=== PATIENT | female | born 1985 | race Caucasian/White ===

== ENCOUNTER 2019-07-23 10:31 | Emergency (ER) | payer OTHER, SELFPAY ==
[2019-07-23] MEDS ORDERED: IPRATROPIUM BROM 0.5MG/2.5ML ONE (10:40)
[2019-07-23] MEDS ORDERED: ALBUTEROL 2.5 MG/3 ML NEB SOL ONE (10:40)
[2019-07-23] MEDS ORDERED: METHYLPREDNISOLONE 125 MG INJ ONE (10:40)
--- NOTE | 2019-07-23 12:01 | ER ---
Nurse's Notes [facility] Name: Juan F Reid Age: 34 yrs Sex: Female : 1985 Arrival Date: 07/23/2019 Time: 10:33 Bed 7 Private MD: Diagnosis: Asthma Presentation: 07/23 10:39 Presenting complaint: Sudden SOB that stated 45 mins COMBATANT DIVER QUALIFIED. Hx of asthma and PNA in February. hb Transition of care: patient was not received from another setting of care. Onset of symptoms was July 23, 2019. Risk Assessment: Do you want to hurt yourself or someone else? Patient reports no desire to harm self or others. 10:39 Method Of Arrival: Ambulatory hb 10:39 Acuity: TRINIDAD 2 hb 11:00 Initial Sepsis Screen: Does the patient meet any 2 criteria? RR > 20 per min. HR > 90 sg bpm. Yes Does the patient have a suspected source of infection? No. Patient's initial sepsis screen is negative. 11:00 Care prior to arrival: None. sg Historical: - Allergies: 10:40 Hydrocodone-Acetaminophen; hb - PMHx: 10:55 Colitis; ilitis; PCOS; proctitis; sg - PSHx: 10:55 ; Appendectomy; sg - Immunization history:: Adult Immunizations up to date. - Social history:: Smoking status: Patient/guardian denies using tobacco. - Ebola Screening: : Patient negative for fever greater than or equal to 101.5 degrees Fahrenheit, and additional compatible Ebola Virus Disease symptoms Patient denies exposure to infectious person Patient denies travel to an Ebola-affected area in the 21 days before illness onset No symptoms or risks identified at this time. Screenin:55 Abuse screen: Denies threats or abuse. Denies injuries from another. Nutritional sg screening: No deficits noted. Nutritional screening: No deficits noted. Tuberculosis screening: No symptoms or risk factors identified. Never had TB. Fall Risk None identified. Assessment: 10:53 General: Appears in no apparent distress. well groomed, well developed, well nourished, sg Behavior is calm, cooperative, appropriate for age. Pain: Denies pain. Neuro: Level of Consciousness is awake, alert, obeys commands, Oriented to person, place, time, Sales Support Consultant are equal bilaterally Moves all extremities. Full function Speech is slurred, Facial symmetry appears normal, Pupils are PERRLA. Cardiovascular: Capillary refill is brisk in bilateral fingers Patient's skin is warm and dry. Chest pain is denied. Respiratory: Airway is patent Respiratory effort is even, unlabored, Respiratory pattern is regular, symmetrical. Respiratory: Reports cough that is non-productive, persistent air hunger Breath sounds are coarse. GI: Abdomen is round non-distended, Reports normal bowel habits, tolerance of fluids, tolerance of food. : No signs and/or symptoms were reported regarding the genitourinary system. EENT: No signs and/or symptoms were reported regarding the EENT system. Derm: Skin is pink, warm \T\ dry. Musculoskeletal: Circulation, motion, and sensation intact. Range of motion: intact in all extremities, Swelling absent. 11:54 Reassessment: Patient appears in no apparent distress at this time. Blaise PEREIRA and Matt MASONP sg at bedside with pt at this time updating pt on results and POC for dispo to home, pt stated understanding. 12:30 Reassessment: Patient appears in no apparent distress at this time. Patient and/or sg family updated on plan of care and expected duration. Pain level reassessed. pt reports feeling better. Vital Signs: 10:39 BP 123 / 92; Pulse 90; Resp 36; Temp 97.2; Pulse Ox 98% on R/A; Weight 122.47 kg; hb Height 5 ft. 6 in. (167.64 cm); Pain 0/10; 11:54 BP 131 / 85; Pulse 79; Resp 17; Pulse Ox 96% on R/A; sg 12:30 BP 123 / 88; Pulse 80; Resp 18 S; Pulse Ox 98% on R/A; Pain 0/10; sg 10:39 Body Mass Index 43.58 (122.47 kg, 167.64 cm) hb ED Course: 10:33 Patient arrived in ED. mr 10:34 Blaise Geronimo PA is PHCP. jr8 10:34 Davion Blair MD is Attending Physician. jr8 10:34 Arm band placed on. sg 10:38 Patient has correct armband on for positive identification. Bed in low position. Call sg light in reach. Side rails up X2. Pulse ox on. NIBP on. Warm blanket given. Head of bed elevated. 10:39 Triage completed. hb 10:52 Initial lab(s) drawn, by me, held in ED. Inserted saline lock: 22 gauge in right sg antecubital area, using aseptic technique. Blood collected. 11:42 Assisted to bathroom. sg 11:43 Tho Santa, RN is Primary Nurse. sg 12:30 No provider procedures requiring assistance completed. IV discontinued, intact, sg bleeding controlled, No redness/swelling at site. Pressure dressing applied. Administered Medications: 10:53 Drug: Albuterol - atroVENT (3:1) (2.5 mg - 0.5 mg) 3 ml Route: Nebulizer; sg 10:53 Drug: SOLU-Medrol 125 mg Route: IVP; Site: right antecubital; sg Outcome: 12:00 Discharge ordered by . jared 12:34 Discharged to home ambulatory, with family. sg 12:34 Condition: good 12:34 Discharge instructions given to patient, Instructed on discharge instructions, follow up and referral plans. medication usage, safety practices, Demonstrated understanding of instructions, follow-up care, medications, Prescriptions given X 1. 12:35 Patient left the ED. sg Signatures: Tho Santa, RN RN Fina Coe mr SewellBlaise esteban PA PA jrRadha Wang RN RN hb
--- NOTE | 2019-07-23 12:01 | EDPHYS ---
Physician Documentation [facility] Name: Juan F Reid Age: 34 yrs Sex: Female : 1985 Arrival Date: 07/23/2019 Time: 10:33 Bed 7 Private MD: ED Physician Davion Blair HPI: 07/23 10:39 This 34 yrs old Female presents to ER via Unassigned with complaints of jr8 Asthma Exacerbation. 10:39 Onset: The symptoms/episode began/occurred 2 hour(s) ago. Associated signs and jr8 symptoms: Pertinent negatives: chest pain, fever, headache, nausea, palpitations. Severity of symptoms: At their worst the symptoms were moderate. The patient has experienced similar episodes in the past. Pt reports recent history of pneumonia, bronchitis, then dx of asthma, is on adviar, spiriva, and has been taking proair inhaler at home. Presents to ED feeling like she was having difficulty breathing. . Historical: - Allergies: 10:40 Hydrocodone-Acetaminophen; hb - PMHx: 10:55 Colitis; ilitis; PCOS; proctitis; sg - PSHx: 10:55 ; Appendectomy; sg - Immunization history:: Adult Immunizations up to date. - Social history:: Smoking status: Patient/guardian denies using tobacco. - Ebola Screening: : Patient negative for fever greater than or equal to 101.5 degrees Fahrenheit, and additional compatible Ebola Virus Disease symptoms Patient denies exposure to infectious person Patient denies travel to an Ebola-affected area in the 21 days before illness onset No symptoms or risks identified at this time. ROS: 10:39 Constitutional: Negative for fever, chills, and weight loss, Eyes: Negative for injury, jr8 pain, redness, and discharge, ENT: Negative for injury, pain, and discharge, Neck: Negative for injury, pain, and swelling, Cardiovascular: Negative for chest pain, palpitations, and edema, Abdomen/GI: Negative for abdominal pain, nausea, vomiting, diarrhea, and constipation, Back: Negative for injury and pain, MS/Extremity: Negative for injury and deformity, Neuro: Negative for headache, weakness, numbness, tingling, and seizure. 10:39 Respiratory: Positive for cough, shortness of breath. Exam: 10:41 Constitutional: This is a well developed, well nourished patient who is awake, alert, jr8 and in no acute distress. Head/Face: Normocephalic, atraumatic. Eyes: Pupils equal round and reactive to light, extra-ocular motions intact. Lids and lashes normal. Conjunctiva and sclera are non-icteric and not injected. Cornea within normal limits. Periorbital areas with no swelling, redness, or edema. ENT: Nares patent. No nasal discharge, no septal abnormalities noted. Tympanic membranes are normal and external auditory canals are clear. Oropharynx with no redness, swelling, or masses, exudates, or evidence of obstruction, uvula midline. Mucous membranes moist. Neck: Trachea midline, no thyromegaly or masses palpated, and no cervical lymphadenopathy. Supple, full range of motion without nuchal rigidity, or vertebral point tenderness. No Meningismus. Chest/axilla: Normal chest wall appearance and motion. Nontender with no deformity. No lesions are appreciated. Cardiovascular: Regular rate and rhythm with a normal S1 and S2. No gallops, murmurs, or rubs. Normal PMI, no JVD. No pulse deficits. Abdomen/GI: Soft, non-tender, with normal bowel sounds. No distension or tympany. No guarding or rebound. No evidence of tenderness throughout. Back: No spinal tenderness. No costovertebral tenderness. Full range of motion. 10:41 Respiratory: mild respiratory distress is noted, Respirations: tachypnea, that is moderate, Breath sounds: + upper airway congestion. wheezing: that is mild. Vital Signs: 10:39 BP 123 / 92; Pulse 90; Resp 36; Temp 97.2; Pulse Ox 98% on R/A; Weight 122.47 kg; hb Height 5 ft. 6 in. (167.64 cm); Pain 0/10; 11:54 BP 131 / 85; Pulse 79; Resp 17; Pulse Ox 96% on R/A; sg 12:30 BP 123 / 88; Pulse 80; Resp 18 S; Pulse Ox 98% on R/A; Pain 0/10; sg 10:39 Body Mass Index 43.58 (122.47 kg, 167.64 cm) hb MDM: 10:34 Patient medically screened. jr8 11:59 Data reviewed: vital signs, nurses notes, and as a result, I will discharge patient. jr8 Data interpreted: Pulse oximetry: on room air is 96 %. Interpretation: normal. Counseling: I had a detailed discussion with the patient and/or guardian regarding: the historical points, exam findings, and any diagnostic results supporting the discharge/admit diagnosis. ED course: Pt significantly improved after nebs and steroids feels breathing is back at baseline. . Administered Medications: 10:53 Drug: Albuterol - atroVENT (3:1) (2.5 mg - 0.5 mg) 3 ml Route: Nebulizer; sg 10:53 Drug: SOLU-Medrol 125 mg Route: IVP; Site: right antecubital; sg Disposition: 12:38 Co-signature as Attending Physician, Davion Blair MD. rn Disposition: 07/23/19 12:00 Discharged to Home. Impression: Asthma. - Condition is Stable. - Discharge Instructions: Asthma, Adult, Asthma Attack Prevention, Adult. - Prescriptions for Prednisone 20 mg Oral Tablet - take 1 tablet by ORAL route once daily for 5 days; 5 tablet. - Work release form, Medication Reconciliation Form, Thank You Letter form. - Follow up: Private Physician; When: As needed; Reason: Recheck today's complaints, Re-evaluation by your physician. - Problem is chronic. - Symptoms have improved. Signatures: Tho Santa RN RN Davion Blair MD MD rn Roszak, Josh, PA PA jr8 Radha Rosenthal RN RN Corrections: (The following items were deleted from the chart) 12:35 12:00 07/23/2019 12:00 Discharged to Home. Impression: Asthma. Condition is Stable. sg Forms are Medication Reconciliation Form, Thank You Letter, Antibiotic Education, Prescription Opioid Use. Follow up: Private Physician; When: As needed; Reason: Recheck today's complaints, Re-evaluation by your physician. Problem is chronic. Symptoms have improved. jr8
[2019-07-23 12:41] VITALS: BP 131/85; TEMP 97.2; O2SAT 96
== END 2019-07-23 12:35 | disposition home or self-care (01) ==
LOC: ER 10:31
DX: J45.909 Unspecified asthma, uncomplicated (principal); Z88.5 Allergy status to narcotic agent
CPT/HCPCS: 94640; 96374; 99284; J2930

== ENCOUNTER 2019-09-07 18:02 | Emergency (ER) | payer OTHER ==
[2019-09-07] MEDS ORDERED: OXYMETAZOLINE HCL 0.05% 15ML NAS ONE (18:20)
--- NOTE | 2019-09-07 19:12 | ER ---
Nurse's Notes [facility] Name: Juan F Reid Age: 34 yrs Sex: Female : 1985 Arrival Date: 09/07/2019 Time: 18:03 Bed 4 Private MD: Diagnosis: Epistaxis Presentation: 09/07 18:06 Presenting complaint: Patient states: She had an asthma attack earlier today and then aj1 her nose started bleeding. Reports that her nose has been bleeding for the past 15 minutes. States that she has the bleeding whenever she coughs. Patient also reports shortness of breath. Transition of care: patient was not received from another setting of care. Onset of symptoms was September 07, 2019. Risk Assessment: Do you want to hurt yourself or someone else? Patient reports no desire to harm self or others. Initial Sepsis Screen: Does the patient meet any 2 criteria? No. Patient's initial sepsis screen is negative. Does the patient have a suspected source of infection? Yes: Productive cough/pneumonia. Care prior to arrival: None. 18:06 Method Of Arrival: Ambulatory aj 18:06 Acuity: TRINIDAD 3 aj1 Triage Assessment: 18:09 General: Appears in no apparent distress. uncomfortable, Behavior is calm, cooperative, aj1 appropriate for age. Pain: Pain currently is 2 out of 10 on a pain scale. Neuro: Level of Consciousness is awake, alert, obeys commands. TEACHER OF THE HEARING IMPAIRED: 18:09 LMP 08/2019 aj1 Historical: - Allergies: 18:09 Hydrocodone-Acetaminophen; aj1 - Home Meds: 18:09 control [Active]; Spiriva with HandiHaler 18 mcg inhalation CpDv 1 cap once daily aj1 [Active]; ProAir HFA inhalation inhalation [Active]; Singulair Oral [Active]; Albuterol Nebulizer [Active]; - PMHx: 18:09 Colitis; ilitis; PCOS; proctitis; Asthma; aj1 - Immunization history:: Flu vaccine status is unknown. - Social history:: Smoking status: Patient/guardian denies using tobacco. - Ebola Screening: : Patient denies travel to an Ebola-affected area in the 21 days before illness onset. Screenin:10 Abuse screen: Denies threats or abuse. Denies injuries from another. Nutritional bp screening: No deficits noted. Tuberculosis screening: No symptoms or risk factors identified. Fall Risk None identified. Assessment: 18:10 General: Appears in no apparent distress. comfortable, Behavior is cooperative, bp appropriate for age, anxious. Pain: Denies pain. Neuro: Level of Consciousness is awake, alert, obeys commands, Oriented to person, place, time, situation, Appropriate for age. Cardiovascular: Rhythm is sinus rhythm. Respiratory: Airway is patent Respiratory effort is even, unlabored, Respiratory pattern is regular, symmetrical. GI: No signs and/or symptoms were reported involving the gastrointestinal system. : No signs and/or symptoms were reported regarding the genitourinary system. EENT: Nares with bleeding noted. Derm: No deficits noted. Musculoskeletal: No deficits noted. 18:53 Reassessment: NO EPISTAXIS AT THIS TIME, PROVIDER NOTIFIED. bp 19:26 Reassessment: Patient appears in no apparent distress at this time. Patient and/or ss family updated on plan of care and expected duration. Pain level reassessed. NO BLEEDING NOTED AT THIS TIME. Patient denies pain at this time. Patient states feeling better. Patient states symptoms have improved. Vital Signs: 18:09 BP 146 / 94; Pulse 90; Resp 20; Temp 97.4; Pulse Ox 98% on R/A; Weight 122.47 kg (R); aj1 Height 5 ft. 6 in. (167.64 cm) (R); Pain 2/10; 18:54 BP 148 / 75; Pulse 76; Resp 16; Pulse Ox 100% ; bp 18:09 Body Mass Index 43.58 (122.47 kg, 167.64 cm) aj1 ED Course: 18:03 Patient arrived in ED. as 18:08 Triage completed. aj1 18:09 Arm band placed on Patient placed in an exam room. aj1 18:10 Patient has correct armband on for positive identification. Bed in low position. Call bp light in reach. Side rails up X2. 18:15 Amparo Mancuso, RN is Primary Nurse. aj1 18:15 Peter Varela, NASREEN is Primary Nurse. bp 18:18 Mary Ann Cuellar NP is PHCP. rh1 18:18 Moises Holloway MD is Attending Physician. rh1 19:11 Marianna Rubio MD is Referral Physician. rh1 19:11 Donald Manuel MD is Referral Physician. [facility] 19:27 No provider procedures requiring assistance completed. Patient did not have IV access ss during this emergency room visit. Administered Medications: No medications were administered Outcome: 19:11 Discharge ordered by . 1 19:27 Discharged to home ambulatory. ss 19:27 Condition: good 19:27 Discharge instructions given to patient, family, Instructed on discharge instructions, follow up and referral plans. medication usage, Demonstrated understanding of instructions, follow-up care, medications. 19:27 Patient left the ED. ss Signatures: Amparo Mancuso, RN RN 1 Franchesca Lang Shelby, RN RN ss Mary Ann Cuellar NP VIDEO SYSTEM REPAIRER 1 Peter Varela RN RN bp Corrections: (The following items were deleted from the chart) 19:02 18:54 Pulse 76bpm; Resp 16bpm; Pulse Ox 100%; bp bp
--- NOTE | 2019-09-07 19:12 | EDPHYS ---
Physician Documentation [facility] Name: Juan F Reid Age: 34 yrs Sex: Female : 1985 Arrival Date: 09/07/2019 Time: 18:03 Bed 4 Private MD: WESTLEY Physician Moises Holloway HPI: 09/07 18:18 This 34 yrs old Female presents to ER via Ambulatory with complaints of Nose rh1 Bleed. 18:18 The patient presents with a nose bleed, occurred spontaneously, coughing that is rh1 continuous moderate amount without clots, causative factors include: cough and the bleeding resolved prior to arrival. Onset: The symptoms/episode began/occurred today, 20 minute(s) ago. Modifying factors: The symptoms are alleviated by nothing. the symptoms are aggravated by coughing. Associated signs and symptoms: Loss of consciousness: the patient experienced no loss of consciousness, Pertinent positives: cough, Pertinent negatives: blurred vision, chest pain, ear ache, fever, lightheadedness, rhinorrhea, shortness of breath, sore throat. Severity of symptoms: At their worst the symptoms were mild in the emergency department the symptoms are unchanged have resolved. The patient has not experienced similar symptoms in the past. The patient has not recently seen a physician. She has hx of asthma, with coughing episodes. Was exposed to significant dust while vacuuming at work today, and triggered asthma/coughing episodes. She used inhaler, and overall breathing has improved, continues with some coughing. She had a small amount of breathing with a coughing episode that lasted for a few minutes, and resolved. Began again after going up stairs, and lasted approx. 20 minutes, from the left nare. No pain in the nose, breathing well through the nose. Bleeding stopped at this time. Mild pressure at posterior head and right temporal area. . 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 - Social history:: Smoking status: Patient/guardian denies using tobacco. - Ebola Screening: : Patient denies travel to an Ebola-affected area in the 21 days before illness onset. ROS: 18:18 Constitutional: Negative for fever rh1 18:18 Eyes: Negative for acute changes. 18:18 ENT: Positive for hoarseness, left epistaxis; reports with episodes of coughing will lose her voice, Negative for sore throat. 18:18 Cardiovascular: Negative for chest pain, edema. 18:18 Respiratory: Positive for cough, Negative for shortness of breath, sputum production, wheezing. 18:18 Abdomen/GI: Negative for abdominal pain, nausea, vomiting, and diarrhea. 18:18 Skin: Negative for diaphoresis, pallor. 18:18 Neuro: Positive for headache, Negative for dizziness, numbness, syncope, near syncope, tingling, weakness. Exam: 18:18 Constitutional: This is a well developed, well nourished patient who is awake, alert, rh1 and in no acute distress. Head/Face: Normocephalic, atraumatic. 18:18 Neck: Trachea midline, and no cervical lymphadenopathy. Supple, full range of motion without nuchal rigidity. No Meningismus. Cardiovascular: Regular rate and rhythm with a normal S1 and S2. No gallops, murmurs, or rubs. No JVD. No pulse deficits. 18:18 Abdomen/GI: Soft, non-tender, with normal bowel sounds. No distension. No guarding or rebound. No evidence of tenderness throughout. Back: No spinal tenderness. No costovertebral tenderness. Full range of motion. Skin: Warm, dry with normal turgor. Normal color with no rashes, no lesions, and no evidence of cellulitis. 18:18 ENT: External ear(s): are unremarkable, Ear canal(s): are normal, clear, TM's: are normal, no evidence of bulging, no dullness, no erythema, no hemotympanum, no rupture, normal bony landmarks, normal mobility, Nose: External nose: no obvious acute abnormality, Nasal septum: deviates to the left, no septal hematoma appreciated, Nasal mucosa: left dry, mildly erythematous, small inferior area appears slightly abraised, no significant superficial vessels, Examination of the other nostril shows no obvious abnormality, Mouth: is normal, no lip abnormalities, no mucosal abnormalities, Posterior pharynx: is normal, airway is patent, no erythema, no exudate, no swelling, normal tonsil apperance, normal sized tonsils, normal uvula appearance, normal uvula size, Voice: is hoarse. 18:18 Respiratory: the patient does not display signs of respiratory distress, Respirations: normal, no use of accessory muscles, no prolonged exhalations, no pursed lip breathing, no tachypnea, Breath sounds: are clear throughout, no bronchial sounds, no wheezing, intermittent moderate coughing episodes throughout exam. 18:18 Neuro: Orientation: is normal, to person, place \T\ time. Mentation: is normal, lucid, able to follow commands, Cranial nerves: CN II- XII are normal as tested, Motor: is normal, moves all fours, strength is normal, strength is 5/5 in all extremities, Sensation: is normal, no obvious gross deficits, numbness, is not appreciated, tingling, is not appreciated, Gait: is steady, at a normal pace, without difficulty. Vital Signs: 18:09 BP 146 / 94; Pulse 90; Resp 20; Temp 97.4; Pulse Ox 98% on R/A; Weight 122.47 kg (R); aj1 Height 5 ft. 6 in. (167.64 cm) (R); Pain 2/10; 18:54 BP 148 / 75; Pulse 76; Resp 16; Pulse Ox 100% ; bp 18:09 Body Mass Index 43.58 (122.47 kg, 167.64 cm) aj MDM: 18:18 Patient medically screened. 1 19:10 Data reviewed: vital signs, nurses notes, and as a result, I will discharge patient. [facility] Data interpreted: Pulse oximetry: on room air is 100 %. Interpretation: normal. Counseling: I had a detailed discussion with the patient and/or guardian regarding: the historical points, exam findings, and any diagnostic results supporting the discharge/admit diagnosis, the need for outpatient follow up, an ENT specialist, a family practitioner, to return to the emergency department if symptoms worsen or persist or if there are any questions or concerns that arise at home. ED course: no continued bleeding, discussed options for treatment for epistaxis at home and return precautions; if voice not improved, or epistaxis episodes persistent, recommend ENT evaluation. Administered Medications: No medications were administered Disposition: 09/07/19 19:11 Discharged to Home. Impression: Epistaxis. - Condition is Stable. - Discharge Instructions: Nosebleed, Adult. - Medication Reconciliation Form, Thank You Letter, Antibiotic Education, Prescription Opioid Use form. - Follow up: Private Physician; When: 1 - 2 days; Reason: Recheck today's complaints, Continuance of care, Re-evaluation by your physician. Follow up: Marianna Rubio; When: 1 week; Reason: Further diagnostic work-up, Recheck today's complaints, Continuance of care. Follow up: Emergency Department; When: As needed; Reason: Fever > 102 F, If symptoms return, Trouble breathing, Worsening of condition. Follow up: Donald Manuel MD; When: 10 - 14 days; Reason: Trouble breathing. - Problem is new. - Symptoms are resolved. - Notes: 1. Nasal saline 4 sprays every 2 hours while awake. 2. Vasoline to inside of nose nightly. 3. Sneeze with your mouth open, avoid heavy lifting, vigourous activity for the next 2 weeks. 4. If bleeding begins again, hold pressure to nose for 10 minutes. If not resolved, use 2 sprays of Afrin into nose and then hold pressure for 10 minutes. If it continues, recommend to return to ER. Addendum: 09/09/2019 07:13 Co-signature as Attending Physician, Moises Holloway MD I agree with the assessment and c mary plan of care. Signatures: Amparo Mancuso RN RN aj1 Moises Holloway MD MD cha Smirch, Shelby, RN RN ss Mary Ann Cuellar, MILLI [employer] rh1 Corrections: (The following items were deleted from the chart) 09/07 19:27 19:11 09/07/2019 19:11 Discharged to Home. Impression: Epistaxis. Condition is Stable. ss Discharge Instructions: Nosebleed, Adult. Forms are Medication Reconciliation Form, Thank You Letter, Antibiotic Education, Prescription Opioid Use. Follow up: Private Physician; When: 1 - 2 days; Reason: Recheck today's complaints, Continuance of care, Re-evaluation by your physician. Follow up: Marianna Rubio; When: 1 week; Reason: Further diagnostic work-up, Recheck today's complaints, Continuance of care. Follow up: Emergency Department; When: As needed; Reason: Fever > 102 F, If symptoms return, Trouble breathing, Worsening of condition. Follow up: Donald Manuel; When: 10 - 14 days; Reason: Trouble breathing. Problem is new. Symptoms are resolved. rh1
[2019-09-07 19:32] VITALS: TEMP 97.4
[2019-09-07 19:33] VITALS: BP 148/75; O2SAT 100
== END 2019-09-07 19:27 | disposition home or self-care (01) ==
LOC: ER 18:02
DX: R04.0 Epistaxis (principal); J45.909 Unspecified asthma, uncomplicated; Z88.6 Allergy status to analgesic agent
CPT/HCPCS: 99284

== ENCOUNTER → 2021-02-06 | Emergency (ER) | payer BC, OTHER ==
[~2021-02-06] MED LIST: ACETAMINOPHEN 500 MG TAB ONE; ACETAMINOPHEN 500 MG TAB PO PRN; CEFEPIME 1 GM/VIAL IV SCH; CEFEPIME/SWI 1gm 10 ML IV SCH; CEFEPIME/SWI 1gm 10 ML ONE; ENOXAPARIN 40 MG/0.4 ML SQ ONE; ENOXAPARIN 40 MG/0.4 ML SQ SCH; FENTANYL CITR 100 MCG/2 ML ONE; FUROSEMIDE 20 MG TABLET ONE; FUROSEMIDE 20 MG TABLET PO SCH; HYDROCORTISONE SUC 100 MG INJ IV SCH; HYDROCORTISONE SUC 100 MG INJ ONE; KETOROLAC 30 MG/ML INJ IV PRN; KETOROLAC 30 MG/ML INJ ONE; MELATONIN 5 MG TABLET PO ONE; MELATONIN 5 MG TABLET PO SCH; MORPHINE 2 MG/ML SYR IV ONE; MORPHINE 2 MG/ML SYR ONE; NA CHLORIDE 0.9% 1,000 ML ONE; NA CHLORIDE 0.9% 250 ML ONE; ONDANSETRON 4 MG/2 ML VIAL IV PRN; TRAMADOL HCL 50 MG TAB ONE; TRAMADOL HCL 50 MG TAB PO PRN; VANCOMYCIN 1 GM/VIAL ONE; VANCOMYCIN 2 GM in NA CHLORIDE 0.9% 500 ML IVPB SCH; VANCOMYCIN/NS 1 gm 1 GM/250 ML BAG IVPB ONE; VANCOMYCIN/NS 1 gm 1 GM/250 ML BAG IVPB SCH; WATER FOR INJ,STERILE 10 ML ONE
--- OUTSIDE RECORDS SUMMARY | 2021-02-06 19:43 | XMS REPORT | Continuity of Care Document ---
:1985 Author Organization [facility] t Address [address] [place] [address] Care Team Providers Name Role Phone Chato MARQUEZ Attending Clinician Lab, Aram Pob I Attending Clinician Unavailable Moreno Lay DO Attending Clinician Alyson Liu Attending Clinician Doctor Unassigned, Name Attending Clinician Unavailable Problems This patient has no known problems. Allergies, Adverse Reactions, Alerts This patient has no known allergies or adverse reactions. Medications This patient has no known medications. Procedures This patient has no known procedures. Encounters Start End Encounter Admission Attending Care Care Encounter Source Date/Time Date/Time Type Type Clinicians Facility Department ID 2021-01-24 2021-01-24 Telephone BENITO Reis [id number] 00:00:00 00:00:00 Isabela Patterson [id number] [place] [id number] Professio [phone] [facility] Building 2021-01-13 2021-01-13 Laboratory Lab, [facility] BENITO [id number] 14:23:32 14:43:32 Only Fam Pob I [facility] [id number] [place] [id number] Professio [phone] [address] [address] 2021-01-11 2021-01-11 Patient BENITO Lay [id number] 00:00:00 00:00:00 Outreach Jared HIKCMAN [id number] [facility] [id number] SARIKA [phone] [facility] 2020-11-11 2020-11-11 Telephone [facility] [id number] 00:00:00 00:00:00 Anne Marie Shields [place] [id number] [place] [id number] Professio [phone] [facility] 2020-10-25 2020-10-25 Office Chato [facility] [id number] 08:32:15 09:31:22 Visit Isabelalucy Patterson [id number] [place] [id number] Professio [phone] [facility] 2019-10-25 2019-10-25 Orders Doctor CELINA [id number] 00:00:00 00:00:00 Only Unassigned, TEO [id number] [place] [facility] [id number] [phone] [id number] Results This patient has no known results.
--- NOTE | 2021-02-06 21:07 | RAD REPORT ---
EXAM DESCRIPTION: Liborio Single View02/06/2021 8:51 pm CLINICAL HISTORY: Fever COMPARISON: none FINDINGS: The lungs appear clear of acute infiltrate. The heart is probably upper limits normal siz e IMPRESSION: No acute abnormalities displayed
[2021-02-06 21:11] LABS: Absolute Lymphocytes (CBC) 2.2 K/uL (0.7-4.9); Basophils % 0.8 % (0-1.3); Hematocrit 39.3 % (36.0-45.0); Lymphocytes % 19.6 % (15.3-44.8); MPV 8.2 fL (7.6-11.3); RBC Red Blood Cell Count 4.54 M/uL (3.86-4.86)
[2021-02-06 21:15] LABS: Urine Blood NEGATIVE (Negative); Urine Glucose NEGATIVE (Negative); Urine Protein NEGATIVE (Negative); Urine Specific Gravity 1.015 (1.005-1.030); Urine Specific Gravity/Preg 1.015 (1.005-1.030)
[2021-02-06 21:18] LABS: Protime INR 0.91
[2021-02-06 21:30] LABS: ALT/SGPT 18 U/L (12-78); AST/SGOT 7 U/L (15-37); Albumin 3.2 g/dL (3.4-5.0); Alkaline Phosphatase 102 U/L (45-117); Amylase 58 U/L (25-115); BUN Blood Urea Nitrogen 6 mg/dL (7-18); Bicarbonate 26 mmol/L (21-32); Bilirubin Direct < 0.1 mg/dL (0-0.2); Bilirubin Total 0.2 mg/dL (0.2-1.0); CKMB Creatine Kinase MB < 1.0 ng/mL (0.3-3.6); Creatine Phosphokinase 47 U/L (26-192); Glucose Level 100 mg/dL (74-106); Lipase 126 U/L (73-393); Potassium 3.4 mmol/L (3.5-5.1); Protein, Total 7.7 g/dL (6.4-8.2); Sodium Level 139 mmol/L (136-145); Troponin (Emerg Dept Use Only) < 0.02 ng/mL (0.0-0.045)
[2021-02-06 21:31] LABS: Urine Bacteria <20 /HPF (<20); Urine RBC <5 /HPF (NONE SEEN)
--- NOTE | 2021-02-06 22:16 | EDPHYS ---
Physician Documentation [facility] Name: Juan F Reid Age: 35 yrs Sex: Female : 1985 Arrival Date: 02/06/2021 Time: 19:45 Bed 15 Private MD: ED Physician HPI: 02/06 20:40 This 35 yrs old Female presents to ER via Wheelchair with complaints of Fever.mh7 20:41 The patient presents with pain, that is acute, swelling, tenderness, Redness. The mh7 complaints affect the right leg and left leg. 20:42 Context: The problem was sustained at an unknown site, resulted from an unknown cause, mh7 the patient can fully bear weight, the patient is able to ambulate, with mild difficulty, Problem is a result from a previous injury: No. Onset: The symptoms/episode began/occurred 2 week(s) ago. Modifying factors: The symptoms are alleviated by nothing. the symptoms are aggravated by movement, weight bearing, touching. Associated signs and symptoms: Pertinent positives: fever, swelling, warmth, Redness, Pertinent negatives calf tenderness, nausea, numbness, rash, tingling, vomiting, weakness. Treatment prior to arrival includes: prescription medications, oral steroid, Keflex, Bactrim, Gabapentin, Lasix. Severity of symptoms: At their worst the symptoms were moderate, earlier today, in the emergency department the symptoms are unchanged. The patient has been recently seen by a physician: the patient's primary care provider. 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 - Social history:: Smoking status: Patient denies any tobacco usage or history of. ROS: 20:46 Eyes: Negative for injury, pain, redness, and discharge, ENT: Negative for injury, mh7 pain, and discharge, Neck: Negative for injury, pain, and swelling, Cardiovascular: Negative for chest pain, palpitations, and edema, Respiratory: Negative for shortness of breath, cough, wheezing, and pleuritic chest pain, Abdomen/GI: Negative for abdominal pain, nausea, vomiting, diarrhea, and constipation, Back: Negative for injury and pain, : Negative for injury, bleeding, discharge, and swelling, Neuro: Negative for headache, weakness, numbness, tingling, and seizure, Psych: Negative for depression, anxiety, suicide ideation, homicidal ideation, and hallucinations, Allergy/Immunology: Negative for hives, rash, and allergies, Endocrine: Negative for neck swelling, polydipsia, polyuria, polyphagia, and marked weight changes, Hematologic/Lymphatic: Negative for swollen nodes, abnormal bleeding, and unusual bruising. Exam: 21:04 Head/Face: Normocephalic, atraumatic. Eyes: Pupils equal round and reactive to light, mh7 extra-ocular motions intact. Lids and lashes normal. Conjunctiva and sclera are non-icteric and not injected. Cornea within normal limits. Periorbital areas with no swelling, redness, or edema. Neck: Trachea midline, no thyromegaly or masses palpated, and no cervical lymphadenopathy. Supple, full range of motion without nuchal rigidity, or vertebral point tenderness. No Meningismus. Chest/axilla: Normal chest wall appearance and motion. Nontender with no deformity. No lesions are appreciated. Cardiovascular: Regular rate and rhythm with a normal S1 and S2. No gallops, murmurs, or rubs. Normal PMI, no JVD. No pulse deficits. Respiratory: Lungs have equal breath sounds bilaterally, clear to auscultation and percussion. No rales, rhonchi or wheezes noted. No increased work of breathing, no retractions or nasal flaring. Abdomen/GI: Soft, non-tender, with normal bowel sounds. No distension or tympany. No guarding or rebound. No evidence of tenderness throughout. Back: No spinal tenderness. No costovertebral tenderness. Full range of motion. 21:04 Neuro: Awake and alert, GCS 15, oriented to person, place, time, and situation. Cranial nerves II-XII grossly intact. Motor strength 5/5 in all extremities. Sensory grossly intact. Cerebellar exam normal. Normal gait. Psych: Awake, alert, with orientation to person, place and time. Behavior, mood, and affect are within normal limits. 21:04 Constitutional: The patient appears in no acute distress, alert, awake, uncomfortable. 21:04 Musculoskeletal/extremity: Extremities: noted in the right leg and left leg: erythema, pain, swelling, tenderness, ROM: intact in all extremities, Circulation is intact in all extremities. Pulses: are normal with no appreciated deficits, Perfusion: the patient is normally perfused throughout, Perfusion: the extremity is normally perfused throughout, Calf tenderness, that is mild, bilaterally, Edema, is not appreciated, Sensation intact. Compartment Syndrome exam of affected extremity: is normal. no numbness, no tingling, no sensation deficit, no palor, no weak pulses, Joints: the left ankle and right ankle displays painful range of motion, swelling, tenderness, DVT Exam: pain, that is moderate, of the right leg, of the left leg, swelling, that is mild, of the right leg, of the left leg, tenderness, that is moderate, of the right leg, of the left leg, erythema, that is moderate, of the right leg, of the left leg, increased warmth, that is moderate, of the right leg, of the left leg, Calves: have equal circumference, are tender, bilaterally. 21:04 Skin: cellulitis, that is moderate, irregular, well demarcated, on the left leg and right leg. Vital Signs: 19:59 BP 144 / 99; Pulse 97; Resp 18 S; Temp 100.9(TE); Pulse Ox 98% on R/A; Weight 127.01 kg ca1 (R); Height 5 ft. 6 in. (167.64 cm) (R); Pain 8/10; 22:15 BP 122 / 87; Pulse 89; Resp 16; Pulse Ox 98% on R/A; zb 22:17 Temp 99.2(O); dh4 22:47 BP 130 / 85; Pulse 98; Resp 16; Pulse Ox 97% on R/A; zb 19:59 Body Mass Index 45.19 (127.01 kg, 167.64 cm) ca1 MDM: 22:13 Differential diagnosis: cellulitis, DVT, thrombophlebitis. Data reviewed: vital signs, [facility] nurses notes, lab test result(s), CBC, electrolytes, radiologic studies, ultrasound. Data interpreted: Pulse oximetry: on room air is 98 %. Interpretation: normal. Counseling: I had a detailed discussion with the patient and/or guardian regarding: lab results, radiology results, the need for further work-up and treatment in the hospital. Response to treatment: the patient's symptoms have mildly improved after treatment. 22:16 Patient medically screened. [facility] 02/06 20:20 Order name: Amylase, Serum [facility] 02/06 20:20 Order name: Basic Metabolic Panel [facility] 02/06 20:20 Order name: Blood Culture Adult (2) [facility] 02/06 20:20 Order name: CBC with Diff [facility] 02/06 20:20 Order name: Ckmb [facility] 02/06 20:20 Order name: CPK [facility] 02/06 20:20 Order name: Lactate; Complete Time: 21:25 [facility] 02/06 20:20 Order name: LFT's; Complete Time: 22:06 [facility] 02/06 20:20 Order name: Lipase; Complete Time: 22:06 [facility] 02/06 20:20 Order name: Procalcitonin; Complete Time: 22:06 [facility] 02/06 20:20 Order name: Protime (+inr); Complete Time: 21:25 [facility] 02/06 20:20 Order name: Ptt, Activated; Complete Time: 21:25 [facility] 02/06 20:20 Order name: Troponin (emerg Dept Use Only); Complete Time: 22:06 [facility] 02/06 20:20 Order name: Urine Microscopic Only; Complete Time: 22:06 [facility] 02/06 20:20 Order name: Chest Single View XRAY; Complete Time: 21:25 [facility] 02/06 20:21 Order name: Amylase; Complete Time: 22:06 [facility] 02/06 20:21 Order name: Basic Metabolic Panel; Complete Time: 22:06 [facility] 02/06 20:21 Order name: Blood Culture [facility] 02/06 20:21 Order name: CBC with Automated Diff; Complete Time: 21:25 [facility] 02/06 20:21 Order name: CKMB Creatine Kinase MB; Complete Time: 22:06 [facility] 02/06 20:21 Order name: Creatine Phosphokinase; Complete Time: 22:06 [facility] 02/06 21:10 Order name: Urine Dipstick--Ancillary (enter results); Complete Time: 21:25 [facility] 02/06 21:10 Order name: Urine --Ancillary (enter results); Complete Time: 21:25 [facility] 02/06 23:19 Order name: COVID-19 : Document "Date of Symptom Onset" if Symptomatic. 2 02/07 00:21 Order name: SARS-COV-2 RT PCR [facility] 02/07 03:07 Order name: Procalcitonin [facility] 02/07 09:02 Order name: CBC with Automated Diff [facility] 02/07 09:27 Order name: Comprehensive Metabolic Panel [facility] 02/07 09:27 Order name: T4 Free [facility] 02/07 09:27 Order name: Thyroid Stimulating Hormone [facility] 02/06 20:20 Order name: Accucheck; Complete Time: 21:13 [facility] 02/06 20:20 Order name: Cardiac monitoring; Complete Time: 21:13 [facility] 02/06 20:20 Order name: EKG - Nurse/Tech; Complete Time: 21:13 [facility] 02/06 20:20 Order name: IV Saline Lock - Large Bore; Complete Time: 20:33 [facility] 02/06 20:20 Order name: Labs collected and sent; Complete Time: 20:33 [facility] 02/06 20:20 Order name: O2 Per Protocol; Complete Time: 20:34 [facility] 02/06 20:20 Order name: O2 Sat Monitoring; Complete Time: 21:13 [facility] 02/06 20:20 Order name: Urine Dipstick-Ancillary (obtain specimen); Complete Time: 21:13 [facility] 02/06 20:21 Order name: Urine Test (obtain specimen); Complete Time: 21:13 [facility] 02/06 20:23 Order name: US Extremity Venous W Compression Chad [facility] 02/07 06:16 Order name: Labs - recollect needed; Complete Time: 09:55 [facility] Administered Medications: 20:45 Drug: Tylenol 1000 mg Route: PO; zb 21:30 Drug: fentaNYL (PF) 25 mcg {Note: rass 0.} Route: IVP; Site: right antecubital; zb 22:33 Follow up: Response: No adverse reaction; Marked relief of symptoms; Pain is decreased; zb RASS: Alert and Calm (0) 22:05 Drug: NS 0.9% (30 ml/kg) 30 ml/kg Route: IV; Rate: bolus; Site: right antecubital; zb 22:15 Drug: vancoMYCIN 1 grams Route: IVPB; Infused Over: 2 hrs; Site: right antecubital; zb 02/07 00:15 Follow up: IV Status: Completed infusion; IV Intake: 250ml bb 00:54 Drug: Cefepime 1 grams Route: IVPB; Rate: 200 ml/hr; Infused Over: 30 mins; Site: right ea antecubital; 01:14 Follow up: IV Status: Completed infusion; IV Intake: 10ml bb Disposition: 02/06/21 22:16 Hospitalization ordered by Burak Rodriguez for Inpatient Admission. Preliminary diagnosis is Cellulitis, Bilateral Lower Extremity, Failed Outpatient Treatment. - Bed requested for Telemetry/MedSurg (Inpatient). - Status is Inpatient Admission. vg1 - Condition is Stable. - Problem is an ongoing problem. - Symptoms have improved. Signatures: Dispatcher [employer] EDMS Franchesca Mendoza Shelby, RN RN ss Sunita Blackburn RN RN Augusto Nelson mw2 Wilmar Pike RN RN rr5 Milena Baires RN Clotilde Hart RN RN vg1 Raymundo Gill MD MD mh7 Brown, Zipporah, RN RN zb Ballard, Brenda RN bb Corrections: (The following items were deleted from the chart) 01:51 02/06 22:16 Hospitalization Ordered by Burak Rodriguez MD for Inpatient Admission. rr5 Preliminary diagnosis is Cellulitis, Bilateral Lower Extremity, Failed Outpatient Treatment. Bed requested for Telemetry/MedSurg (Inpatient). Status is Inpatient Admission. Condition is Stable. Problem is an ongoing problem. Symptoms have improved. [facility] 02/07 15:01 01:51 02/06/2021 22:16 Hospitalization Ordered by Burak Rodriguez MD for Inpatient bd Admission. Preliminary diagnosis is Cellulitis, Bilateral Lower Extremity, Failed Outpatient Treatment. Bed requested for [facility] ER HOLD. Status is Inpatient Admission. Condition is Stable. Problem is an ongoing problem. Symptoms have improved. rr5 15:50 15:01 02/06/2021 22:16 Hospitalization Ordered by Burak Rodriguez MD for Inpatient ss Admission. Preliminary diagnosis is Cellulitis, Bilateral Lower Extremity, Failed Outpatient Treatment. Bed requested for Telemetry/MedSurg (Inpatient). Status is Inpatient Admission. Condition is Stable. Problem is an ongoing problem. Symptoms have improved. bd 16:27 15:50 02/06/2021 22:16 Hospitalization Ordered by Burak Rodriguez MD for Inpatient bd Admission. Preliminary diagnosis is Cellulitis, Bilateral Lower Extremity, Failed Outpatient Treatment. Bed requested for Telemetry/MedSurg (Inpatient). Status is Inpatient Admission. Condition is Stable. Problem is an ongoing problem. Symptoms have improved. ss 16:40 16:27 02/06/2021 22:16 Hospitalization Ordered by Burak Rodriguez MD for Inpatient vg1 Admission. Preliminary diagnosis is Cellulitis, Bilateral Lower Extremity, Failed Outpatient Treatment. Bed requested for Telemetry/MedSurg (Inpatient). Status is Inpatient Admission. Condition is Stable. Problem is an ongoing problem. Symptoms have improved. bd
--- NOTE | 2021-02-06 22:16 | ER ---
Nurse's Notes [facility] Name: Juan F Reid Age: 35 yrs Sex: Female : 1985 Arrival Date: 02/06/2021 Time: 19:45 Bed 15 Private MD: Diagnosis: Cellulitis, Bilateral Lower Extremity, Failed Outpatient Treatment Presentation: 02/06 19:59 Chief complaint: Patient states: I was diagnosed with cellulitis and Edema on chad legs ca1 before . I was taking steroids, when I finished it, I was swelling again. Been taking antibiotics but are not helping. Now am having pain from my lower legs to my thigh. Coronavirus screen: Client denies travel out of the [place] in the last 14 days. fever, Client presents with at least one sign or symptom that may indicate coronavirus-19. Standard/surgical mask placed on the client. Provider contacted for isolation considerations. Ebola Screen: Patient negative for fever greater than or equal to 101.5 degrees Fahrenheit, and additional compatible Ebola Virus Disease symptoms Patient denies exposure to infectious person. Patient denies travel to an Ebola-affected area in the 21 days before illness onset. No symptoms or risks identified at this time. Initial Sepsis Screen: Does the patient meet any 2 criteria? Temp <36.0*C (96.8*F)) or > 38.3*C (100.9*F). HR > 90 bpm. Yes Does the patient have a suspected source of infection? Yes: Skin breakdown/wound If YES to both, name of provider notified: Raymundo Gill MD. Risk Assessment: Do you want to hurt yourself or someone else? Patient reports no desire to harm self or others. Onset of symptoms was February 06, 2021. 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 - Social history:: Smoking status: Patient denies any tobacco usage or history of. Screenin:34 Abuse screen: Denies threats or abuse. Denies injuries from another. Nutritional zb screening: No deficits noted. Tuberculosis screening: No symptoms or risk factors identified. Fall Risk None identified. Assessment: 20:00 General: Appears in no apparent distress. uncomfortable, Behavior is cooperative, zb anxious, Reports fever for. Pain: Complains of pain in right leg and left leg Pain radiates to right leg and left leg Pain currently is 9 out of 10 on a pain scale. Quality of pain is described as aching, sharp, shooting, throbbing, stinging, Alleviated by rest, Aggravated by increased activity, repositioning, weight bearing, Noted to be moaning. Neuro: Level of Consciousness is awake, alert, obeys commands, Oriented to person, place, time, situation. Cardiovascular: Heart tones S1 S2 Murmur present Patient's skin is warm and dry. Rhythm is regular. Respiratory: Airway is patent Respiratory effort is even, unlabored, Respiratory pattern is regular, symmetrical. GI: Abdomen is non-distended, Bowel sounds present X 4 quads. Derm: Skin is intact, is healthy with good turgor, Skin is dry, Skin is normal, bilateral redness and swelling in noted in legs. especially around the ankle area. Musculoskeletal: Range of motion: intact in all extremities, Swelling present in right ankle and left ankle and left leg and right leg. 21:30 Reassessment: Patient appears in no apparent distress at this time. Patient and/or zb family updated on plan of care and expected duration. Pain level reassessed. Patient is alert, oriented x 3, equal unlabored respirations, skin warm/dry/pink. pain medication working. pain decreased. patient able to ambulate to restroom in issues at this time. 22:48 Reassessment: Patient appears in no apparent distress at this time. Patient and/or zb family updated on plan of care and expected duration. Pain level reassessed. Patient is alert, oriented x 3, equal unlabored respirations, skin warm/dry/pink. IV medication infusing at this time. family at bedside. no issues at this time. 02/07 15:23 Reassessment: Attempted to call report. vg1 Vital Signs: 02/06 19:59 BP 144 / 99; Pulse 97; Resp 18 S; Temp 100.9(TE); Pulse Ox 98% on R/A; Weight 127.01 kg ca1 (R); Height 5 ft. 6 in. (167.64 cm) (R); Pain 8/10; 22:15 BP 122 / 87; Pulse 89; Resp 16; Pulse Ox 98% on R/A; zb 22:17 Temp 99.2(O); dh4 22:47 BP 130 / 85; Pulse 98; Resp 16; Pulse Ox 97% on R/A; zb 19:59 Body Mass Index 45.19 (127.01 kg, 167.64 cm) ca1 ED Course: 19:45 Patient arrived in ED. bp1 20:01 Triage completed. ca1 20:02 Arm band placed on right wrist. ca1 20:05 Yasmin Arriaga RN is Primary Nurse. zb 20:07 aRymundo Gill MD is Attending Physician. mh7 20:30 Inserted saline lock: 20 gauge in right antecubital area, using aseptic technique. zb Blood collected. 20:34 Patient has correct armband on for positive identification. Placed in gown. Bed in low zb position. Call light in reach. Side rails up X 1. blow down helper on. Pulse ox on. NIBP on. Door closed. Noise minimized. 20:34 Chest Single View XRAY Sent. zb 20:51 Chest Single View XRAY In Process Unspecified. EDMS 21:14 Urine collected: clean catch specimen, clear, EKG done, by ED staff, reviewed by jame Gill MD. 21:28 US Extremity Venous W Compression Chad In Process Unspecified. EDMS 22:08 Ultrasound completed. Patient tolerated well. Notified ED Physician . sg3 22:14 Burak Rodriguez MD is Hospitalizing Provider. mh7 02/07 01:13 No provider procedures requiring assistance completed. Patient admitted, IV remains in bb place. 07:43 Colette Liao RN is Primary Nurse. ll1 09:57 Primary Nurse role handed off by Colette Liao RN vg1 09:57 Clotilde Qureshi, NASREEN is Primary Nurse. vg1 15:51 Attending Physician role handed off by Raymundo Gill MD ss 16:17 Miguel Angel Cummins MD is Attending Physician. tw4 Administered Medications: 04/18 20:45 Drug: Tylenol 1000 mg Route: PO; zb 21:30 Drug: fentaNYL (PF) 25 mcg {Note: rass 0.} Route: IVP; Site: right antecubital; zb 22:33 Follow up: Response: No adverse reaction; Marked relief of symptoms; Pain is decreased; zb RASS: Alert and Calm (0) 22:05 Drug: NS 0.9% (30 ml/kg) 30 ml/kg Route: IV; Rate: bolus; Site: right antecubital; zb 22:15 Drug: vancoMYCIN 1 grams Route: IVPB; Infused Over: 2 hrs; Site: right antecubital; zb 02/07 00:15 Follow up: IV Status: Completed infusion; IV Intake: 250ml bb 00:54 Drug: Cefepime 1 grams Route: IVPB; Rate: 200 ml/hr; Infused Over: 30 mins; Site: right ea antecubital; 01:14 Follow up: IV Status: Completed infusion; IV Intake: 10ml bb Intake: 00:15 IV: 250ml; Total: 250ml. bb 01:14 IV: 10ml; Total: 260ml. bb Outcome: 02/06 22:16 Decision to Hospitalize by Provider. mh7 02/07 01:13 Admitted to ER Hold. Please see [facility] for further documentation. bb Condition: stable Instructed on the need for admit. 15:50 Patient left the ED. ss 16:40 Patient left the ED. vg1 Signatures: Dispatcher [employer] EDMS Tsering Palacios RN RN bb Keisha Hernandes RN RN Sunita Blackburn RN Komal Main ea 3 Miguel Angel Cummins MD MD tw4 Milena Baires RN RN ca1 Stevo Mei 4 Clotilde Qureshi RN RN vg1 Colette Liao RN RN 1 Katy Castro Maurice, MD MD 7 Yasmin Arriaga RN RN zb Corrections: (The following items were deleted from the chart) 02/06 20:08 19:59 Initial Sepsis Screen: Does the patient meet any 2 criteria? No. Patient's ca1 initial sepsis screen is negative. Does the patient have a suspected source of infection? No. Patient's initial sepsis screen is negative. ca1 20:08 19:59 Acuity: TRINIDAD 3 ca1 ca1
--- NOTE | 2021-02-06 23:57 | P.HP ---
Certification for Inpatient Patient admitted to: Inpatient With expected LOS: >2 Midnights Patient will require the following post-hospital care: None Practitioner: I am a practitioner with admitting privileges, knowledge of patient current condition, hospital course, and medical plan of care. Services: Services provided to patient in accordance with Admission requirements found in Title 42 Section 412.3 of the Code of Federal Regulations Patient History Date of Service: 02/06/21 Reason for admission: Cellulitis History of Present Illness: 35-year-old female with history of asthma, ACLS, DVT presents emergency department for cellulitis of the lower extremities bilaterally. Patient reports that she has had redness and swelling of bilateral lower extremities for the last 2 weeks, patient has been on Lasix, steroids which temporarily did help but they came back pain got worse, patient is been on Keflex and Bactrim for the last few days which is not resolved the cellulitis. Today patient noted fever up to 100.9, for this reason she presented to the emergency department for evaluation. Patient's evaluation the emergency department reveals white blood cell count 11.2 potassium 3.4 GFR 76, DVT study negative bilaterally. ED provider wishes to admit for lower extremity cellulitis-failed outpatient therapy, fever. Allergies hydrocodone Allergy (Verified 12/27/14 03:16) Rash Hydrocodone-Acetaminophen Allergy (Uncoded 01/19/15 15:45) Unknown Home Medications: Cetirizine HCl [Zyrtec] 1 tab PO DAILY 12/21/14 Spironolactone [Aldactone*] 25 mg PO DAILY 12/21/14 Naproxen [Naprosyn] 500 mg PO BID #30 tablet 12/28/14 - Past Medical/Surgical History Diabetic: No -: PCOS -: Asthma -: -: appendectomy Psychosocial/ Personal History: Patient is employed, lives with her daughter - Social History Smoking Status: Never smoker Alcohol use: Yes CD- Drugs: No Caffeine use: Yes Place of Residence: Home Review of Systems 10-point ROS is otherwise unremarkable General: Fever, Malaise Musculoskeletal: Leg Pain (Bilaterally), As per HPI Integumentary: Rash (Redness noted to bilateral lower extremities) Physical Examination - Physical Exam General: Alert, In no apparent distress HEENT: Atraumatic, PERRLA, Mucous membr. moist/pink, EOMI, Sclerae nonicteric Neck: Supple, 2+ carotid pulse no bruit, No LAD, Without JVD or thyroid abnormality Respiratory: Clear to auscultation bilaterally, Normal air movement Cardiovascular: Regular rate/rhythm, Normal S1 S2 Gastrointestinal: Normal bowel sounds, No tenderness Musculoskeletal: No tenderness Integumentary: Rash(es) (Erythema, warmth, pain noted to medial aspects of b ilateral lower extremities) Neurological: Normal speech, Normal strength at 5/5 x4 extr, Normal tone - Studies Laboratory Data (last 24 hrs) 02/06/21 20:30: PT 10.5, INR 0.91, APTT 24.2 L 02/06/21 20:30: WBC 11.20 H, Hgb 13.3, Hct 39.3, Plt Count 343 02/06/21 20:30: Sodium 139, Potassium 3.4 L, BUN 6 L, Creatinine 0.86, Glucose 100, Total Bilirubin 0.2, AST 7 L, ALT 18, Alkaline Phosphatase 102, Amylase 58, Lipase 126 Assessment and Plan - Plan Assessment Fever, cellulitis of bilateral lower extremities-failed outpatient therapy Asthma Obesity Plan Fever, cellulitis of bilateral lower extremities-failed outpatient therapy: Continue with IV vancomycin, Rocephin at this time. Continue daily Lasix the patient has been taking for swelling of the lower extremities. DVT studies negative bilaterally. Anticipate clinical improvement next 24-48 hr very monitor for fever, blood cultures obtained in the emergency department. DVT prophylaxis Lovenox 40 mg subcutaneous once daily. Asthma: Continue home meds Obesity: Address lifestyle changes Discharge Plan: Home Plan to discharge in: 48 Hours - Advance Directives Does patient have a Living Will: No Does patient have a Durable POA for Healthcare: No - Code Status/Comfort Care Code Status Assessed: Yes (Full code) Critical Care: No Time Spent Managing Pts Care (In Minutes): 55
[2021-02-07 00:21] VITALS: BMI 45.1
--- NOTE | 2021-02-07 07:02 | RAD REPORT ---
EXAM DESCRIPTION: US - Extrem Venous W Compress Chad - 02/06/2021 10:02 pm CLINICAL HISTORY: Pain;Swelling, both legs COMPARISON: None. TECHNIQUE: Real-time sonographic evaluation of the bilateral lower extremity common femoral, superfi cial femoral, popliteal and posterior tibial veins was performed. FINDINGS: Normal compressibility, flow augmentation, phasic flow and spontaneous flow are identified in the left and right lower extremity common femoral, superficial femoral, popliteal and posterior t ibial veins. No intraluminal filling defects seen. IMPRESSION: No DVT in either lower extremity.
[2021-02-07 08:56] LABS: Absolute Lymphocytes (CBC) 1.7 K/uL (0.7-4.9); Basophils % 0.7 % (0-1.3); Hematocrit 35.7 % (36.0-45.0); Lymphocytes % 22.2 % (15.3-44.8); MPV 7.9 fL (7.6-11.3); RBC Red Blood Cell Count 4.13 M/uL (3.86-4.86)
[2021-02-07 09:15] LABS: ALT/SGPT 16 U/L (12-78); AST/SGOT 7 U/L (15-37); Albumin 2.8 g/dL (3.4-5.0); Alkaline Phosphatase 82 U/L (45-117); BUN Blood Urea Nitrogen 6 mg/dL (7-18); Bicarbonate 25 mmol/L (21-32); Bilirubin Total 0.4 mg/dL (0.2-1.0); Glucose Level 88 mg/dL (74-106); Potassium 3.5 mmol/L (3.5-5.1); Protein, Total 6.6 g/dL (6.4-8.2); Sodium Level 138 mmol/L (136-145)
[2021-02-07 12:11] VITALS: BP 114/75; TEMP 98.6
[2021-02-07 17:26] VITALS: O2SAT 97
--- NOTE | 2021-02-08 07:36 | P.SSS ---
Patient History Date of Service: 02/08/21 Reason for admission: Cellulitis History of Present Illness: 35-year-old female with history of asthma, ACLS, DVT presents emergency department for cellulitis of the lower extremities bilaterally. Patient reports that she has had redness and swelling of bilateral lower extremities for the last 2 weeks, patient has been on Lasix, steroids which temporarily did help but they came back pain got worse, patient is been on Keflex and Bactrim for the last few days which is not resolved the cellulitis. Today patient noted fever up to 100.9, for this reason she presented to the emergency department for evaluation. Patient's evaluation the emergency department reveals white blood cell count 11.2 potassium 3.4 GFR 76, DVT study negative bilaterally. ED provider wishes to admit for lower extremity cellulitis-failed outpatient therapy, fever. Allergies hydrocodone Allergy (Verified 12/27/14 03:16) Rash Hydrocodone-Acetaminophen Allergy (Uncoded 01/19/15 15:45) Unknown Home Medications: Furosemide [Lasix*] 20 mg PO DAILY #30 tab 02/07/21 Gabapentin 300 mg PO TID 02/07/21 Melatonin 5 mg PO BEDTIME #30 tablet 02/07/21 Norgestimate-Ethinyl Estradiol [Ortho Tri-Cyclen 28 Tablet] 1 each PO DAILY 02/07/21 Pantoprazole [Protonix Tab*] 40 mg PO DAILY 02/07/21 Potassium Chloride [K-Dur] 10 meq PO DAILY #30 tab.er.prt 02/07/21 Smz./Tmp. [Bactrim Ds 800 MG/160 MG*] 1 tab PO Q12HR 02/07/21 predniSONE [Prednisone*] 20 mg PO BID #11 tab 02/07/21 - Past Medical/Surgical History Has patient received pneumonia vaccine in the past: No Diabetic: No -: PCOS -: Asthma -: -: appendectomy Psychosocial/ Personal History: Patient is employed, lives with her daughter - Family History Father -: Other (see notes) (No significant family history) - Social History Smoking Status: Never smoker Alcohol use: Yes CD- Drugs: No Caffeine use: Yes Place of Residence: Home Review of Systems 10-point ROS is otherwise unremarkable Physical Examination - Vital Signs Temperature: 98.6 F Blood Pressure: 114/75 Pulse: 74 Respirations: 14 Pulse Ox (%): 98 - Physical Exam General: Alert, In no apparent distress, Oriented x3 HEENT: Atraumatic, PERRLA, Mucous membr. moist/pink, EOMI, Sclerae nonicteric Neck: Supple, 2+ carotid pulse no bruit, No LAD, Without JVD or thyroid abnormality Respiratory: Clear to auscultation bilaterally, Normal air movement Cardiovascular: Regular rate/rhythm, Normal S1 S2 Gastrointestinal: Normal bowel sounds, No tenderness Musculoskeletal: Swelling, Tenderness (Minimal) Integumentary: No rashes, Tenderness/swelling, Erythema Neurological: Normal gait, Normal speech, Normal strength at 5/5 x4 extr, Normal tone, Normal affect Lymphatics: No axilla or inguinal lymphadenopathy - Studies Laboratory Data (last 24 hrs) 02/08/21 05:00: Sodium Cancelled, Potassium Cancelled, BUN Cancelled, Creatinine Cancelled, Glucose Cancelled, Total Bilirubin Cancelled, AST Cancelled, ALT Cancelled, Alkaline Phosphatase Cancelled 02/08/21 05:00: WBC Cancelled, Hgb Cancelled, Hct Cancelled, Plt Count Cancelled 02/07/21 08:23: Sodium 138, Potassium 3.5, BUN 6 L, Creatinine 0.74, Glucose 88, Total Bilirubin 0.4, AST 7 L, ALT 16, Alkaline Phosphatase 82 02/07/21 08:23: WBC 7.80 D, Hgb 12.0, Hct 35.7 L, Plt Count 296 - Diagnosis (Problem(s)) (1) Lower extremity edema Current Visit: Yes Status: Acute (2) Lower extremity pain Current Visit: Yes Status: Acute (3) History of thrombophlebitis Current Visit: Yes Status: Acute Treatment Summary: Patient was treated with IV steroids. There is really no significant erythema of the lower extremities. I am not really sure why she is having so much pain. Doppler was negative. She may have for venous insufficiency lower may have lymphedema. Her weight may be a contributing factor to the venous insufficiency. Counseled her regarding following up with a bariatric surgeon. At this time, patient is stable for discharge with close outpatient follow-up. - Disposition Disposition: ROUTINE DISCHARGE Condition: GOOD Prescriptions: Potassium Chloride [K-Dur] 10 meq PO DAILY #30 tab.er.prt Furosemide [Lasix*] 20 mg PO DAILY #30 tab Melatonin 5 mg PO BEDTIME #30 tablet predniSONE [Prednisone*] 20 mg PO BID #11 tab Followup: Alonzo Cooney MD [Primary Care Provider] - Patient Discharge Instructions: OK TO DC IV AND DC HOME. FOLLOW-UP WITH PRIMARY CARE PROVIDER IN 1-2 WEEKS. FOLLOW-UP WITH Vascular Surgeon IN 1-2 WEEKS. RETURN TO THE ER IF symptoms worsen. CALL or TEXT DR. MONTEMAYOR AT [phone] IF ANY QUESTIONS REGARDING HOSPITAL STAY. PLEASE CALL THE FLOOR AT [phone] IF ANY MEDICATION OR NURSING QUESTIONS. Diet: AHA Activity: Fall precautions Critical Care: No Time Spent Managing Pts Care (In Minutes): 45
[2021-02-08 14:49] LABS: Urine Blood Negative (Negative); Urine Glucose Negative (Negative); Urine Protein Negative (Negative); Urine Specific Gravity 1.015 (1.005-1.030)
== END | disposition home or self-care (01) ==
LOC: ER 19:41 → UNDOADMIN 23:31 → ERHOLD 23:31 → 2ND 02-07 15:40 → ERHOLD 02-07 15:40 → 2ND 02-07 16:20
DX: L03.116 Cellulitis of left lower limb (principal); L03.115 Cellulitis of right lower limb; E66.9 Obesity, unspecified; J45.909 Unspecified asthma, uncomplicated; Z68.42 Body mass index [BMI] 45.0-49.9, adult; Z20.822 Contact with and (suspected) exposure to COVID-19; Z86.718 Personal history of other venous thrombosis and embolism; Z88.5 Allergy status to narcotic agent
CPT/HCPCS: 93005; 87040 ×2; 85025; 80048; 36415; 82150; 82550; 81025; 85610; 80076; 83605; 85730; 84484; 82553; 83690; 84145; 71045; 93970; U0003; J3010; J3370; J7050; J7030; 81003; 81015; 96365; 96367; 96375; 99285

== ENCOUNTER 2021-02-10 22:33 | Emergency (ER) | payer BC, OTHER ==
--- OUTSIDE RECORDS SUMMARY | 2021-02-10 22:36 | XMS REPORT | Continuity of Care Document ---
:1985 Author Organization [facility] t Address [address] [place] [address] Care Team Providers Name Role Phone Chato MARQUEZ Attending Clinician Lab, Aram Poedgardo I Attending Clinician Unavailable Moreno Lay DO [...] 2021-01-24 2021-01-24 Telephone BENITO Reis [id number] 00:00:00 00:00:00 Isabela Patterson [id number] [place] [id number] Professio [phone] [facility] [address] Building 2021-01-13 2021-01-13 Laboratory Lab, [facility] BENITO 1..[id number] 14:23:32 14:43:32 Only Fam Pob I [facility] [id number] [place] [id number] Professio [phone] nal [address] One 2021-01-11 2021-01-11 Patient BENITO Lay [id number] 00:00:00 00:00:00 Outreach [facility] [id number] [facility] [id number] SARIKA [phone] [facility] 2020-11-11 2020-11-11 [facility] [id number] 00:00:00 00:00:00 Anne Marie Alyson Patterson [id number] [place] [id number] Professio [phone] [facility] 204 [facility] 2020-10-25 2020-10-25 [facility] [id number] 08:32:15 09:31:22 Visit Isabelalucy Patterson [id number] [place] [id number] Professio [phone] [facility] 188 [facility] 2019-10-25 2019-10-25 Orders Doctor CELINA [id number] 00:00:00 00:00:00 Only Unassigned, TEO [id number] [place] [facility] [id number] [phone] [id number] Results This patient has no known results.
[2021-02-11] MEDS ORDERED: MEPERIDINE HCL 25 MG/ML SYR ONE (00:23)
[2021-02-11 00:56] LABS: ALT/SGPT 17 U/L (12-78); AST/SGOT 8 U/L (15-37); Albumin 2.9 g/dL (3.4-5.0); Alkaline Phosphatase 90 U/L (45-117); BUN Blood Urea Nitrogen 6 mg/dL (7-18); Bicarbonate 25 mmol/L (21-32); Bilirubin Direct < 0.1 mg/dL (0-0.2); Bilirubin Total 0.3 mg/dL (0.2-1.0); Glucose Level 95 mg/dL (74-106); NT PRO-BNP 73 pg/mL (<125); Potassium 3.6 mmol/L (3.5-5.1); Sodium Level 138 mmol/L (136-145)
[2021-02-11 01:28] LABS: Absolute Lymphocytes (CBC) 1.1 K/uL (0.7-4.9); Basophils % 0.7 % (0-1.3); Hematocrit 36.5 % (36.0-45.0); Lymphocytes % 17.8 % (15.3-44.8); RBC Red Blood Cell Count 4.27 M/uL (3.86-4.86)
--- NOTE | 2021-02-11 01:46 | ER ---
Nurse's Notes [facility] Name: Juan F Reid Age: 35 yrs Sex: Female : 1985 Arrival Date: 02/10/2021 Time: 22:36 Bed 20 Private MD: Diagnosis: Cellulitis of left lower limb;Cellulitis of right lower limb Presentation: 02/10 22:40 Chief complaint: Patient states: I have cellulitis and lymphedema in both legs. I have jb4 been on antibiotics for a week today. I was admitted and on IV antibiotics then sent home to do PO antibiotics. I am back due to the swelling and having a fever at home. Coronavirus screen: Client denies travel out of the [place] in the last 14 days. At this time, the client does not indicate any symptoms associated with coronavirus-19. Ebola Screen: No symptoms or risks identified at this time. Initial Sepsis Screen: Does the patient meet any 2 criteria? HR > 90 bpm. Yes Does the patient have a suspected source of infection? Yes: Skin breakdown/wound. Risk Assessment: Do you want to hurt yourself or someone else? Patient reports no desire to harm self or others. Onset of symptoms was February 10, 2021. Transition of care: patient was not received from another setting of care. 22:40 Method Of Arrival: Ambulatory jb4 22:40 Acuity: TRINIDAD 3 jb4 Historical: - Allergies: 22:44 Hydrocodone-Acetaminophen; jb4 - Home Meds: 22:44 Albuterol Inhl [Active]; control [Active]; ProAir HFA inhalation [Active]; jb4 Singulair Oral [Active]; Spiriva with HandiHaler 18 mcg inhalation CpDv 1 cap once daily [Active]; - PMHx: 22:44 Asthma; Cellulitis; Colitis; ilitis; PCOS; proctitis; jb4 - PSHx: 22:44 Appendectomy; ; jb4 - Immunization history:: Adult Immunizations up to date, Client reports having NOT received the Covid vaccine. - Social history:: Smoking status: Patient denies any tobacco usage or history of. Patient uses alcohol, only on a social basis. Patient/guardian denies using street drugs. Screenin/23 00:32 Abuse screen: Denies threats or abuse. Nutritional screening: No deficits noted. ea Tuberculosis screening: No symptoms or risk factors identified. Fall Risk None identified. Assessment: 00:32 General: Appears uncomfortable, Behavior is calm, cooperative, appropriate for age. ea Pain: Complains of pain in right leg and left leg. Neuro: Level of Consciousness is awake, alert, obeys commands, Oriented to person, place, time, situation. Cardiovascular: Patient's skin is warm and dry. Respiratory: Airway is patent Respiratory effort is even, unlabored, Respiratory pattern is regular, symmetrical. Derm: Skin is pink, warm \T\ dry. 01:54 Reassessment: Patient and/or family updated on plan of care and expected duration. Pain ea level reassessed. Patient is alert, oriented x 3, equal unlabored respirations, skin warm/dry/pink. Discharge instructions given to patient verbalized the understanding of instruction. Pt left ED ambulatory tolerating well. Vital Signs: 02/10 22:40 BP 143 / 97; Pulse 97; Resp 18; Temp 99.4(O); Pulse Ox 95% on R/A; Weight 127.01 kg jb4 (R); Height 5 ft. 6 in. (167.64 cm) (R); Pain 8/10; 02/11 01:45 BP 130 / 86; Pulse 80; Resp 18; Pulse Ox 97% ; ea 02/10 22:40 Body Mass Index 45.19 (127.01 kg, 167.64 cm) jb4 ED Course: 02/10 22:36 Patient arrived in ED. bp1 22:43 Triage completed. jb4 22:44 Arm band placed on right wrist. jb4 23:15 Moises Rueda PA is PHCP. cp 23:15 Miguel Angel Cummins MD is Attending Physician. cp 23:44 Sunita Blackburn RN is Primary Nurse. ea 02/11 00:25 Missed attempt(s): 20 gauge in right forearm. ea 00:31 Inserted saline lock: 20 gauge in right forearm, using aseptic technique. iw 00:32 Patient has correct armband on for positive identification. Bed in low position. Call ea light in reach. Side rails up X2. 01:44 Alonzo Cooney MD is Referral Physician. cp 01:46 No provider procedures requiring assistance completed. ea 01:50 IV discontinued, intact, bleeding controlled, No redness/swelling at site. Pressure ea dressing applied. Administered Medications: 00:31 Drug: Demerol (meperidine) 25 mg Route: IVP; Site: right antecubital; ea 02:01 Follow up: Response: Medication administered at discharge. ea 02:02 Follow up: Response: No adverse reaction; RASS: Alert and Calm (0) ea 01:45 Drug: LevaQUIN (levofloxacin) 750 mg Route: PO; ea 02:02 Follow up: Response: Medication administered at discharge. ea Outcome: 01:45 Discharge ordered by MD. roxi 01:54 Discharged to home ambulatory. ea 01:54 Condition: stable 01:54 Discharge instructions given to patient, Instructed on discharge instructions, follow up and referral plans. medication usage, Demonstrated understanding of instructions, follow-up care, medications, Prescriptions given X 2. 02:01 Patient left the ED. ea Signatures: Radha sEparza, RN RN Moises Payne PA PA cp Bryson, James, RN RN jb4 Sunita Blackburn RN RN ea [place], [facility]
--- NOTE | 2021-02-11 01:46 | EDPHYS ---
Physician Documentation [facility] Name: Juan F Reid Age: 35 yrs Sex: Female : 1985 Arrival Date: 02/10/2021 Time: 22:36 Bed 20 Private MD: ED Physician Miguel Angel Cummins HPI: 02/10 23:40 This 35 yrs old Female presents to ER via Ambulatory with complaints of Leg cp Swelling. 23:40 The patient presents with pain, swelling, tenderness. The complaints affect the right cp foot and left foot and right lower leg and left lower leg. Context: the patient can fully bear weight, the patient is able to ambulate, with moderate difficulty. Onset: The symptoms/episode began/occurred 3 week(s) ago. Associated signs and symptoms: Pertinent positives: fever, warmth, erythema. Treatment prior to arrival includes: compression stockings, oral antibiotics, oral Lasix. 23:40 Patient reports being admitted 3 days ago and receiving IV antibiotics while in hospital overnight. Was treated by DR Rodriguez who discharged patient and prescribed oral steroids. patient reports she had f/u with DR Cooney who discontinued steroids and continued oral antibiotics. Patient reports noticing improvement in swelling and redness while receiving IV antibiotics. Historical: - Allergies: 22:44 Hydrocodone-Acetaminophen; jb4 - Home Meds: 22:44 Albuterol Inhl [Active]; control [Active]; ProAir HFA inhalation [Active]; jb4 Singulair Oral [Active]; Spiriva with HandiHaler 18 mcg inhalation CpDv 1 cap once daily [Active]; - PMHx: 22:44 Asthma; Cellulitis; Colitis; ilitis; PCOS; proctitis; jb4 - PSHx: 22:44 Appendectomy; ; jb4 - Immunization history:: Adult Immunizations up to date, Client reports having NOT received the Covid vaccine. - Social history:: Smoking status: Patient denies any tobacco usage or history of. Patient uses alcohol, only on a social basis. Patient/guardian denies using street drugs. ROS: 23:45 MS/extremity: Positive for erythema, pain, swelling, tenderness, warmth, of the right cp foot and left foot and right lower leg and left lower leg. 23:45 Eyes: Negative for injury, pain, redness, and discharge. cp 23:45 Constitutional: Negative for body aches, chills, fever. 23:45 Cardiovascular: Negative for chest pain, palpitations. 23:45 Respiratory: Positive for shortness of breath, Negative for cough, wheezing. 23:45 Abdomen/GI: Negative for abdominal pain, nausea, vomiting, and diarrhea. 23:45 Skin: Negative for rash. 23:45 Neuro: Negative for altered mental status, headache, syncope, weakness. 23:45 All other systems are negative. Exam: 23:50 Constitutional: The patient appears in no acute distress, alert, awake, cp non-diaphoretic, non-toxic, well developed, well nourished, obese. 23:50 Head/Face: Normocephalic, atraumatic. cp 23:50 Eyes: Periorbital structures: appear normal, Conjunctiva: normal, no exudate, no cp injection, Sclera: no appreciated abnormality, Lids and lashes: appear normal, bilaterally. 23:50 ENT: External ear(s): are unremarkable, Nose: is normal, Posterior pharynx: Airway: no evidence of obstruction, patent. 23:50 Chest/axilla: Inspection: normal, Palpation: is normal, no crepitus, no tenderness. 23:50 Cardiovascular: Rate: normal, Rhythm: regular, Edema: ankle edema, that is mild, JVD: is not appreciated. 23:50 Respiratory: the patient does not display signs of respiratory distress, Respirations: normal, no use of accessory muscles, no retractions, labored breathing, is not present, Breath sounds: are clear throughout, no decreased breath sounds, no stridor, no wheezing. 23:50 Abdomen/GI: Exam negative for discomfort, distension, guarding, Inspection: abdomen appears normal. 23:50 Skin: mild erythema noted dorsum of feet. 23:50 Neuro: Orientation: to person, place \T\ time. Mentation: is normal. 23:59 ECG was reviewed by the Attending Physician. cp Vital Signs: 22:40 BP 143 / 97; Pulse 97; Resp 18; Temp 99.4(O); Pulse Ox 95% on R/A; Weight 127.01 kg jb4 (R); Height 5 ft. 6 in. (167.64 cm) (R); Pain 8/10; 02/11 01:45 BP 130 / 86; Pulse 80; Resp 18; Pulse Ox 97% ; ea 02/10 22:40 Body Mass Index 45.19 (127.01 kg, 167.64 cm) jb4 MDM: 02/10 23:33 Patient medically screened. cp 02/11 00:00 ED course: review of records show US of lower extremities performed 02-06-2021 that was cp negative for DVT. 00:00 Differential diagnosis: cellulitis, abscess, CHF, vasculitis, sepsis. cp 01:35 Data reviewed: vital signs, nurses notes, lab test result(s), I have discussed the cp patient's presentation/case with the attending Emergency Department Physician; and as a result, I will discharge patient. 01:35 Response to treatment: the patient's symptoms have mildly improved after treatment. ED cp course: VSS. WBC wnl. Will discharge home to continue oral Levaquin and Bactrim. Recommend f/u next 2-[address] Cooney. 02/10 23:37 Order name: CBC with Diff cp 02/10 23:37 Order name: Procalcitonin cp 02/10 23:37 Order name: ESR cp 02/10 23:37 Order name: CRP cp 02/10 23:37 Order name: Lactate cp 02/10 23:37 Order name: BMP cp 02/10 23:37 Order name: LFT's; Complete Time: 01:06 cp 02/11 01:06 Interpretation: Normal except: AST 8; ALB 2.9; GLOB 4.1; A/G 0.7. cp 02/10 23:37 Order name: BNP; Complete Time: 01:06 cp 02/10 23:37 Order name: CBC with Automated Diff EDNY 02/11 01:33 Interpretation: Normal except: WBC 6.40; PLT 370; MPV 9.0. cp 02/10 23:37 Order name: Procalcitonin; Complete Time: 00:55 EDMS 02/11 00:55 Interpretation: Reviewed. cp 02/10 23:37 Order name: Sedimentation Rate, Westergren EDNY 02/10 23:37 Order name: C-Reactive Protein; Complete Time: 01:06 EDMS 02/10 23:37 Order name: Lactate; Complete Time: 00:55 EDMS 02/11 00:55 Interpretation: Reviewed. cp 02/10 23:37 Order name: Basic Metabolic Panel; Complete Time: 01:06 EDMS 02/11 01:06 Interpretation: Normal except: BUN 6; GFR 74. cp 02/10 23:37 Order name: EKG; Complete Time: 23:37 cp 02/10 23:37 Order name: EKG - Nurse/Tech; Complete Time: 00:02 EC/22 23:59 Rate is 92 beats/min. Rhythm is regular. IA interval is normal. QRS interval is normal. cp QT interval is normal. T waves are Inverted in leads III, aVR. Interpreted by me. Reviewed by me. Administered Medications: 02/11 00:31 Drug: Demerol (meperidine) 25 mg Route: IVP; Site: right antecubital; ea 02:01 Follow up: Response: Medication administered at discharge. ea 02:02 Follow up: Response: No adverse reaction; RASS: Alert and Calm (0) ea 01:45 Drug: LevaQUIN (levofloxacin) 750 mg Route: PO; ea 02:02 Follow up: Response: Medication administered at discharge. ea Disposition: 02:57 Co-signature as Attending Physician, Miguel Angel Cummins MD I agree with the assessment and tw4 plan of care. Disposition: 02/11/21 01:45 Discharged to Home. Impression: Cellulitis of left lower limb, Cellulitis of right lower limb. - Condition is Stable. - Discharge Instructions: Cellulitis, Adult. - Prescriptions for Levaquin 750 mg Oral Tablet - take 1 tablet by ORAL route once daily for 10 days continue evening of 02-11-2021; 9 tablet. Tylenol- Codeine #3 300-30 mg Oral Tablet - take 2 tablets by ORAL route every 8-12 hours As needed; 20 tablet. - Medication Reconciliation Form, Thank You Letter, Antibiotic Education, Prescription Opioid Use, Work release form form. - Follow up: Alonzo Cooney MD; When: 2 - 3 days; Reason: Recheck today's complaints. - Problem is an ongoing problem. - Symptoms have improved. Signatures: Dispatcher [employer] EDNY Moises Rueda PA PA cp Bryson, James, RN RN jb4 Sunita Blackburn RN RN ea Wadley, Terrence, MD MD tw4 Corrections: (The following items were deleted from the chart) 02:01 01:45 02/11/2021 01:45 Discharged to Home. Impression: Cellulitis of left lower limb; ea Cellulitis of right lower limb. Condition is Stable. Forms are Medication Reconciliation Form, Thank You Letter, Antibiotic Education, Prescription Opioid Use. Follow up: Alonzo Cooney; When: 2 - 3 days; Reason: Recheck today's complaints. Problem is an ongoing problem. Symptoms have improved. cp
[2021-02-11] MEDS ORDERED: levoFLOXacin 250 MG TAB ONE (02:01)
[2021-02-11] MEDS ORDERED: levoFLOXacin 500 MG TAB ONE (02:01)
[2021-02-11 02:06] VITALS: TEMP 99.4
[2021-02-11 02:08] VITALS: BP 130/86; O2SAT 97
--- NOTE | 2021-02-12 08:00 | EKG ---
Test Date: 2021-02-10 Test Time: 23:52:45 Dispensing Lead: KIM MEASUREMENT RESULTS: Intervals: Rate: 92 AL: 126 QRSD: 78 QT: 370 QTc: 457 [place]: P: 49 AL: 126 QRS: 18 T: 24 INTERPRETIVE STATEMENTS: Normal sinus rhythm Nonspecific ST abnormality Abnormal ECG Compared to ECG 02/06/2021 21:08:52 ST (T wave) deviation now present Electronically Signed On 02-12-21 07:57:55 CDT by Srinath Fraser
== END 2021-02-11 02:01 | disposition home or self-care (01) ==
LOC: ER 22:33
DX: L03.115 Cellulitis of right lower limb (principal); L03.116 Cellulitis of left lower limb; J45.909 Unspecified asthma, uncomplicated
CPT/HCPCS: 93005; 85025; 80048; 36415; 80076; 83605; 85652; 84145; 83880; 86140; 96374; 99283; J2175

== ENCOUNTER 2021-02-13 04:29 | Inpatient (IN) | payer BC, OTHER ==
--- OUTSIDE RECORDS SUMMARY | 2021-02-13 04:31 | XMS REPORT | Continuity of Care Document ---
:1985 Author Organization [facility] t Address [address] [place] [address] Care Team Providers Name Role Phone Chato MARQUEZ Attending Clinician Tiburcio, Aram Bravo I Attending Clinician Unavailable Moreno Lay DO [...] 2021-01-24 2021-01-24 Telephone BENITO Reis [id number] 00:00:00 00:00:00 Isabela Patterson [id number] [place] [id number] Professio [phone] [place] [address] Building 2021-01-13 2021-01-13 [facility] [id number] 14:23:32 14:43:32 Only Fam [facility] [id number] [place] [id number] Professio [phone] [facility] 044 Office Building One 2021-01-11 2021-01-11 Patient BENITO Lay [id number] 00:00:00 00:00:00 Outreach [facility] [id number] [facility] [id number] SARIKA [phone] [id number] 2020-11-11 2020-11-11 Telephone [facility] [id number] 00:00:00 00:00:00 Anne Marie Shields Yesenia [id number] [place] [id number] Professio [phone] [facility] 204 [facility] 2020-10-25 2020-10-25 Office Chato [facility] [id number] 08:32:15 09:31:22 Visit Isabela Yesenia [id number] [place] [id number] Professio [phone] [facility] 188 [facility] 2019-10-25 2019-10-25 Orders Doctor CELINA [id number] 00:00:00 00:00:00 Only Unassigned, TEO [id number] [facility] [phone] [id number] Results This patient has no known results.
[2021-02-13] MEDS ORDERED: NA CHLORIDE 0.9% 2,000 ML ONE ×2 (06:40→07:40)
[2021-02-13] MEDS ORDERED: ONDANSETRON 4 MG/2 ML VIAL ONE ×2 (06:40→10:04)
[2021-02-13] MEDS ORDERED: ACETAMINOPHEN 500 MG TAB ONE (06:40)
[2021-02-13 06:44] LABS: Absolute Lymphocytes (CBC) 1.4 K/uL (0.7-4.9); Basophils % 0.2 % (0-1.3); Hematocrit 36.6 % (36.0-45.0); Lymphocytes % 9.6 % (15.3-44.8); RBC Red Blood Cell Count 4.25 M/uL (3.86-4.86)
[2021-02-13 06:55] LABS: Protime INR 1.04
[2021-02-13] MEDS ORDERED: FENTANYL CITR 100 MCG/2 ML ONE ×2 (06:57→10:04)
[2021-02-13 07:01] LABS: ALT/SGPT 22 U/L (12-78); AST/SGOT 15 U/L (15-37); Albumin 2.9 g/dL (3.4-5.0); Alkaline Phosphatase 101 U/L (45-117); Amylase 40 U/L (25-115); BUN Blood Urea Nitrogen 12 mg/dL (7-18); Bicarbonate 22 mmol/L (21-32); Bilirubin Direct < 0.1 mg/dL (0-0.2); Bilirubin Total 0.2 mg/dL (0.2-1.0); CKMB Creatine Kinase MB < 1.0 ng/mL (0.3-3.6); Creatine Phosphokinase 45 U/L (26-192); Glucose Level 127 mg/dL (74-106); Lipase 117 U/L (73-393); Potassium 4.5 mmol/L (3.5-5.1); Protein, Total 7.1 g/dL (6.4-8.2); Sodium Level 138 mmol/L (136-145); Troponin (Emerg Dept Use Only) < 0.02 ng/mL (0.0-0.045)
[2021-02-13] MEDS ORDERED: PIPER/TAZO/NS 3.375gm 3.375 GM/100 ML BAG ONE (07:40)
[2021-02-13] MEDS ORDERED: VANCOMYCIN/NS 1 gm 1 GM/250 ML BAG IV SCH (08:00)
[2021-02-13 09:42] LABS: Urine Blood Negative (Negative); Urine Glucose Negative (Negative); Urine Protein Negative (Negative)
[2021-02-13 10:29] LABS: Urine Amorphous Sediment 1+ /HPF (NONE SEEN); Urine Bacteria <20 /HPF (<20); Urine Mucus HEAVY /HPF (NONE SEEN); Urine RBC NONE SEEN /HPF (NONE SEEN)
--- NOTE | 2021-02-13 10:50 | RAD REPORT ---
EXAM DESCRIPTION: Liborio Single View02/13/2021 5:57 am CLINICAL HISTORY: Fever COMPARISON: February 06, 2021 FINDINGS: The lungs appear clear of acute infiltrate. The heart is normal size IMPRESSION: No acute abnormalities displayed
--- NOTE | 2021-02-13 11:24 | ER ---
Nurse's Notes [facility] Name: Juan F Reid Age: 35 yrs Sex: Female : 1985 Arrival Date: 02/13/2021 Time: 04:32 Bed 5 Private MD: Diagnosis: Cellulitis right leg. Arthritis. Fever Presentation: 02/13 04:57 Chief complaint: Patient states: she was recently discharged from here on Sunday for bb cellulitis but her joints feel like they are on fire and she is still running fever. Coronavirus screen: At this time, the client does not indicate any symptoms associated with coronavirus-19. Ebola Screen: No symptoms or risks identified at this time. Initial Sepsis Screen: Does the patient meet any 2 criteria? No. Patient's initial sepsis screen is negative. Does the patient have a suspected source of infection? No. Patient's initial sepsis screen is negative. Risk Assessment: Do you want to hurt yourself or someone else? Patient reports no desire to harm self or others. Onset of symptoms is unknown. 04:57 Method Of Arrival: Ambulatory bb 04:57 Acuity: TRINIDAD 3 bb Triage Assessment: 04:59 General: Appears uncomfortable, ill, obese, Behavior is crying. Pain: Complains of pain bb in joints and feet Pain currently is 10 out of 10 on a pain scale. Neuro: Level of Consciousness is awake, alert, obeys commands, Oriented to person, place, time, situation. Cardiovascular: Patient's skin is warm and dry. Edema is 3+ to left foot and right foot. Respiratory: Respiratory effort is unlabored, Respiratory pattern is regular. GI: No signs and/or symptoms were reported involving the gastrointestinal system. Derm: Skin is pink, warm \T\ dry. Musculoskeletal: Circulation, motion, and sensation intact. Reports pain in joints and feet. 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 - Social history:: Smoking status: Patient denies any tobacco usage or history of. Screenin:01 Abuse screen: Denies threats or abuse. Nutritional screening: No deficits noted. bb Tuberculosis screening: No symptoms or risk factors identified. Fall Risk None identified. Assessment: 05:01 Reassessment: No changes from previously documented assessment. see triage assessment. bb 07:15 Reassessment: No changes from previously documented assessment. Patient and/or family hb updated on plan of care and expected duration. Pain level reassessed. Patient is alert, oriented x 3, equal unlabored respirations, skin warm/dry/pink. 08:30 Reassessment: Patient appears in no apparent distress at this time. Patient and/or hb family updated on plan of care and expected duration. Pain level reassessed. Patient is alert, oriented x 3, equal unlabored respirations, skin warm/dry/pink. 09:15 Reassessment: Patient appears in no apparent distress at this time. No changes from hb previously documented assessment. Patient and/or family updated on plan of care and expected duration. Pain level reassessed. 10:00 Reassessment: Pt to bathroom via wheelchair, urine specimen collected. Pt c/ bilateral hb lower leg pain 07/01. Dr. Lopez notified, medicated as ordered. Bed locked in low position, call light within reach. Daughter remains at bedside. 11:11 Reassessment: Awaiting dispo at this time. Pt remains in bed, resting with eyes closed hb on 2LNC. 12:07 Reassessment: Patient appears in no apparent distress at this time. Patient and/or hb family updated on plan of care and expected duration. Pain level reassessed. Patient is alert, oriented x 3, equal unlabored respirations, skin warm/dry/pink. Admission ordered, awaiting room assignment at this time. 14:00 Reassessment: Patient appears in no apparent distress at this time. Patient and/or hb family updated on plan of care and expected duration. Pain level reassessed. Patient is alert, oriented x 3, equal unlabored respirations, skin warm/dry/pink. Reassessment: Patient appears in no apparent distress at this time. Patient and/or family updated on plan of care and expected duration. Pain level reassessed. Patient is alert, oriented x 3, equal unlabored respirations, skin warm/dry/pink. 15:00 Reassessment: Patient appears in no apparent distress at this time. Patient and/or hb family updated on plan of care and expected duration. Pain level reassessed. Patient is alert, oriented x 3, equal unlabored respirations, skin warm/dry/pink. Vital Signs: 04:57 BP 146 / 81; Pulse 134; Resp 20 S; Temp 100.7(O); Pulse Ox 98% on R/A; Weight 127.01 kg bb (R); Height 5 ft. 6 in. (167.64 cm) (R); Pain 10/10; 07:34 BP 113 / 69; Pulse 102; Resp 20; Pulse Ox 98% ; sv 08:15 BP 112 / 69; Pulse 96; Resp 20; Pulse Ox 97% ; sv 09:00 BP 120 / 78; Pulse 86; Resp 18; Pulse Ox 96% ; sv 09:58 BP 125 / 75; Pulse 74; Resp 15; Temp 99; Pulse Ox 99% 2 lpm ; Pain 8/10; hb 10:30 BP 107 / 77; Pulse 98; Resp 20; Pulse Ox 100% on 2 lpm NC; sv 11:15 BP 114 / 81; Pulse 74; Resp 20; Pulse Ox 98% on 2 lpm NC; sv 12:07 BP 97 / 65; Pulse 73; Resp 21; Pulse Ox 97% on 2 lpm NC; hb 14:00 BP 108 / 68; Pulse 70; Resp 18; Pulse Ox 97% on 2 lpm NC; hb 15:00 BP 118 / 67; Pulse 80; Resp 17; Pulse Ox 96% on 2 lpm NC; hb 04:57 Body Mass Index 45.19 (127.01 kg, 167.64 cm) bb ED Course: 04:32 Patient arrived in ED. ag3 04:56 Raymundo Gill MD is Attending Physician. mh7 04:58 Triage completed. bb 04:59 Arm band placed on Patient placed in an exam room, on a stretcher, on pulse oximetry. bb Family accompanied patient. 05:01 Patient has correct armband on for positive identification. Bed in low position. Call bb light in reach. Side rails up X2. Pulse ox on. NIBP on. 05:57 Chest Single View XRAY In Process Unspecified. EDMS 06:25 Inserted saline lock: 22 gauge in right forearm, using aseptic technique. Blood mg2 collected. 06:34 No provider procedures requiring assistance completed. mg2 07:16 Report given to Radha DOWNEY. bb 07:26 Radha Rosenthal RN is Primary Nurse. hb 08:07 Attending Physician role handed off by Raymundo Gill MD pkl 08:07 Brando Lopez MD is Attending Physician. pkl 09:40 Amylase, Serum Sent. sv 09:41 Basic Metabolic Panel Sent. sv 09:41 Blood Culture Adult (2) Sent. sv 09:41 CBC with Diff Sent. sv 09:41 Ckmb Sent. sv 09:41 CPK Sent. sv 11:22 Hi Saxena is Hospitalizing Provider. pkl 15:00 Patient admitted, IV remains in place. hb Administered Medications: 06:30 Drug: NS 0.9% (30 ml/kg) 30 ml/kg Route: IV; Rate: bolus; Site: right antecubital; bb 06:30 Drug: Tylenol 1000 mg Route: PO; bb 07:40 Follow up: Response: No adverse reaction hb 06:31 Drug: Zofran (Ondansetron) 4 mg Route: IVP; Site: right antecubital; bb 07:15 Follow up: Response: No adverse reaction hb 06:44 Drug: fentaNYL (PF) 25 mcg Route: IVP; Site: right antecubital; bb 07:15 Follow up: Response: No adverse reaction hb 07:28 Drug: Zosyn (piperacillin-tazobactam) 3.375 grams Route: IVPB; Infused Over: 60 mins; hb Site: right antecubital; 08:30 Follow up: Response: No adverse reaction; IV Status: Completed infusion; IV Intake: hb 100ml 09:01 Drug: vancoMYCIN 1 grams Route: IVPB; Infused Over: 2 hrs; Site: right antecubital; hb 10:45 Follow up: Response: No adverse reaction; IV Status: Completed infusion; IV Intake: hb 250ml 09:51 Drug: fentaNYL (PF) 50 mcg Route: IVP; Site: right antecubital; hb 10:30 Follow up: Response: No adverse reaction hb 09:51 Drug: Zofran (Ondansetron) 4 mg Route: IVP; Site: right antecubital; hb 10:30 Follow up: Response: No adverse reaction hb Intake: 08:30 IV: 100ml; Total: 100ml. hb 10:45 IV: 250ml; Total: 350ml. hb Outcome: 11:23 Decision to Hospitalize by Provider. pkl 15:00 Admitted to Tele hb 15:00 Condition: stable 15:00 Instructed on the need for admit, Demonstrated understanding of instructions. 15:13 Patient left the ED. Signatures: Dispatcher [employer] Marianna Napier, NASREEN DOWNEY Brando Lopez MD MD pkl Tsering Palacios RN RN bb Keisha Hernandes RN RN Radha Rosenthal RN RN Vikram Becerra RN RN [facility] Romana Condon 3 Raymundo Gill MD MD mh7 Corrections: (The following items were deleted from the chart) 11:03 10:30 BP 107 / 77; Pulse 98bpm; Resp 20bpm; Pulse Ox 100%; sv sv
--- NOTE | 2021-02-13 11:24 | EDPHYS ---
Physician Documentation [facility] Name: Juan F Reid Age: 35 yrs Sex: Female : 1985 Arrival Date: 02/13/2021 Time: 04:32 Bed 5 Private MD: ED Physician Brando Lopez HPI: 02/13 06:13 This 35 yrs old Female presents to ER via Ambulatory with complaints of Fever.mh7 06:13 The patient reports fever, that was measured at 102 degrees Fahrenheit. mh7 06:14 Onset: The symptoms/episode began/occurred yesterday. Modifying factors: Recent mh7 medications: Bactrim/Septra, Levaquin. Associated signs and symptoms: Pertinent positives: arthralgias, diarrhea, myalgias, nausea, Pertinent negatives: abdominal pain, altered mental status, backache, chest pain, chills, cough, pulling at ears, earache, headache, hemoptysis, nausea, night sweats, runny nose, sinus congestion, sinus drainage, skin rash, shortness of breath, sore throat, swelling, vomiting. Severity of symptoms: At their worst the symptoms were moderate last night, in the emergency department the symptoms are unchanged. The patient has been recently been admitted at [facility], was discharged last week. 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 - Social history:: Smoking status: Patient denies any tobacco usage or history of. ROS: 06:14 Eyes: Negative for injury, pain, redness, and discharge, ENT: Negative for injury, mh7 pain, and discharge, Neck: Negative for injury, pain, and swelling, Cardiovascular: Negative for chest pain, palpitations, and edema, Respiratory: Negative for shortness of breath, cough, wheezing, and pleuritic chest pain, Back: Negative for injury and pain, : Negative for injury, bleeding, discharge, and swelling, Neuro: Negative for headache, weakness, numbness, tingling, and seizure, Psych: Negative for depression, anxiety, suicide ideation, homicidal ideation, and hallucinations, Allergy/Immunology: Negative for hives, rash, and allergies, Endocrine: Negative for neck swelling, polydipsia, polyuria, polyphagia, and marked weight changes, Hematologic/Lymphatic: Negative for swollen nodes, abnormal bleeding, and unusual bruising. Exam: 06:14 Head/Face: Normocephalic, atraumatic. Eyes: Pupils equal round and reactive to light, mh7 extra-ocular motions intact. Lids and lashes normal. Conjunctiva and sclera are non-icteric and not injected. Cornea within normal limits. Periorbital areas with no swelling, redness, or edema. Neck: Trachea midline, no thyromegaly or masses palpated, and no cervical lymphadenopathy. Supple, full range of motion without nuchal rigidity, or vertebral point tenderness. No Meningismus. Chest/axilla: Normal chest wall appearance and motion. Nontender with no deformity. No lesions are appreciated. 06:14 Respiratory: Lungs have equal breath sounds bilaterally, clear to auscultation and percussion. No rales, rhonchi or wheezes noted. No increased work of breathing, no retractions or nasal flaring. Abdomen/GI: Soft, non-tender, with normal bowel sounds. No distension or tympany. No guarding or rebound. No evidence of tenderness throughout. Back: No spinal tenderness. No costovertebral tenderness. Full range of motion. 06:14 Neuro: Awake and alert, GCS 15, oriented to person, place, time, and situation. Cranial nerves II-XII grossly intact. Motor strength 5/5 in all extremities. Sensory grossly intact. Cerebellar exam normal. Normal gait. Psych: Awake, alert, with orientation to person, place and time. Behavior, mood, and affect are within normal limits. 06:14 Constitutional: The patient appears in no acute distress, alert, awake, uncomfortable. 06:14 Cardiovascular: Rate: tachycardic, Rhythm: regular, Pulses: no pulse deficits are appreciated, Heart sounds: normal, normal S1and S2, Edema: is not appreciated, JVD: is not appreciated. 06:14 Musculoskeletal/extremity: Extremities: noted in the right foot, ankle and left foot, ankle: erythema, pain, swelling, tenderness, noted in the right hand and left hand: pain, tenderness, ROM: limited active range of motion due to pain, in the right leg and left leg, limited passive range of motion due to pain, in the right leg and left leg, Circulation is intact in all extremities. Pulses: are normal with no appreciated deficits, Perfusion: the patient is normally perfused throughout, Perfusion: the extremity is normally perfused throughout, Calf tenderness, is absent, Sensation intact. Compartment Syndrome exam of affected extremity: is normal. no numbness, no tingling, no sensation deficit, no palor, no weak pulses, Joints: the left hip, left knee, left ankle, right hip, right knee and right ankle displays pain at rest, painful range of motion, Tendon exam: specific tendon testing normal through active and passive range of motion 06:14 Skin: erythema bilateral lower extremities at ankles, lower legs. Vital Signs: 04:57 BP 146 / 81; Pulse 134; Resp 20 S; Temp 100.7(O); Pulse Ox 98% on R/A; Weight 127.01 kg bb (R); Height 5 ft. 6 in. (167.64 cm) (R); Pain 10/10; 07:34 BP 113 / 69; Pulse 102; Resp 20; Pulse Ox 98% ; sv 08:15 BP 112 / 69; Pulse 96; Resp 20; Pulse Ox 97% ; sv 09:00 BP 120 / 78; Pulse 86; Resp 18; Pulse Ox 96% ; sv 09:58 BP 125 / 75; Pulse 74; Resp 15; Temp 99; Pulse Ox 99% 2 lpm ; Pain 8/10; hb 10:30 BP 107 / 77; Pulse 98; Resp 20; Pulse Ox 100% on 2 lpm NC; sv 11:15 BP 114 / 81; Pulse 74; Resp 20; Pulse Ox 98% on 2 lpm NC; sv 12:07 BP 97 / 65; Pulse 73; Resp 21; Pulse Ox 97% on 2 lpm NC; hb 14:00 BP 108 / 68; Pulse 70; Resp 18; Pulse Ox 97% on 2 lpm NC; hb 15:00 BP 118 / 67; Pulse 80; Resp 17; Pulse Ox 96% on 2 lpm NC; hb 04:57 Body Mass Index 45.19 (127.01 kg, 167.64 cm) bb MDM: 07:08 Transition of care: After a detail discussion of the patient's case, care is mh7 transferred to Brando Lopez MD. 08:07 Patient medically screened. [facility] 11:21 Data reviewed: vital signs, nurses notes, radiologic studies, ultrasound. ED course: [facility] talked to Dr. Saxena. 02/13 05:34 Order name: Amylase, Serum [facility] 02/13 05:34 Order name: Basic Metabolic Panel [facility] 02/13 05:34 Order name: Blood Culture Adult (2) [facility] 02/13 05:34 Order name: CBC with Diff [facility] 02/13 05:34 Order name: Ckmb [facility] 02/13 05:34 Order name: CPK [facility] 02/13 05:34 Order name: Lactate; Complete Time: 08:09 [facility] 02/13 05:34 Order name: LFT's; Complete Time: 08:09 [facility] 02/13 05:34 Order name: Lipase; Complete Time: 08:09 [facility] 02/13 05:34 Order name: Procalcitonin; Complete Time: 08:09 [facility] 02/13 05:34 Order name: Protime (+inr); Complete Time: 08:09 [facility] 02/13 05:34 Order name: Ptt, Activated; Complete Time: 08:09 [facility] 02/13 05:34 Order name: Troponin (emerg Dept Use Only); Complete Time: 08:09 [facility] 02/13 05:34 Order name: Urine Microscopic Only; Complete Time: 11:24 [facility] 02/13 05:34 Order name: Chest Single View XRAY; Complete Time: 11:24 [facility] 02/13 05:35 Order name: Amylase; Complete Time: 08:09 [facility] 02/13 05:35 Order name: Basic Metabolic Panel; Complete Time: 08:09 [facility] 02/13 05:35 Order name: Blood Culture [facility] 02/13 05:35 Order name: CBC with Automated Diff; Complete Time: 06:50 [facility] 02/13 05:35 Order name: CKMB Creatine Kinase MB; Complete Time: 08:09 [facility] 02/13 05:35 Order name: Creatine Phosphokinase; Complete Time: 08:09 [facility] 02/13 06:52 Order name: ESR; Complete Time: 08:09 [facility] 02/13 06:52 Order name: CRP; Complete Time: 08:09 [facility] 02/13 09:41 Order name: Urine Dipstick-Ancillary; Complete Time: 11:24 EDMS 02/13 11:10 Order name: SARS-COV-2 RT PCR; Complete Time: 11:24 EDMS 02/13 05:34 Order name: Accucheck; Complete Time: 09:58 7 02/13 05:34 Order name: Cardiac monitoring; Complete Time: 09:02 02/13 05:34 Order name: EKG - Nurse/Tech; Complete Time: 09:07 02/13 05:34 Order name: IV Saline Lock - Large Bore; Complete Time: 06:45 02/13 05:34 Order name: Labs collected and sent; Complete Time: 06:45 02/13 05:34 Order name: O2 Per Protocol; Complete Time: 06:31 02/13 05:34 Order name: O2 Sat Monitoring; Complete Time: 06:30 02/13 05:34 Order name: Urine Dipstick-Ancillary (obtain specimen); Complete Time: 09:58 7 02/13 12:58 Order name: Diet Heart Healthy; Complete Time: 12:59 hb Administered Medications: 06:30 Drug: NS 0.9% (30 ml/kg) 30 ml/kg Route: IV; Rate: bolus; Site: right antecubital; bb 06:30 Drug: Tylenol 1000 mg Route: PO; bb 07:40 Follow up: Response: No adverse reaction hb 06:31 Drug: Zofran (Ondansetron) 4 mg Route: IVP; Site: right antecubital; bb 07:15 Follow up: Response: No adverse reaction hb 06:44 Drug: fentaNYL (PF) 25 mcg Route: IVP; Site: right antecubital; bb 07:15 Follow up: Response: No adverse reaction hb 07:28 Drug: Zosyn (piperacillin-tazobactam) 3.375 grams Route: IVPB; Infused Over: 60 mins; hb Site: right antecubital; 08:30 Follow up: Response: No adverse reaction; IV Status: Completed infusion; IV Intake: hb 100ml 09:01 Drug: vancoMYCIN 1 grams Route: IVPB; Infused Over: 2 hrs; Site: right antecubital; hb 10:45 Follow up: Response: No adverse reaction; IV Status: Completed infusion; IV Intake: hb 250ml 09:51 Drug: fentaNYL (PF) 50 mcg Route: IVP; Site: right antecubital; hb 10:30 Follow up: Response: No adverse reaction hb 09:51 Drug: Zofran (Ondansetron) 4 mg Route: IVP; Site: right antecubital; hb 10:30 Follow up: Response: No adverse reaction hb Disposition: 02/13/21 11:23 Hospitalization ordered by Hi Saxena for Inpatient Admission. Preliminary diagnosis is Cellulitis right leg. Arthritis. Fever. - Bed requested for Telemetry/MedSurg (Inpatient). - Status is Inpatient Admission. ss - Condition is Stable. - Problem is new. - Symptoms are unchanged. Signatures: Dispatcher [employer] EDMS Brando Lopez MD MD pkl Tsering Palacios RN RN bb Keisha Hernandes RN RN ss Baxter, Heather, RN RN hb Botello, Elizabeth eb Holmes, Maurice, MD MD mh7 Corrections: (The following items were deleted from the chart) 10:23 09:29 CORONAVIRUS+MR.LAB.BRZ ordered. EDVA EDMS 13:07 11:23 Hospitalization Ordered by Hi Saxena for Inpatient Admission. Preliminary eb diagnosis is Cellulitis right leg. Arthritis. Fever. Bed requested for Telemetry/MedSurg (Inpatient). Status is Inpatient Admission. Condition is Stable. Problem is new. Symptoms are unchanged. pkl 15:13 13:07 02/13/2021 11:23 Hospitalization Ordered by Hi Saxena for Inpatient ss Admission. Preliminary diagnosis is Cellulitis right leg. Arthritis. Fever. Bed requested for Telemetry/MedSurg (Inpatient). Status is Inpatient Admission. Condition is Stable. Problem is new. Symptoms are unchanged. eb
--- NOTE | 2021-02-13 13:01 | P.HP ---
Certification for Inpatient Patient admitted to: Inpatient With expected LOS: >2 Midnights Practitioner: I am a practitioner with admitting privileges, knowledge of patient current condition, hospital course, and medical plan of care. Services: Services provided to patient in accordance with Admission requirements found in Title 42 Section 412.3 of the Code of Federal Regulations Patient History Date of Service: 02/13/21 Reason for admission: Bilateral ankle pain and redness History of Present Illness: 35-year-old woman with a history of GERD, recently hospitalized 1 week ago for cellulitis of the lower extremity, treated with IV antibiotics and discharged with oral antibiotics presented to the emergency department with a complaint of worsening pain and swelling of bilateral ankle and feet along with redness around bilateral ankle joints. Patient stated antibiotics did not help her symptoms. Patient reports fever and chills. WBC is up to 1400. Blood cultures taken in the emergency department and patient given IV vancomycin. I suspect inflammatory arthritis versus cellulitis. Patient is hospitalized for further management. Allergies hydrocodone Allergy (Verified 12/27/14 03:16) Rash Hydrocodone-Acetaminophen Allergy (Uncoded 01/19/15 15:45) Unknown Home Medications: Furosemide [Lasix*] 20 mg PO DAILY #30 tab 02/07/21 Gabapentin 300 mg PO TID 02/07/21 Melatonin 5 mg PO BEDTIME #30 tablet 02/07/21 Norgestimate-Ethinyl Estradiol [Ortho Tri-Cyclen 28 Tablet] 1 each PO DAILY 02/07/21 Pantoprazole [Protonix Tab*] 40 mg PO DAILY 02/07/21 Potassium Chloride [K-Dur] 10 meq PO DAILY #30 tab.er.prt 02/07/21 Smz./Tmp. [Bactrim Ds 800 MG/160 MG*] 1 tab PO Q12HR 02/07/21 predniSONE [Prednisone*] 20 mg PO BID #11 tab 02/07/21 - Past Medical/Surgical History Diabetic: No -: PCOS -: Asthma -: -: appendectomy Psychosocial/ Personal History: Patient is employed, lives with her daughter - Family History Father -: Other (see notes) (No significant family history) - Social History Alcohol use: Yes CD- Drugs: No Caffeine use: Yes Review of Systems Other: Patient denied any nausea or vomiting or diarrhea or abdominal pain. Except as documented, all other systems reviewed and negative. Physical Examination - Physical Exam General: Alert, In no apparent distress, Oriented x3 HEENT: Normocephalic, PERRLA, Mucous membr. moist/pink, EOMI, Sclerae nonicteric Neck: Supple, JVD not distended Respiratory: Clear to auscultation bilaterally, Normal air movement Cardiovascular: No edema, Regular rate/rhythm, Normal S1 S2 Gastrointestinal: Normal bowel sounds, Soft and benign, Non-distended Musculoskeletal: Swelling (Bilateral ankle mildly swollen and tender) Integumentary: Erythema (Bilateral ankle) Neurological: Normal speech, Normal strength at 5/5 x4 extr, Cranial nerves 3-12 intact - Studies Laboratory Data (last 24 hrs) 02/13/21 06:25: PT 12.0, INR 1.04, APTT 22.8 L 02/13/21 06:25: WBC 14.40 H D, Hgb 12.3, Hct 36.6, Plt Count 340 02/13/21 06:25: Sodium 138, Potassium 4.5, BUN 12, Creatinine 1.06, Glucose 127 H, Total Bilirubin 0.2, AST 15, ALT 22, Alkaline Phosphatase 101, Amylase 40, Lipase 117 Assessment and Plan - Problems (Diagnosis) (1) Cellulitis of lower extremity Current Visit: Yes Status: Acute (2) Arthritis of both ankles Current Visit: Yes Status: Acute (3) Morbid obesity Current Visit: Yes Status: Acute - Plan Admit to the medical floor. Treat possible cellulitis with broad-spectrum antibiotics-IV Rocephin and vancomycin Pain management with IV morphine as needed. Follow blood cultures obtained in the ED. Trial of steroid for arthritis. Screen for rheumatoid arthritis, SLE, hepatitis and scleroderma. - Advance Directives Does patient have a Living Will: No Does patient have a Durable POA for Healthcare: No
[2021-02-13] MEDS ORDERED: VANCOMYCIN/NS 1 gm 1 GM/250 ML BAG IVPB SCH (15:01)
[2021-02-13] MEDS ORDERED: ONDANSETRON 4 MG/2 ML VIAL IV PRN (15:01)
[2021-02-13] MEDS ORDERED: MORPHINE 2 MG/ML SYR IV PRN (15:01)
[2021-02-13] MEDS ORDERED: ACETAMINOPHEN 500 MG TAB PO PRN (15:01)
[2021-02-13] MEDS: NA CHLORIDE 0.9% 1,000 ML IV SCH (15:15)
[2021-02-13 15:51] VITALS: BMI 45.1
[2021-02-13] MEDS: FENTANYL CITR 100 MCG/2 ML IV PRN ×2 (17:36→21:10)
[2021-02-13] MEDS: CEFTRIAXONE/SWI 1gm 1 GM/10 ML SYR IV SCH (20:09)
[2021-02-13] MEDS: VANCOMYCIN 2 GM in NA CHLORIDE 0.9% 500 ML IVPB SCH (20:15)
[2021-02-13] MEDS ORDERED: CEFTRIAXONE 1 GM/NS 50 ML 1 GM/50 ML BAG IV SCH (21:00)
[2021-02-14] MEDS: FENTANYL CITR 100 MCG/2 ML IV PRN ×2 (01:36→08:48)
[2021-02-14 04:01] LABS: Absolute Lymphocytes (CBC) 1.6 K/uL (0.7-4.9); Basophils % 0.7 % (0-1.3); Hematocrit 30.3 % (36.0-45.0); Lymphocytes % 24.9 % (15.3-44.8); MPV 8.2 fL (7.6-11.3); RBC Red Blood Cell Count 3.46 M/uL (3.86-4.86)
[2021-02-14 04:22] LABS: ALT/SGPT 17 U/L (12-78); AST/SGOT 9 U/L (15-37); Albumin 2.5 g/dL (3.4-5.0); Alkaline Phosphatase 77 U/L (45-117); BUN Blood Urea Nitrogen 7 mg/dL (7-18); Bicarbonate 25 mmol/L (21-32); Bilirubin Total 0.2 mg/dL (0.2-1.0); Glucose Level 100 mg/dL (74-106); Magnesium 2.4 mg/dL (1.8-2.4); Phosphorus 2.1 mg/dL (2.5-4.9); Potassium 3.9 mmol/L (3.5-5.1); Protein, Total 6.2 g/dL (6.4-8.2); Sodium Level 142 mmol/L (136-145)
[2021-02-14] MEDS: NA CHLORIDE 0.9% 1,000 ML IV SCH ×2 (05:07→19:27)
[2021-02-14] MEDS: ENOXAPARIN 40 MG/0.4 ML SQ SCH (08:51)
[2021-02-14] MEDS ORDERED: POTASSIUM PHOS IN 0.9 % NACL 15 MMOL/250 ML BAG IV ONE (09:00)
[2021-02-14 10:18] LABS: Rheumatoid Factor NEG (NEG)
--- NOTE | 2021-02-14 10:50 | EKG ---
Test Date: 2021-02-13 Test Time: 09:19:36 [employer] Consultant: HB MEASUREMENT RESULTS: Intervals: Rate: 86 MA: 132 QRSD: 78 QT: 370 QTc: 442 [place]: P: 33 MA: 132 QRS: 22 T: 15 INTERPRETIVE STATEMENTS: Normal sinus rhythm Normal ECG Compared to ECG 02/10/2021 23:52:45 ST (T wave) deviation no longer present Electronically Signed On 02-14-21 10:46:56 CDT by Srinath Fraser
[2021-02-14] MEDS ORDERED: KETOROLAC 10 MG TAB PO PRN (12:24)
[2021-02-14] MEDS: KETOROLAC 30 MG/ML INJ IV PRN ×2 (13:06→19:26)
[2021-02-14] MEDS: VANCOMYCIN 2 GM in NA CHLORIDE 0.9% 500 ML IVPB SCH (15:35)
--- NOTE | 2021-02-14 16:43 | P.PN ---
Subjective Date of Service: 02/14/21 Chief Complaint: Bilateral ankle pain and redness Patient reports no change in bilateral lower extremity pain and swelling. She is also complaining of headache. No fever since admission. Physical Examination - Vital Signs Temperature: 97.2 F Blood Pressure: 130/78 Pulse: 75 Respirations: 16 Pulse Ox (%): 95 - Physical Exam General: Alert, In no apparent distress, Oriented x3 HEENT: Mucous membr. moist/pink Neck: Supple, JVD not distended Respiratory: Clear to auscultation bilaterally Cardiovascular: No edema, Regular rate/rhythm, Normal S1 S2 Gastrointestinal: Normal bowel sounds, Soft and benign, Non-distended, No tenderness Musculoskeletal: Swelling (Bilateral feet and ankle), Erythema (Bilateral ankle erythema improved.), Tenderness (Bilateral ankle) Neurological: Normal gait, Normal speech, Normal strength at 5/5 x4 extr, Cranial nerves 3-12 intact Assessment And Plan - Current Problems (Diagnosis) (1) Cellulitis of lower extremity Current Visit: Yes Status: Acute (2) Arthritis of both ankles Current Visit: Yes Status: Acute (3) Morbid obesity Current Visit: Yes Status: Acute - Plan C-reactive protein elevated, pro calcitonin normal. I suspect inflammatory disease. Continue antibiotics-IV Rocephin and vancomycin Pain management with IV morphine as needed. Patient is also on Toradol. Blood cultures: No growth to date. Trial of oral prednisone for arthritis. Rheumatoid factor is negative. SLE, hepatitis and scleroderma screen are pending.
[2021-02-14] MEDS: CEFTRIAXONE/SWI 1gm 1 GM/10 ML SYR IV SCH (19:28)
[2021-02-14] MEDS: predniSONE 20 MG TAB PO SCH (19:28)
[2021-02-15] MEDS: KETOROLAC 30 MG/ML INJ IV PRN ×4 (01:19→18:44)
[2021-02-15 03:56] LABS: Basophils % 0.6 % (0-1.3); Hematocrit 33.5 % (36.0-45.0); Lymphocytes % 16.6 % (15.3-44.8); MPV 8.2 fL (7.6-11.3); RBC Red Blood Cell Count 3.83 M/uL (3.86-4.86)
[2021-02-15 04:59] LABS: BUN Blood Urea Nitrogen 6 mg/dL (7-18); Bicarbonate 25 mmol/L (21-32); Glucose Level 125 mg/dL (74-106); Phosphorus 2.2 mg/dL (2.5-4.9); Potassium 4.4 mmol/L (3.5-5.1); Sodium Level 142 mmol/L (136-145)
[2021-02-15] MEDS: NA CHLORIDE 0.9% 1,000 ML IV SCH (06:25)
[2021-02-15] MEDS: POTASS/SODIUM PHOSPHATE 1 PKT POWD.PACK PO SCH ×2 (10:42→12:11)
[2021-02-15] MEDS: predniSONE 20 MG TAB PO SCH ×2 (10:43→20:46)
[2021-02-15] MEDS: PANTOPRAZOLE 40MG TABLET PO SCH (10:43)
[2021-02-15] MEDS: ENOXAPARIN 40 MG/0.4 ML SQ SCH (10:44)
[2021-02-15] MEDS: FUROSEMIDE 20 MG TABLET PO SCH (10:44)
[2021-02-15] MEDS: VANCOMYCIN 2 GM in NA CHLORIDE 0.9% 500 ML IVPB SCH (10:45)
--- NOTE | 2021-02-15 20:14 | P.PN ---
Subjective Date of Service: 02/15/21 Chief Complaint: Bilateral ankle pain and redness Subjective: Improving (reports improved/resolved erythema, continues with b/l swelling but improved as well) Review of Systems 10-point ROS is otherwise unremarkable Physical Examination - Vital Signs Temperature: 97.3 F Blood Pressure: 131/89 Pulse: 67 Respirations: 18 Pulse Ox (%): 95 Assessment & Plan Physician Review Additional Text: Physical Exam General: Alert, In no apparent distress, Oriented x3 HEENT: Mucous membr. moist/pink Respiratory: Clear to auscultation bilaterally Cardiovascular: Regular rate/rhythm, Normal S1 S2 Gastrointestinal: Soft and benign, Non-distended, No tenderness Musculoskeletal: b/l feet/ankle edema, no erythema, no discoloration, warm/well- perfused Problem List possible Cellulitis of b/l lower extremities Arthritis of both ankles, possible inflammatory Morbid obesity CRP elevated, pro calcitonin normal. suspect inflammatory disease. CRP improving patient has been on multiple courses of antibiotics with no/minimal improvement in outpatient, but did have improvement with steroids initially will dc antibiotics and monitor on steroids Pain management with IV morphine as needed. Patient is also on Toradol. continue home lasix Blood cultures: No growth to date. Rheumatoid factor is negative. SLE, hepatitis and scleroderma screen are pending. Dispo: anticipate dc home in 24-48hrs Time Spent Managing Pts Care (In Minutes): 35
[2021-02-15 22:20] VITALS: O2SAT 94
[2021-02-15] MEDS ORDERED: VANCOMYCIN 2 GM in NA CHLORIDE 0.9% 500 ML IVPB SCH (23:00)
[2021-02-16] MEDS: KETOROLAC 30 MG/ML INJ IV PRN ×2 (00:33→07:55)
[2021-02-16 04:13] LABS: Absolute Lymphocytes (CBC) 1.1 K/uL (0.7-4.9); Basophils % 0.4 % (0-1.3); Hematocrit 31.9 % (36.0-45.0); Lymphocytes % 14.9 % (15.3-44.8); MPV 8.4 fL (7.6-11.3); RBC Red Blood Cell Count 3.68 M/uL (3.86-4.86)
[2021-02-16 04:30] LABS: BUN Blood Urea Nitrogen 7 mg/dL (7-18); Bicarbonate 26 mmol/L (21-32); Glucose Level 117 mg/dL (74-106); Magnesium 2.4 mg/dL (1.8-2.4); Potassium 4.3 mmol/L (3.5-5.1); Sodium Level 141 mmol/L (136-145)
[2021-02-16] MEDS: ENOXAPARIN 40 MG/0.4 ML SQ SCH (07:56)
[2021-02-16] MEDS: PANTOPRAZOLE 40MG TABLET PO SCH (07:56)
[2021-02-16] MEDS: FUROSEMIDE 20 MG TABLET PO SCH (07:56)
[2021-02-16] MEDS: predniSONE 20 MG TAB PO SCH (07:56)
[2021-02-16 12:40] VITALS: BP 143/85; TEMP 97
[2021-02-16 19:02] LABS: HBsAG Nonreactive (Nonreactive)
--- NOTE | 2021-02-16 21:34 | P.DS ---
Admission Date: 02/13/21 Discharge Date: 02/16/21 Disposition: ROUTINE DISCHARGE Discharge Condition: GOOD Reason for Admission: Bilateral ankle pain, swelling, and redness Procedures: Problem List Arthritis of both ankles, possible inflammatory vs autoimmune process Morbid obesity Brief History of Present Illness: 35-year-old woman with a history of GERD, recently hospitalized 1 week ago for cellulitis of the lower extremity, treated with IV antibiotics and discharged with oral antibiotics presented to the emergency department with a complaint of worsening pain and swelling of bilateral ankle and feet along with redness around bilateral ankle joints. Patient stated antibiotics did not help her symptoms. Patient reports fever and chills. WBC is up to 1400. Blood cultures taken in the emergency department and patient given IV vancomycin. I suspect inflammatory arthritis versus cellulitis. Patient is hospitalized for further management. Hospital Course: Patient was initially treated empirically for bilateral lower extremity cellulitis with IV antibiotics. She was also treated for possible inflammatory / autoimmune process with prednisone. Patient had significant improvement in symptoms after addition of prednisone. Antibiotics were discontinued, and patient continued to improve. CRP improved from 71.9 down to 20. ESR noted to be 74. Patient had 1+ b/l pedal edema, no erythema, and feeling much better. She reported feeling well enough to go home and requested for discharge. She stated she would follow up with her PCP in the next week. Autoimmune /inflammatory labs were send outs and won't have results for several days. She was discharged home with 4 week long taper of prednisone for suspected inflammatory / possible autoimmune process. Vital Signs/Physical Exam: Physical Exam General: Alert, In no apparent distress, Oriented x3 HEENT: Mucous membr. moist/pink Respiratory: Clear to auscultation bilaterally Cardiovascular: Regular rate/rhythm, Normal S1 S2 Gastrointestinal: Soft and benign, Non-distended, No tenderness Musculoskeletal: b/l ankle edema, no erythema, no discoloration, warm/well- perfused, no tenderness Temp Pulse Resp BP Pulse Ox 97 F 52 18 143/85 H 93 02/16/21 12:00 02/16/21 12:00 02/16/21 12:00 02/16/21 12:00 02/16/21 12:00 Laboratory Data at Discharge: WBC 7.70 K/uL (4.3-10.9) D 02/16/21 03:00 Hgb 10.8 g/dL (12.0-15.0) L 02/16/21 03:00 Hct 31.9 % (36.0-45.0) L 02/16/21 03:00 Plt Count 306 K/uL (152-406) 02/16/21 03:00 PT 12.0 SECONDS (9.5-12.5) 02/13/21 06:25 INR 1.04 02/13/21 06:25 APTT 22.8 SECONDS (24.3-36.9) L 02/13/21 06:25 Sodium 141 mmol/L (136-145) 02/16/21 03:00 Potassium 4.3 mmol/L (3.5-5.1) 02/16/21 03:00 BUN 7 mg/dL (7-18) 02/16/21 03:00 Creatinine 0.71 mg/dL (0.55-1.3) 02/16/21 03:00 Glucose 117 mg/dL (74-106) H 02/16/21 03:00 Uric Acid 4.0 mg/dL (2.6-6.0) 02/15/21 03:00 Phosphorus 2.2 mg/dL (2.5-4.9) L 02/15/21 03:00 Magnesium 2.4 mg/dL (1.8-2.4) 02/16/21 03:00 Total Bilirubin 0.2 mg/dL (0.2-1.0) 02/14/21 03:12 AST 9 U/L (15-37) L 02/14/21 03:12 ALT 17 U/L (12-78) 02/14/21 03:12 Alkaline Phosphatase 77 U/L (45-117) 02/14/21 03:12 Amylase 40 U/L (25-115) 02/13/21 06:25 Lipase 117 U/L (73-393) 02/13/21 06:25 Home Medications: Furosemide [Lasix*] 20 mg PO DAILY #30 tab 02/07/21 Norgestimate-Ethinyl Estradiol [Ortho Tri-Cyclen 28 Tablet] 1 each PO DAILY 02/07/21 Pantoprazole [Protonix Tab*] 40 mg PO DAILY 02/07/21 Ketorolac Tromethamine 1 tab PO Q6H PRN 02/14/21 Fluconazole [Diflucan] 150 mg PO Q3D 2 Days #2 tablet 02/16/21 predniSONE [Prednisone*] 20 mg PO SEECOM #35 tab 02/16/21 New Medications: Fluconazole [Diflucan] 150 mg PO Q3D 2 Days #2 tablet predniSONE [Prednisone*] 20 mg PO SEECOM #35 tab Physician Discharge Instructions: Your swelling and pain is likely due to inflammatory reaction / arthritis or possibly autoimmune. You were treated briefly with antibiotics and with steroids. Antibiotics were discontinued and you continued to have improvement with steroids. Inflammatory markers / auto-immune workup was sent and will take several days or more to come back. You are discharged home with a longer prednisone taper over 4 weeks. - 40mg daily x 7 days, then 30mg daily x 7 days, then 20mg daily x 7 days, then 10mg daily x 7 days. Follow up with PCP in 3-5 days. Depending on results and your ongoing improvement, you may need to follow up with a [facility] Diet: Regular Activity: Ad bill Followup: Unknown,U [Primary Care Provider] - Time spent managing pt's care (in minutes): 35
[2021-02-21 12:25] LABS: Scleroderma Antibody (Scl-70) <1.0
== END 2021-02-16 13:20 | disposition home or self-care (01) | DRG 603 ==
LOC: ER 04:29 → ERHOLD 12:40 → 4TH 15:00
PROVIDERS: ADMIT Internal Medicine; ATTEND Hospitalist
DX: L03.115 Cellulitis of right lower limb (principal); Z68.42 Body mass index [BMI] 45.0-49.9, adult; E66.01 Morbid (severe) obesity due to excess calories; M13.871 Other specified arthritis, right ankle and foot; M13.872 Other specified arthritis, left ankle and foot; K21.9 Gastro-esophageal reflux disease without esophagitis; Z90.49 Acquired absence of other specified parts of digestive tract; Z79.52 Long term (current) use of systemic steroids; Z79.899 Other long term (current) drug therapy; Z20.822 Contact with and (suspected) exposure to COVID-19
CPT/HCPCS: 36415; 71045; 80048; 80053; 80074; 80076; 80202; 81003; 81015; 82150; 82550; 82553; 83605; 83690; 83735; 84100; 84145; 84484; 84550; 85025; 85610; 85652; 85730; 86038; 86140; 86225; 86235; 86256; 86430; 86706; 87040; 93005; 96365; 96366; 96367; 96375; 99285; J0696; J1650; J2405; J2543; J3010; J3370; J7030; J7040; J7512; U0003

== ENCOUNTER 2021-05-18 17:20 | Inpatient (IN) | payer OTHER ==
--- OUTSIDE RECORDS SUMMARY | 2021-05-18 17:23 | XMS REPORT | Continuity of Care Document ---
:1985 Author Organization [facility] t Address [address] [place] [address] Care Team Providers Name Role Phone Derek Cooney Jr. Primary Care Physician Nilsa MARQUEZ, Donna Attending Clinician Doctor Unassigned, Name Attending Clinician Unavailable Payers Payer Name Policy Type Policy Effective Date Expiration Date Sour ce Number BCBS OF [id number] 2020 [place] o [place] 00:00:00 [place] [facility] [id number] Branch -Pres [id number] [id number] [place] [address]AWR/POS [place] [facility] [id number] 2020 [facility] HEALTH PLAN - 00:00:00 [place] [facility] MANAGED [place] CHILDRENS [id number] 2019-Present Medicaid [place]Y [place] [id number] 2017 [facility]-RMCHPxx 00:00:00 [facility] dical [id number] 2017 Branch -[phone] [address] [address]Tvuwto id Advance Directives Directive Decision Effective Termination Comments Source Date Date Healthcare Agents on N/A Univ ersity FileNameRelationshipHealthcare of [place] Agent Medical RelationshipCommunicationMary Branch [facility] [phone] (Mobile) Problems Condition Condition Condition Status Onset Resolution Last Treating Co mments Source Name Details Category Date Date Treatment Clinician Date Biliary Biliary Disease Active Overview: Univ ers colic colic 1-04 Added ity of 00:00: automatic [place] 00 ally from Medical request Branch for surgery [id number] Upper Upper Disease Active 2019-10 Overview: Univer s abdominal abdominal 2-14 Added ity of pain pain 00:00: automatic [place] 00 ally from Medical request Branch for surgery [id number] Nausea Nausea Disease Active 2019-10 Overview: Univer s 2-14 Added ity of 00:00: automatic [place] 00 ally from Medical request Branch for surgery [id number] 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 2016-10 Overview: Un reta Pap smear Pap smear 0-09 Needs ity of of cervix of cervix [place] BV BV Disease Active 2016-10 Univers (bacterial (bacterial 0-03 it y of vaginosis) vaginosis[place] Morbid Morbid Disease Active Univers obesity obesity 3-15 ity of 00:00: [place] 00 Medical Branch PCOS PCOS Disease Active Univers (polycysti (polycysti 3-15 it y of c ovarian c ovarian 00:[place] syndrome) syndrome) 00 [facility] janae Branch Arm vein Arm vein Disease Active Unive rs blood clot blood clot 3-15 it y of 00:00: [place] 00 Medical Branch History of History of Disease Active U nivers depression depression 3-15 it y of 00:00: [place] 00 Medical Branch Well woman Well woman Disease Active 2017-07-24 2017-07-24 Overview: Univers exam exam 3-15 00:00:00 20:11:20 ICD10 ity of 00:00: Diagnosis [place] 00 Term Medical [employer] Branch Utility Allergies, Adverse Reactions, Alerts Allergy Allergy Status Severity Reaction(s) Onset Inactive Treating Comm ents Source Name Type Date Date Clinician Hydrocod Propensi Active Unknown - Uni vers one ty to See comments 3-12 ity of adverse 00:00: [place] reaction 00 Medical s Branch Social History Social Habit Start Date Stop Date Quantity Comments Source Tobacco use and 2020-10-25 2020-10-25 Never used Universit y of exposure 00:00:00 00:00:00 [place] [facility] Alcohol intake 2020-10-25 2020-10-25 Current drinker Unive rsity of 00:00:00 00:00:00 of alcohol [place] [facility] (finding) [facility] Alcohol Comment 2014-12-31 2014-12-31 on occasion Universi ty of 00:00:00 00:00:00 [facility] Sex Assigned At [birth year] Universit y of 00:00:00 00:00:00 [facility] Smoking Status Start Date Stop Date Source Never smoker [facility] Medical Branch Medications Ordered Filled Start Stop Current Ordering Indication Dosage Frequency Signature Comments Components Source Medication Medication Date Date Medication? Clinician (SIG) Name Name ondansetron Yes RUQ 4mg Take 1 Univ ers (ZOFRAN 1-04 abdominal tablet by it y of ODT) 4 mg 00:00: pain mouth [place] disintegrat 00 every 8 Medic al ing tablet (eight) Branch hours as needed for Nausea and Vomiting (N/V). dicyclomine Yes RUQ pain 20mg Take 1 Univers 20 mg 1-04 tablet by ity of tablet 00:00: mouth 4 [place] 00 (four) Medical times Branch daily. ondansetron 2019-10 Yes RUQ pain 4mg Take 1 Univers 4 mg tablet 2-08 tablet by ity of 00:00: mouth [place] 00 every 8 Medical (eight) Branch hours as needed for Nausea and Vomiting (N/V). dicyclomine 2019-10 Yes RUQ 20mg Take 1 Univ ers 20 mg 2-03 abdominal tablet by ity of tablet 00:00: pain mouth 4 [place] 00 (four) Medical times Branch daily as needed for Abdominal pain. traMADoL 50 2019-10 Yes acute pain 50mg Take 1 Univers mg tablet 2-03 tablet by ity o f 00:00: mouth [place] 00 every 6 Medical (six) Branch hours as needed for Pain (scale 4-6). Indication s: acute pain TRI-SPRINTE Yes Encounter TAKE ONE Univers C 9-25 for other TABLET BY ity o f 0.18/0.215/ 00:00: contracepti MOUTH ONCE [place] 0.25 mg-35 00 ve DAILY Medical mcg (28) management Branc h per tablet metroNIDAZO 2016-10 Yes BV 500mg Take 1 Uni vers LE 500 mg 0-03 (bacterial tablet by ity of tablet 00:00: vaginosis) mouth 2 [place] (two) Medical times Branch daily. Immunizations Ordered Filled Immunization Date Status Comments Sour e Immunization Name Name TDAP 2017-07-24 Completed University 00:00:00 [place] [facility] Procedures Procedure Date / Time Performed Performing Clinician [facility] e REFERRAL- 2021-02-22 05:01:00 Doctor Unassigned, No [facility] REQUEST/RESPONSE Name Medical Branch Plan of Care Planned Activity Planned Date Details Comments Source Future Scheduled 2027-07-24 DTaP,Tdap,and Td Univers [facility] Test 00:00:00 Vaccines (2 - Td) Medical Br anch [code = DTaP,Tdap,and Td Vaccines (2 - Td)] Future Scheduled 2021-10-08 Depression screening [facility] Test 00:00:00 (procedure) [code = Medical Branch [id number]] Future Scheduled 2021-06-[address] [facility] Test 00:00:00 (Season Ended) [code Medical Branch = INFLUENZA VACCINE (Season Ended)] Future Scheduled 2020-07-24 Screening for [facility] Test 00:00:00 malignant neoplasm Medical B ranch of cervix (procedure) [code = [id number]] Future Scheduled 2005 Hepatitis C [facility] Test 00:00:00 screening Medical Branch (procedure) [code = [id number]] Future Scheduled 2003 SARS-CoV-2 [facility] Test 00:00:00 (COVID-19) Vaccine Medical B [place] (1) [code = SARS-CoV-2 (COVID-19) Vaccine (1)] Future Scheduled 1988 VARICELLA VACCINES Unive [facility] Test 00:00:00 (1 of 2 - 2-dose Medical Bra [facility] childhood series) [code = VARICELLA VACCINES (1 of 2 - 2-dose childhood series)] Encounters Start End Encounter Admission Attending Care Care Encounter Source Date/Time Date/Time Type Type Clinicians Facility Department ID 2021-05-12 2021-05-12 Office BENITO Ash [id number] 10:23:38 11:43:11 Visit Michelle SPECIALTY [id number] [facility] [id number] [place] AT [phone] [address] Results This patient has no known results.
--- NOTE | 2021-05-18 18:41 | RAD REPORT ---
EXAM DESCRIPTION: RAD - Chest Pa And Lat (2 Views) - 05/18/2021 6:34 pm CLINICAL HISTORY: DYSPNEA COMPARISON: Chest Pa And Lat (2 Views) dated 05/17/2021; Chest Single View dated 02/13/2021; Chest Sin gle View dated 02/06/2021 FINDINGS: Moderate multifocal airspace disease bilaterally. This is slightly worsened compared with 05/17/2021 per The heart size is within normal limits.No acute osseous abnormality. No significant pl eural effusions or pneumothorax. IMPRESSION: Mild worsening in aeration of the lungs with moderate bilateral airspace disease concern ing for multifocal pneumonia, including Covid-19.
[2021-05-18] MEDS ORDERED: IBUPROFEN 400 MG TAB ONE ×3 (19:51→21:22)
[2021-05-18 21:26] LABS: Absolute Lymphocytes (CBC) 0.9 K/uL (0.7-4.9); Basophils % 0.7 % (0-1.3); Hematocrit 41.8 % (36.0-45.0); Lymphocytes % 20.5 % (15.3-44.8); MPV 8.2 fL (7.6-11.3); RBC Red Blood Cell Count 4.88 M/uL (3.86-4.86)
[2021-05-18 22:08] LABS: ALT/SGPT 33 U/L (12-78); AST/SGOT 48 U/L (15-37); Albumin 3.4 g/dL (3.4-5.0); Alkaline Phosphatase 97 U/L (45-117); BUN Blood Urea Nitrogen 9 mg/dL (7-18); Bicarbonate 27 mmol/L (21-32); Bilirubin Direct 0.4 mg/dL (0-0.2); Bilirubin Total 0.7 mg/dL (0.2-1.0); Ferritin 125.5 ng/mL (8-388); Glucose Level 104 mg/dL (74-106); Lipase 158 U/L (73-393); Potassium 3.4 mmol/L (3.5-5.1); Protein, Total 7.8 g/dL (6.4-8.2); Sodium Level 133 mmol/L (136-145); Troponin (Emerg Dept Use Only) < 0.02 ng/mL (0.0-0.045)
--- NOTE | 2021-05-19 00:30 | EDPHYS ---
Physician Documentation [facility] Name: Juan F Reid Age: 36 yrs Sex: Female : 1985 Arrival Date: 05/18/2021 Time: 17:21 Bed 15 Private MD: ED Physician Burak Padilla HPI: 05/18 23:41 This 36 yrs old Female presents to ER via Ambulatory with complaints of kb Shortness Of Breath - covid+, Fever. 23:41 The patient or guardian reports cough, that is intermittent, described as moderate, kb with no sputum, difficulty breathing, flu symptoms. Onset: The symptoms/episode began/occurred 4 day(s) ago. Severity of symptoms: At their worst the symptoms were moderate, in the emergency department the symptoms are unchanged. Modifying factors: The symptoms are alleviated by nothing, the symptoms are aggravated by nothing. Associated signs and symptoms: Pertinent positives: fever, Pertinent negatives: chest pain, diarrhea, ear ache, nausea, rhinorrhea, sore throat, vomiting. The patient has not experienced similar symptoms in the past. The patient has not recently seen a physician. Pt reports she has covid. Reports increase in shortness of breath and fever of 103. Reports body aches and chills. . 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 - Social history:: Smoking status: Patient denies any tobacco usage or history of. Patient uses alcohol, occasionally. ROS: 23:43 Abdomen/GI: Negative for abdominal pain, nausea, vomiting, diarrhea, and constipation. kb 23:43 Constitutional: Positive for body aches, chills, fatigue, fever, malaise. 23:43 Respiratory: Positive for cough, dyspnea on exertion, shortness of breath, Negative for hemoptysis, orthopnea, pleurisy, sputum production, wheezing. 23:43 All other systems are negative. Exam: 23:43 Constitutional: This is a well developed, well nourished patient who is awake, alert, kb and in no acute distress. Head/Face: Normocephalic, atraumatic. ENT: Moist Mucous membranes Cardiovascular: Regular rate and rhythm with a normal S1 and S2. No gallops, murmurs, or rubs. No pulse deficits. Respiratory: Respirations even and unlabored. No increased work of breathing, no retractions or nasal flaring. Abdomen/GI: Soft, non-tender. No distention Skin: Warm, dry with normal turgor. Normal color. MS/ Extremity: Pulses equal, no cyanosis. Neurovascular intact. Full, normal range of motion. Neuro: Awake and alert, GCS 15, oriented to person, place, time, and situation. Moves all extremities. Normal gait. Psych: Awake, alert, with orientation to person, place and time. Behavior, mood, and affect are within normal limits. Vital Signs: 18:06 BP 117 / 83; Pulse 107; Resp 20; Temp 103.2(O); Pulse Ox 95% on R/A; Weight 131.54 kg kg (R); Height 5 ft. 6 in. (167.64 cm) (R); Pain 7/10; 21:12 BP 110 / 58; Pulse 94; Resp 20; Temp 99.7; Pulse Ox 94% ; ea 22:17 BP 115 / 69; Pulse 83; Resp 18 S; Pulse Ox 93% ; ad5 05/19 00:26 Pulse Ox 88% ; ea 05/18 18:06 Body Mass Index 46.81 (131.54 kg, 167.64 cm) kg 00:26 Pt sats decreased to 88% post ambulation. Pt tolerated well. ea MDM: 05/18 20:44 Patient medically screened. kb 23:40 Data reviewed: vital signs, nurses notes. Data interpreted: Pulse oximetry: on room air kb is 93 %. Interpretation: normal. 05/19 00:28 Counseling: I had a detailed discussion with the patient and/or guardian regarding: the kb historical points, exam findings, and any diagnostic results supporting the discharge/admit diagnosis, lab results, radiology results. Physician consultation: Matt TORRES was contacted at 00:28, regarding admission, to the telemetry unit. patient's condition, and will see patient in ED. ED course: Pt became hypoxic upon ambulation. 88% on room air when moving from stretcher to wheelchair. . 05/18 20:44 Order name: BMP kb 05/18 20:44 Order name: C-Reactive Protein 05/18 20:44 Order name: CBC with Diff; Complete Time: 21:32 kb 05/18 20:44 Order name: D-Dimer; Complete Time: 22:21 kb 05/18 20:44 Order name: Ferritin; Complete Time: 22:09 kb 05/18 20:44 Order name: LFT's; Complete Time: 22: kb 05/18 20:44 Order name: Lactate; Complete Time: 22:09 kb 05/18 20:44 Order name: Lipase; Complete Time: 22:09 kb 05/18 20:44 Order name: PT-INR; Complete Time: 22:21 kb 05/18 20:44 Order name: Procalcitonin; Complete Time: 23:12 kb 05/18 20:44 Order name: Ptt, Activated; Complete Time: 22:21 kb 05/18 20:44 Order name: Troponin (emerg Dept Use Only); Complete Time: 22:09 kb 05/18 20:45 Order name: Basic Metabolic Panel; Complete Time: 22:09 EDSD 05/18 20:45 Order name: C-Reactive Protein; Complete Time: 22:09 EDSD 05/18 18:17 Order name: Chest Pa And Lat (2 Views) XRAY; Complete Time: 20:42 kb 05/18 20:44 Order name: EKG; Complete Time: 20:45 kb 05/18 20:44 Order name: Cardiac monitoring; Complete Time: 21:40 kb 05/18 20:44 Order name: Droplet/Contact Precautions; Complete Time: 21:40 kb 05/18 20:44 Order name: EKG - Nurse/Tech; Complete Time: 21:40 kb 05/18 22:22 Order name: CT Chest For PE Angio; Complete Time: 18:06 kb 05/19 13:18 Order name: Urinalysis; Complete Time: 18:06 EDMS 05/19 13:27 Order name: Urine Microscopic Only; Complete Time: 18:06 EDSD 05/20 05:14 Order name: CBC with Automated Diff EDSD 05/20 05:34 Order name: Comprehensive Metabolic Panel EDSD 05/20 05:34 Order name: C-Reactive Protein EDSD 05/20 05:34 Order name: Magnesium EDSD 05/20 05:48 Order name: Ferritin EDSD 05/20 15:18 Order name: RAD EDSD 05/18 20:44 Order name: IV Start; Complete Time: 21:12 kb 05/18 20:44 Order name: Labs collected and sent; Complete Time: 21:12 kb 05/18 20:44 Order name: O2 Per Protocol; Complete Time: 21:12 kb 05/18 20:44 Order name: O2 Sat Monitoring; Complete Time: 21:12 kb 05/18 20:52 Order name: Vital Signs; Complete Time: 21:40 kb Administered Medications: 05/18 21:03 Drug: Ibuprofen 800 mg Route: PO; ea 05/19 01:14 Follow up: Response: No adverse reaction ea 01:13 Drug: SOLU-Medrol (methylPrednisoLONE) 125 mg Route: IVP; Site: right antecubital; ea 01:24 Follow up: Response: No adverse reaction ad5 Disposition Summary: 05/19/21 00:30 Hospitalization Ordered Hospitalization Status: Observation kb Provider: Burak Rodriguez Condition: Stable kb Problem: new kb Symptoms: are unchanged kb Bed/Room Type: Standard kb Location: [facility] ER HOLD(05/19/21 01:24) tl1 Room Assignment: ERHOLD-(05/19/21 01:24) tl1 Diagnosis - Coronavirus infection, unspecified kb - Viral pneumonia, unspecified kb Forms: - Medication Reconciliation Form kb - SBAR form kb Signatures: Dispatcher [employer] MS Dee Landers FNP-C FNP-Ana Tucker RN RN tl1 Sunita Blackburn RN RN ea Graham, Kristen RN Florencio Tapia kg Corrections: (The following items were deleted from the chart) 01:24 00:30 Telemetry/MedSurg (observation) kb tl1 01:24 00:30 kb tl1
--- NOTE | 2021-05-19 00:30 | ER ---
Nurse's Notes [facility] Name: Juan F Reid Age: 36 yrs Sex: Female : 1985 Arrival Date: 05/18/2021 Time: 17:21 Bed 15 Private MD: Diagnosis: Coronavirus infection, unspecified;Viral pneumonia, unspecified Presentation: 05/18 18:06 Chief complaint: Patient states: increased SOB, fever 103.2, chills, body aches. Covid kg + 05/13. Coronavirus screen: Client denies travel out of the [place] in the last 14 days. At this time, unable to obtain information related to travel outside the [place] Client presents with at least one sign or symptom that may indicate coronavirus-19. Standard/surgical mask placed on the client. Provider contacted for isolation considerations. Client reports previous positive COVID test result. Date of collection: May 13, 2021. Ebola Screen: Patient negative for fever greater than or equal to 101.5 degrees Fahrenheit, and additional compatible Ebola Virus Disease symptoms Patient denies exposure to infectious person. Patient denies travel to an Ebola-affected area in the 21 days before illness onset. Initial Sepsis Screen: Does the patient meet any 2 criteria? No. Patient's initial sepsis screen is negative. Does the patient have a suspected source of infection? No. Patient's initial sepsis screen is negative. Risk Assessment: Do you want to hurt yourself or someone else? Patient reports no desire to harm self or others. Onset of symptoms was May 13, 2021. 18:06 Method Of Arrival: Ambulatory kg 18:06 Acuity: TRINIDAD 3 kg Triage Assessment: 18:10 General: Appears uncomfortable, Behavior is calm, cooperative, appropriate for age, kg quiet. Pain: Complains of pain in Generalized Pain currently is 7 out of 10 on a pain scale. at worst was 10 out of 10 on a pain scale. level that patient reports is acceptable is 5 out of 10 on a pain scale. Respiratory: Reports shortness of breath cough that is productive, Onset: The symptoms/episode began/occurred the patient has moderate shortness of breath. 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 - Social history:: Smoking status: Patient denies any tobacco usage or history of. Patient uses alcohol, occasionally. Screenin:13 Abuse screen: Denies threats or abuse. Denies injuries from another. Nutritional kg screening: No deficits noted. Tuberculosis screening: No symptoms or risk factors identified. Fall Risk None identified. Assessment: 20:55 General: Appears uncomfortable, Behavior is calm, cooperative, appropriate for age. ea Pain: Denies pain. Neuro: Level of Consciousness is awake, alert, obeys commands, Oriented to person, place, time. Cardiovascular: Patient's skin is warm and dry. Respiratory: Parent/caregiver reports the patient having shortness of breath at rest on exertion. Respiratory: Airway is patent Respiratory effort is even, unlabored, Respiratory pattern is regular, symmetrical. Derm: Skin is pink, warm \T\ dry. 21:45 Reassessment: Patient and/or family updated on plan of care and expected duration. Pain ea level reassessed. Patient is alert, oriented x 3, equal unlabored respirations, skin warm/dry/pink. Vital Signs: 18:06 BP 117 / 83; Pulse 107; Resp 20; Temp 103.2(O); Pulse Ox 95% on R/A; Weight 131.54 kg kg (R); Height 5 ft. 6 in. (167.64 cm) (R); Pain 7/10; 21:12 BP 110 / 58; Pulse 94; Resp 20; Temp 99.7; Pulse Ox 94% ; ea 22:17 BP 115 / 69; Pulse 83; Resp 18 S; Pulse Ox 93% ; ad5 05/19 00:26 Pulse Ox 88% ; ea 05/18 18:06 Body Mass Index 46.81 (131.54 kg, 167.64 cm) kg 00:26 Pt sats decreased to 88% post ambulation. Pt tolerated well. ea ED Course: 05/18 17:21 Patient arrived in ED. as 18:10 Triage completed. kg 18:10 Arm band placed on right wrist. kg 18:13 Patient has correct armband on for positive identification. kg 18:34 Chest Pa And Lat (2 Views) XRAY In Process Unspecified. EDMS 20:42 [facility]C [facility] kb 20:42 Burak Padilla MD is Attending Physician. kb 20:58 Sunita Blackburn, NASREEN is Primary Nurse. ea 22:17 Notified ED physician of a critical lab result(s). D-dimer 838. ad5 22:52 CT Chest For PE Angio In Process Unspecified. EDMS 05/19 00:30 Burak Rodriguez MD is Hospitalizing Provider. kb 01:23 No provider procedures requiring assistance completed. Patient admitted, IV remains in ad5 place. Administered Medications: 05/18 21:03 Drug: Ibuprofen 800 mg Route: PO; ea 05/19 01:14 Follow up: Response: No adverse reaction ea 01:13 Drug: SOLU-Medrol (methylPrednisoLONE) 125 mg Route: IVP; Site: right antecubital; ea 01:24 Follow up: Response: No adverse reaction ad5 Outcome: 00:30 Decision to Hospitalize by Provider. kb 01:23 Admitted to ER Hold. Please see [facility] for further documentation. ad5 01:23 Condition: stable 01:23 Instructed on the need for admit, Demonstrated understanding of instructions. 05/20 16:52 Patient left the ED. iw Signatures: Dispatcher [employer] EDWA Dee Landers FNP-C FNP-Franchesca Nichols as Radha Esparza RN NASREEN Sunita Blackburn RN RN ea Graham, Kristen, Florencio Tapia RN, kg ad5 Corrections: (The following items were deleted from the chart) 05/18 21:46 19:00 General: Appears uncomfortable, Behavior is calm, cooperative, appropriate for ea age, ea 21:46 19:00 Pain: Denies pain. ea ea 21:46 19:00 Neuro: Level of Consciousness is awake, alert, obeys commands, Oriented to ea person, place, time, ea 19:00 Cardiovascular: Patient's skin is warm and dry. ea ea : 19:00 Respiratory: Airway is patent Respiratory effort is even, unlabored, Respiratory ea pattern is regular, symmetrical, ea 19:00 Derm: Skin is pink, warm \T\ dry. ea ea : 19:00 Respiratory: Parent/caregiver reports the patient having shortness of breath at ea rest on exertion ea
--- NOTE | 2021-05-19 00:55 | P.HP ---
Certification for Inpatient Patient admitted to: Inpatient With expected LOS: >2 Midnights Patient will require the following post-hospital care: None Practitioner: I am a practitioner with admitting privileges, knowledge of patient current condition, hospital course, and medical plan of care. Services: Services provided to patient in accordance with Admission requirements found in Title 42 Section 412.3 of the Code of Federal Regulations <Matt Bernstein - Last Filed: 05/19/21 00:51> Patient History Date of Service: 05/19/21 Reason for admission: COVID-19 pneumonia History of Present Illness: 36-year-old tested positive for Covid first on 05/13/2021 presents emergency department for increasing shortness of breath, fevers. Patient was evaluated in the emergency department, labs were significant for sodium 133 potassium 3.4 GFR 65 C-reactive protein 38.6 D-dimer 838 chest x-ray demonstrates mild worsening in moderate COVID-19 pattern, CT PE protocol with similar negative for PE with motion artifact noted. Patient saturating around 91 to 92% on room air but dips into the high 80s with any amount of exertion including moving from bed to wheelchair/CT. ED provider wishes to admit for further evaluation and management. - Past Medical/Surgical History Diabetic: No -: PCOS -: Asthma -: Gerd -: Cellulitis -: -: appendectomy Psychosocial/ Personal History: Patient is employed, lives with her daughter - Family History Father -: Other (see notes) (No significant family history) - Social History Alcohol use: Yes CD- Drugs: No Caffeine use: Yes Place of Residence: Home <Matt eBrnstein - Last Filed: 05/19/21 00:51> Date of Service: 05/19/21 <Burak Rodriguez - Last Filed: 05/20/21 06:45> Allergies hydrocodone Allergy (Verified 05/19/21 01:35) Rash Home Medications: Furosemide [Lasix*] 20 mg PO DAILY #30 tab 02/07/21 Norgestimate-Ethinyl Estradiol [Ortho Tri-Cyclen 28 Tablet] 1 each PO DAILY 02/07/21 Pantoprazole [Protonix Tab*] 40 mg PO QID 02/07/21 Ketorolac Tromethamine 1 tab PO Q6H PRN 02/14/21 Fluconazole [Diflucan] 150 mg PO Q3D 2 Days #2 tablet 02/16/21 predniSONE [Prednisone*] 20 mg PO SEECOM #35 tab 02/16/21 Gabapentin 300 mg PO TID 05/19/21 Review of Systems 10-point ROS is otherwise unremarkable General: Fever, Chills, Weakness, Malaise Respiratory: Cough, Dry, Shortness of Breath, SOB with Excertion <Matt Bernstein - Last Filed: 05/19/21 00:51> Physical Examination - Physical Exam General: Alert, In no apparent distress, Oriented x3 HEENT: Atraumatic, PERRLA, Mucous membr. moist/pink, EOMI, Sclerae nonicteric Neck: Supple, 2+ carotid pulse no bruit, No LAD, Without JVD or thyroid abnormality Respiratory: Normal air movement, Diminished Cardiovascular: Regular rate/rhythm, Normal S1 S2 Gastrointestinal: Normal bowel sounds, No tenderness Musculoskeletal: No tenderness Integumentary: No rashes Neurological: Normal speech, Normal strength at 5/5 x4 extr, Normal tone, Normal affect Lymphatics: No axilla or inguinal lymphadenopathy - Studies Laboratory Data (last 24 hrs) 05/18/21 21:06: PT 11.5, INR 1.00, APTT 27.7 05/18/21 21:06: WBC 4.30, Hgb 13.9, Hct 41.8, Plt Count 175 05/18/21 21:06: Sodium 133 L, Potassium 3.4 L, BUN 9, Creatinine 0.98, Glucose 104, Total Bilirubin 0.7, AST 48 H, ALT 33, Alkaline Phosphatase 97, Lipase 158 <Matt Bernstein - Last Filed: 05/19/21 00:51> Assessment and Plan - Plan Assessment: Acute hypoxic respiratory failure secondary to COVID-19 pneumonia complicated with history of asthma Plan: Acute hypoxic respiratory failure secondary to COVID-19 pneumonia complicated with history of asthma: Supplemental oxygen as needed, continue daily CRP, ferritin levels. Daily room air saturations, room air saturations for home O2. If patient continues to do well may be possibly discharge in the next couple of days on home oxygen. Pulmonology consulted for additional assistance continue with IV steroids, oral supplements. Patient would not qualify for barcitinib given current CRP level appreciate further input from pulmonology. DVT PPX: Lovenox Code status: Full Discharge Plan: Home Plan to discharge in: 48 Hours - Advance Directives Does patient have a Living Will: No Does patient have a Durable POA for Healthcare: No - Code Status/Comfort Care Code Status Assessed: Yes (Full code) Critical Care: No Time Spent Managing Pts Care (In Minutes): 55 <Matt Bernstein - Last Filed: 05/19/21 00:51> Date of Service: 05/19/21 Subjective: Patient clinically doing well. Would check room air O2 sats in the morning. Hopefully discharge in a.m. Physical Examination: Vitals: Afebrile vital signs are stable Physical exam: Cardiovascular: Within normal limits. Lungs: Within normal limits Abdomen: Within normal limits Neuro: Awake, alert, oriented to person place and time Assessment: Plan: 1. Continue with IV steroids 2. Monitor inflammatory markers 3. Repeat chest x-ray is symptoms are progressively worsening 4. O2 per protocol 5. Pulmonary consultation 6. Continue with albuterol inhaler therapy; also supportive care 7. Monitor LFTs 8. GI and DVT prophylaxis <Burak Rodriguez - Last Filed: 05/20/21 06:45>
[2021-05-19] MEDS ORDERED: ACETAMINOPHEN 500 MG TAB PO PRN (01:29)
[2021-05-19] MEDS ORDERED: ALBUTEROL INHALER 60 PUFF/8 GM IH PRN (01:29)
[2021-05-19] MEDS ORDERED: MELATONIN 5 MG TABLET PO PRN (01:29)
[2021-05-19] MEDS ORDERED: BENZONATATE 100 MG CAP PO PRN (01:29)
[2021-05-19] MEDS ORDERED: ONDANSETRON 4 MG/2 ML VIAL IV PRN (01:29)
[2021-05-19] MEDS ORDERED: METHYLPREDNISOLONE 125 MG INJ ONE ×2 (01:31→09:44)
[2021-05-19 02:52] VITALS: BMI 46.7
--- NOTE | 2021-05-19 07:28 | EKG ---
Test Date: 2021-05-18 Test Time: 21:37:07 Director Of Financial Planning: KIM MEASUREMENT RESULTS: Intervals: Rate: 87 AL: 130 QRSD: 80 QT: 378 QTc: 454 Ray: P: 28 AL: 130 QRS: 6 T: 16 INTERPRETIVE STATEMENTS: Normal sinus rhythm Cannot rule out Anterior infarct, age undetermined Abnormal ECG Compared to ECG 02/13/2021 09:19:36 Myocardial infarct finding now present Electronically Signed On 05-19-21 07:27:40 CDT by Srinath Fraser
[2021-05-19] MEDS: VITAMIN D 1000 UNIT TAB PO SCH (09:00)
[2021-05-19] MEDS: ASCORBIC ACID 500 MG TABLET PO SCH ×4 (09:00→20:03)
[2021-05-19] MEDS: ZINC SULFATE 220 MG CAP PO SCH (09:00)
[2021-05-19] MEDS ORDERED: POTASSIUM CL SA 10 MEQ TAB PO ONE ×2 (09:00→09:45)
[2021-05-19] MEDS: ENOXAPARIN 40 MG/0.4 ML SQ SCH (09:00)
[2021-05-19] MEDS: METHYLPREDNISOLONE 125 MG INJ IV SCH ×2 (09:00→19:08)
[2021-05-19] MEDS: THIAMINE HCL 100 MG TABLET PO SCH (09:00)
[2021-05-19] MEDS ORDERED: ZINC SULFATE 220 MG CAP ONE (09:44)
[2021-05-19] MEDS ORDERED: THIAMINE HCL 100 MG TABLET ONE (09:45)
[2021-05-19] MEDS ORDERED: ASCORBIC ACID 500 MG TABLET ONE ×3 (09:45→17:37)
[2021-05-19] MEDS ORDERED: VITAMIN D 1000 UNIT TAB ONE (09:45)
[2021-05-19] MEDS ORDERED: ENOXAPARIN 40 MG/0.4 ML SQ ONE (09:46)
--- NOTE | 2021-05-19 10:28 | RAD REPORT ---
EXAM DESCRIPTION: CT - Chest For Pe Angio - 05/19/2021 6:26 am CLINICAL HISTORY: 36-year-old female with chest pain. COMPARISON: None. TECHNIQUE: CT angiography of the pulmonary arteries was performed following intravenous administrati on of contrast. Coronal and bilateral oblique maximum intensity projections (MIPS) were created. This exam was performed according to our departmental dose optimization program which includes use of aut omated exposure control, adjustment of the mA and/or kV according to patient size and/or use of itera tive reconstruction technique. FINDINGS: Chest: Motion limited evaluation through the lungs reveals multifocal peripherally based patchy groundglass opacities concerning for multifocal infectious process including viral/atypical infection in the mary ect clinical setting. No pleural effusion or pneumothorax. There is minimal dependent basilar atelectasis and scarring. The tracheobronchial airways are patent. No significant mediastinal or axillary lymphadenopathy by CT me asurement criteria. Limited evaluation of the upper abdomen shows no acute intra-abdominal abnormalities. The osseous structures are within normal limits. CT angiography: Diagnostic CT angiography of the central pulmonary arteries without intraluminal fill ing defect noted to suggest pulmonary arterial embolus. The subsegmental pulmonary arteries cannot be evaluated however secondary to severe motion artifact. IMPRESSION: 1. Diagnostic pulmonary angiography without findings to suggest central pulmonary arteri al embolus. The subsegmental pulmonary arteries cannot be further evaluated however secondary to kindra re motion artifact. 2. Multifocal peripherally based patchy groundglass opacities concerning for multifocal infectious pr ocess including viral/atypical infection in the correct clinical setting. 3. Motion limited examination. Electronically signed by: Komal Marti MD 05/18/2021 11:39 PM CDT Due to temporary technical issues with the PACS/Fluency reporting system, reports are being signed by the in house radiologist without review as a courtesy to ensure prompt reporting. The interpreting r adiologist is fully responsible for the content of the report.
[2021-05-19 13:14] LABS: Urine Appearance CLOUDY (Clear); Urine Blood NEGATIVE (Negative); Urine Color DK YELLOW (Yellow); Urine Glucose 2+ (Negative); Urine Protein 1+ (Negative); Urine Specific Gravity >=1.030 (1.005-1.030)
[2021-05-19 13:15] LABS: Urine Microscopic Reflex ORDER UMIC
[2021-05-19 13:18] LABS: Urine Bilirubin 1+ (Negative)
[2021-05-19 13:26] LABS: Urine Bacteria 20-50 /HPF (<20); Urine RBC <5 /HPF (NONE SEEN)
[2021-05-19] MEDS ORDERED: FENTANYL CITR 100 MCG/2 ML IV ONE (13:35)
[2021-05-19] MEDS ORDERED: FENTANYL CITR 100 MCG/2 ML ONE (14:04)
[2021-05-19] MEDS ORDERED: METHYLPREDNISOLONE 40 MG INJ ONE (17:38)
[2021-05-19] MEDS ORDERED: BENZONATATE 100 MG CAP PO ONE (20:07)
[2021-05-20 05:06] LABS: Absolute Lymphocytes (CBC) 0.7 K/uL (0.7-4.9); Basophils % 0.2 % (0-1.3); Hematocrit 41.6 % (36.0-45.0); Lymphocytes % 14.5 % (15.3-44.8); MPV 8.6 fL (7.6-11.3); RBC Red Blood Cell Count 4.83 M/uL (3.86-4.86)
[2021-05-20 05:34] LABS: ALT/SGPT 48 U/L (12-78); AST/SGOT 56 U/L (15-37); Albumin 3.2 g/dL (3.4-5.0); Alkaline Phosphatase 94 U/L (45-117); BUN Blood Urea Nitrogen 10 mg/dL (7-18); Bicarbonate 27 mmol/L (21-32); Bilirubin Total 0.5 mg/dL (0.2-1.0); Glucose Level 131 mg/dL (74-106); Magnesium 2.6 mg/dL (1.8-2.4); Potassium 3.8 mmol/L (3.5-5.1); Protein, Total 7.6 g/dL (6.4-8.2); Sodium Level 137 mmol/L (136-145)
[2021-05-20 05:48] LABS: Ferritin 180.6 ng/mL (8-388)
[2021-05-20] MEDS: THIAMINE HCL 100 MG TABLET PO SCH (08:33)
[2021-05-20] MEDS: VITAMIN D 1000 UNIT TAB PO SCH (08:33)
[2021-05-20] MEDS: ASCORBIC ACID 500 MG TABLET PO SCH ×2 (08:34→12:06)
[2021-05-20] MEDS: ZINC SULFATE 220 MG CAP PO SCH (08:34)
[2021-05-20] MEDS: ENOXAPARIN 40 MG/0.4 ML SQ SCH (08:34)
[2021-05-20] MEDS: METHYLPREDNISOLONE 125 MG INJ IV SCH (08:35)
[2021-05-20] MEDS ORDERED: ZINC SULFATE 220 MG CAP ONE (08:48)
[2021-05-20] MEDS ORDERED: ASCORBIC ACID 500 MG TABLET ONE ×3 (08:48→16:00)
[2021-05-20] MEDS ORDERED: THIAMINE HCL 100 MG TABLET ONE (08:48)
[2021-05-20] MEDS ORDERED: VITAMIN D 1000 UNIT TAB ONE (08:48)
[2021-05-20] MEDS ORDERED: ENOXAPARIN 40 MG/0.4 ML SQ ONE (08:49)
[2021-05-20] MEDS ORDERED: POTASSIUM CL SA 10 MEQ TAB PO ONE ×2 (08:49→09:00)
[2021-05-20] MEDS ORDERED: METHYLPREDNISOLONE 40 MG INJ ONE (08:49)
[2021-05-20 12:16] VITALS: BP 124/82; TEMP 98.1; O2SAT 92
--- NOTE | 2021-05-20 15:17 | RAD REPORT ---
EXAM DESCRIPTION: Ribs Right - 05/20/2021 3:01 pm CLINICAL HISTORY: rib pain COMPARISON: Chest Pa And Lat (2 Views) dated 05/18/2021; Chest For Pe Angio dated 05/18/2021None. FINDINGS: No displaced rib fracture is evident. No non-displaced rib fracture suspected. No aggressive rib lesion. No underlying pneumothorax or pleural effusion. Patchy lung parenchymal opa cification is present matching the May 18 CT chest study. IMPRESSION: No acute or suspicious rib finding. No pneumothorax. Lung parenchymal opacification matches recent CT chest.
--- NOTE | 2021-05-23 12:49 | P.DS ---
Discharge Date: 05/20/21 Disposition: ROUTINE DISCHARGE Discharge Condition: GOOD Reason for Admission: COVID-19 pneumonia Brief History of Present Illness: 36-year-old tested positive for Covid first on 05/13/2021 presents emergency department for increasing shortness of breath, fevers. Patient was evaluated in the emergency department, labs were significant for sodium 133 potassium 3.4 GFR 65 C-reactive protein 38.6 D-dimer 838 chest x-ray demonstrates mild worsening in moderate COVID-19 pattern, CT PE protocol with similar negative for PE with motion artifact noted. Patient saturating around 91 to 92% on room air but dips into the high 80s with any amount of exertion including moving from bed to wheelchair/CT. ED provider wishes to admit for further evaluation and management. Hospital Course: Patient is clinically doing well. Patient was arrange for home oxygen. At this time, patient is stable for discharge home. Vital Signs/Physical Exam: Temp Pulse Resp BP Pulse Ox 98.1 F 71 21 H 124/82 92 05/20/21 12:00 05/20/21 12:00 05/20/21 12:00 05/20/21 12:00 05/20/21 12:00 General: Alert, In no apparent distress, Oriented x3 Laboratory Data at Discharge: WBC 4.50 K/uL (4.3-10.9) 05/20/21 04:35 Hgb 14.1 g/dL (12.0-15.0) 05/20/21 04:35 Hct 41.6 % (36.0-45.0) 05/20/21 04:35 Plt Count 198 K/uL (152-406) 05/20/21 04:35 PT 11.5 SECONDS (9.5-12.5) 05/18/21 21:06 INR 1.00 05/18/21 21:06 APTT 27.7 SECONDS (24.3-36.9) 05/18/21 21:06 Sodium 137 mmol/L (136-145) 05/20/21 04:35 Potassium 3.8 mmol/L (3.5-5.1) 05/20/21 04:35 BUN 10 mg/dL (7-18) 05/20/21 04:35 Creatinine 0.71 mg/dL (0.55-1.3) 05/20/21 04:35 Glucose 131 mg/dL (74-106) H 05/20/21 04:35 Magnesium 2.6 mg/dL (1.8-2.4) H 05/20/21 04:35 Total Bilirubin 0.5 mg/dL (0.2-1.0) 05/20/21 04:35 AST 56 U/L (15-37) H 05/20/21 04:35 ALT 48 U/L (12-78) 05/20/21 04:35 Alkaline Phosphatase 94 U/L (45-117) 05/20/21 04:35 Lipase 158 U/L (73-393) 05/18/21 21:06 Home Medications: Furosemide [Lasix*] 20 mg PO DAILY #30 tab 02/07/21 Norgestimate-Ethinyl Estradiol [Ortho Tri-Cyclen 28 Tablet] 1 each PO DAILY 02/07/21 Pantoprazole [Protonix Tab*] 40 mg PO QID 02/07/21 Ketorolac Tromethamine 1 tab PO Q6H PRN 02/14/21 Fluconazole [Diflucan] 150 mg PO Q3D 2 Days #2 tablet 02/16/21 Gabapentin 300 mg PO TID 05/19/21 Albuterol Inhaler [Ventolin Inhaler*] 2 puff IH Q6H PRN #1 hfa.aer.ad 05/20/21 Albuterol Sulfate [Albuterol Sulfate 0.083% Neb Soln] 2.5 mg NEB Q6HP PRN #60 ml 05/20/21 Ascorbic Acid [Vitamin C*] 500 mg PO QID #120 tablet 05/20/21 Cholecalciferol (Vitamin D3) [Vitamin D 1000 Iu Tab*] 4,000 unit PO DAILY #30 tab 05/20/21 Ipratropium Neb [Atrovent Neb] 0.5 mg NEB Q6HP PRN #60 amp 05/20/21 Melatonin 5 mg PO BEDTIME PRN PRN #30 tablet 05/20/21 Pantoprazole Sodium [Protonix] 40 mg PO DAILY #20 tablet. 05/20/21 Promethazine HCl/Codeine [Prometh-Codein 6.25-10 mg/5 ml] 5 ml PO Q12HP PRN #100 ml 05/20/21 Rivaroxaban [Xarelto] 10 mg PO DAILY #20 tablet 05/20/21 Thiamine HCl [Vitamin B-1*] 200 mg PO DAILY #30 tablet 05/20/21 Zinc Sulfate [Zinc Sulfate*] 220 mg PO DAILY #30 cap 05/20/21 predniSONE [Prednisone*] 20 mg PO SEECOM #35 tab 05/20/21 New Medications: Albuterol Sulfate [Albuterol Sulfate 0.083% Neb Soln] 2.5 mg NEB Q6HP PRN #60 ml PRN Reason: dyspnea Ipratropium Neb [Atrovent Neb] 0.5 mg NEB Q6HP PRN #60 amp PRN Reason: dyspnea Melatonin 5 mg PO BEDTIME PRN PRN #30 tablet PRN Reason: Insomnia predniSONE [Prednisone*] 20 mg PO SEECOM #35 tab Promethazine HCl/Codeine [Prometh-Codein 6.25-10 mg/5 ml] 5 ml PO Q12HP PRN #100 ml PRN Reason: Cough Pantoprazole Sodium [Protonix] 40 mg PO DAILY #20 tablet. Albuterol Inhaler [Ventolin Inhaler*] 2 puff IH Q6H PRN #1 hfa.aer.ad PRN Reason: Shortness Of Breath Thiamine HCl [Vitamin B-1*] 200 mg PO DAILY #30 tablet Ascorbic Acid [Vitamin C*] 500 mg PO QID #120 tablet Cholecalciferol (Vitamin D3) [Vitamin D 1000 Iu Tab*] 4,000 unit PO DAILY #30 tab Rivaroxaban [Xarelto] 10 mg PO DAILY #20 tablet Zinc Sulfate [Zinc Sulfate*] 220 mg PO DAILY #30 cap Physician Discharge Instructions: OK TO DC IV AND DC HOME FOLLOW-UP WITH PRIMARY CARE PROVIDER IN 1-2 WEEKS FOLLOW-UP WITH Student Services Vice President IN 1-2 WEEKS RETURN TO THE ER IF symptoms worsen CALL or TEXT DR. MONTEMAYOR AT [phone] IF ANY QUESTIONS REGARDING HOSPITAL STAY. PLEASE CALL THE FLOOR AT [phone] IF ANY MEDICATION OR NURSING QUESTIONS. Diet: AHA Activity: Fall precautions Followup: Donald Manuel MD [ACTIVE - CAN ADMIT] - 1-2 Weeks ([facility]All to set up an appointment) Burt Garces DO [Primary Care Provider] - 1-2 Weeks (CAll to set up for appointment. ) Time spent managing pt's care (in minutes): 35
== END 2021-05-20 15:50 | disposition home or self-care (01) | DRG 177 ==
LOC: ER 17:20 → ERHOLD 05-19 00:55
PROVIDERS: ADMIT Hospitalist; ATTEND Hospitalist
DX: U07.1 COVID-19 (principal); J12.82 Pneumonia due to coronavirus disease 2019; J96.01 Acute respiratory failure with hypoxia; J45.909 Unspecified asthma, uncomplicated; Z79.899 Other long term (current) drug therapy; Z88.5 Allergy status to narcotic agent; Z79.52 Long term (current) use of systemic steroids; Z79.01 Long term (current) use of anticoagulants
CPT/HCPCS: 36415; 71046; 71275; 80048; 80053; 80076; 81003; 81015; 82728; 83605; 83690; 83735; 84145; 84484; 85025; 85379; 85610; 85730; 86140; 93005; 94760; 96374; 99285; J1650; J2920; J2930; J3010; Q9967

== ENCOUNTER 2022-08-09 12:56 | Inpatient (IN) | payer BC, OTHER ==
--- OUTSIDE RECORDS SUMMARY | 2022-08-09 13:05 | XMS REPORT | Continuity of Care Document ---
:1985 Author Organization [facility] t Address [address] [place] [address] Care Team Providers Name Role Phone Alonzo Cooney Jr. Primary Care Physician LINWOOD REIS Attending Clinician Unavailable MICHELLE ASH Attending Clinician Unavailable BOB GARZA JR Attending Clinician Unavailable Pcp, Patient Does Not Have A Attending Clinician [phone] Lucero Landry MD Attending Clinician Celina Kelley PA-C Attending Clinician CELINA KELLEY Attending Clinician Unavailable Michelle Ash MD Attending Clinician [phone] David Babcock Attending Clinician Provider, [facility] Attending Clinician Unavailable ARUNA CRUZ Attending Clinician Unavailable Alma Parson Attending Clinician ALMA LEE Attending Clinician Unavailable Vtc-Lab Attending Clinician Unavailable Rudy uDbon MD Attending Clinician Miguelina Rodriguez MD Attending Clinician RUDY DUBON Attending Clinician Unavailable Doctor Unassigned, [facility] Attending Clinician Unavailable DAVID THOMAS Attending Clinician Unavailable KINGSTON BOYCE Attending Clinician Unavailable Linwood Reis MD Attending Clinician Lab, Adc Fam Pob I Attending Clinician Unavailable Netta Knihgt Attending Clinician NETTA BENTLEY A Attending Clinician Unavailable Alireza TRAVIS Jared Mayer Attending Clinician Anne Marie Liu A Attending Clinician Vidal RUIZ Jennie S Attending Clinician LINWOOD REIS Admitting Clinician Unavailable Linwood Reis MD Admitting Clinician Payers Payer Name Policy Type Policy Number Effective Date Expiration Date S jaqui [employer] [place] [id number] 2020 00:00:00 [place] [employer] [id number] 2020 HEALTH 00:00:00 Problems Condition Condition Condition Status Onset Resolution Last Treating Co mments Source Name Details Category Date Date Treatment Clinician Date ASCUS with ASCUS with Disease Active Overview : Univers positive positive - Formattin ity of high risk high risk 00:00: [place] HPV HPV 00 note Medical cervical cervical might be Bran ch different from the original. Patient has ASCUS and HPV + on 2020 pap smear and need to be scheduled for Colposcop y. Cervical Cervical Disease Active Overview: Un reta high risk high risk 5-22 Formattin i ty of human human 00:00: g of this [place] papillomav papillomav 00 note Me dical irus (HPV) irus (HPV) might be Branch DNA test DNA test different positive positive from the original. HPV+ on pap smear 2020 BMI BMI Disease Active Univers 45.0-49.9, 45.0-49.9, 5-19 it y of adult adult 00:00: [place] 00 Medical Branch Elevated Elevated Disease Active Unive rs blood blood 5-19 ity of pressure pressure 00:00: [place] reading reading 00 Medical without without Branch diagnosis diagnosis of of hypertensi hypertensi on on Biliary Biliary Disease Active Overview: Univ ers colic colic 1-04 Formattin ity of 00:00: g of this [place] 00 note Medical might be Branch different from the original. Added automatic ally from request for surgery [id number] Upper Upper Disease Active 2019-10 Overview: Univer s abdominal abdominal 2-14 Formattin i ty of pain pain 00:00: g of this [place] 00 note Medical might be Branch different from the original. Added automatic ally from request for surgery [id number] Nausea Nausea Disease Active 2019-10 Overview: Univer s 2-14 Formattin ity of 00:00: g of this [place] 00 note Medical might be Branch different from the original. 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 Needs colpo BV BV Disease Active 2016-10 Univers (bacterial (bacterial 0-03 it y of vaginosis) vaginosis[place] Morbid Morbid Disease Active Univers obesity obesity 3-15 ity of 00:00: [place] 00 Medical Branch Screening Screening Disease Active Overview: Univers for STD for STD 3-15 Formattin ity o f (sexually (sexually 00:00: [place] transmitte transmitte 00 note Me dical d disease) d disease) might be Branch different from the original. 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) 00 Medi janae Branch Arm vein Arm vein Disease Active Unive rs blood clot blood clot 3-15 it y of 00:00: [place] 00 Medical Branch History of History of Disease Active U nivers depression depression 3-15 it y of 00:00: [place] 00 Medical Branch Class 3 Class 3 Disease Active Univers severe severe 3-15 ity of obesity obesity 00:00: [place] with body with body 00 Medi janae mass index mass index Br anch (BMI) of (BMI) of 45.0 to 45.0 to 49.9 in 49.9 in adult, adult, unspecifie unspecifie d obesity d obesity type, type, unspecifie unspecifie d whether d whether serious serious comorbidit comorbidit y present y present Allergies, Adverse Reactions, Alerts Allergy Allergy Status Severity Reaction(s) Onset Inactive Treating Comm ents Source Name Type Date Date Clinician HYDROCOD DRUG Active Unknown-Cmnt Un reta ONE INGREDI 3-12 ity of 00:00: [place] 00 Medical Branch Hydrocod Propensi Active Unknown - Uni vers one ty to See comments 12-31 ity of adverse 00:00: [place] reaction 00 Medical s Branch Social History Social Habit Start Date Stop Date Quantity Comments Source Exposure to Not sure [facility] SARS-CoV-2 [facility] (event) [place] Tobacco use and 2021-05-12 2021-05-12 Never used Universit y of exposure 00:00:00 00:00:00 [facility] Alcohol intake 2021-05-12 2021-05-12 Current drinker Unive rsity of 00:00:00 00:00:00 of alcohol [facility] (finding) [place] Alcohol Comment 2014-12-31 2014-12-31 on occasion Universi ty of 00:00:00 00:00:00 [facility] Sex [birth year] At [birth year] Universit y of 00:00:00 00:00:00 [facility] Smoking Status Start Date Stop Date Source Never smoker [facility] Medications Ordered Filled Start Stop Current Ordering Indication Dosage Frequency Signature Comments Components Source Medication Medication Date Date Medication? Clinician (SIG) Name Name azelastine Yes [id number] 1{spray Use 1 Univers 137 mcg 7-23 } [place] in ity of (0.1 %) 00:00: each [place] nasal spray 00 nostril 2 Med ical (two) Branch times daily. Use in each nostril as directed fluticasone Yes [id number] 1{spray Use 1 Univers propionate 7-23 } [place] in ity o f 50 00:00: each [place] mcg/actuati 00 nostril Medic al on nasal daily. Branch spray albuterol Yes [id number] 2{puff} Inhale 2 Univers (PROAIR 7-23 Puffs ity of HFA) 90 00:00: every 6 [place] mcg/actuati 00 (six) Medical on inhaler hours as Branc h needed for Wheezing or Shortness of Breath. azelastine Yes [id number] 1{spray Use 1 Univers 137 mcg 7-23 } [place] in ity of (0.1 %) 00:00: each [place] nasal spray 00 nostril 2 Med ical (two) Branch times daily. Use in each nostril as directed fluticasone Yes [id number] 1{spray Use 1 Univers propionate 7-23 } [place] in ity o f 50 00:00: each [place] mcg/actuati 00 nostril Medic al on nasal daily. Branch spray albuterol Yes [id number] 2{puff} Inhale 2 Univers (PROAIR 7-23 Puffs ity of HFA) 90 00:00: every 6 [place] mcg/actuati 00 (six) Medical on inhaler hours as Branc h needed for Wheezing or Shortness of Breath. gabapentin 2020- No [id number] 100mg Take 1 Univers 100 mg 05-12 [id number] capsule by ity of capsule 00:00: 04:59 mouth 3 [place] 00 :00 (three) Medical times Branch daily for 60 days. gabapentin 2020- No [id number] 100mg Take 1 Univers 100 mg 05-12 [id number] capsule by ity of capsule 00:00: 04:59 mouth 3 [place] 00 :00 (three) Medical times Branch daily for 60 days. gabapentin 2020- No [id number] 100mg Take 1 Univers 100 mg 05-12 [id number] capsule by ity of capsule 00:00: 04:59 mouth 3 [place] 00 :00 (three) Medical times Branch daily for 60 days. gabapentin 2020- No [id number] 100mg Take 1 Univers 100 mg 05-12 [id number] capsule by ity of capsule 00:00: 04:59 mouth 3 [place] 00 :00 (three) Medical times Branch daily for 60 days. promethazin 2020- No [id number] 5mL Take 5 mL Univers e-dextromet 04-12-03 by mouth 4 i ty of horphan 00:00: 04:59 (four) [place] 6.25-15 00 :00 times Medical mg/5 mL daily as Branch syrup needed for Cough for up to 10 days. promethazin 2020- No [id number] 5mL Take 5 mL Univers e-dextromet 04-12-03 by mouth 4 i ty of horphan 00:00: 04:59 (four) [place] 6.25-15 00 :00 times Medical mg/5 mL daily as Branch syrup needed for Cough for up to 10 days. azithromyci 2020- No [id number] 250mg Take 1 Univers n 04-12 tablet by ity of (ZITHROMAX 00:00: 04:59 mouth [place] Z-NATALIE) 250 00 :00 daily for Medi janae mg tablet 5 days. Branch Take 500 mg day 1, then 250 mg days 2 to 5. azithromyci 2020- No [id number] 250mg Take 1 Univers n 04-12 tablet by ity of (ZITHROMAX 00:00: 04:59 mouth [place] Z-NATALIE) 250 00 :00 daily for Medi janae mg tablet 5 days. Branch Take 500 mg day 1, then 250 mg days 2 to 5. predniSONE 2020- No 10mg Take 10 mg Univers 10 mg 04-05 by mouth ity of tablet 17:17: 00:00 daily. [place] 55 :00 Medical [place] predniSONE 2020- No 10mg Take 10 mg Univers 10 mg 04-05 by mouth ity of tablet 17:17: 00:00 daily. [place] [facility] m[facility] Cap 5-20 ity of 00:00: [place] [facility]-0 Yes Univers mcg Cap 5-20 ity of 00:00: [place] [facility] Yes Univers mcg Cap 5-20 ity of 00:00: [place] [facility]-0 Yes Univers mcg Cap 5-20 ity of 00:00: [place] Medical Branch LINZESS 72 2020-0 Yes Univers mcg Cap 5-20 ity of 00:00: [place] 00 Medical [facility]-0 Yes Univers mcg Cap 5-20 ity of 00:00: [place] 00 Medical [facility] 2020-0 Yes Univers mcg Cap 5-20 ity of 00:00: [place] 00 Medical Branch albuterol 2020-0 Yes Inhale. Unive rs sulfate 5-19 ity of (PROAIR HFA 20:24: [place] INHALE) 07 Medical Branch albuterol 2020-0 Yes Inhale. Unive rs sulfate 5-19 ity of (PROAIR HFA 20:24: [place] INHALE) 07 Medical Branch albuterol 0 Yes Inhale. Unive rs sulfate 5-19 ity of (PROAIR HFA 20:24: [place] INHALE) 07 Medical Branch albuterol Yes Inhale. Unive rs sulfate 5-19 ity of (PROAIR HFA 20:24: [place] INHALE) Medical Branch albuterol 0 Yes Inhale. Unive rs sulfate 5-19 ity of (PROAIR HFA 20:24: [place] INHALE) 07 Medical Branch albuterol Yes Inhale. Unive rs sulfate 5-19 ity of (PROAIR HFA 20:24: [place] INHALE) [facility] Branch albuterol Yes Inhale. Unive rs sulfate 5-19 ity of (PROAIR HFA 20:24: [place] INHALE) [facility] Branch albuterol Yes Inhale. Unive rs sulfate 5-19 ity of (PROAIR HFA 20:24: [place] INHALE) 07 [facility] Branch albuterol Yes Inhale. Unive rs sulfate 5-19 ity of (PROAIR HFA 20:24: [place] INHALE) 07 Medical Branch albuterol Yes Inhale. Unive rs sulfate 5-19 ity of (PROAIR HFA 20:24: [place] INHALE) 07 Medical Branch albuterol Yes Inhale. Unive rs sulfate 5-19 ity of (PROAIR HFA 20:24: [place] INHALE) Medical Branch albuterol 0 Yes Inhale. Unive rs sulfate 5-19 ity of (PROAIR HFA 20:24: [place] INHALE) 07 Medical Branch albuterol 0 Yes Inhale. Unive rs sulfate 5-19 ity of (PROAIR HFA 20:24: [place] INHALE) Medical Branch albuterol 0 Yes Inhale. Unive rs sulfate 5-19 ity of (PROAIR HFA 20:24: [place] INHALE) 07 Medical Branch albuterol 0 Yes Inhale. Unive rs sulfate 5-19 ity of (PROAIR HFA 20:24: [place] INHALE) 07 Medical Branch albuterol Yes Inhale. Unive rs sulfate 5-19 ity of (PROAIR HFA 20:24: [place] INHALE) 07 Medical Branch pantoprazol Yes Take by Uni vers e sodium 5-19 mouth. ity of (PROTONIX 19:38: [place] ORAL) 13 Medical Branch ergocalcife Yes Take by Uni vers rol, 5-19 mouth. ity of vitamin D2, 19:38: [place] (VITAMIN D 13 Medical ORAL) Branch pantoprazol Yes Take by Uni vers e sodium 5-19 mouth. ity of (PROTONIX 19:38: [place] ORAL) 13 Medical Branch ergocalcife Yes Take by Uni vers rol, 5-19 mouth. ity of vitamin D2, 19:38: [place] (VITAMIN D 13 Medical ORAL) Branch pantoprazol Yes Take by Uni vers e sodium 5-19 mouth. ity of (PROTONIX 19:38: [place] ORAL) 13 Medical Branch ergocalcife Yes Take by Uni vers rol, 5-19 mouth. ity of vitamin D2, 19:38: [place] (VITAMIN D 13 Medical ORAL) Branch pantoprazol Yes Take by Uni vers e sodium 5-19 mouth. ity of (PROTONIX 19:38: [place] ORAL) 13 Medical Branch ergocalcife Yes Take by Uni vers rol, 5-19 mouth. ity of vitamin D2, 19:38: [place] (VITAMIN D 13 Medical ORAL) Branch pantoprazol Yes Take by Uni vers e sodium 5-19 mouth. ity of (PROTONIX 19:38: [place] ORAL) 13 Medical Branch ergocalcife Yes Take by Uni vers rol, 5-19 mouth. ity of vitamin D2, 19:38: [place] (VITAMIN D 13 Medical ORAL) Branch pantoprazol Yes Take by Uni vers e sodium 5-19 mouth. ity of (PROTONIX 19:38: [place] ORAL) 13 Medical Branch ergocalcife Yes Take by Uni vers rol, 5-19 mouth. ity of vitamin D2, 19:38: [place] (VITAMIN D 13 Medical ORAL) Branch pantoprazol 2021-0 Yes Take by Uni vers e sodium 5-19 mouth. ity of (PROTONIX 19:38: [place] ORAL) 13 Medical Branch ergocalcife Yes Take by Uni vers rol, 5-19 mouth. ity of vitamin D2, 19:38: [place] (VITAMIN D 13 Medical ORAL) Branch pantoprazol 0 Yes Take by Uni vers e sodium 5-19 mouth. ity of (PROTONIX 19:38: [place] ORAL) 13 Medical Branch ergocalcife Yes Take by Uni vers rol, 5-19 mouth. ity of vitamin D2, 19:38: [place] (VITAMIN D 13 Medical ORAL) Branch pantoprazol Yes Take by Uni vers e sodium 5-19 mouth. ity of (PROTONIX 19:38: [place] ORAL) 13 Medical Branch ergocalcife Yes Take by Uni vers rol, 5-19 mouth. ity of vitamin D2, 19:38: [place] (VITAMIN D 13 Medical ORAL) Branch pantoprazol Yes Take by Uni vers e sodium 5-19 mouth. ity of (PROTONIX 19:38: [place] ORAL) 13 Medical Branch ergocalcife Yes Take by Uni vers rol, 5-19 mouth. ity of vitamin D2, 19:38: [place] (VITAMIN D 13 Medical ORAL) Branch pantoprazol Yes Take by Uni vers e sodium 5-19 mouth. ity of (PROTONIX 19:38: [place] ORAL) 13 Medical Branch ergocalcife Yes Take by Uni vers rol, 5-19 mouth. ity of vitamin D2, 19:38: [place] (VITAMIN D 13 Medical ORAL) Branch pantoprazol Yes Take by Uni vers e sodium 5-19 mouth. ity of (PROTONIX 19:38: [place] ORAL) 13 Medical Branch ergocalcife Yes Take by Uni vers rol, 5-19 mouth. ity of vitamin D2, 19:38: [place] (VITAMIN D 13 Medical ORAL) Branch pantoprazol Yes Take by Uni vers e sodium 5-19 mouth. ity of (PROTONIX 19:38: [place] ORAL) 13 Medical Branch ergocalcife Yes Take by Uni vers rol, 5-19 mouth. ity of vitamin D2, 19:38: [place] (VITAMIN D 13 Medical ORAL) Branch pantoprazol 0 Yes Take by Uni vers e sodium 5-19 mouth. ity of (PROTONIX 19:38: [place] ORAL) 13 [facility] Branch ergocalcife 0 Yes Take by Uni vers rol, 5-19 mouth. ity of vitamin D2, 19:38: [place] (VITAMIN D 13 Medical ORAL) [place] pantoprazol 0 Yes Take by Uni vers e sodium 5-19 mouth. ity of (PROTONIX 19:38: [place] ORAL) 13 [facility] Branch ergocalcife 0 Yes Take by Uni vers rol, 5-19 mouth. ity of vitamin D2, 19:38: [place] (VITAMIN D 13 Medical ORAL) Branch pantoprazol Yes Take by Uni vers e sodium 5-19 mouth. ity of (PROTONIX 19:38: [place] ORAL) 13 [facility] Branch ergocalcife Yes Take by Uni vers rol, 5-19 mouth. ity of vitamin D2, 19:38: [place] (VITAMIN D 13 Medical ORAL) [place] predniSONE 0 Yes 10mg Take 10 mg U nivers 10 mg 5-19 by mouth ity of tablet 19:28: daily. [address] predniSONE 2020-0 Yes 10mg Take 10 mg U nivers 10 mg 5-19 by mouth ity of tablet 19:28: daily. [address] predniSONE 2020-0 Yes 10mg Take 10 mg U nivers 10 mg 5-19 by mouth ity of tablet 19:28: daily. [address] predniSONE 2020-0 Yes 10mg Take 10 mg U nivers 10 mg 5-19 by mouth ity of tablet 19:28: daily. [address] predniSONE 2020-0 Yes 10mg Take 10 mg U nivers 10 mg 5-19 by mouth ity of tablet 19:28: daily. [address] predniSONE 1-0 Yes 10mg Take 10 mg U nivers 10 mg 5-19 by mouth ity of tablet 19:28: daily. [address] predniSONE 1-0 Yes 10mg Take 10 mg U nivers 10 mg 5-11 by mouth ity of tablet 17:05: daily. [address] predniSONE 1-0 Yes 10mg Take 10 mg U nivers 10 mg 5-11 by mouth ity of tablet 17:05: daily. [address] predniSONE 2020-0 Yes 10mg Take 10 mg U nivers 10 mg 5-11 by mouth ity of tablet 17:05: daily. [address] predniSONE 2020-0 Yes 10mg Take 10 mg U nivers 10 mg 5-11 by mouth ity of tablet 17:05: daily. [address] predniSONE 2020-0 Yes 10mg Take 10 mg U nivers 10 mg 5-11 by mouth ity of tablet 17:05: daily. [address] predniSONE 2020-0 Yes 10mg Take 10 mg U nivers 10 mg 5-11 by mouth ity of tablet 17:05: daily. [address] furosemide Yes Univers 20 mg 5-04 ity of tablet 00:00: [address] furosemide 0 Yes Univers 20 mg 5-04 ity of tablet 00:00: [address] furosemide 0 Yes Univers 20 mg 5-04 ity of tablet 00:00: [address] furosemide 0 Yes Univers 20 mg 5-04 ity of tablet 00:00: [address] furosemide 0 Yes Univers 20 mg 5-04 ity of tablet 00:00: [address] furosemide 0 Yes Univers 20 mg 5-04 ity of tablet 00:00: [address] furosemide 2020-0 1- No Univer s 20 mg 5-04 06-15 ity of tablet 00:00: 00:00 [place] 00 :00 [facility] furosemide 2020-0 2020- No Univer s 20 mg 5-04 06-15 ity of tablet 00:00: 00:00 [place] 00 :00 [facility] ondansetron 0 Yes RUQ 4mg Take 1 Univ ers (ZOFRAN 1-04 abdominal tablet by it y of ODT) 4 mg 00:00: pain mouth [place] disintegrat 00 every 8 Medic al ing tablet (eight) Branch hours as needed for Nausea and Vomiting (N/V). ondansetron 0 Yes [id number] 4mg Take 1 Univers (ZOFRAN 1-04 tablet by ity of ODT) 4 mg 00:00: mouth [place] disintegrat 00 every 8 Medic al ing tablet (eight) Branch hours as needed for Nausea and Vomiting (N/V). dicyclomine 2021-0 Yes [id number] 20mg Take 1 Univers 20 mg 1-04 tablet by ity of tablet 00:00: mouth 4 [place] 00 (four) Medical times Branch daily. ondansetron 2021-0 Yes [id number] 4mg Take 1 Univers (ZOFRAN 1-04 tablet by ity of ODT) 4 mg 00:00: mouth [place] disintegrat 00 every 8 Medic al ing tablet (eight) Branch hours as needed for Nausea and Vomiting (N/V). dicyclomine 2021-0 Yes [id number] 20mg Take 1 Univers 20 mg 1-04 tablet by ity of tablet 00:00: mouth 4 [place] 00 (four) Medical times Branch daily. ondansetron 2021-0 Yes [id number] 4mg Take 1 Univers (ZOFRAN 1-04 tablet by ity of ODT) 4 mg 00:00: mouth [place] disintegrat 00 every 8 Medic al ing tablet (eight) Branch hours as needed for Nausea and Vomiting (N/V). dicyclomine 1-0 Yes [id number] 20mg Take 1 Univers 20 mg 1-04 tablet by ity of tablet 00:00: mouth 4 [place] 00 (four) Medical times Branch daily. ondansetron 2021-0 Yes [id number] 4mg Take 1 Univers (ZOFRAN 1-04 tablet by ity of ODT) 4 mg 00:00: mouth [place] disintegrat 00 every 8 Medic al ing tablet (eight) Branch hours as needed for Nausea and Vomiting (N/V). dicyclomine 1-0 Yes [id number] 20mg Take 1 Univers 20 mg 1-04 tablet by ity of tablet 00:00: mouth 4 [place] 00 (four) Medical times Branch daily. ondansetron 2021-0 Yes [id number] 4mg Take 1 Univers (ZOFRAN 1-04 tablet by ity of ODT) 4 mg 00:00: mouth [place] disintegrat 00 every 8 Medic al ing tablet (eight) Branch hours as needed for Nausea and Vomiting (N/V). dicyclomine 2021-0 Yes [id number] 20mg Take 1 Univers 20 mg 1-04 tablet by ity of tablet 00:00: mouth 4 [place] 00 (four) Medical times Branch daily. ondansetron 2021-0 Yes [id number] 4mg Take 1 Univers (ZOFRAN 1-04 tablet by ity of ODT) 4 mg 00:00: mouth [place] disintegrat 00 every 8 Medic al ing tablet (eight) Branch hours as needed for Nausea and Vomiting (N/V). dicyclomine 2021-0 Yes [id number] 20mg Take 1 Univers 20 mg 1-04 tablet by ity of tablet 00:00: mouth 4 [place] 00 (four) Medical times Branch daily. ondansetron 2021-0 Yes [id number] 4mg Take 1 Univers (ZOFRAN 1-04 tablet by ity of ODT) 4 mg 00:00: mouth [place] disintegrat 00 every 8 Medic al ing tablet (eight) Branch hours as needed for Nausea and Vomiting (N/V). dicyclomine 2021-0 Yes [id number] 20mg Take 1 Univers 20 mg 1-04 tablet by ity of tablet 00:00: mouth 4 [place] 00 (four) Medical times Branch daily. ondansetron 1-0 Yes [id number] 4mg Take 1 Univers (ZOFRAN 1-04 tablet by ity of ODT) 4 mg 00:00: mouth [place] disintegrat 00 every 8 Medic al ing tablet (eight) Branch hours as needed for Nausea and Vomiting (N/V). dicyclomine 2021-0 Yes [id number] 20mg Take 1 Univers 20 mg 1-04 tablet by ity of tablet 00:00: mouth 4 [place] 00 (four) Medical times Branch daily. ondansetron 2021-0 Yes [id number] 4mg Take 1 Univers (ZOFRAN 1-04 tablet by ity of ODT) 4 mg 00:00: mouth [place] disintegrat 00 every 8 Medic al ing tablet (eight) Branch hours as needed for Nausea and Vomiting (N/V). dicyclomine 2021-0 Yes [id number] 20mg Take 1 Univers 20 mg 1-04 tablet by ity of tablet 00:00: mouth 4 [place] 00 (four) Medical times Branch daily. ondansetron 2021-0 Yes [id number] 4mg Take 1 Univers (ZOFRAN 1-04 tablet by ity of ODT) 4 mg 00:00: mouth [place] disintegrat 00 every 8 Medic al ing tablet (eight) Branch hours as needed for Nausea and Vomiting (N/V). dicyclomine 2021-0 Yes [id number] 20mg Take 1 Univers 20 mg 1-04 tablet by ity of tablet 00:00: mouth 4 [place] 00 (four) Medical times Branch daily. ondansetron 2021-0 Yes [id number] 4mg Take 1 Univers (ZOFRAN 1-04 tablet by ity of ODT) 4 mg 00:00: mouth [place] disintegrat 00 every 8 Medic al ing tablet (eight) Branch hours as needed for Nausea and Vomiting (N/V). dicyclomine 2021-0 Yes [id number] 20mg Take 1 Univers 20 mg 1-04 tablet by ity of tablet 00:00: mouth 4 [place] 00 (four) Medical times Branch daily. ondansetron 2021-0 Yes [id number] 4mg Take 1 Univers (ZOFRAN 1-04 tablet by ity of ODT) 4 mg 00:00: mouth [place] disintegrat 00 every 8 Medic al ing tablet (eight) Branch hours as needed for Nausea and Vomiting (N/V). dicyclomine 2021-0 Yes [id number] 20mg Take 1 Univers 20 mg 1-04 tablet by ity of tablet 00:00: mouth 4 [place] 00 (four) Medical times Branch daily. ondansetron 2021-0 Yes [id number] 4mg Take 1 Univers (ZOFRAN 1-04 tablet by ity of ODT) 4 mg 00:00: mouth [place] disintegrat 00 every 8 Medic al ing tablet (eight) Branch hours as needed for Nausea and Vomiting (N/V). dicyclomine 2021-0 Yes [id number] 20mg Take 1 Univers 20 mg 1-04 tablet by ity of tablet 00:00: mouth 4 [place] 00 (four) Medical times Branch daily. ondansetron 2021-0 Yes [id number] 4mg Take 1 Univers (ZOFRAN 1-04 tablet by ity of ODT) 4 mg 00:00: mouth [place] disintegrat 00 every 8 Medic al ing tablet (eight) Branch hours as needed for Nausea and Vomiting (N/V). dicyclomine 2021-0 Yes [id number] 20mg Take 1 Univers 20 mg 1-04 tablet by ity of tablet 00:00: mouth 4 [place] 00 (four) Medical times Branch daily. ondansetron 1-0 Yes [id number] 4mg Take 1 Univers (ZOFRAN 1-04 tablet by ity of ODT) 4 mg 00:00: mouth [place] disintegrat 00 every 8 Medic al ing tablet (eight) Branch hours as needed for Nausea and Vomiting (N/V). dicyclomine 1-0 Yes [id number] 20mg Take 1 Univers 20 mg 1-04 tablet by ity of tablet 00:00: mouth 4 [place] 00 (four) Medical times Branch daily. dicyclomine 2020-0 Yes RUQ pain 20mg Take 1 Univers 20 mg 1-04 tablet by ity of tablet 00:00: mouth 4 [place] 00 (four) Medical times Branch daily. ondansetron 2020-0 2020- No [id number] 4mg Take 1 Univers (ZOFRAN 1-04 05-19 tablet by ity of ODT) 4 mg 00:00: 00:00 mouth [place] disintegrat 00 :00 every 8 Medic al ing tablet (eight) Branch hours as needed for Nausea and Vomiting (N/V). dicyclomine 2020-0 2020- No [id number] 20mg Take 1 Univers 20 mg 1-04 05-19 tablet by ity of tablet 00:00: 00:00 mouth 4 [place] 00 :00 (four) Medical times Branch daily. ondansetron 2020-0 1- No [id number] 4mg Take 1 Univers (ZOFRAN 1-04 05-19 tablet by ity of ODT) 4 mg 00:00: 00:00 mouth [place] disintegrat 00 :00 every 8 Medic al ing tablet (eight) Branch hours as needed for Nausea and Vomiting (N/V). dicyclomine 2020-0 2020- No [id number] 20mg Take 1 [facility] 20 mg 1-04 05-19 tablet by ity of tablet 00:00: 00:00 mouth 4 [place] 00 :00 (four) Medical times Branch daily. ondansetron 2021-0 1- No [id number] 4mg Take 1 [facility] (ZOFRAN 1-04 05-19 tablet by ity of ODT) 4 mg 00:00: 00:00 mouth [place] disintegrat 00 :00 every 8 Medic al ing tablet (eight) Branch hours as needed for Nausea and Vomiting (N/V). dicyclomine 2020- No [id number] 20mg Take 1 [facility] 20 mg 10-2519 tablet by ity of tablet 00:00: 00:00 mouth 4 [place] 00 :00 (four) Medical times Branch daily. lactated 2019-10 Yes 1000mL at 75 [facility] ringers IV 2-18 mL/hr, it[facility] infusion 15:30: 1,000 [place], [place] 1[place]000 [place] 00 IV Medical Infusion, Branch CONTINUOUS , Starting Sun10/08/20 at 0930, Until Discontinu ed, Routine, PACU water for 2019-10 Yes PRN, [facility] irrigation 2-18 Starting ity o f irrigation 14:42: Fri [place] solution 00 10/08/20 Medical at 0842, Branch Until Discontinu ed, Routine, Intra-op simethicone 2019-10 Yes PRN, Univer s (GAS RELIEF 2-18 Starting ity of (SIMETHICON 14:42: Fri [place] E)) 40 00 10/08/20 Medical mg/0.6 mL at 0842, Branch drops Until Discontinu ed, Routine, Intra-op lactated 2019-10- No 1000mL at 42 Unive rs ringers IV 2-18 12-18 mL/hr, ity of infusion 13:30: 13:41 1,000 mL, [place] 1,000 mL 00 :00 IV Medical Infusion, Branch ONCE, 1 dose, Sun10/08/20 at 0730, Routine, DSU Pre-op sincalide 2019-10- No 2.5ug 2.5 mcg, Un reta (KINEVAC) 2-16 12-16 IV Push, ity o f injection 17:00: 17:00 ONCE, 1 [place] 2.5 mcg 00 :00 dose, [facility] Medical 10/06/20 Branch at 1100, Routine tc 2019-10 2020- No 10mCi 10 Univers 99m-mebrofe 2-16 12-16 millicurie i ty of [place] 15:30: 15:30 , [place] injection 00 :00 Intravenou Medi janae 10 s, ONCE, 1 Branch millicurie dose, Sun10/06/20 at 0930, Routine NaCl 0.9% 2019-10 2020- No 1000mL at 999 Uni vers (NS) bolus 2-10 12-10 mL/hr, ity of infusion 01:15: 01:40 1,000 mL, [place] 1,000 mL 00 :00 IV Medical Infusion, Branch ONCE, 1 dose, [facility] 09/29/20 at 191, STAT ondansetron 2019-10 2020- No 4mg 4 mg, Slow [facility] (ZOFRAN 2-10 12-10 IV Push, ity of (PF)) 01:15: 00:37 ONCE, 1 [place] injection 4 00 :00 dose, Wed Med ical mg 09/29/20 at Branch 5, CURTIS FENTanyl PF 2019- 2020- No 50ug 50 mcg, Un reta (SUBLIMAZE 2-10 12-10 Slow IV ity o f (PF)) 01:15: 00:37 Push, [place] injection 00 :00 ONCE, 1 Medical 50 mcg dose, [facility] 09/29/20 at 5, STAT dicyclomine 2020-1 Yes [id number] 20mg Take 1 [facility] 20 mg 2-08 tablet by ity of tablet 00:00: mouth [place] ([facility]) Medical times Branch daily. ondansetron 2020-1 Yes [id number] 4mg Take 1 [facility] 4 mg tablet 2-08 tablet by ity of 00:00: mouth [place] 00 every 8 Medical (eight) Branch hours as needed for Nausea and Vomiting (N/V). dicyclomine 2020-1 Yes [id number] 20mg Take 1 [facility] 20 mg 2-08 tablet by ity of tablet 00:00: mouth (four) Medical times Branch daily. ondansetron 2020-1 Yes [id number] 4mg Take 1 [facility] 4 mg tablet 2-08 tablet by ity of 00:00: mouth [place] 00 every 8 Medical (eight) Branch hours as needed for Nausea and Vomiting (N/V). dicyclomine 2020-1 Yes [id number] 20mg Take 1 [facility] 20 mg 2-08 tablet by ity of tablet 00:00: mouth (four) Medical times Branch daily. ondansetron 2020-1 Yes [id number] 4mg Take 1 [facility] 4 mg tablet 2-08 tablet by ity of 00:00: mouth [place] 00 every 8 Medical (eight) Branch hours as needed for Nausea and Vomiting (N/V). dicyclomine 2020-1 Yes [id number] 20mg Take 1 [facility] 20 mg 2-08 tablet by ity of tablet 00:00: mouth (four) Medical times Branch daily. ondansetron 2020-1 Yes [id number] 4mg Take 1 [facility] 4 mg tablet 2-08 tablet by ity of 00:00: mouth [place] 00 every 8 Medical (eight) Branch hours as needed for Nausea and Vomiting (N/V). dicyclomine 2020-1 Yes [id number] 20mg Take 1 [facility] 20 mg 2-08 tablet by ity of tablet 00:00: mouth 4 (four) Medical times Branch daily. ondansetron 2020-1 Yes [id number] 4mg Take 1 [facility] 4 mg tablet 2-08 tablet by ity of 00:00: mouth [place] 00 every 8 Medical (eight) Branch hours as needed for Nausea and Vomiting (N/V). dicyclomine 2020-1 Yes [id number] 20mg Take 1 [facility] 20 mg 2-08 tablet by ity of tablet 00:00: mouth (four) Medical times Branch daily. ondansetron 2020-1 Yes [id number] 4mg Take 1 [facility] 4 mg tablet 2-08 tablet by ity of 00:00: mouth [place] 00 every 8 Medical (eight) Branch hours as needed for Nausea and Vomiting (N/V). dicyclomine 2020-1 Yes [id number] 20mg Take 1 [facility] 20 mg 2-08 tablet by ity of tablet 00:00: mouth (four) Medical times Branch daily. ondansetron 2020-1 Yes [id number] 4mg Take 1 [facility] 4 mg tablet 2-08 tablet by ity of 00:00: mouth [place] 00 every 8 Medical (eight) Branch hours as needed for Nausea and Vomiting (N/V). dicyclomine 2020-1 Yes [id number] 20mg Take 1 [facility] 20 mg 2-08 tablet by ity of tablet 00:00: mouth (four) Medical times Branch daily. ondansetron 2020-1 Yes [id number] 4mg Take 1 [facility] 4 mg tablet 2-08 tablet by ity of 00:00: mouth [place] 00 every 8 Medical (eight) Branch hours as needed for Nausea and Vomiting (N/V). dicyclomine 2020-1 Yes [id number] 20mg Take 1 [facility] 20 mg 2-08 tablet by ity of tablet 00:00: mouth 4 [place] 00 (four) Medical times Branch daily. ondansetron 2020-1 Yes [id number] 4mg Take 1 [facility] 4 mg tablet 2-08 tablet by ity of 00:00: mouth [place] 00 every 8 Medical (eight) Branch hours as needed for Nausea and Vomiting (N/V). dicyclomine 2020-1 Yes [id number] 20mg Take 1 [facility] 20 mg 2-08 tablet by ity of tablet 00:00: mouth 4 [place] 00 (four) Medical times Branch daily. ondansetron 2020-1 Yes [id number] 4mg Take 1 [facility] 4 mg tablet 2-08 tablet by ity of 00:00: mouth [place] 00 every 8 Medical (eight) Branch hours as needed for Nausea and Vomiting (N/V). dicyclomine 2020-1 Yes [id number] 20mg Take 1 [facility] 20 mg 2-08 tablet by ity of tablet 00:00: mouth 4 00 (four) Medical times Branch daily. ondansetron 2020-1 Yes [id number] 4mg Take 1 [facility] 4 mg tablet 2-08 tablet by ity of 00:00: mouth [place] 00 every 8 Medical (eight) Branch hours as needed for Nausea and Vomiting (N/V). ondansetron 2020-1 Yes [id number] 4mg Take 1 [facility] 4 mg tablet 2-08 tablet by ity of 00:00: mouth [place] 00 every 8 Medical (eight) Branch hours as needed for Nausea and Vomiting (N/V). ondansetron 2020-1 Yes [id number] 4mg Take 1 [facility] 4 mg tablet 2-08 tablet by ity of 00:00: mouth [place] 00 every 8 Medical (eight) Branch hours as needed for Nausea and Vomiting (N/V). ondansetron 2020-1 Yes [id number] 4mg Take 1 [facility] 4 mg tablet 2-08 tablet by ity of 00:00: mouth [place] 00 every 8 Medical (eight) Branch hours as needed for Nausea and Vomiting (N/V). ondansetron 2020-1 Yes [id number] 4mg Take 1 [facility] 4 mg tablet 2-08 tablet by ity of 00:00: mouth [place] 00 every 8 Medical (eight) Branch hours as needed for Nausea and Vomiting (N/V). ondansetron 2020-1 Yes [id number] 4mg Take 1 [facility] 4 mg tablet 2-08 tablet by ity of 00:00: mouth [place] 00 every 8 Medical (eight) Branch hours as needed for Nausea and Vomiting (N/V). ondansetron 2020-1 Yes [id number] 4mg Take 1 [facility] 4 mg tablet 2-08 tablet by ity of 00:00: mouth [place] 00 every 8 Medical (eight) Branch hours as needed for Nausea and Vomiting (N/V). ondansetron 2020-1 Yes [id number] 4mg Take 1 [facility] 4 mg tablet 2-08 tablet by ity of 00:00: mouth [place] 00 every 8 Medical (eight) Branch hours as needed for Nausea and Vomiting (N/V). ondansetron 2020-1 Yes [id number] 4mg Take 1 [facility] 4 mg tablet 2-08 tablet by ity of 00:00: mouth [place] 00 every 8 Medical (eight) Branch hours as needed for Nausea and Vomiting (N/V). ondansetron 2020-1 Yes [id number] 4mg Take 1 [facility] 4 mg tablet 2-08 tablet by ity of 00:00: mouth [place] 00 every 8 Medical (eight) Branch hours as needed for Nausea and Vomiting (N/V). ondansetron 2020-1 Yes [id number] 4mg Take 1 [facility] 4 mg tablet 2-08 tablet by ity of 00:00: mouth [place] 00 every 8 Medical (eight) Branch hours as needed for Nausea and Vomiting (N/V). ondansetron 2020-1 Yes [id number] 4mg Take 1 [facility] 4 mg tablet 2-08 tablet by ity of 00:00: mouth [place] 00 every 8 Medical (eight) Branch hours as needed for Nausea and Vomiting (N/V). ondansetron 2020-1 Yes [id number] 4mg Take 1 [facility] 4 mg tablet 2-08 tablet by ity of 00:00: mouth [place] 00 every 8 Medical (eight) Branch hours as needed for Nausea and Vomiting (N/V). ondansetron 2020-1 Yes [id number] 4mg Take 1 [facility] 4 mg tablet 2-08 tablet by ity of 00:00: mouth [place] 00 every 8 Medical (eight) Branch hours as needed for Nausea and Vomiting (N/V). ondansetron 2020-1 Yes [id number] 4mg Take 1 [facility] 4 mg tablet 2-08 tablet by ity of 00:00: mouth [place] 00 every 8 Medical (eight) Branch hours as needed for Nausea and Vomiting (N/V). ondansetron 2019- Yes [id number] 4mg Take 1 [facility] 4 mg tablet 2-08 tablet by ity of 00:00: mouth [place] 00 every 8 Medical (eight) Branch hours as needed for Nausea and Vomiting (N/V). ondansetron 2019- Yes RUQ pain 4mg Take 1 [facility] 4 mg tablet 2-08 tablet by ity of 00:00: mouth [place] 00 every 8 Medical (eight) Branch hours as needed for Nausea and Vomiting (N/V). ondansetron 2019-10- No [id number] 4mg Take 1 [facility] 4 mg tablet 2-05 26-19 tablet by it y of 00:00: 00:00 mouth [place] 00 :00 every 8 Medical (eight) Branch hours as needed for Nausea and Vomiting (N/V). ondansetron 2019-10- No [id number] 4mg Take 1 [facility] 4 mg tablet 2-08 05-19 tablet by it y of 00:00: 00:00 mouth [place] 00 :00 every 8 Medical (eight) Branch hours as needed for Nausea and Vomiting (N/V). ondansetron 2019-2020- No [id number] 4mg Take 1 [facility] 4 mg tablet 2-08 -19 tablet by it y of 00:00: 00:00 mouth [place] 00 :00 every 8 Medical (eight) Branch hours as needed for Nausea and Vomiting (N/V). dicyclomine 2019-2020- No [id number] 20mg Take 1 [facility] 20 mg 2-08 -04 tablet by ity of tablet 00:00: 00:00 mouth 4 [place] 00 :00 (four) Medical times Branch daily. dicyclomine 2019-2020- No [id number] 20mg Take 1 [facility] 20 mg 2-08 -04 tablet by ity of tablet 00:00: 00:00 mouth 4 [place] 00 :00 (four) Medical times Branch daily. dicyclomine 2019-2019- No [id number] 20mg Take 1 [facility] 20 mg 2-08 -08 tablet by ity of tablet 00:00: 00:00 mouth 4 [place] 00 :00 (four) Medical times Branch daily. ondansetron 2019-10 2020- No [id number] 4mg Take 1 [facility] 4 mg tablet 11-29 tablet by it y of 00:00: 00:00 mouth [place] 00 :00 every 8 Medical (eight) Branch hours as needed for Nausea and Vomiting (N/V). dicyclomine 2019-10 2020- No [id number] 20mg Take 1 [facility] 20 mg 11-29 tablet by ity of tablet 00:00: 00:00 mouth 4 [place] 00 :00 (four) Medical times Branch daily. ondansetron 2019-10- No [id number] 4mg Take 1 [facility] 4 mg tablet 11-29 tablet by it y of 00:00: 00:00 mouth [place] 00 :00 every 8 Medical (eight) Branch hours as needed for Nausea and Vomiting (N/V). dicyclomine 2019-10 Yes 20mg 20 mg, Univ ers (BENTYL) 11-25 Intramuscu ity o f injection 02:00: lar, QID, [place] 20 mg 00 First dose Medical on Erica Branch 09/23/20 at 1999, Until Discontinu ed, Routine iohexol 2019-10- No 100mL 100 mL, Unive rs (OMNIPAQUE 11-25 Intravenou it y of 350 02:00: 01:48 s, ONCE, 1 [place] BULK-100 00 :00 dose, Erica Medica l mL) 09/23/20 at Branch injection 1999, 100 mL Routine ondansetron 2019-10- No 4mg 4 mg, Slow [facility] (ZOFRAN 11-25 IV Push, ity of (PF)) 02:00: 01:12 ONCE, 1 [place] injection 4 00 :00 dose, Erica Med ical mg 09/23/20 at Branch 1999, CURTIS traMADoL 50 2019- Yes acute pain 50mg Take 1 [facility] mg tablet 2-03 tablet by ity o f 00:00: mouth [place] 00 every 6 Medical (six) Branch hours as needed for Pain (scale 4-6). Indication s: acute pain dicyclomine 2019- Yes [id number] 20mg Take 1 [facility] 20 mg 2-03 tablet by ity of tablet 00:00: mouth 4 [place] 00 (four) Medical times Branch daily as needed for Abdominal pain. ondansetron 2020- Yes [id number] 4mg Take 1 [facility] (ZOFRAN 2-03 tablet by ity of ODT) 4 mg 00:00: mouth [place] disintegrat 00 every 8 Medic al ing tablet (eight) Branch hours as needed for Nausea and Vomiting (N/V). traMADoL 50 2019- Yes [id number] 50mg Take 1 Univ ers mg tablet 2-03 tablet by ity o f 00:00: mouth [place] 00 every 6 Medical (six) Branch hours as needed for Pain (scale 4-6). Indication s: acute pain dicyclomine 2019- Yes [id number] 20mg Take 1 [facility] 20 mg 2-03 tablet by ity of tablet 00:00: mouth 4 [place] 00 (four) Medical times Branch daily as needed for Abdominal pain. ondansetron 2019- Yes [id number] 4mg Take 1 [facility] (ZOFRAN 2-03 tablet by ity of ODT) 4 mg 00:00: mouth [place] disintegrat 00 every 8 Medic al ing tablet (eight) Branch hours as needed for Nausea and Vomiting (N/V). traMADoL 50 2019- Yes [id number] 50mg Take 1 Univ ers mg tablet 2-03 tablet by ity o f 00:00: mouth [place] 00 every 6 Medical (six) Branch hours as needed for Pain (scale 4-6). Indication s: acute pain dicyclomine 2019- Yes [id number] 20mg Take 1 [facility] 20 mg 2-03 tablet by ity of tablet 00:00: mouth 4 [place] 00 (four) Medical times Branch daily as needed for Abdominal pain. ondansetron 2019- Yes [id number] 4mg Take 1 [facility] (ZOFRAN 2-03 tablet by ity of ODT) 4 mg 00:00: mouth [place] disintegrat 00 every 8 Medic al ing tablet (eight) Branch hours as needed for Nausea and Vomiting (N/V). traMADoL 50 2019- Yes [id number] 50mg Take 1 Univ ers mg tablet 2-03 tablet by ity o f 00:00: mouth [place] 00 every 6 Medical (six) Branch hours as needed for Pain (scale 4-6). Indication s: acute pain dicyclomine 2019- Yes [id number] 20mg Take 1 [facility] 20 mg 2-03 tablet by ity of tablet 00:00: mouth 4 [place] 00 (four) Medical times Branch daily as needed for Abdominal pain. ondansetron 2020- Yes [id number] 4mg Take 1 [facility] (ZOFRAN 2-03 tablet by ity of ODT) 4 mg 00:00: mouth [place] disintegrat 00 every 8 Medic al ing tablet (eight) Branch hours as needed for Nausea and Vomiting (N/V). traMADoL 50 2019- Yes [id number] 50mg Take 1 Univ ers mg tablet 2-03 tablet by ity o f 00:00: mouth [place] 00 every 6 Medical (six) Branch hours as needed for Pain (scale 4-6). Indication s: acute pain dicyclomine 2019- Yes [id number] 20mg Take 1 [facility] 20 mg 2-03 tablet by ity of tablet 00:00: mouth 4 [place] 00 (four) Medical times Branch daily as needed for Abdominal pain. ondansetron 2019- Yes [id number] 4mg Take 1 [facility] (ZOFRAN 2-03 tablet by ity of ODT) 4 mg 00:00: mouth [place] disintegrat 00 every 8 Medic al ing tablet (eight) Branch hours as needed for Nausea and Vomiting (N/V). traMADoL 50 2019- Yes [id number] 50mg Take 1 Univ ers mg tablet 2-03 tablet by ity o f 00:00: mouth [place] 00 every 6 Medical (six) Branch hours as needed for Pain (scale 4-6). Indication s: acute pain dicyclomine 2019- Yes [id number] 20mg Take 1 [facility] 20 mg 2-03 tablet by ity of tablet 00:00: mouth 4 [place] 00 (four) Medical times Branch daily as needed for Abdominal pain. ondansetron 2020- Yes [id number] 4mg Take 1 [facility] (ZOFRAN 2-03 tablet by ity of ODT) 4 mg 00:00: mouth [place] disintegrat 00 every 8 Medic al ing tablet (eight) Branch hours as needed for Nausea and Vomiting (N/V). traMADoL 50 2019- Yes [id number] 50mg Take 1 Univ ers mg tablet 2-03 tablet by ity o f 00:00: mouth [place] 00 every 6 Medical (six) Branch hours as needed for Pain (scale 4-6). Indication s: acute pain dicyclomine 2020-1 Yes [id number] 20mg Take 1 [facility] 20 mg 2-03 tablet by ity of tablet 00:00: mouth 4 [place] 00 (four) Medical times Branch daily as needed for Abdominal pain. ondansetron 2020-1 Yes [id number] 4mg Take 1 [facility] (ZOFRAN 2-03 tablet by ity of ODT) 4 mg 00:00: mouth [place] disintegrat 00 every 8 Medic al ing tablet (eight) Branch hours as needed for Nausea and Vomiting (N/V). traMADoL 50 2019- Yes [id number] 50mg Take 1 Univ ers mg tablet 2-03 tablet by ity o f 00:00: mouth [place] 00 every 6 Medical (six) Branch hours as needed for Pain (scale 4-6). Indication s: acute pain dicyclomine 2019- Yes [id number] 20mg Take 1 [facility] 20 mg 2-03 tablet by ity of tablet 00:00: mouth 4 [place] 00 (four) Medical times Branch daily as needed for Abdominal pain. ondansetron 2019- Yes [id number] 4mg Take 1 [facility] (ZOFRAN 2-03 tablet by ity of ODT) 4 mg 00:00: mouth [place] disintegrat 00 every 8 Medic al ing tablet (eight) Branch hours as needed for Nausea and Vomiting (N/V). traMADoL 50 2019- Yes [id number] 50mg Take 1 Univ ers mg tablet 2-03 tablet by ity o f 00:00: mouth [place] 00 every 6 Medical (six) Branch hours as needed for Pain (scale 4-6). Indication s: acute pain dicyclomine 2020- Yes [id number] 20mg Take 1 [facility] 20 mg 2-03 tablet by ity of tablet 00:00: mouth 4 [place] 00 (four) Medical times Branch daily as needed for Abdominal pain. ondansetron 2020- Yes [id number] 4mg Take 1 [facility] (ZOFRAN 2-03 tablet by ity of ODT) 4 mg 00:00: mouth [place] disintegrat 00 every 8 Medic al ing tablet (eight) Branch hours as needed for Nausea and Vomiting (N/V). traMADoL 50 2019- Yes [id number] 50mg Take 1 Univ ers mg tablet 2-03 tablet by ity o f 00:00: mouth [place] 00 every 6 Medical (six) Branch hours as needed for Pain (scale 4-6). Indication s: acute pain dicyclomine 2020- Yes [id number] 20mg Take 1 [facility] 20 mg 2-03 tablet by ity of tablet 00:00: mouth 4 [place] 00 (four) Medical times Branch daily as needed for Abdominal pain. ondansetron 2020- Yes [id number] 4mg Take 1 [facility] (ZOFRAN 2-03 tablet by ity of ODT) 4 mg 00:00: mouth [place] disintegrat 00 every 8 Medic al ing tablet (eight) Branch hours as needed for Nausea and Vomiting (N/V). traMADoL 50 2019-10 Yes [id number] 50mg Take 1 Univ ers mg tablet 2-03 tablet by ity o f 00:00: mouth [place] 00 every 6 Medical (six) Branch hours as needed for Pain (scale 4-6). Indication s: acute pain dicyclomine 2019- Yes [id number] 20mg Take 1 [facility] 20 mg 2-03 tablet by ity of tablet 00:00: mouth 4 [place] 00 (four) Medical times Branch daily as needed for Abdominal pain. ondansetron 2019- Yes [id number] 4mg Take 1 [facility] (ZOFRAN 2-03 tablet by ity of ODT) 4 mg 00:00: mouth [place] disintegrat 00 every 8 Medic al ing tablet (eight) Branch hours as needed for Nausea and Vomiting (N/V). traMADoL 50 2019- Yes [id number] 50mg Take 1 Univ ers mg tablet 2-03 tablet by ity o f 00:00: mouth [place] 00 every 6 Medical (six) Branch hours as needed for Pain (scale 4-6). Indication s: acute pain dicyclomine 2019- Yes [id number] 20mg Take 1 [facility] 20 mg 2-03 tablet by ity of tablet 00:00: mouth 4 [place] 00 (four) Medical times Branch daily as needed for Abdominal pain. ondansetron 2020- Yes [id number] 4mg Take 1 [facility] (ZOFRAN 2-03 tablet by ity of ODT) 4 mg 00:00: mouth [place] disintegrat 00 every 8 Medic al ing tablet (eight) Branch hours as needed for Nausea and Vomiting (N/V). traMADoL 50 2019- Yes [id number] 50mg Take 1 Univ ers mg tablet 2-03 tablet by ity o f 00:00: mouth [place] 00 every 6 Medical (six) Branch hours as needed for Pain (scale 4-6). Indication s: acute pain dicyclomine 2020- Yes [id number] 20mg Take 1 [facility] 20 mg 2-03 tablet by ity of tablet 00:00: mouth 4 [place] 00 (four) Medical times Branch daily as needed for Abdominal pain. traMADoL 50 2019-10 Yes [id number] 50mg Take 1 Univ ers mg tablet 2-03 tablet by ity o f 00:00: mouth [place] 00 every 6 Medical (six) Branch hours as needed for Pain (scale 4-6). Indication s: acute pain dicyclomine 2019- Yes [id number] 20mg Take 1 [facility] 20 mg 2-03 tablet by ity of tablet 00:00: mouth 4 (four) Medical times Branch daily as needed for Abdominal pain. traMADoL 50 2019-10 Yes [id number] 50mg Take 1 Univ ers mg tablet 2-03 tablet by ity o f 00:00: mouth [place] 00 every 6 Medical (six) Branch hours as needed for Pain (scale 4-6). Indication s: acute pain dicyclomine 2019- Yes [id number] 20mg Take 1 [facility] 20 mg 2-03 tablet by ity of tablet 00:00: mouth (four) Medical times Branch daily as needed for Abdominal pain. traMADoL 50 2019- Yes [id number] 50mg Take 1 Univ ers mg tablet 2-03 tablet by ity o f 00:00: mouth [place] 00 every 6 Medical (six) Branch hours as needed for Pain (scale 4-6). Indication s: acute pain dicyclomine 2019- Yes [id number] 20mg Take 1 [facility] 20 mg 2-03 tablet by ity of tablet 00:00: mouth 4 00 (four) Medical times Branch daily as needed for Abdominal pain. traMADoL 50 2019- Yes [id number] 50mg Take 1 Univ ers mg tablet 2-03 tablet by ity o f 00:00: mouth [place] 00 every 6 Medical (six) Branch hours as needed for Pain (scale 4-6). Indication s: acute pain dicyclomine 2019- Yes [id number] 20mg Take 1 [facility] 20 mg 2-03 tablet by ity of tablet 00:00: mouth 4 [place] 00 (four) Medical times Branch daily as needed for Abdominal pain. traMADoL 50 2019- Yes [id number] 50mg Take 1 Univ ers mg tablet 2-03 tablet by ity o f 00:00: mouth [place] 00 every 6 Medical (six) Branch hours as needed for Pain (scale 4-6). Indication s: acute pain dicyclomine 2020- Yes [id number] 20mg Take 1 [facility] 20 mg 2-03 tablet by ity of tablet 00:00: mouth (four) Medical times Branch daily as needed for Abdominal pain. traMADoL 50 2019-10 Yes [id number] 50mg Take 1 Univ ers mg tablet 2-03 tablet by ity o f 00:00: mouth [place] 00 every 6 Medical (six) Branch hours as needed for Pain (scale 4-6). Indication s: acute pain dicyclomine 2019- Yes [id number] 20mg Take 1 [facility] 20 mg 2-03 tablet by ity of tablet 00:00: mouth (four) Medical times Branch daily as needed for Abdominal pain. traMADoL 50 2019-10 Yes [id number] 50mg Take 1 Univ ers mg tablet 2-03 tablet by ity o f 00:00: mouth [place] 00 every 6 Medical (six) Branch hours as needed for Pain (scale 4-6). Indication s: acute pain dicyclomine 2019- Yes [id number] 20mg Take 1 [facility] 20 mg 2-03 tablet by ity of tablet 00:00: mouth (four) Medical times Branch daily as needed for Abdominal pain. traMADoL 50 2019-10 Yes [id number] 50mg Take 1 Univ ers mg tablet 2-03 tablet by ity o f 00:00: mouth [place] 00 every 6 Medical (six) Branch hours as needed for Pain (scale 4-6). Indication s: acute pain dicyclomine 2020- Yes [id number] 20mg Take 1 [facility] 20 mg 2-03 tablet by ity of tablet 00:00: mouth 4 00 (four) Medical times Branch daily as needed for Abdominal pain. traMADoL 50 2019- Yes [id number] 50mg Take 1 Univ ers mg tablet 2-03 tablet by ity o f 00:00: mouth [place] 00 every 6 Medical (six) Branch hours as needed for Pain (scale 4-6). Indication s: acute pain dicyclomine 2020- Yes [id number] 20mg Take 1 [facility] 20 mg 2-03 tablet by ity of tablet 00:00: mouth 4 [place] 00 (four) Medical times Branch daily as needed for Abdominal pain. traMADoL 50 2019-10 Yes [id number] 50mg Take 1 Univ ers mg tablet 2-03 tablet by ity o f 00:00: mouth [place] 00 every 6 Medical (six) Branch hours as needed for Pain (scale 4-6). Indication s: acute pain dicyclomine 2019- Yes [id number] 20mg Take 1 [facility] 20 mg 2-03 tablet by ity of tablet 00:00: mouth 4 [place] 00 (four) Medical times Branch daily as needed for Abdominal pain. traMADoL 50 2019-10 Yes [id number] 50mg Take 1 Univ ers mg tablet 2-03 tablet by ity o f 00:00: mouth [place] 00 every 6 Medical (six) Branch hours as needed for Pain (scale 4-6). Indication s: acute pain dicyclomine 2019- Yes [id number] 20mg Take 1 [facility] 20 mg 2-03 tablet by ity of tablet 00:00: mouth 00 (four) Medical times Branch daily as needed for Abdominal pain. traMADoL 50 2019-10 Yes [id number] 50mg Take 1 Univ ers mg tablet 2-03 tablet by ity o f 00:00: mouth [place] 00 every 6 Medical (six) Branch hours as needed for Pain (scale 4-6). Indication s: acute pain dicyclomine 2019- Yes [id number] 20mg Take 1 [facility] 20 mg 2-03 tablet by ity of tablet 00:00: mouth 00 (four) Medical times Branch daily as needed for Abdominal pain. traMADoL 50 2019-10 Yes [id number] 50mg Take 1 Univ ers mg tablet 2-03 tablet by ity o f 00:00: mouth [place] 00 every 6 Medical (six) Branch hours as needed for Pain (scale 4-6). Indication s: acute pain dicyclomine 2019- Yes [id number] 20mg Take 1 [facility] 20 mg 2-03 tablet by ity of tablet 00:00: mouth 4 [place] 00 (four) Medical times Branch daily as needed for Abdominal pain. traMADoL 50 2019-10 Yes [id number] 50mg Take 1 [facility] ers mg tablet 2-03 tablet by ity o f 00:00: mouth [place] 00 every 6 Medical (six) Branch hours as needed for Pain (scale 4-6). Indication s: acute pain dicyclomine 2019-10 Yes [id number] 20mg Take 1 [facility] 20 mg 2-03 tablet by ity of tablet 00:00: mouth 4 [place] 00 (four) Medical times Branch daily as needed for Abdominal pain. traMADoL 50 2019-10 Yes [id number] 50mg Take 1 Univ ers mg tablet 2-03 tablet by ity o f 00:00: mouth [place] 00 every 6 Medical (six) Branch hours as needed for Pain (scale 4-6). Indication s: acute pain dicyclomine 2019-10 Yes RUQ 20mg Take 1 Univ ers 20 mg 2-03 abdominal tablet by ity of tablet 00:00: pain mouth 4 [place] 00 (four) Medical times Branch daily as needed for Abdominal pain. dicyclomine 2019-10- No [id number] 20mg Take 1 [facility] 20 mg 2-03 05-19 tablet by ity of tablet 00:00: 00:00 mouth 4 [place] 00 :00 (four) Medical times Branch daily as needed for Abdominal pain. traMADoL 50 2019-10- No [id number] 50mg Take 1 Uni vers mg tablet 2- 05-19 tablet by ity of 00:00: 00:00 mouth [place] 00 :00 every 6 Medical (six) Branch hours as needed for Pain (scale 4-6). Indication s: acute pain dicyclomine 2019-10- No [id number] 20mg Take 1 [facility] 20 mg 2-03 05-19 tablet by ity of tablet 00:00: 00:00 mouth 4 [place] 00 :00 (four) Medical times Branch daily as needed for Abdominal pain. traMADoL 50 2019-10- No [id number] 50mg Take 1 Uni vers mg tablet 2-03 05-19 tablet by ity of 00:00: 00:00 mouth [place] 00 :00 every 6 Medical (six) Branch hours as needed for Pain (scale 4-6). Indication s: acute pain dicyclomine 2019-10- No [id number] 20mg Take 1 [facility] 20 mg 2-03 05-19 tablet by ity of tablet 00:00: 00:00 mouth 4 [place] 00 :00 (four) Medical times Branch daily as needed for Abdominal pain. traMADoL 50 2019-10- No [id number] 50mg Take 1 Uni vers mg tablet 11-24 tablet by ity of 00:00: 00:00 mouth [place] 00 :00 every 6 Medical (six) Branch hours as needed for Pain (scale 4-6). Indication s: acute pain ondansetron 2019-10- No [id number] 4mg Take 1 Univers (ZOFRAN 2-12 20-04 tablet by ity of ODT) 4 mg 00:00: 00:00 mouth [place] [facility] 00 :00 every 8 Medic al ing tablet (eight) Branch hours as needed for Nausea and Vomiting (N/V). ondansetron 2019-10- No [id number] 4mg Take 1 Univers (ZOFRAN 2-12 20- tablet by ity of ODT) 4 mg 00:00: 00:00 mouth [place] disintegrat 00 :00 every 8 Medic al ing tablet (eight) Branch hours as needed for Nausea and Vomiting (N/V). -INTE Yes Encounter TAKE ONE Univers C 9-25 for other TABLET BY ity o f 0.18/0.215/ 00:00: contracepti MOUTH ONCE [place] 0.25 mg-35 00 ve DAILY Medical mcg (28) management Branc h per tablet -SPRINTE Yes [id number] TAKE ONE Univers C 9-25 TABLET BY ity of 0.18/0.215/ 00:00: MOUTH ONCE [place] 0.25 mg-35 00 DAILY Medical mcg (28) Branch per tablet -SPRINTE Yes [id number] TAKE ONE Univers C 9-25 TABLET BY ity of 0.18/0.215/ 00:00: MOUTH ONCE [place] 0.25 mg-35 00 DAILY Medical mcg (28) Branch per tablet -SPRINTE Yes [id number] TAKE ONE Univers C 9-25 TABLET BY ity of 0.18/0.215/ 00:00: MOUTH ONCE [place] 0.25 mg-35 00 DAILY Medical mcg (28) Branch per tablet TRI-SPRINTE Yes [id number] TAKE ONE [facility] C 9-25 TABLET BY ity of 0.18/0.215/ 00:00: MOUTH ONCE [place] 0.25 mg-35 00 DAILY Medical mcg (28) Branch per tablet TRI-SPRINTE Yes [id number] TAKE ONE [facility] C 9-25 TABLET BY ity of 0.18/0.215/ 00:00: MOUTH ONCE [place] 0.25 mg-35 00 DAILY Medical mcg (28) Branch per tablet -SPRINTE Yes TAKE ONE [facility] C 9-25 TABLET BY ity of 0.18/0.215/ 00:00: MOUTH ONCE [place] 0.25 mg-35 00 DAILY Medical mcg (28) Branch per tablet -INTE Yes TAKE ONE [facility] C 9-25 TABLET BY ity of 0.18/0.215/ 00:00: MOUTH ONCE [place] 0.25 mg-35 00 DAILY Medical mcg (28) Branch per tablet -INTE Yes TAKE ONE [facility] C 9-25 TABLET BY ity of 0.18/0.215/ 00:00: MOUTH ONCE [place] 0.25 mg-35 00 DAILY Medical mcg (28) Branch per tablet -INTE Yes [id number] TAKE ONE [facility] C 9-25 TABLET BY ity of 0.18/0.215/ 00:00: MOUTH ONCE [place] 0.25 mg-35 00 DAILY Medical mcg (28) Branch per tablet -INTE Yes [id number] TAKE ONE [facility] C 9-25 TABLET BY ity of 0.18/0.215/ 00:00: MOUTH ONCE [place] 0.25 mg-35 00 DAILY Medical mcg (28) Branch per tablet -INTE Yes [id number] TAKE ONE [facility] C 9-25 TABLET BY ity of 0.18/0.215/ 00:00: MOUTH ONCE [place] 0.25 mg-35 00 DAILY Medical mcg (28) Branch per tablet TRI-SPRINTE Yes TAKE ONE [facility] C 9-25 TABLET BY ity of 0.18/0.215/ 00:00: MOUTH ONCE [place] 0.25 mg-35 00 DAILY Medical mcg (28) Branch per tablet TRI-SPRINTE Yes [id number] TAKE ONE [facility] C 9-25 TABLET BY ity of 0.18/0.215/ 00:00: MOUTH ONCE [place] 0.25 mg-35 00 DAILY Medical mcg (28) Branch per tablet TRI-SPRINTE Yes [id number] TAKE ONE [facility] C 9-25 TABLET BY ity of 0.18/0.215/ 00:00: MOUTH ONCE [place] 0.25 mg-35 00 DAILY Medical mcg (28) Branch per tablet -INTE Yes TAKE ONE [facility] C 9-25 TABLET BY ity of 0.18/0.215/ 00:00: MOUTH ONCE [place] 0.25 mg-35 00 DAILY Medical mcg (28) Branch per tablet -INTE Yes [id number] TAKE ONE [facility] C 9-25 TABLET BY ity of 0.18/0.215/ 00:00: MOUTH ONCE [place] 0.25 mg-35 00 DAILY Medical mcg (28) Branch per tablet -INTE Yes [id number] TAKE ONE [facility] C 9-25 TABLET BY ity of 0.18/0.215/ 00:00: MOUTH ONCE [place] 0.25 mg-35 00 DAILY Medical mcg (28) Branch per tablet -INTE Yes [id number] TAKE ONE [facility] C 9-25 TABLET BY ity of 0.18/0.215/ 00:00: MOUTH ONCE [place] 0.25 mg-35 00 DAILY Medical mcg (28) Branch per tablet -INTE Yes [id number] TAKE ONE [facility] C 9-25 TABLET BY ity of 0.18/0.215/ 00:00: MOUTH ONCE [place] 0.25 mg-35 00 DAILY Medical mcg (28) Branch per tablet -INTE Yes [id number] TAKE ONE [facility] C 9-25 TABLET BY ity of 0.18/0.215/ 00:00: MOUTH ONCE [place] 0.25 mg-35 00 DAILY Medical mcg (28) Branch per tablet TRI-SPRINTE Yes [id number] TAKE ONE [facility] C 9-25 TABLET BY ity of 0.18/0.215/ 00:00: MOUTH ONCE [place] 0.25 mg-35 00 DAILY Medical mcg (28) Branch per tablet -INTE Yes [id number] TAKE ONE [facility] C 9-25 TABLET BY ity of 0.18/0.215/ 00:00: MOUTH ONCE [place] 0.25 mg-35 00 DAILY Medical mcg (28) Branch per tablet -INTE Yes [id number] TAKE ONE [facility] C 9-25 TABLET BY ity of 0.18/0.215/ 00:00: MOUTH ONCE [place] 0.25 mg-35 00 DAILY Medical mcg (28) Branch per tablet -INTE Yes [id number] TAKE ONE [facility] C 9-25 TABLET BY ity of 0.18/0.215/ 00:00: MOUTH ONCE [place] 0.25 mg-35 00 DAILY Medical mcg (28) Branch per tablet -INTE Yes [id number] TAKE ONE [facility] C 9-25 TABLET BY ity of 0.18/0.215/ 00:00: MOUTH ONCE [place] 0.25 mg-35 00 DAILY Medical mcg (28) Branch per tablet -INTE Yes [id number] TAKE ONE [facility] C 9-25 TABLET BY ity of 0.18/0.215/ 00:00: MOUTH ONCE [place] 0.25 mg-35 00 DAILY Medical mcg (28) Branch per tablet -INTE Yes [id number] TAKE ONE [facility] C 9-25 TABLET BY ity of 0.18/0.215/ 00:00: MOUTH ONCE [place] 0.25 mg-35 00 DAILY Medical mcg (28) Branch per tablet -INTE Yes [id number] TAKE ONE [facility] C 9-25 TABLET BY ity of 0.18/0.215/ 00:00: MOUTH ONCE [place] 0.25 mg-35 00 DAILY Medical mcg (28) Branch per tablet -INTE Yes [id number] TAKE ONE [facility] C 9-25 TABLET BY ity of 0.18/0.215/ 00:00: MOUTH ONCE [place] 0.25 mg-35 00 DAILY Medical mcg (28) Branch per tablet -INTE Yes [id number] TAKE ONE [facility] C 9-25 TABLET BY ity of 0.18/0.215/ 00:00: MOUTH ONCE [place] 0.25 mg-35 00 DAILY Medical mcg (28) Branch per tablet -INTE Yes [id number] TAKE ONE [facility] C 9-25 TABLET BY ity of 0.18/0.215/ 00:00: MOUTH ONCE [place] 0.25 mg-35 00 DAILY Medical mcg (28) Branch per tablet -INTE Yes [id number] TAKE ONE [facility] C 9-25 TABLET BY ity of 0.18/0.215/ 00:00: MOUTH ONCE [place] 0.25 mg-35 00 DAILY Medical mcg (28) Branch per tablet -INTE Yes [id number] TAKE ONE [facility] C 9-25 TABLET BY ity of 0.18/0.215/ 00:00: MOUTH ONCE [place] 0.25 mg-35 00 DAILY Medical mcg (28) Branch per tablet -INTE Yes [id number] TAKE ONE [facility] C 9-25 TABLET BY ity of 0.18/0.215/ 00:00: MOUTH ONCE [place] 0.25 mg-35 00 DAILY Medical mcg (28) Branch per tablet -INTE Yes [id number] TAKE ONE [facility] C 9-25 TABLET BY ity of 0.18/0.215/ 00:00: MOUTH ONCE [place] 0.25 mg-35 00 DAILY Medical mcg (28) Branch per tablet -INTE Yes [id number] TAKE ONE [facility] C 9-25 TABLET BY ity of 0.18/0.215/ 00:00: MOUTH ONCE [place] 0.25 mg-35 00 DAILY Medical mcg (28) Branch per tablet -INTE Yes [id number] TAKE ONE [facility] C 9-25 TABLET BY ity of 0.18/0.215/ 00:00: MOUTH ONCE [place] 0.25 mg-35 00 DAILY Medical mcg (28) Branch per tablet -INTE Yes [id number] TAKE ONE [facility] C 9-25 TABLET BY ity of 0.18/0.215/ 00:00: MOUTH ONCE [place] 0.25 mg-35 00 DAILY Medical mcg (28) Branch per tablet TRI-INTE Yes [id number] TAKE ONE [facility] C 9-25 TABLET BY ity of 0.18/0.215/ 00:00: MOUTH ONCE [place] 0.25 mg-35 00 DAILY Medical mcg (28) Branch per tablet -INTE Yes [id number] TAKE ONE [facility] C 9-25 TABLET BY ity of 0.18/0.215/ 00:00: MOUTH ONCE [place] 0.25 mg-35 00 DAILY Medical mcg (28) Branch per tablet TRI-SPRINTE Yes [id number] TAKE ONE [facility] C 9-25 TABLET BY ity of 0.18/0.215/ 00:00: MOUTH ONCE [place] 0.25 mg-35 00 DAILY Medical mcg (28) Branch per tablet TRI-SPRINTE Yes [id number] TAKE ONE [facility] C 9-25 TABLET BY ity of 0.18/0.215/ 00:00: MOUTH ONCE [place] 0.25 mg-35 00 DAILY Medical mcg (28) Branch per tablet TRI-SPRINTE Yes [id number] TAKE ONE [facility] C 9-25 TABLET BY ity of 0.18/0.215/ 00:00: MOUTH ONCE [place] 0.25 mg-35 00 DAILY Medical mcg (28) Branch per tablet TRI-SPRINTE Yes [id number] TAKE ONE [facility] C 9-25 TABLET BY ity of 0.18/0.215/ 00:00: MOUTH ONCE [place] 0.25 mg-35 00 DAILY Medical mcg (28) Branch per tablet metroNIDAZO 2016-10 Yes BV 500mg Take 1 Uni vers LE 500 mg 0-03 (bacterial tablet by ity of tablet 00:00: vaginosis) mouth 2 [place] 00 (two) Medical times Branch daily. metroNIDAZO 2016-10 Yes [id number] 500mg Take 1 [facility] LE 500 mg 0-03 tablet by ity o f tablet 00:00: mouth 2 [place] 00 (two) Medical times Branch daily. metroNIDAZO 2016-10 Yes [id number] 500mg Take 1 [facility] LE 500 mg 0-03 tablet by ity o f tablet 00:00: mouth 2 [place] 00 (two) Medical times Branch daily. metroNIDAZO 2016-10 Yes [id number] 500mg Take 1 [facility] LE 500 mg 0-03 tablet by ity o f tablet 00:00: mouth 2 [place] 00 (two) Medical times Branch daily. metroNIDAZO 2016-10 Yes [id number] 500mg Take 1 [facility] LE 500 mg 0-03 tablet by ity o f tablet 00:00: mouth 2 [place] 00 (two) Medical times Branch daily. metroNIDAZO 2016-10 Yes [id number] 500mg Take 1 [facility] LE 500 mg 0-03 tablet by ity o f tablet 00:00: mouth 2 (two) Medical times Branch daily. metroNIDAZO 2016-10 Yes [id number] 500mg Take 1 [facility] LE 500 mg 0-03 tablet by ity o f tablet 00:00: mouth (two) Medical times Branch daily. metroNIDAZO 2016-10 Yes [id number] 500mg Take 1 [facility] LE 500 mg 0-03 tablet by ity o f tablet 00:00: mouth 2 (two) Medical times Branch daily. metroNIDAZO 2016-10 Yes [id number] 500mg Take 1 [facility] LE 500 mg 0-03 tablet by ity o f tablet 00:00: mouth 2 (two) Medical times Branch daily. metroNIDAZO 2016-10 Yes [id number] 500mg Take 1 [facility] LE 500 mg 0-03 tablet by ity o f tablet 00:00: mouth (two) Medical times Branch daily. metroNIDAZO 2016-10 Yes [id number] 500mg Take 1 [facility] LE 500 mg 0-03 tablet by ity o f tablet 00:00: mouth (two) Medical times Branch daily. metroNIDAZO 2016-10 Yes [id number] 500mg Take 1 [facility] LE 500 mg 0-03 tablet by ity o f tablet 00:00: mouth (two) Medical times Branch daily. metroNIDAZO 2016-10 Yes [id number] 500mg Take 1 [facility] LE 500 mg 0-03 tablet by ity o f tablet 00:00: mouth (two) Medical times Branch daily. metroNIDAZO 2016-10 Yes [id number] 500mg Take 1 [facility] LE 500 mg 0-03 tablet by ity o f tablet 00:00: mouth (two) Medical times Branch daily. metroNIDAZO 2016-10 Yes [id number] 500mg Take 1 [facility] LE 500 mg 0-03 tablet by ity o f tablet 00:00: mouth (two) Medical times Branch daily. metroNIDAZO 2016-10 Yes [id number] 500mg Take 1 [facility] LE 500 mg 0-03 tablet by ity o f tablet 00:00: mouth 2 (two) Medical times Branch daily. metroNIDAZO 2016-10 Yes [id number] 500mg Take 1 [facility] LE 500 mg 0-03 tablet by ity o f tablet 00:00: mouth 2 (two) Medical times Branch daily. metroNIDAZO 2016-10 Yes [id number] 500mg Take 1 [facility] LE 500 mg 0-03 tablet by ity o f tablet 00:00: mouth (two) Medical times Branch daily. metroNIDAZO 2016-10 Yes [id number] 500mg Take 1 [facility] LE 500 mg 0-03 tablet by ity o f tablet 00:00: mouth (two) Medical times Branch daily. metroNIDAZO 2016-10 Yes [id number] 500mg Take 1 [facility] LE 500 mg 0-03 tablet by ity o f tablet 00:00: mouth (two) Medical times Branch daily. metroNIDAZO 2016-10 Yes [id number] 500mg Take 1 [facility] LE 500 mg 0-03 tablet by ity o f tablet 00:00: mouth (two) Medical times Branch daily. metroNIDAZO 2016-10 Yes [id number] 500mg Take 1 [facility] LE 500 mg 0-03 tablet by ity o f tablet 00:00: mouth (two) Medical times Branch daily. metroNIDAZO 2016-10 Yes [id number] 500mg Take 1 [facility] LE 500 mg 0-03 tablet by ity o f tablet 00:00: mouth (two) Medical times Branch daily. metroNIDAZO 2016-10 Yes [id number] 500mg Take 1 [facility] LE 500 mg 0-03 tablet by ity o f tablet 00:00: mouth (two) Medical times Branch daily. metroNIDAZO 2016-10 Yes [id number] 500mg Take 1 [facility] LE 500 mg 0-03 tablet by ity o f tablet 00:00: mouth (two) Medical times Branch daily. metroNIDAZO 2016-10 Yes [id number] 500mg Take 1 [facility] LE 500 mg 0-03 tablet by ity o f tablet 00:00: mouth (two) Medical times Branch daily. metroNIDAZO 2016-10 Yes [id number] 500mg Take 1 [facility] LE 500 mg 0-03 tablet by ity o f tablet 00:00: mouth (two) Medical times Branch daily. metroNIDAZO 2016-10 Yes [id number] 500mg Take 1 [facility] LE 500 mg 0-03 tablet by ity o f tablet 00:00: mouth 2 [place] 00 (two) Medical times Branch daily. metroNIDAZO 2016-10 Yes [id number] 500mg Take 1 [facility] LE 500 mg 0-03 tablet by ity o f tablet 00:00: mouth 2 [place] 00 (two) Medical times Branch daily. metroNIDAZO 2016-10- No [id number] 500mg Take 1 [facility] LE 500 mg 0-03 05-19 tablet by ity of tablet 00:00: 00:00 mouth 2 [place] 00 :00 (two) Medical times Branch daily. metroNIDAZO 2016-10- No [id number] 500mg Take 1 [facility] LE 500 mg 0-03 05-19 tablet by ity of tablet 00:00: 00:00 mouth 2 [place] 00 :00 (two) Medical times Branch daily. metroNIDAZO 2016-10- No [id number] 500mg Take 1 [facility] LE 500 mg 0-03 05-19 tablet by ity of tablet 00:00: 00:00 mouth 2 [place] 00 :00 (two) Medical times Branch daily. Immunizations Ordered Filled Immunization Date Status Comments [facility] e Immunization Name Name TD 2017-07-24 Completed University of 00:00:00 [facility] TDAP 2017-07-24 Completed University of 00:00:00 [facility] TDAP 2017-07-24 Completed University of 00[facility]00:00 [facility] TDAP 2017-07-24 Completed University of 00:00:00 [facility] TDAP 2017-07-24 Completed University of 00:00:00 [facility] TDAP 2017-07-24 Completed University of 00:00:00 [facility] TDAP 2017-07-24 Completed University of 00:00:00 [facility] TDAP 2017-07-24 Completed University of 00:00:00 [facility] TDAP 2017-07-24 Completed University of 00:00:00 [facility] TDAP 2017-07-24 Completed University of 00:00:00 [facility] TDAP 2017-07-24 Completed University of 00:00:00 [facility] TDAP 2017-07-24 Completed University of 00:00:00 [facility] TDAP 2017-07-24 Completed University of 00:00:00 [facility] TDAP 2017-07-24 Completed University of 00:00:00 [facility] TDAP 2017-07-24 Completed University of 00:00:00 [facility] TDAP 2017-07-24 Completed University of 00:00:00 [place] [facility] TDAP 2017-07-24 Completed University of 00:00:00 [place] [facility] TDAP 2017-07-24 Completed [facility] of 00:00:00 [place] [facility] TDAP 2017-07-24 Completed [facility] of 00:00:00 [place] [facility] TDAP 2017-07-24 Completed [facility] of 00:00:00 [place] [facility] TDAP 2017-07-24 Completed [facility] of 00:00:00 [place] [facility] TDAP 2017-07-24 Completed [facility] of 00:00:00 [place] [facility] TDAP 2017-07-24 Completed [facility] of 00:00:00 [place] [facility] TDAP 2017-07-24 Completed [facility] of 00:00:00 [place] [facility] TDAP 2017-07-24 Completed [facility] of 00:00:00 [place] [facility] TDAP 2017-07-24 Completed [facility] of 00:00:00 [place] [facility] TDAP 2017-07-24 Completed [facility] of 00:00:00 [place] [facility] TDAP 2017-07-24 Completed [facility] of 00:00:00 [place] [facility] TDAP 2017-07-24 Completed [facility] of 00:00:00 [place] [facility] TDAP 2017-07-24 Completed [facility] of 00:00:00 [place] [facility] TDAP 2017-07-24 Completed [facility] of 00:00:00 [place] [facility] TDAP 2017-07-24 Completed University of 00:00:00 [place] [facility] TDAP 2017-07-24 Completed [facility] of 00:00:00 [place] [facility] TDAP 2017-07-24 Completed [facility] of 00:00:00 [place] [facility] TDAP 2017-07-24 Completed University of 00:00:00 [place] [facility] TDAP 2017-07-24 Completed University of 00:00:00 [place] [facility] TDAP 2017-07-24 Completed University of 00:00:00 [place] [facility] TDAP 2017-07-24 Completed [facility] of 00:00:00 [place] [facility] TDAP 2017-07-24 Completed University of 00:00:00 [place] [facility] TDAP 2017-07-24 Completed University of 00:00:00 [place] [facility] TDAP 2017-07-24 Completed University of 00:00:00 [place] [facility] TDAP 2017-07-24 Completed University of 00:00:00 [place] [facility] TDAP 2017-07-24 Completed University of 00:00:00 [place] [facility] TDAP 2017-07-24 Completed University of 00:00:00 [place] [facility] TDAP 2017-07-24 Completed University of 00:00:00 [place] [facility] Vital Signs Vital Name Observation Time Observation Value Comments Source Systolic blood 2021-05-13 19:17:00 141 mm[Hg] Univer sity of pressure [place] [facility] Diastolic blood 2021-05-13 19:17:00 93 mm[Hg] Unive rsity of pressure [place] [facility] Heart rate 2021-05-13 19:17:00 93 /min [facility]i ty of [place] [facility] Body temperature 2021-05-13 19:17:00 36.94 Radha Univ ersity of [place] [facility] Respiratory rate 2021-05-13 19:17:00 18 /min Univ ersity of [place] [facility] Body height 2021-05-13 19:17:00 167.6 cm [facility] [place] [facility] Body weight 2021-05-13 19:17:00 128.822 kg [facility] [place] [facility] BMI 2021-05-13 19:17:00 45.84 kg/m2 [facility] [place] [facility] Oxygen saturation in 2021-05-13 19:17:00 98 /min University of Arterial blood by [employer] janae Pulse oximetry Branch Systolic blood 2021-05-12 15:28:00 152 mm[Hg] Univer sity of pressure [place] [facility] Diastolic blood 2021-05-12 15:28:00 96 mm[Hg] Unive rsity of pressure [place] [facility] Heart rate 2021-05-12 15:28:00 89 /min Universi [facility] of [place] [facility] Respiratory rate 2021-05-12 15:28:00 18 /min Univ ersity of [place] [facility] Body height 2021-05-12 15:28:00 167.6 cm [facility] [place] [facility] Body weight 2021-05-12 15:28:00 129.184 kg [facility] [place] [facility] BMI 2021-05-12 15:28:00 45.97 kg/m2 [facility] [place] [facility] Oxygen saturation in 2021-05-12 15:28:00 98 /min University of Arterial blood by [employer] janae Pulse oximetry Branch Systolic blood 2021-05-12 15:28:00 152 mm[Hg] Univer sity of pressure [place] [facility] Diastolic blood 2021-05-12 15:28:00 96 mm[Hg] Unive rsity of pressure [place] [facility] Heart rate 2021-05-12 15:28:00 89 /min [facility] [place] [facility] Respiratory rate 2021-05-12 15:28:00 18 /min Univ ersity of [place] [facility] Body height 2021-05-12 15:28:00 167.6 cm [facility] [place] [facility] Body weight 2021-05-12 15:28:00 129.184 kg [facility]i [facility] [place] [facility] BMI 2021-05-12 15:28:00 45.97 kg/m2 [facility] [place] [facility] Oxygen saturation in 2021-05-12 15:28:00 98 /min University of Arterial blood by [facility] Pulse oximetry Branch Systolic blood 2021-04-12 16:27:00 141 mm[Hg] Univer sity of pressure [place] [facility] Diastolic blood 2021-04-12 16:27:00 92 mm[Hg] Unive rsity of pressure [place] [facility] Heart rate 2021-04-12 16:24:00 83 /min [facility]i [facility] [place] [facility] Body temperature 2021-04-12 16:24:00 36.83 Radha [facility] [place] [facility] Respiratory rate 2021-04-12 16:24:00 18 /min Univ ersity of [place] [facility] Body height 2021-04-12 16:24:00 167.6 cm [facility] [place] [facility] Body weight 2021-04-12 16:24:00 128.822 kg [facility] [place] [facility] BMI 2021-04-12 16:24:00 45.84 kg/m2 [facility] [place] [facility] Oxygen saturation in 2021-04-12 16:24:00 100 /min University of Arterial blood by [facility] janae Pulse oximetry Branch Systolic blood 2021-04-05 16:46:00 149 mm[Hg] Univer sity of pressure [place] [facility] Diastolic blood 2021-04-05 16:46:00 87 mm[Hg] Unive rsity of pressure [place] [facility] Heart rate 2021-04-05 16:46:00 81 /min [facility]i [facility] [place] [facility] Body temperature 2021-04-05 16:46:00 36.39 Radha [facility] [place] [facility] Body weight 2021-04-05 16:46:00 128.867 kg [facility] [place] [facility] BMI 2021-04-05 16:46:00 45.85 kg/m2 [facility] [place] [facility] Oxygen saturation in 2021-04-05 16:46:00 98 /min University of Arterial blood by [facility] Pulse oximetry Branch Systolic blood 2021-03-09 20:51:00 144 mm[Hg] Univer sity of pressure [place] [facility] Diastolic blood 2021-03-09 20:51:00 92 mm[Hg] Unive rsity of pressure [place] [facility] Heart rate 2021-03-09 19:28:00 74 /min [facility] [place] [facility] Body temperature 2021-03-09 19:26:00 36.39 Radha [facility] [place] [facility] Respiratory rate 2021-03-09 19:26:00 16 /min Univ ersity of [place] [facility] Body height 2021-03-09 19:26:00 167.6 cm [facility] [place] [facility] Body weight 2021-03-09 19:26:00 126.554 kg [facility] [place] [facility] BMI 2021-03-09 19:26:00 45.03 kg/m2 [facility] [place] [facility] Systolic blood 2021-03-01 16:42:00 154 mm[Hg] Univer sity of pressure [place] [facility] Diastolic blood 2021-03-01 16:42:00 107 mm[Hg] Unive rsity of pressure [place] [facility] Heart rate 2021-03-01 16:42:00 80 /min [facility] [place] [facility] Respiratory rate 2021-03-01 16:42:00 16 /min Univ ersity of [place] [facility] Body height 2021-03-01 16:42:00 167.6 cm [facility] [place] [facility] Oxygen saturation in 2021-03-01 16:42:00 99 /min University of Arterial blood by [facility] Pulse oximetry Branch Systolic blood 2020-10-25 14:44:00 134 mm[Hg] Univer sity of pressure [place] [facility] Diastolic blood 2020-10-25 14:44:00 83 mm[Hg] Unive rsity of pressure [place] [facility] Heart rate 2020-10-25 14:44:00 81 /min [facility] [place] [facility] Body temperature 2020-10-25 14:43:00 36.28 Radha Univ ersity of [facility] Respiratory rate 2020-10-25 14:43:00 18 /min Univ ersity of [facility] Body height 2020-10-25 14:43:00 167.6 cm [facility] [place] [facility] Body weight 2020-10-25 14:43:00 127.37 kg [facility] [place] [facility] BMI 2020-10-25 14:43:00 45.32 kg/m2 Universi ty of [facility] Systolic blood 2020-10-08 15:30:00 110 mm[Hg] Univer sity of pressure [place] [facility] Diastolic blood 2020-10-08 15:30:00 74 mm[Hg] Unive rsity of pressure [facility] Heart rate 2020-10-08 15:30:00 73 /min Universi ty of [facility] Body temperature 2020-10-08 15:30:00 36.28 Radha Univ ersity of [facility] Branch Respiratory rate 2020-10-08 15:30:00 26 /min Univ ersity of [facility] Oxygen saturation in 2020-10-08 15:30:00 94 /min University Arterial blood by [facility] Pulse oximetry Branch Body height 2020-10-07 18:00:00 167.6 cm [facility] [place] [facility] Body weight 2020-10-07 18:00:00 127.007 kg [facility] [place] [facility] BMI 2020-10-07 18:00:00 45.19 kg/m2 [facility] [place] [facility] Systolic blood 2020-10-04 15:26:00 115 mm[Hg] Univer sity of pressure [facility] Branch Diastolic blood 2020-10-04 15:26:00 79 mm[Hg] Unive rsity of pressure [facility] Branch Heart rate 2020-10-04 15:26:00 74 /min Universi ty of [facility] Branch Body temperature 2020-10-04 15:26:00 36.5 Radha Univ ersity of [facility] Branch Respiratory rate 2020-10-04 15:26:00 20 /min Univ ersity of [facility] Body height 2020-10-04 15:26:00 167.6 cm Universi ty of [facility] Body weight 2020-10-04 15:26:00 127.098 kg [facility] [place] [facility] BMI 2020-10-04 15:26:00 45.23 kg/m2 [facility] [place] [facility] Systolic blood 2020-09-30 01:00:00 137 mm[Hg] Univer sity of [facility] [place] [facility] Diastolic blood 2020-09-30 01:00:00 96 mm[Hg] Unive rsity of [facility] [place] [facility] Heart rate 2020-09-30 01:00:00 73 /min [facility] [place] [facility] Respiratory rate 2020-09-30 01:00:00 14 /min [facility] [place] [facility] Oxygen saturation in 2020-09-30 01:00:00 98 /min University of Arterial blood by [place] [employer] [facility] Pulse oximetry Branch Body temperature 2020-09-29 23:25:00 37.44 Radha [facility] [place] [facility] Body height 2020-09-29 23:25:00 167.6 cm [facility] [place] [facility] Body weight 2020-09-29 23:25:00 127.007 kg [facility] [place] [facility] BMI 2020-09-29 23:25:00 45.19 kg/m2 [facility] [place] [facility] Systolic blood 2020-09-28 21:34:00 148 mm[Hg] Univer [facility]ity of [facility] [place] [facility] Diastolic blood 2020-09-28 21:34:00 101 mm[Hg] Unive rsity of [facility] [place] [facility] Heart rate 2020-09-28 21:33:00 80 /min [facility] [place] [facility] Body temperature 2020-09-28 21:33:00 36.39 Radha [facility] [place] [facility] Respiratory rate 2020-09-28 21:33:00 18 /min [facility] [place] [facility] Body height 2020-09-28 21:33:00 167.6 cm [facility] [place] [facility] Body weight 2020-09-28 21:33:00 128.096 kg [facility] [place] [facility] BMI 2020-09-28 21:33:00 45.58 kg/m2 [facility] [place] [facility] Respiratory rate 2020-09-24 02:00:00 20 /min [facility] [place] [facility] Oxygen saturation in 2020-09-24 02:00:00 98 /min University of Arterial blood by [place] [facility] Pulse oximetry Branch Systolic blood 2020-09-24 01:55:00 154 mm[Hg] Univer sity of pressure [facility] Diastolic blood 2020-09-24 01:55:00 106 mm[Hg] Unive rsity [facility] Heart rate 2020-09-24 01:55:00 79 /min [facility] Body temperature 2020-09-24 00:42:00 36.78 Radha [facility] height 2020-09-24 00:42:[address] [facility] Body weight 2020-09-24 00:42:[address] [facility] BMI 2020-09-24 00:42:00 45.19 kg/m2 [facility] Procedures Procedure Date / Time Performing Clinician Source Performed EXTERNAL PROVIDER 2021-03-14 05:01:00 Doctor Unassigned, No Univ ersity [facility] RECORDS Name Medical [place] GC & CHLAMYDIA AMPLIFIED 2021-03-09 20:50:00 David Thomas [facility] HIV 1/2 AG-AB WITH 2021-03-09 20:50:00 [facility] TRICHOMONAS AMPLIFIED 2021-03-09 20:50:00 [facility] PAP SMEAR-LIQUID 2021-03-09 20:50:00 David Thomas [facility] BASED-CP [facility] Branch GALV ONLY - SYPHILIS 2021-03-09 20:50:00 David Thomas [facility] ersity [facility] IGG/IGM [facility] POCT TEST 2021-03-09 19:31:00 David Thomas [facility] EXTERNAL PROVIDER 2021-03-03 05:01:00 Doctor Unassigned, No [facility] [place] RECORDS Name Medical Branch REFERRAL- 2021-02-22 05:01:00 Doctor Unassigned, No [facility] [place] REQUEST/RESPONSE Name Medical Branch REFERRAL- 2021-02-22 05:01:00 Doctor Unassigned, No [facility] [place] REQUEST/RESPONSE Name Medical Branch EGD (ENDO) 2020-10-08 13:04:22 Alonzo Cooney [facility] Medical Branch COVID-19 (ID NOW RAPID 2020-10-08 12:51:00 Magdiel Nash [facility] TESTING) Medical Branch DAY SURGERY - ADC 2020-10-08 06:01:00 Doctor Unassigned, No [facility] Name Medical Branch NM HEPATOBILIARY W 2020-10-06 17:47:00 Shaina [facility] INTERVENTION Medical Branch DISCLOSURE AND CONSENT, 2020-10-04 06:01:00 Doctor Unassigned, N o [facility] MEDICAL AND SURGICAL Name Medical Bra nch PROCEDURES LIPASE 2020-09-30 00:10:00 Jennie Drake [facility] Medical Branch COMP. METABOLIC PANEL 2020-09-30 00:10:00 Jennie Drake [facility] ([id number]) Medical Branch CBC WITH DIFF 2020-09-30 00:10:00 Jennie Drake [facility] Medical [place] COVID-19 (ID NOW RAPID 2020-09-30 00:10:00 Jennie Drake [facility] TESTING) Medical Branch URINALYSIS 2020-09-29 23:30:00 Arnulfo Pinto [facility] Medical [place] CONSENT/REFUSAL FOR 2020-09-29 23:03:47 Doctor Unassigned, No [facility] DI[facility]NOSIS AND TREATMENT Name Medical Branch CT ABDOMEN PELVIS W 2020-09-24 01:50:07 Jennie Drake [facility] CONTRAST Medical Branch LIPASE 2020-09-24 01:12:00 Jennie Drake [facility] Medical Branch COMP. METABOLIC PANEL 2020-09-24 01:12:00 Jennie Drake [facility] ([id number]) Medical Branch CBC WITH DIFF 2020-09-24 01:12:00 Jennie Drake [facility] Medical Branch URINALYSIS 2020-09-24 01:12:00 Jennie Drake [facility] NOTICE OF PRIVACY 2020-09-24 00:38:52 Doctor Unassigned, No Univ [facility] PRACTICES Name Medical Branch CONSENT/REFUSAL FOR 2020-09-24 00:33:55 Doctor Unassigned, No [facility] DIAGNOSIS AND TREATMENT Name Medical Branch DISCLOSURE AND CONSENT, 2019-10-25 06:01:00 Doctor Unassigned, N o University [facility] MEDICAL AND SURGICAL Name Medical Bra [facility] PROCEDURES Plan of Care Planned Activity Planned Date Details Comments Source Future Scheduled 2027-07-24 DTaP,Tdap,and Td [facility] Test 00:00:00 Vaccines (2 - Td) Medical Br anch [code = DTaP,Tdap,and Td Vaccines (2 - Td)] Future Scheduled 2021-10-08 Depression screening [facility] Test 00:00:00 (procedure) [code = Medical Branch [id number]] Future Scheduled 2021-06-22 INFLUENZA VACCINE [facility] Test 00:00:00 (Season Ended) [code Medical Branch = INFLUENZA VACCINE (Season Ended)] Future Scheduled 2020-07-[address] [facility] Test 00:00:00 malignant neoplasm Medical B ranch of cervix (procedure) [code = [id number]] Future Scheduled 2005 Hepatitis C [facility] Test 00:00:00 screening Medical Branch (procedure) [code = [id number]] Future Scheduled 2003 SARS-CoV-2 [facility] Test 00:00:00 (COVID-19) Vaccine Medical B ranch (1) [code = SARS-CoV-2 (COVID-19) Vaccine (1)] Future Scheduled 1988 VARICELLA VACCINES [facility] Test 00:00:00 (1 of 2 - 2-dose [facility] childhood series) [code = VARICELLA VACCINES (1 of 2 - 2-dose childhood series)] Encounters Start End Encounter Admission Attending Care Care Encounter Source Date/Time Date/Time Type Type Clinicians Facility Department ID 2021-08-20 Outpatient R CHATO [facility] SANDY [id number] Univers 18:19:38 LINWOOD cutler [facility] 2021-08-[address] [facility] [id number] Univers 11:05:20 [facility] [facility] [id number] Univers 10:20:07 ity [facility] 2021-08-[address] [facility] [id number] Univers 09:09:23 ity [facility] 2021-08-09 2021-08-[address] [facility] [id number] Univers 11:00:00 11:00:00 ity of [facility] 2021-07-14 2021-07-[address] [facility] [id number] Univers 10:00:00 10:00:00 MICHELLE ity [facility] 2021-05-18 2021-05-[address] [facility] [id number] Univers 10:00:00 10:00:00 BOB ity [facility] 2021-05-17 2021-05-[address] [facility] [id number] Univers 09:00:00 09:00:00 ity [facility] 2021-05-14 2021-05-14 Telephone Pcp, CELINA [id number] Univers 00:00:00 00:00:00 Patient TEO [id number] it y of [facility] [place]2.[place] A [phone] [address] 2021-05-13 2021-05-13 Urgent Lucero Landry [facility] [id number] Univers 13:55:27 14:15:27 Care Celina Kelley [facility] [id number] ity [facility] [id number] [facility] as Professio [phone] Pa oral nal [address] 2021-05-13 2021-05-[address] [facility] [id number] Univers 14:00:00 14:00:00 CELINA cutler [facility] 2021-05-12 2021-05-12 Office Nilsa [facility] [id number] Univers 10:23:38 11:43:11 Visit Michelle SPECIALTY [id number] ity of [facility] [id number] [facility] AT [phone] Pa oral VICTORY [address] 2021-05-12 2021-05-12 Office Nilsa [facility] 1.2.840.114 [id number] 10:23:38 11:43:11 Visit Michelle SPECIALTY [id number] [facility] [id number] CENTER AT [phone] RIZWAN [address] [place] [address] 2021-05-12 2021-05-[address] [facility] [id number] Univers 10:00:00 10:00:00 MICHELLE ity [facility] 2021-05-05 2021-05-05 Telephone Martha [facility] [id number] Univers 00:00:00 00:00:00 David Rico GREEN CHAINER [id number] ity of [facility] [id number] Dae as MATERNAL [phone] Med ical & CHILD 107 [facility] 2021-04-14 2021-04-14 Telephone Provider, [facility] 1.2.840.114 [id number] Univers 00:00:00 00:00:00 [facility] Urgent Health [id number] ity of Care Surgical [id number] Dae as Specialti [phone] Pa oral 370 [facility] 2021-04-12 2021-04-12 [address]UNA [address]UZ [facility] [id number] Univers 14:00:00 14:00:00 ity [facility] 2021-04-12 2021-04-12 Urgent Provider, [facility] 1.2.840.114 [id number] Univers 11:21:11 11:41:11 [facility] [id number] ity [facility] [id number] Dae as Professio [phone] Pa oral [facility] [address] 2021-04-12 2021-04-[address] [facility] [id number] Univers 11:20:00 11:20:00 ALMA [facility] 2021-04-05 2021-04-05 Upholstery Covers Inspector Vtc-Lab [facility] 1.2.840.114 [id number] Univers 12:24:12 12:39:12 Visit Rudy Dubon MULTISPEC 350.1.13. 10 it[place] [phone] [facility] AND TAYLOR [address] [facility] 2021-04-05 2021-04-05 Office Miguelina Rodriguez [facility] 1.2.840.114 [id number] Univers 11:40:18 12:28:19 Visit Rudy DubonPEC 350.1.13. 10 ity of [facility] [id number] [phone] [facility] [address] [facility] 2021-04-05 2021-04-[address] [facility] [id number] Univers 11:30:00 11:30:00 RUDY cutler [facility] 2021-03-25 2021-03-25 [facility] [id number] Univers 00:00:00 00:00:00 David Rico GREEN CHAINER [id number] ity of [facility] [id number] Dae as MATERNAL [phone] [facility] ical & CHILD [address] [place] [address] 2021-03-14 2021-03-14 Orders Doctor CELINA 1.2.840.114 [id number] Univers 00:00:00 00:00:00 Only Unassigned, TEO 350.1.13.[address] [facility] [id number] Dae as [phone] [address] 2021-03-09 2021-03-09 Office Martha [facility] 1.2.840.114 [id number] Univers 14:16:46 15:52:08 Visit David Rico GREEN CHAINER [id number] ity of [facility] [id number] Dae as MATERNAL [phone] [facility] ical & CHILD [address] [place] [address] 2021-03-09 2021-03-[address] [facility] [id number] Univers 15:15:00 15:15:00 DAVID cutler o f [facility] 2021-03-09 2021-03-[address] [facility] [id number] Univers 13:30:00 13:30:00 KINGSTON cutler [facility] 2021-03-03 2021-03-03 Orders Doctor CELINA 1.2.840.114 [id number] Univers 00:00:00 00:00:00 Only Unassigned, TEO 350.1.13.[address] [facility] 4.2.7.2.686 Dae as [phone] [facility] 009 Branch 2021-03-01 2021-03-01 Upholstery Covers Inspector [facility] 1.2.840.114 [id number] Univers 12:24:01 12:39:01 Visit Rudy Dubon MULTISPEC 350.1.13. 10 ity of [place] 4.2.7.2.686 [facility] [phone] [facility] AND [place] [address] [facility] 2021-03-01 2021-03-01 Office Miguelina Rodriguez [facility] 1.2.840.114 [id number] Univers 10:28:54 12:24:36 Visit Rudy DubonPEC 350.1.13. 10 ity of [place] 4.2.7.2.686 [facility] NU MINE [phone] [facility] AND [place] [address] [facility] 2021-03-01 2021-03-[address] [facility] [id number] Univers 11:30:00 11:30:00 RUDY cutler [facility] 2021-02-22 2021-02-22 Orders Doctor PATRICK 1.2.840.114 [id number] Univers 00:00:00 00:00:00 Only Unassigned, TEO 350.1.13.[address] [facility] 4.2.7.2.686 Dae as [phone] [facility] 009 Branch 2021-02-03 2021-02-[address] [facility] [id number] Univers 13:15:00 13:15:00 LINWOOD cutler [facility] 2021-01-24 2021-01-24 Telephone Chato [facility] 1.2.840.114 [id number] Univers 00:00:00 00:00:00 Linwood Patterson 350.1.13.10 i ty silvestre [place] [phone] Pa dical nal 188 [facility] 2021-01-13 2021-01-13 Laboratory Lab, Adc Fam Pob I [facility] 1.2. 840.114 [id number] Univers 14:23:32 14:43:32 Only ShereeEve Alyson [facility] 350.1.13.10 ity of [place] 4.2.7.2.686 Dae as Professio [phone] Pa dical nal [address] Office [facility] One 2021-01-13 2021-01-13 [facility] [id number] Univers 14:40:00 14:40:00 NETTA cutler [facility] 2021-01-11 2021-01-11 Patient [facility] 1.2.840.114 [id number] Univers 00:00:00 00:00:00 Outreach [facility] 350.1.13.10 i ty of [facility] [place]2.7.2.[place] [phone] [facility] [address] 2020-11-11 2020-11-11 Telephone [facility] [id number] Univers 00:00:00 00:00:00 Anne Marie Patterson 350.1.13.10 ity of [place] [phone] Pa dical nal 204 [facility] 2020-10-25 2020-10-25 Office [facility] [id number] Univers 08:32:15 09:31:22 Visit Linwood Patterson 350.1.13.10 i ty of [place] Profess[place] [phone] Pa dical nal 188 [facility] 2020-10-25 2020-10-[address] [facility] [id number] Univers 08:30:00 08:30:00 LINWOOD cutler [facility] 2020-10-25 2020-10-25 Letter [facility] [id number] Univers 00:00:00 00:00:00 (Out) Linwood Patterson 350.1.13.10 i ty of [place] [phone] Pa dical nal 188 [facility] 2020-10-25 2020-10-25 Prep For [facility] 1.2.840.114 [id number] Univers 00:00:00 00:00:00 Surgery Anne Marie Shields Yesenia 350.1.13.10 ity of [place].2.[place] [phone] Pa dical nal 204 [facility] 2020-10-08 2020-10-08 [facility] 1.2.840.114 [id number] Univers 07:09:00 09:50:00 Encounter Linwood Patterson 350.1.13.10 ity of [place] Surgical [phone] [facility] [address] 2020-10-08 2020-10-08 Orders Doctor CELINA 1.2.840.114 [id number] Univers 00:00:00 00:00:00 Only Unassigned, TEO 350.1.13.[address] [facility] 4.2.7.2.686 Dae as [phone] [facility] [address] 2020-10-07 2020-10-07 Outpatient R [facility] [id number] Univers 11:00:00 11:00:00 LINWOOD he [facility] 2020-10-06 2020-10-06 [facility] 1.2.840.114 [id number] Univers 09:09:35 23:59:00 Encounter Linwood Patterosn 350.1.13.10 ity of [place] 4[place]2.7.2.[place] [phone] [facility] [address] 2020-10-06 2020-10-06 Outpatient [facility] [id number] Univers 09:30:00 09:30:00 LINWOOD he [facility] 2020-10-04 2020-10-04 Office [facility] [id number] Univers 09:08:04 10:04:17 Visit Linwood Yesenia 350.1.13.10 i ty of [place] [phone] Pa dical nal 188 [facility] 2020-10-04 2020-10-04 [facility] [id number] Univers 09:00:00 09:00:00 LINWOOD ity of [facility] 2020-10-04 2020-10-04 Prep For [facility] 1.2.840.114 [id number] Univers 00:00:00 00:00:00 Surgery Anne Marie Shields Yesenia 350.1.13.10 ity of [place] 4[place].2.[place] [phone] Pa dical nal 204 [facility] 2020-10-04 2020-10-04 Letter [facility] [id number] [id number] Univers 00:00:00 00:00:00 (Out) Linwood Patterson 350.1.13.10 i ty of [place] [phone] Pa dical nal 204 [facility] 2020-09-29 2020-09-29 [facility] [id number] Univers 18:05:00 19:42:00 Jennie S Yesenia 350.1.13.10 i ty of [place] 4.2.7.2.[place] [phone] [facility] [address] [place] [address] 2020-09-28 2020-09-28 [facility] 1.2.840.114 [id number] Univers 16:52:37 23:59:00 Encounter Linwood Yesenia 350.1.13.10 ity of [place] 4[place]2.7.2.686 [place] [phone] [facility] [address] [place] [address] 2020-09-28 2020-09-28 Office [facility] [id number] Univers 15:22:01 16:36:37 Visit Linwood Patterson 350.1.13.10 i ty of [place] 4[place] [phone] Pa dical nal 188 [facility] 2020-09-28 2020-09-[address] [facility] [id number] Univers 15:15:00 15:15:00 LINWOOD itbarbie of [facility] 2020-09-23 2020-09-23 Emergency [facility] [id number] Univers 18:39:00 21:15:00 Jennie Patterson 350.1.13.10 i ty of [place] 4.2.7.2.686 [facility] [phone] [facility] [address] 2019-10-25 2019-10-25 Orders Doctor CELINA 1.2.840.114 [id number] Univers 00:00:00 00:00:00 Only Unassigned, TEO 350.1.13.[address] [facility] 4.2.7.2.686 Dae [phone] [facility] [address] Results Test Description Test Time Test Comments Results Result Comments Source TRICHOMONAS AMPLIFIED ASSAY 2021-03-11 01:34:59 Test Item Value Reference Range Interpretation Comme nts Trichomonas Nucleic Acid (test code = Negative Negative 10812-8) AQUILES (test code = AQUILES) Reliable results are dependent on adequate specimen collection. ? A positive result obtained from a patient after therapeutic treatment cannot be interpreted as indicating the presence of viable organisms. ?For patients on whom a false positive result may have adverse psychosocial impact, retesting is advised. Indeterminate: Unable to generate a valid test result on this specimen. ?Please submit a new specimen for repeat testing if clinically indicated. Trichomonas nucleic acid amplification testing (NAAT) has not been validated for medico-legal specimens (sexual abuse in luis-pubertal and pre-pubertal children, sexual assault, and legal cases). ?Wet mount with microscopic observation and culture for Trichomonas vaginalis from clinically appropriate sites are the methods of choice in these cases. Results from this testing should be interpreted in conjunction with other laboratory and clinical data available to the clinician. Lab Interpretation (test code = Normal 97866-2) [facility] CHLAMYDIA AMPLIFIED [id number] 01:25:04 Test Item Value Reference Range Interpretation Comments C. trachomatis Nucleic Negative Negative Acid (test code = 73252-6) N. gonorrhoeae Nucleic Negative Negative Acid (test code = 32537-5) AQUILES (test code = AQUILES) Reliable results are dependent on adequate specimen collection. ? A positive result obtained from a patient after therapeutic treatment cannot be interpreted as indicating the presence of viable organisms. ?For patients on whom a false positive result may have adverse psychosocial impact, retesting is advised. Indeterminate: Unable to generate a valid test result on this specimen. ?Please submit a new specimen for repeat testing if clinically indicated. Chlamydia trachomatis/Neisseria gonorrhoeae nucleic acid amplification testing (NAAT) has not been validated for medico-legal specimens (sexual abuse in luis-pubertal and pre-pubertal children, sexual assault, and legal cases). ?Culture for Chlamydia trachomatis and/or Neisseria gonorrhoeae from clinically appropriate sites is the method of choice in these cases. ? Results from this testing should be interpreted in conjunction with other laboratory and clinical data available to the clinician. Lab Interpretation Normal (test code = 31131-5) [facility] - SYPHILIS [id number] 15:08:52 Test Item Value Reference Range Interpretation Comments Syphilis IgG/IgM (test Non-reactive Non-reactive code = 83591-2) AQUILES (test code = AQUILES) Non-reactive - No serologic evidence of T. pallidum infection. Cannot exclude incubating or early syphilis. Submit a second specimen in 2-4 weeks if syphilis is clinically suspected. Equivocal - Further testing to follow. Reactive - Further testing to follow. Lab Interpretation (test Normal code = 68421-1) [facility]/2 AG-AB WITH [id number] 07:54:01 Test Item Value Reference Range Interpretation Comments HIV Negative Negative Semi-quantitative (test code = 90708-6) AQUILES (test code = Non-reactive for HIV-1 AQUILES) antigen and HIV-1/HIV-2 antibodies. ?No laboratory evidence of HIV infection. ?Repeat in 2-4 weeks if acute HIV infection is suspected. [id number] 19:31:00 Test Item Value Reference Range Interpretation Comments POCT PREG (test code = 1605) Negative On board controls acceptable with C Yes Line (test code = 3574) POCT PREG LOT # (test code = 3575) POCT PREG TEST DATE (test code = 3576) Lab Interpretation (test code = Normal 85901-8) [facility] [id number] 19:31:00 Test Item Value Reference Range Interpretation Comments POCT PREG (test code = 1605) Negative On board controls acceptable with C Yes Line (test code = 3574) POCT PREG LOT # (test code = 3575) POCT PREG TEST DATE (test code = 3576) Lab Interpretation (test code = Normal 58259-6) [facility] [id number] 19:31:00 Test Item Value Reference Range Interpretation Comments POCT PREG (test code = 1605) Negative On board controls acceptable with C Yes Line (test code = 3574) POCT PREG LOT # (test code = 3575) POCT PREG TEST DATE (test code = 3576) Lab Interpretation (test code = Normal 35663-7) [facility] (ID NOW RAPID TESTING)2020-10-08 13:22:00 Test Item Value Reference Range Interpretation Comments SARS-CoV-2 Rapid ID NOW Not Detected Not Detected (test code = 40753-3) AQUILES (test code = AQUILES) ID NOW COVID-19 Assay is an isothermal nucleic acid amplification test intended for the qualitative detection of nucleic acid from SARS-CoV-2 viral RNA in nasopharyngeal ([employer]) specimens. It is used under Emergency Use Authorization (EUA) by FDA. The limit of detection (LOD) of the assay is 125 Genome Equivalents/mL. A positive result is indicative of the presence of SARS-CoV-2 RNA. ?Clinical correlation with patient history and other diagnostic information is necessary to determine patient infection status. A negative (Not Detected) result does not preclude SARS-CoV-2 infection. In patients with clinical symptoms and other tests that are consistent with SARS-CoV-2 infection, negative results should be treated as presumptive negative and a new specimen should be tested with alternative PCR molecular test. Invalid: Please collect a new specimen for repeat patient testing if clinically indicated. Lab Interpretation Normal (test code = 64122-7) [facility] [id number] 18:02:58HISTORY: Epigastric pain. Rule out gallbladder dysfunction or cystic ductdyskinesia. TECHNIQUE: Routine hepatobiliary scan is obtained with 10 mCi of [id number] mebrofenin. CCK study is completed with slow intravenous injection of2.5 mcg of CCK. FINDINGS: Flow images and planar images of the liver appear normal. Bileducts begin to visualize within 12 minutes. Gallbladder begins to visualizeat approximately 12 minutes. Duodenum is not visualized till more than 90minutes. Duodenum is visualized after initiation of CCK infusion. Gallbladder contraction is hyper normal with CCK stimulation and GB EFis93 %. Patient complained of right upper quadrant pain radiating to backwith nausea during CCK study. CONCLUSIONS: 1.Delayed biliary to bowel transit time noted, otherwise normal routinehepatobiliary scan. This is suggestive of underlying chronic biliarydisease. 2.Gall bladder contraction with CCK stimulation is hyper normal withejection fraction of 93%. 3.Patient indicated duplication of clinical sy mptoms during CCK infusionand C/O nausea, right upper quadrant pain radiating to back ( severity of 2on scale of 0 to 4),consistent with cystic duct dyskinesia. [facility], Radiant Results Inft User - 10/06/2020 12:04 PM CSTHISTORY: Epigastric pain. Rule out gallbladder dysfunction or cystic ductdyskinesia.TECHNIQUE: Routine hepatobiliary scan is obtained with 10 mCi of [id number] mebrofenin. CCK study is completed with slow intravenous injection of2.5 mcg of CCK.FINDINGS: Flow images and planar imagesof the liver appear normal. Bileducts begin to visualize within 12 minutes. Gallbladder begins to visualizeat approximately 12 minutes. Duodenum is not visualized till more than 90minutes. Duodenum is visualized after initiation of CCK infusion. Gallbladder contraction is hyper normal with CCK stimulation and GB EF is93 %. Patient complained of right upper quadrant pain radiating to backwith nausea during CCK study.CONCLUSIONS: 1.Delayed biliary to bowel transit time noted, otherwise normal routinehepatobiliary scan. This is suggestive of underlying chronic biliarydisease. 2.Gall bladder contraction with CCK stimulation is hyper normal withejection fraction of 93%. 3.Patient indicated duplication of clinical symptoms during CCK infusionand C/O nausea, right upper quadrant pain radiating to back (severity of 2on scale of 0 to 4),consistent with cystic duct dyskinesia.[facility] NOW RAPID TESTING) 2020-09-30 01:00:00 Test Item Value Reference Range Interpretation Comments SARS-CoV-2 Rapid ID NOW Not Detected Not Detected (test code = 51333-1) AQUILES (test code = AQUILES) ID NOW COVID-19 Assay is an isothermal nucleic acid amplification test intended for the qualitative detection of nucleic acid from SARS-CoV-2 viral RNA in nasopharyngeal ([employer]) specimens. It is used under Emergency Use Authorization (EUA) by FDA. The limit of detection (LOD) of the assay is 125 Genome Equivalents/mL. A positive result is indicative of the presence of SARS-CoV-2 RNA. ?Clinical correlation with patient history and other diagnostic information is necessary to determine patient infection status. A negative (Not Detected) result does not preclude SARS-CoV-2 infection. In patients with clinical symptoms and other tests that are consistent with SARS-CoV-2 infection, negative results should be treated as presumptive negative and a new specimen should be tested with alternative PCR molecular test. Invalid: Please collect a new specimen for repeat patient testing if clinically indicated. Lab Interpretation Normal (test code = 17033-0) [facility]. METABOLIC PANEL (33590)2020-09-30 00:52:00 Test Item Value Reference Range Interpretation Comments NA (test code = 139 mmol/L 135-145 8205236932) K (test code = 3.7 mmol/L 3.5-5 2596014558) CL (test code = 101 mmol/L 98-108 4116099656) CO2 TOTAL (test code = 29 mmol/L 23-31 4180040511) AGAP (test code = 2-16 5008392408) BUN (test code = 8 mg/dL 7-23 9172225546) GLUCOSE (test code = 107 mg/dL 70-110 2819873638) CREATININE (test code 0.88 mg/dL 0.5-1.04 = 3330698674) TOTAL BILI (test code 0.3 mg/dL 0.1-1.1 = 0309858950) CALCIUM (test code = 9.8 mg/dL 8.6-10.6 8248005972) T PROTEIN (test code = 7.8 g/dL 6.3-8.2 9166362727) ALBUMIN (test code = 4.4 g/dL 3.5-5 2674262284) ALK PHOS (test code = 90 U/L 34-122 2302613995) ALTv (test code = 17 U/L 5-35 1742-6) AST(SGOT) (test code = 19 U/L 13-40 1152174304) eGFR Calculation mL/min/1.73m2 (Non-) (test code = 3780970331) eGFR Calculation mL/min/1.73m2 () (test code = 7971812436) AQUILES (test code = AQUILES) Association of Glomerular Filtration Rate (GFR) and Staging of Kidney Disease* + -+ + ---+| GFR (mL/min/1.73 m2) ?| With Kidney Damage ?| ?Without Kidney Damage+ -------+ ------+ ---------+| ?>90 ?| ?Stage one ?| ? Normal ?+ --+ -+ ----+| ?60-89 ?| ?Stage two ?| ? Decreased GFR ? + -+ + ---+| ?30-59 ?| ?Stage three ?| ? Stage three ? + -+ + ---+| ?15-29 ?| ?Stage four ? | ? Stage four ?+ --+ -+ ----+| ?<15 (or dialysis) ? ?| ?Stage five ? | ? Stage five ?+ --+ -+ ----+ *Each stage assumes the associated GFR level has been in effect for at least three months. ?Stages 1 to 5, with or without kidney disease, indicate chronic kidney disease. Notes: Determination of stages one and two (with eGFR >59mL/min/1.73 m2) requires estimation of kidney damage for at least three months as defined by structural or functional abnormalities of the kidney, manifested by either:Pathological abnormalities or Markers of kidney damage (including abnormalities in the composition of the blood or urine or abnormalities in imaging tests). [facility] 00:52:00 Test Item Value Reference Range Interpretation Comments LIPASE (test code = 1757078685) 90 U/L 0-220 Lab Interpretation (test code = Normal 77699-2) [facility] WITH [id number] 00:40:00 Test Item Value Reference Range Interpretation Comments WBC (test code = See_Comment [Automated message] 6690-2) The system 3yy game platform generated this result transmitted ref erence range: 4.30 - 1 1.10 10*3/?L. The re ference range was not u sed to interpret this result as normal/abnor mal. RBC (test code = See_Comment [Automated message] 349-8) The system 3yy game platform generated this result transmitted ref erence range: 3.93 - 5 .25 10*6/?L. The re ference range was not u sed to interpret this result as normal/abnor mal. HGB (test code = 13.8 g/dL 11.6-15 718-7) HCT (test code = 42.2 % 35.7-45.2 4544-3) MCV (test code = 87.9 fL 80.6-95.5 787-2) MCH (test code = 28.8 pg 25.9-32.8 785-6) MCHC (test code = 32.7 g/dL 31.6-35.1 786-4) RDW-SD (test code 41.5 fL 39-49.9 = 78975-7) RDW-CV (test code 12.9 % 12-15.5 = 788-0) PLT (test code = See_Comment [Automated message] 777-3) The system 3yy game platform generated this result transmitted ref erence range: 166 - 35 8 10*3/?L. The re ference range was not u sed to interpret this result as normal/abnor mal. MPV (test code = 9.8 fL 9.5-12.9 44162-4) NRBC/100 WBC (test See_Comment [Automat ed message] code = 5057892037) The syste m which generated this result transmitted ref erence range: 0.0 - 10 .0 /100 WBCs. The refer ence range was not u sed to interpret this result as normal/abnor mal. NRBC x10^3 (test <0.01 See_Comment [Automated message] code = 5409416655) The syste m which generated this result transmitted ref erence range: 10*3/?L. The reference range was not used to interpr et this result as normal/abnormal . GRAN MAT (NEUT) % 55.2 % (test code = 770-8) IMM GRAN % (test 0.30 % code = 2279207614) LYMPH % (test code 34.2 % = 736-9) MONO % (test code 8.2 % = 5905-5) EOS % (test code = 1.5 % 713-8) BASO % (test code 0.6 % = 706-2) GRAN MAT 4.33 10*3/uL 1.88-7.09 x10^3(ANC) (test code = 8378191960) IMM GRAN x10^3 <0.03 0-0.06 (test code = 7267049978) LYMPH x10^3 (test 2.68 10*3/uL 1.32-3.29 code = 731-0) MONO x10^3 (test 0.64 10*3/uL 0.33-0.92 code = 742-7) EOS x10^3 (test 0.12 10*3/uL 0.03-0.39 code = 711-2) BASO x10^3 (test 0.05 10*3/uL 0.01-0.07 code = 704-7) [facility] 00:13:00 Test Item Value Reference Range Interpretation Comments APPEARANCE (test code = Clear Clear 1666128757) COLOR (test code = Straw Yellow A 7303544343) PH (test code = 4.8-8.0 3117679330) SP GRAVITY (test code = 1.003-1.030 6000814865) GLU U QUAL (test code = Normal Normal 5580165971) BLOOD (test code = 2+ Negative A 7856416206) KETONES (test code = Negative Negative 7956467035) PROTEIN (test code = Negative Negative 2887-8) UROBILIN (test code = Normal Normal 7096214257) BILIRUBIN (test code = Negative Negative 7116538421) NITRITE (test code = Negative Negative 1169595536) LEUK FRAN (test code = Negative Negative 0007512336) RBC/HPF (test code = See_Comment [Autom ated message] 6385659831) The system 3yy game platform generated this result transmitted ref erence range: 0 - 3 HP F. The reference range was not used to int erpret this result as normal/abnormal . WBC/HPF (test code = See_Comment [Autom ated message] 7930479834) The system 3yy game platform generated this result transmitted ref erence range: 0 - 5 HP F. The reference range was not used to int erpret this result as normal/abnormal . BACTERIA (test code = Few Negative A 6398058495) MUCOUS (test code = Slight Negative LPF A 3751348175) SQ EPITH (test code = HPF 1843693510) HYAL CAST (test code = See_Comment [Aut omated message] 2425431899) The system 3yy game platform generated this result transmitted ref erence range: <=2 LPF. The reference range was not used to int erpret this result as normal/abnormal . Lab Interpretation (test Abnormal code = 33716-5) [facility] PEL[facility] W [id number] 02:31:43 1. ?No radiopaque cholelithiasis or CT evidence of acute cholecystitis. 2. ?Mild gastric wall thickening at the antrum/pylorus can be normal or dueto gastritis. Mild bladder wall thickening may be dueto underdistention orcystitis. ? Preliminary Report Dictated by Resident: Lary Perry ?MD Xiomara., have reviewed this study and agree with theabove report.CT ABDOMEN AND PELVIS WITH CONTRAST HISTORY: Abd pain, acute, generalized RUQ positive Negrete's sign COMPARISON: None. TECHNIQUE: Contiguous axial imaging from the level of the lung basesthrough the pubic symphysis was performed after the administration of 120cc of intravenous Omnipaque contrast. Coronal and sagittal reconstruction swere obtained. FINDINGS: LOWER THORAX: The lungs bases are clear. LIVER: Normal contour. Subcentimeter calcified granuloma in the caudatelobe. No focal lesions. GALLBLADDER: Physiologic distention of the gallbladder. No radiopaquecholelithiasis. No gallbladder wall thickening. No pericholecysticinflammatory stranding or edema. No biliary ductal dilation. SPLEEN: No splenomegaly. PANCREAS: No ductal dilation or masses. ADRENAL GLANDS: No adrenal nodules. KIDNEYS: No obstructive urolithiasis, hydronephrosis or solid mass. PERITONEUM AND RETROPERITONEUM: No free air or fluid. Small fat-containingumbilical hernia without complication. LYMPH NODES: Scattered subcentimeter retroperitoneal lymph nodes arenonspecific. GI TRACT: No bowel dilation or abnormal wall thickening. Mild gastric wallthickening at the antrum/pylorus is nonspecific. Status post appendectomy. PELVIS: Mild circumferential bladder wall thickening may be due tounderdistention or cystitis. The uterus is within normal limits. The leftovary is closely associated with the uterine fundus but otherwiseunremarkable. No right adnexal lesion. VESSELS: Patent mesenteric vessels. BONES AND SOFT TISSUES: No aggressive or suspicious osseous lesions. [facility], Radiant Results Inft User - 09/23/2020 8:32 PM CSTCT ABDOMEN AND PELVIS WITH CONTRASTHISTORY: Abd pain, acute, generalized RUQ positive Negrete's sign COMPARISON: None.TECHNIQUE: Contiguous axial imaging from the level of the lung basesthrough the pubic symphysis was performed after the administration of 120cc of intravenous Omnipaque contrast. Coronal and sagittal reconstructionswere obtai raghav.FINDINGS:LOWER THORAX: The lungs bases are clear. LIVER: Normal contour. Subcentimeter calcifiedgranuloma in the caudatelobe. No focal lesions. GALLBLADDER: Physiologic distention of the gallbladder. No radiopaquecholelithiasis. No gallbladder wall thickening. No pericholecysticinflammatory stranding or edema. No biliary ductal dilation.SPLEEN: No splenomegaly.PANCREAS: No ductal dilation or masses.ADRENAL GLANDS: No adrenal nodules.KIDNEYS: No obstructive urolithiasis, hydronephrosis or solid mass.PERITONEUM AND RETROPERITONEUM: No free air or fluid. Small fat- containingumbilical hernia without complication.LYMPH NODES: Scattered subcentimeter retroperitoneal lymph nodes arenonspecific.GI TRACT: No bowel dilation or abnormal wall thickening. Mild gastric wallthickening at the antrum/pylorusis nonspecific. Status post appendectomy.PELVIS: Mild circumferential bladder wall thickening may bedue tounderdistention or cystitis. The uterus is within normal limits. The leftovary is closely associated with the uterine fundus but otherwiseunremarkable. No right adnexal lesion.VESSELS: Patent mesenteric vessels.BONES AND SOFT TISSUES: No aggressive or suspicious osseous lesions.IMPRESSION1. No radiopaque cholelithiasis or CT evidence of acute cholecystitis. 2. Mild gastric wall thickening at the antrum/pylorus can be normal or dueto gastritis. Mild bladder wall thickening may be due to underdistention orcystitis. Preliminary Report Dictated by Resident: Lary Wagner MD.,have reviewed this study and agree with theabove report.[facility] 01:37:00 Test Item Value Reference Range Interpretation Comments APPEARANCE (test code = Hazy Clear A 9893343860) COLOR (test code = Straw Yellow A 6745105118) PH (test code = 4.8-8.0 9420674495) SP GRAVITY (test code = 1.003-1.030 2855275236) GLU U QUAL (test code = Normal Normal 9933914907) BLOOD (test code = Negative Negative 3159482571) KETONES (test code = Negative Negative 4519798307) PROTEIN (test code = Negative Negative 2887-8) UROBILIN (test code = Normal Normal 5088750147) BILIRUBIN (test code = Negative Negative 0183790995) NITRITE (test code = Negative Negative 9383577334) LEUK FRAN (test code = Negative Negative 9780289195) RBC/HPF (test code = See_Comment [Autom ated message] 0757954885) The system 3yy game platform generated this result transmitted ref erence range: 0 - 3 HP F. The reference range was not used to int erpret this result as normal/abnormal . WBC/HPF (test code = See_Comment [Autom ated message] 0731851439) The system 3yy game platform generated this result transmitted ref erence range: 0 - 5 HP F. The reference range was not used to int erpret this result as normal/abnormal . BACTERIA (test code = Few Negative A 3414265542) SQ EPITH (test code = HPF 9327778105) Lab Interpretation (test Abnormal code = 50722-4) [facility] METABOLIC PANEL (12078)2020-09-24 01:35:00 Test Item Value Reference Range Interpretation Comments NA (test code = 138 mmol/L 135-145 3933460346) K (test code = 3.8 mmol/L 3.5-5 7856291978) CL (test code = 102 mmol/L 98-108 6640850017) CO2 TOTAL (test code = 27 mmol/L 23-31 4642460157) AGAP (test code = 2-16 8527575968) BUN (test code = 7 mg/dL 7-23 7818517094) GLUCOSE (test code = 108 mg/dL 70-110 7340328600) CREATININE (test code 0.86 mg/dL 0.5-1.04 = 0406610620) TOTAL BILI (test code 0.4 mg/dL 0.1-1.1 = 9768137893) CALCIUM (test code = 10.0 mg/dL 8.6-10.6 0875226227) T PROTEIN (test code = 8.0 g/dL 6.3-8.2 7824418916) ALBUMIN (test code = 4.5 g/dL 3.5-5 9805101813) ALK PHOS (test code = 89 U/L 34-122 6813293665) ALTv (test code = 17 U/L 5-35 1742-6) AST(SGOT) (test code = 18 U/L 13-40 4015115061) eGFR Calculation mL/min/1.73m2 (Non-) (test code = 3724100656) eGFR Calculation mL/min/1.73m2 () (test code = 9367181387) AQUILES (test code = AQUILES) Association of Glomerular Filtration Rate (GFR) and Staging of Kidney Disease* + -+ + ---+| GFR (mL/min/1.73 m2) ?| With Kidney Damage ?| ?Without Kidney Damage+ -------+ ------+ ---------+| ?>90 ?| ?Stage one ?| ? Normal ?+ --+ -+ ----+| ?60-89 ?| ?Stage two ?| ? Decreased GFR ? + -+ + ---+| ?30-59 ?| ?Stage three ?| ? Stage three ? + -+ + ---+| ?15-29 ?| ?Stage four ? | ? Stage four ?+ --+ -+ ----+| ?<15 (or dialysis) ? ?| ?Stage five ? | ? Stage five ?+ --+ -+ ----+ *Each stage assumes the associated GFR level has been in effect for at least three months. ?Stages 1 to 5, with or without kidney disease, indicate chronic kidney disease. Notes: Determination of stages one and two (with eGFR >59mL/min/1.73 m2) requires estimation of kidney damage for at least three months as defined by structural or functional abnormalities of the kidney, manifested by either:Pathological abnormalities or Markers of kidney damage (including abnormalities in the composition of the blood or urine or abnormalities in imaging tests). [facility] 01:35:00 Test Item Value Reference Range Interpretation Comments LIPASE (test code = 5240820475) 90 U/L 0-220 Lab Interpretation (test code = Normal 82689-7) [facility] WITH [id number] 01:27:00 Test Item Value Reference Range Interpretation Comments WBC (test code = See_Comment [Automated message] 7290-2) The system 3yy game platform generated this result transmitted ref erence range: 4.30 - 1 1.10 10*3/?L. The re ference range was not u sed to interpret this result as normal/abnor mal. RBC (test code = See_Comment [Automated message] 719-8) The system 3yy game platform generated this result transmitted ref erence range: 3.93 - 5 .25 10*6/?L. The re ference range was not u sed to interpret this result as normal/abnor mal. HGB (test code = 14.0 g/dL 11.6-15 718-7) HCT (test code = 42.7 % 35.7-45.2 4544-3) MCV (test code = 88.0 fL 80.6-95.5 787-2) MCH (test code = 28.9 pg 25.9-32.8 785-6) MCHC (test code = 32.8 g/dL 31.6-35.1 786-4) RDW-SD (test code 41.9 fL 39-49.9 = 57697-1) RDW-CV (test code 12.9 % 12-15.5 = 788-0) PLT (test code = See_Comment [Automated message] 777-3) The system 3yy game platform generated this result transmitted ref erence range: 166 - 35 8 10*3/?L. The re ference range was not u sed to interpret this result as normal/abnor mal. MPV (test code = 9.6 fL 9.5-12.9 36948-6) NRBC/100 WBC (test See_Comment [Automat ed message] code = 6100243367) The syste m which generated this result transmitted ref erence range: 0.0 - 10 .0 /100 WBCs. The refer ence range was not u sed to interpret this result as normal/abnor mal. NRBC x10^3 (test <0.01 See_Comment [Automated message] code = 1032331286) The syste m which generated this result transmitted ref erence range: 10*3/?L. The reference range was not used to interpr et this result as normal/abnormal . GRAN MAT (NEUT) % 57.6 % (test code = 770-8) IMM GRAN % (test 0.30 % code = 7186096419) LYMPH % (test code 33.3 % = 736-9) MONO % (test code 7.0 % = 5905-5) EOS % (test code = 1.4 % 713-8) BASO % (test code 0.4 % = 706-2) GRAN MAT 4.47 10*3/uL 1.88-7.09 x10^3(ANC) (test code = 8280427504) IMM GRAN x10^3 <0.03 0-0.06 (test code = 7859824197) LYMPH x10^3 (test 2.58 10*3/uL 1.32-3.29 code = 731-0) MONO x10^3 (test 0.54 10*3/uL 0.33-0.92 code = 742-7) EOS x10^3 (test 0.11 10*3/uL 0.03-0.39 code = 711-2) BASO x10^3 (test 0.03 10*3/uL 0.01-0.07 code = 704-7) [facility]"
[2022-08-09] MEDS ORDERED: NA CHLORIDE 0.9% 1,000 ML ONE (14:47)
[2022-08-09] MEDS ORDERED: NA CHLORIDE 0.9% 100 ML IV ONE (14:48)
[2022-08-09] MEDS ORDERED: PIPERACIL/TAZO 3.375 GM VIAL IV ONE (14:48)
[2022-08-09 15:31] LABS: Absolute Lymphocytes (CBC) 2.7 K/uL (0.7-4.9); Hematocrit 39.2 % (36.0-45.0); Lymphocytes % 25.3 % (15.3-44.8); MCV 85.9 fL (80-100); MPV 7.6 fL (7.6-11.3); RBC Red Blood Cell Count 4.56 M/uL (3.86-4.86)
[2022-08-09 15:38] LABS: Albumin 3.3 g/dL (3.4-5.0); Bilirubin Total 0.2 mg/dL (0.2-1.0); C-Reactive Protein 29.2 mg/L (<3.00); Potassium 3.4 mmol/L (3.5-5.1); Protein, Total 7.7 g/dL (6.4-8.2)
--- NOTE | 2022-08-09 16:53 | RAD REPORT ---
EXAM DESCRIPTION: CT - Sinuses W/Wo Cont - 08/09/2022 4:39 pm CLINICAL HISTORY: Nasal abscess Pain and swelling COMPARISON: No comparisons TECHNIQUE: Axial 1 mm thick images of the paranasal sinuses were obtained without and with contrast material. Coronal and sagittal reformatted images were reviewed. All CT scans are performed using dose optimization technique as appropriate and may include automated exposure control or mA/KV adjustment according to patient size. FINDINGS: 2.5 cm mucous retention cyst or polyp is seen in the right maxillary antrum. Mild mucoperi osteal thickening is seen in the left maxillary antrum inferiorly. The paranasal sinuses and mastoids are otherwise clear. The ostiomeatal units are patent. The frontal recesses are patent. No significant skull-base finding. There is soft tissue thickening in an edematous appearance the anterior nasal septum. However a well- formed fluid collection is not seen to indicate abscess. IMPRESSION: Inflamed and edematous appearance to the anterior nasal septum and anterior soft tissues of the nose without discrete abscess seen.
[2022-08-09] MEDS ORDERED: VANCOMYCIN 1 GM/VIAL ONE ×2 (17:03→19:17)
[2022-08-09] MEDS ORDERED: NA CHLORIDE 0.9% 250 ML ONE ×2 (17:04→19:18)
--- NOTE | 2022-08-09 18:43 | ER ---
Nurse's Notes [facility] Name: Juan F Reid Age: 37 yrs Sex: Female : 1985 Arrival Date: 08/09/2022 Time: 12:57 Bed 9 Private MD: Burt Garces; Dee Robin L. Diagnosis: Cellulitis and acute lymphangitis of face-nose, nasal septum and anterior soft tissue Presentation: 08/09 13:05 Chief complaint: Patient states: Dr. Robin referred me straight to ER due to sinus ld1 abscess. Pt states "She sent my orders over already." Told pt to come straight to ER - do not go home. C/O pain to face/nose. Coronavirus screen: At this time, the client does not indicate any symptoms associated with coronavirus-19. Ebola Screen: No symptoms or risks identified at this time. Initial Sepsis Screen: Does the patient meet any 2 criteria? No. Patient's initial sepsis screen is negative. Does the patient have a suspected source of infection? No. Patient's initial sepsis screen is negative. Risk Assessment: Do you want to hurt yourself or someone else? Patient reports no desire to harm self or others. 13:05 Method Of Arrival: Ambulatory ld1 13:05 Acuity: TRIN[place] 3 ld1 15:00 Onset of symptoms was August 08, 2022. em6 Triage Assessment: 13:06 General: Appears in no apparent distress. comfortable, Behavior is calm, cooperative, ld1 appropriate for age. Pain: Complains of pain in right cheek, nose and left cheek Pain does not radiate. EENT: Reports sinus abscess. Neuro: Level of Consciousness is awake, alert, obeys commands, Oriented to person, place, time, situation, Appropriate for age. Cardiovascular: Capillary refill < 3 seconds Patient's skin is warm and dry. Respiratory: Airway is patent Respiratory effort is even, unlabored. GI: Abdomen is round non-distended. : No signs and/or symptoms were reported regarding the genitourinary system. Derm: No signs and/or symptoms reported regarding the dermatologic system. Musculoskeletal: No signs and/or symptoms reported regarding the musculoskeletal system. 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 - Social history:: Smoking status: Patient denies any tobacco usage or history of. Patient uses alcohol, occasionally. - Family history:: not pertinent. Screenin:00 Abuse screen: Denies threats or abuse. Nutritional screening: No deficits noted. em6 Tuberculosis screening: No symptoms or risk factors identified. Fall Risk IV access (20 points). Total Ramsey Fall Scale indicates No Risk (0-24 pts). Assessment: 15:00 Reassessment: see triage assessment. em6 16:00 Reassessment: Patient appears in no apparent distress at this time. No changes from em6 previously documented assessment. Patient and/or family updated on plan of care and expected duration. Pain level reassessed. Patient is alert, oriented x 3, equal unlabored respirations, skin warm/dry/pink. 17:00 Reassessment: Patient appears in no apparent distress at this time. No changes from em6 previously documented assessment. Patient and/or family updated on plan of care and expected duration. Pain level reassessed. Patient is alert, oriented x 3, equal unlabored respirations, skin warm/dry/pink. 18:00 Reassessment: Patient appears in no apparent distress at this time. No changes from em6 previously documented assessment. Patient and/or family updated on plan of care and expected duration. Pain level reassessed. Patient is alert, oriented x 3, equal unlabored respirations, skin warm/dry/pink. 19:00 Reassessment: Patient appears in no apparent distress at this time. No changes from em6 previously documented assessment. Patient and/or family updated on plan of care and expected duration. Pain level reassessed. Patient is alert, oriented x 3, equal unlabored respirations, skin warm/dry/pink. 20:00 Reassessment: Patient appears in no apparent distress at this time. No changes from em6 previously documented assessment. Patient and/or family updated on plan of care and expected duration. Pain level reassessed. Patient is alert, oriented x 3, equal unlabored respirations, skin warm/dry/pink. Vital Signs: 13:05 BP 164 / 94; Pulse 77; Resp 18; Temp 98.1; Pulse Ox 100% on R/A; Weight 130.63 kg; ld1 Height 5 ft. 7 in. (170.18 cm); Pain 0/10; 16:15 BP 133 / 89; Pulse 82; Resp 18; Pulse Ox 98% on R/A; em6 17:35 BP 125 / 77; Pulse 82; Resp 18; Pulse Ox 96% on R/A; em6 18:30 BP 124 / 87; Pulse 89; Resp 16; Pulse Ox 100% on R/A; em6 19:30 BP 121 / 94; Pulse 76; Resp 18; Pulse Ox 100% on R/A; em6 20:30 BP 118 / 69; Pulse 74; Resp 18; Pulse Ox 97% on R/A; em6 13:05 Body Mass Index 45.11 (130.63 kg, 170.18 cm) ld1 ED Course: 12:57 Patient arrived in ED. as 12:57 Dee Robin MD is Private Physician. as 12:57 Moises Holloway MD is Attending Physician. vito 12:58 Burt Garces DO is Private Physician. as 13:06 Triage completed. ld1 13:06 Arm band placed on right wrist. ld1 14:41 Nevin Lang, RN is Primary Nurse. em6 15:00 Bed in low position. Call light in reach. Side rails up X2. Pulse ox on. NIBP on. Warm em6 blanket given. 15:25 CRP Sent. em6 15:25 Sed Rate Sent. em6 15:25 Lactate Sent. em6 15:25 Comprehensive Metabolic Panel Sent. em6 15:25 Blood Culture Adult (2) Sent. em6 15:25 CBC with Diff Sent. em6 15:25 Inserted saline lock: 22 gauge in right antecubital area, using aseptic technique. em6 Blood collected. 16:41 Sinuses W/Wo Cont In Process Unspecified. EDMS 18:40 Burak Rodriguez MD is Hospitalizing Provider. vito 20:47 SARS RAPID Sent. em6 23:02 No provider procedures requiring assistance completed. Patient admitted, IV remains in em6 place. Administered Medications: 15:25 Drug: NS 0.9% 1000 ml Route: IV; Rate: 1 bolus; Site: right antecubital; em6 17:25 Follow up: Response: No adverse reaction; IV Status: Completed infusion; IV Intake: em6 1000ml 15:25 Drug: Zosyn (piperacillin-tazobactam) 3.375 grams Route: IVPB; Infused Over: 60 mins; em6 Site: right antecubital; 17:27 Follow up: Response: No adverse reaction; IV Status: Completed infusion; IV Intake: em6 100ml 17:10 Drug: vancoMYCIN 1 grams Route: IVPB; Infused Over: 2 hrs; Site: right antecubital; em6 19:30 Follow up: Response: No adverse reaction; IV Status: Infusion continued; IV Intake: em6 250ml 19:49 Drug: Potassium Effervescent Tablet 25 mEq Route: PO; em6 20:30 Follow up: Response: No adverse reaction em6 19:49 Drug: vancoMYCIN 1 grams Route: IVPB; Infused Over: 2 hrs; Site: right antecubital; em6 21:48 Follow up: Response: No adverse reaction; IV Status: Completed infusion; IV Intake: em6 250ml Medication: 23:03 VIS not applicable for this client. em6 Intake: 17:25 IV: 1000ml; Total: 1000ml. em6 17:27 IV: 100ml; Total: 1100ml. em6 19:30 IV: 250ml; Total: 1350ml. em6 21:48 IV: 250ml; Total: 1600ml. em6 Outcome: 18:43 Decision to Hospitalize by Provider. [facility] 23:02 Admitted to Med/surg accompanied by tech, via wheelchair, room 206, Report called to em mai 23:02 Condition: stable 23:03 Patient left the ED. em6 Signatures: Dispatcher [employer] EDNY Moises Holloway MD MD cha Martinez, Amelia as Dibbern, Lauren, RN RN ld1 Nevin Lang RN RN em6 Corrections: (The following items were deleted from the chart) 17: 16:40 Response: No adverse reaction; IV Intake: 100ml em6 em6
--- NOTE | 2022-08-09 18:44 | EDPHYS ---
Physician Documentation [facility] Name: Juan F Reid Age: 37 yrs Sex: Female : 1985 Arrival Date: 08/09/2022 Time: 12:57 Bed 9 Private MD: Burt Garces; Dee Cortes L. ED Physician Moises Holloway HPI: 08/09 18:33 This 37 yrs old Female presents to ER via Ambulatory with complaints of sinus vito abscess. 18:33 The patient presents with swelling and tender , concern for abscess, dr carlos cortes. vito Onset: The symptoms/episode began/occurred 3 day(s) ago. Modifying factors: The symptoms are alleviated by anti-hypertensive medication(s), the symptoms are aggravated by nothing. tender swollen nose. Associated signs and symptoms: Loss of consciousness: the patient experienced no loss of consciousness. Severity of symptoms: At their worst the symptoms were mild moderate in the emergency department the symptoms are unchanged. The patient has not experienced similar symptoms in the past. 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 - Social history:: Smoking status: Patient denies any tobacco usage or history of. Patient uses alcohol, occasionally. - Family history:: not pertinent. ROS: 18:33 Constitutional: Negative for fever, chills, and weight loss, Eyes: Negative for injury, vito pain, redness, and discharge, Neck: Negative for injury, pain, and swelling, Cardiovascular: Negative for chest pain, palpitations, and edema, Respiratory: Negative for shortness of breath, cough, wheezing, and pleuritic chest pain, Abdomen/GI: Negative for abdominal pain, nausea, vomiting, diarrhea, and constipation, Back: Negative for injury and pain, : Negative for injury, bleeding, discharge, and swelling, MS/Extremity: Negative for injury and deformity, Skin: Negative for injury, rash, and discoloration, Neuro: Negative for headache, weakness, numbness, tingling, and seizure, Psych: Negative for depression, anxiety, suicide ideation, homicidal ideation, and hallucinations, Allergy/Immunology: Negative for hives, rash, and allergies, Endocrine: Negative for neck swelling, polydipsia, polyuria, polyphagia, and marked weight changes, Hematologic/Lymphatic: Negative for swollen nodes, abnormal bleeding, and unusual bruising. 18:33 ENT: Positive for rhinorrhea, sinus congestion, nasal flaker tender. Exam: 18:38 Constitutional: This is a well developed, well nourished patient who is awake, alert, vito and in no acute distress. Eyes: Pupils equal round and reactive to light, extra-ocular motions intact. Lids and lashes normal. Conjunctiva and sclera are non-icteric and not injected. Cornea within normal limits. Periorbital areas with no swelling, redness, or edema. Neck: Trachea midline, no thyromegaly or masses palpated, and no cervical lymphadenopathy. Supple, full range of motion without nuchal rigidity, or vertebral point tenderness. No Meningismus. Chest/axilla: Normal chest wall appearance and motion. Nontender with no deformity. No lesions are appreciated. Cardiovascular: Regular rate and rhythm with a normal S1 and S2. No gallops, murmurs, or rubs. Normal PMI, no JVD. No pulse deficits. Respiratory: Lungs have equal breath sounds bilaterally, clear to auscultation and percussion. No rales, rhonchi or wheezes noted. No increased work of breathing, no retractions or nasal flaring. Abdomen/GI: Soft, non-tender, with normal bowel sounds. No distension or tympany. No guarding or rebound. No evidence of tenderness throughout. Back: No spinal tenderness. No costovertebral tenderness. Full range of motion. Skin: Warm, dry with normal turgor. Normal color with no rashes, no lesions, and no evidence of cellulitis. MS/ Extremity: Pulses equal, no cyanosis. Neurovascular intact. Full, normal range of motion. Neuro: Awake and alert, GCS 15, oriented to person, place, time, and situation. Cranial nerves II-XII grossly intact. Motor strength 5/5 in all extremities. Sensory grossly intact. Cerebellar exam normal. Normal gait. Psych: Awake, alert, with orientation to person, place and time. Behavior, mood, and affect are within normal limits. 18:38 Head/face: Noted is swelling, tenderness, that is moderate, of the right eye, nose and left eye. 18:38 ENT: Nose: nasal drainage, that is minimal. Vital Signs: 13:05 BP 164 / 94; Pulse 77; Resp 18; Temp 98.1; Pulse Ox 100% on R/A; Weight 130.63 kg; ld1 Height 5 ft. 7 in. (170.18 cm); Pain 0/10; 16:15 BP 133 / 89; Pulse 82; Resp 18; Pulse Ox 98% on R/A; em6 17:35 BP 125 / 77; Pulse 82; Resp 18; Pulse Ox 96% on R/A; em6 18:30 BP 124 / 87; Pulse 89; Resp 16; Pulse Ox 100% on R/A; em6 19:30 BP 121 / 94; Pulse 76; Resp 18; Pulse Ox 100% on R/A; em6 20:30 BP 118 / 69; Pulse 74; Resp 18; Pulse Ox 97% on R/A; em6 13:05 Body Mass Index 45.11 (130.63 kg, 170.18 cm) ld1 MDM: 12:57 Patient medically screened. vito 18:37 Differential diagnosis: sinusitis. Differential Diagnosis sepsis. Data reviewed: vital vito signs, nurses notes, lab test result(s), radiologic studies, CT scan. Data interpreted: court recording monitor: rate is 82 beats/min, rhythm is regular, Pulse oximetry: on room air is 82 %. Counseling: I had a detailed discussion with the patient and/or guardian regarding: the historical points, exam findings, and any diagnostic results supporting the discharge/admit diagnosis, lab results, radiology results, the need for further work-up and treatment in the hospital. 08/09 13:00 Order name: CBC with Diff; Complete Time: 15:55 [facility] 08/09 13:00 Order name: Comprehensive Metabolic Panel; Complete Time: 15:55 [facility] 08/09 13:00 Order name: Blood Culture Adult (2) [facility] 08/09 13:00 Order name: Lactate; Complete Time: 15:55 [facility] 08/09 13:00 Order name: Sed Rate; Complete Time: 15:55 [facility] 08/09 13:00 Order name: CRP; Complete Time: 15:55 [facility] 08/09 13:10 Order name: Sinuses W/Wo Cont; Complete Time: 17:03 EDMS 08/09 19:10 Order name: SARS RAPID; Complete Time: 22:05 vito Administered Medications: 15:25 Drug: NS 0.9% 1000 ml Route: IV; Rate: 1 bolus; Site: right antecubital; em6 17:25 Follow up: Response: No adverse reaction; IV Status: Completed infusion; IV Intake: em6 1000ml 15:25 Drug: Zosyn (piperacillin-tazobactam) 3.375 grams Route: IVPB; Infused Over: 60 mins; em6 Site: right antecubital; 17:27 Follow up: Response: No adverse reaction; IV Status: Completed infusion; IV Intake: em6 100ml 17:10 Drug: vancoMYCIN 1 grams Route: IVPB; Infused Over: 2 hrs; Site: right antecubital; em6 19:30 Follow up: Response: No adverse reaction; IV Status: Infusion continued; IV Intake: em6 250ml 19:49 Drug: Potassium Effervescent Tablet 25 mEq Route: PO; em6 20:30 Follow up: Response: No adverse reaction em6 19:49 Drug: vancoMYCIN 1 grams Route: IVPB; Infused Over: 2 hrs; Site: right antecubital; em6 21:48 Follow up: Response: No adverse reaction; IV Status: Completed infusion; IV Intake: em6 250ml Disposition Summary: 08/09/22 18:43 Hospitalization Ordered Hospitalization Status: Inpatient Admission vito Provider: Burak Rodriguez cha [facility] Condition: Fair vito Problem: new vito Symptoms: have improved vito Bed/Room Type: Standard vito Room Assignment: 206(08/09/22 21:40) Diagnosis - Cellulitis and acute lymphangitis of face - nose, nasal septum and anterior soft vito tissue Forms: - Medication Reconciliation Form vito - SBAR form vito Signatures: Dispatcher [employer] EDMoises Alejandra MD MD cha Garcia, Cindy, RN RN Aleksandra Fischer RN RN ld1 Nevin Lang RN RN em6 Nicolette Arriaga PA-C PA-C sb4 Corrections: (The following items were deleted from the chart) 13:10 13:01 Sinus Wo [id number].[id number] ordered. EDMS EDMS 21:40 18:43 vito cg
[2022-08-09] MEDS ORDERED: POTASSIUM 25 MEQ EFFERV TAB ONE (19:17)
--- NOTE | 2022-08-09 19:31 | P.HP ---
Certification for Inpatient Patient admitted to: Inpatient With expected LOS: <2 Midnights Patient will require the following post-hospital care: None Practitioner: I am a practitioner with admitting privileges, knowledge of patient current condition, hospital course, and medical plan of care. Services: Services provided to patient in accordance with Admission requirements found in Title 42 Section 412.3 of the Code of Federal Regulations Patient History Date of Service: 08/09/22 Primary Care Provider: Dez Reason for admission: Septal Cellulitus History of Present Illness: Patient is 37 year old female with history of asthma and PCOS who presented to the ED with complaints of facial/nasal pain. Patient reports that she was sent over from Dr. Robin's office for IV antibiotics. Vital signs stable. Labs within normal limits. CT sinus showed "Inflamed and edematous appearance to the anterior nasal septum and anterior soft tissues of the nose without discrete abscess seen." She was started on vanc and zosyn in ED. Patient is nontoxic appearing. She is admitted for further management. Allergies hydrocodone Allergy (Verified 05/19/21 01:35) Rash Home medications list reviewed: Yes Home Medications: Furosemide [Lasix*] 20 mg PO DAILY #30 tab 02/07/21 Norgestimate-Ethinyl Estradiol [Ortho Tri-Cyclen 28 Tablet] 1 each PO DAILY 02/07/21 Pantoprazole [Protonix Tab*] 40 mg PO QID 02/07/21 Ketorolac Tromethamine 1 tab PO Q6H PRN 02/14/21 Fluconazole [Diflucan] 150 mg PO Q3D 2 Days #2 tablet 02/16/21 Gabapentin 300 mg PO TID 05/19/21 Albuterol Inhaler [Ventolin Inhaler*] 2 puff IH Q6H PRN #1 hfa.aer.ad 05/20/21 Albuterol Sulfate [Albuterol Sulfate 0.083% Neb Soln] 2.5 mg NEB Q6HP PRN #60 ml 05/20/21 Ascorbic Acid [Vitamin C*] 500 mg PO QID #120 tablet 05/20/21 Cholecalciferol (Vitamin D3) [Vitamin D 1000 Iu Tab*] 4,000 unit PO DAILY #30 tab 05/20/21 Ipratropium Neb [Atrovent Neb] 0.5 mg NEB Q6HP PRN #60 amp 05/20/21 Melatonin 5 mg PO BEDTIME PRN PRN #30 tablet 05/20/21 Pantoprazole Sodium [Protonix] 40 mg PO DAILY #20 tablet. 05/20/21 Promethazine HCl/Codeine [Prometh-Codein 6.25-10 mg/5 ml] 5 ml PO Q12HP PRN #100 ml 05/20/21 Rivaroxaban [Xarelto] 10 mg PO DAILY #20 tablet 05/20/21 Thiamine HCl [Vitamin B-1*] 200 mg PO DAILY #30 tablet 05/20/21 Zinc Sulfate [Zinc Sulfate*] 220 mg PO DAILY #30 cap 05/20/21 predniSONE [Prednisone*] 20 mg PO SEECOM #35 tab 05/20/21 - Past Medical/Surgical History Diabetic: No -: PCOS -: Asthma -: Gerd -: Cellulitis -: -: appendectomy Psychosocial/ Personal History: Patient is employed, lives with her daughter - Family History Father -: Other (see notes) (No significant family history) - Social History Smoking Status: Never smoker Alcohol use: Yes CD- Drugs: No Caffeine use: No Place of Residence: Home Review of Systems ENT: Nose Pain, As per HPI Physical Examination - Physical Exam General: Alert, In no apparent distress HEENT: PERRLA, Other (erythema/edema noted to nose and eyes bilaterally), EOMI, Sclerae nonicteric Neck: Supple, 2+ carotid pulse no bruit, No LAD, Without JVD or thyroid abnormality Respiratory: Clear to auscultation bilaterally, Normal air movement Cardiovascular: Regular rate/rhythm, Normal S1 S2 Gastrointestinal: Normal bowel sounds, No tenderness Musculoskeletal: No tenderness Integumentary: No rashes Neurological: Normal gait, Normal speech, Normal strength at 5/5 x4 extr, Normal tone, Normal affect - Studies Laboratory Data (last 24 hrs) 08/09/22 15:00: Sodium 137, Potassium 3.4 L, BUN 7, Creatinine 0.84, Glucose 90, Total Bilirubin 0.2, AST 9 L, ALT 22, Alkaline Phosphatase 113 08/09/22 15:00: WBC 10.60, Hgb 13.1, Hct 39.2, Plt Count 348 Assessment and Plan - Problems (Diagnosis) (1) Facial cellulitis Current Visit: Yes Status: Acute (2) Asthma Current Visit: Yes Status: Chronic Qualifiers: Asthma severity: unspecified severity Asthma persistence: unspecified Asthma complication type: uncomplicated Qualified Code(s): J45.909 - Unspeci fied asthma, uncomplicated (3) PCOS (polycystic ovarian syndrome) Current Visit: Yes Status: Chronic - Plan -Continue IV vanc and zosyn -Dr. Robin consulted -Pain management as needed -Monitor for signs of worsening infection/abscess formation -Reconcile and continue home medications -Monitor and replete electrolytes per protocol -Lovenox for VTE prophylaxis -Full code Discharge Plan: Home Plan to discharge in: 48 Hours - Advance Directives Does patient have a Living Will: No Does patient have a Durable POA for Healthcare: No - Code Status/Comfort Care Code Status Assessed: Yes (Full) Critical Care: No Time Spent Managing Pts Care (In Minutes): 50
[2022-08-09] MEDS ORDERED: ONDANSETRON 4 MG/2 ML VIAL IV PRN (20:19)
[2022-08-09] MEDS: VANCOMYCIN 1 GM in NA CHLORIDE 0.9% 250 ML IVPB SCH ×2 (20:19→21:00)
[2022-08-09 20:54] VITALS: BMI 43.8
[2022-08-09 21:27] LABS: SARS-CoV-2 Antigen Rapid Res Negative (Negative)
[2022-08-10] MEDS: PIPER TAZO 3.375 GM in NA CHLORIDE 0.9% 100 ML IV SCH ×3 (00:05→16:37)
[2022-08-10 00:32] LABS: Urine Bacteria <20 /HPF (<20); Urine Bilirubin NEGATIVE (Negative); Urine Blood Negative (Negative); Urine Clarity Clear (Clear); Urine Color Light-Yellow (Yellow); Urine Glucose NEGATIVE (Negative); Urine Mucus Slight /HPF (None Seen); Urine Protein TRACE (Negative); Urine Urobilinogen Normal (Normal)
[2022-08-10 00:56] LABS: Specific Gravity > 1.030 (1.005-1.030)
[2022-08-10 06:03] LABS: Absolute Lymphocytes (CBC) 1.9 K/uL (0.7-4.9); Hematocrit 35.9 % (36.0-45.0); Lymphocytes % 25.8 % (15.3-44.8); MCV 86.1 fL (80-100); MPV 7.7 fL (7.6-11.3); RBC Red Blood Cell Count 4.17 M/uL (3.86-4.86)
[2022-08-10 06:20] LABS: Magnesium 2.2 mg/dL (1.8-2.4); Phosphorus 2.9 mg/dL (2.5-4.9); Potassium 4.1 mmol/L (3.5-5.1)
[2022-08-10] MEDS ORDERED: INFLUENZA VACCINE (for 6+ mo) 0.5 ML DOSE IMVAC ONE (08:00)
[2022-08-10] MEDS: ACETAMINOPHEN 500 MG TAB PO PRN (08:23)
[2022-08-10] MEDS: ENOXAPARIN 40 MG/0.4 ML SQ SCH (08:24)
[2022-08-10] MEDS ORDERED: AYR NASAL SALINE DROPS NAS PRN (09:20)
--- NOTE | 2022-08-10 09:23 | P.PN ---
Date of Service: 08/09/[address] of Head reviewed--- no abscess. Impression: 1. Acute preseptal cellulitis 2. Acute complicated right maxillary sinusitis 3. Acute Nasal cellulitis Plan: 1. Continue Zosyn/Vanco IV 2. Continue nasal saline irrigations BID 3. Continue Fluticasone nasal spray daily 4. Hope to d/c in a few days
[2022-08-10] MEDS: VANCOMYCIN 2 GM in NA CHLORIDE 0.9% 500 ML IVPB SCH ×2 (12:01→20:59)
--- NOTE | 2022-08-10 13:21 | P.PN ---
Subjective Date of Service: 08/10/22 Primary Care Provider: Dez Chief Complaint: Septal Cellulitus Patient states she feels better today. No fever. She reports facial pain which she states has improved. Physical Examination - Vital Signs Temperature: 97.9 F Blood Pressure: 126/74 Pulse: 70 Respirations: 17 Pulse Ox (%): 98 - Studies Laboratory Data (last 24 hrs) 08/09/22 15:00: Sodium 137, Potassium 3.4 L, BUN 7, Creatinine 0.84, Glucose 90, Total Bilirubin 0.2, AST 9 L, ALT 22, Alkaline Phosphatase 113 08/09/22 15:00: WBC 10.60, Hgb 13.1, Hct 39.2, Plt Count 348 Assessment And Plan - Current Problems (Diagnosis) (1) Preseptal cellulitis Current Visit: Yes Status: Acute (2) Acute maxillary sinusitis Current Visit: Yes Status: Acute (3) Nose cellulitis Current Visit: Yes Status: Acute (4) Facial cellulitis Current Visit: Yes Status: Acute - Plan Physical Exam General: Alert, In no apparent distress HEENT: Erythema/edema noted to nose and bilateral cheeks and bilateral periorbital areas. EOMI. Neck: Supple, No LAD. Respiratory: Clear to auscultation bilaterally, Normal air movement Cardiovascular: Regular rate/rhythm, Normal S1 S2 Gastrointestinal: Normal bowel sounds, No tenderness Musculoskeletal: No tenderness Integumentary: No rashes Neurological: No focal motor deficit. Plan: Continue IV vancomycin and Zosyn. Supportive measures-pain meds as needed. ENT input appreciated. Continue management as inpatient. Follow cultures.
[2022-08-10] MEDS: FLUTICASONE 50MCG NASAL SPRAY NAS SCH (15:11)
[2022-08-11] MEDS: PIPER TAZO 3.375 GM in NA CHLORIDE 0.9% 100 ML IV SCH ×2 (00:27→08:16)
[2022-08-11] MEDS: ACETAMINOPHEN 500 MG TAB PO PRN ×2 (04:16→08:24)
[2022-08-11 04:54] LABS: Absolute Lymphocytes (CBC) 2.1 K/uL (0.7-4.9); Hematocrit 36.6 % (36.0-45.0); Lymphocytes % 28.7 % (15.3-44.8); MCV 86.2 fL (80-100); MPV 7.4 fL (7.6-11.3); RBC Red Blood Cell Count 4.25 M/uL (3.86-4.86)
[2022-08-11 05:14] LABS: Potassium 3.8 mmol/L (3.5-5.1)
[2022-08-11] MEDS: FLUTICASONE 50MCG NASAL SPRAY NAS SCH (08:17)
[2022-08-11] MEDS: ENOXAPARIN 40 MG/0.4 ML SQ SCH (08:17)
[2022-08-11 08:30] VITALS: O2SAT 95
[2022-08-11] MEDS ORDERED: POTASSIUM CL SA 10 MEQ TAB PO ONE (09:00)
[2022-08-11] MEDS ORDERED: KETOROLAC 30 MG/ML INJ IV ONE (09:19)
--- NOTE | 2022-08-11 09:52 | CON ---
Date of Consultation: 08/09/2022 History Of Present Illness: Patient is a pleasant 37-year-old female who presented to my office afte r consultation from Dr. Burt Garces who requested consult for evaluation of exquisite nasal dorsum p ain. When I saw her in the office, she stated the pain was burning and throbbing, /10 that she had or that developed suddenly over the course of the day. She had had the pain for at least a week in which she was given amoxicillin and azithromycin for presumed sinus infection. However, she states t hat these antibiotics have not alleviated her symptoms and she reports now that she has swelling exte nding into the left nasal sidewall and left maxillary cheek skin with erythema and now she is complai tita of left blurry vision and significant bilateral nasal congestion. She also reports that she use s nasal saline irrigations, but uses tap water for rinses and this may be the cause of her infection. She denies rhinorrhea, postnasal drip, fever, headache, confusion, syncope, sore throat, neck pain, or other ENT complaints today. Past Medical History: History of prior staph infection of lower extremity, acid reflux, asthma, migr ze headaches, polycystic ovarian disease. Past Surgical History: Appendectomy and section. Medications: Omeprazole, Ortho Tri-Cyclen, Zyrtec. Social History: Denies alcohol, tobacco, or illicit drugs. Review of Systems: Head: Denies headache or head trauma. Face: Nasal dorsum swelling and severe pain extending into left nasal sidewall and left maxillary ch kenaitze. Eyes: Positive for left blurry vision. Negative for drainage. Positive for mild left eye discomfor t. Ears: Negative for drainage, pain, hearing loss, tinnitus. Nose: Positive for [id number]-ni-[id number] bilateral nasal congestion and intranasal pain. Oral Cavity: Negative for sore throat, odynophagia, dysphagia. Neck: Negative for neck mass or neck pain. Physical Examination: Vital Signs: Stable. However, blood pressure is elevated most likely due to pain at 149/99 with pul se of 80, temperature is 97.3. Height is 67.0 inches and weight is 288.7 pounds. Head: Atraumatic, normocephalic. Eyes: Pupils equal, round, reactive to light and accommodation, but upon visual acuity test, patient reports left blurry vision. Negative for chemosis, proptosis, and ballottement of bilateral eyes de monstrated mild left eye pain. No conjunctival erythema. No scleral erythema. Ears: Bilateral external auditory canals patent. Tympanic membranes intact. Nose: Erythema/edema of the nasal dorsum extending down into the left nasal sidewall into the left m axillary cheek. Intranasal mucosa is with moderate mucosal inflammation and the remainder of bilater al nasal cavity was normal as I did not detect any mucopurulence or bleeding. Skin: No palpable abscess or fluctuance to suspect abscess. Oral Cavity: Oropharyngeal exam demonstrates moist oral mucosa. Midline uvula. No edema or erythem a of the tongue, soft/hard palate or posterior oropharynx. Neck: Supple. Trachea midline. No lymphadenopathy or thyromegaly palpated. Diagnoses: 1.Facial cellulitis involving the nose and left maxillary cheek skin. 2.Acute sinusitis. 3.Other visual disturbances. Recommendations: 1.Patient was admitted to the medical floor with me as a consult and I am recommending the patient s tart IV antibiotics and Dr. Holloway has started Zosyn and vancomycin. 2.Discussed case with Dr. Genaro Schreiber and he agrees with the plan. I also contacted Dr. Dez napier instructed our plan. 3.Recommend Flonase nasal spray 2 sprays each nostril daily and nasal saline spray 2 sprays each nos tril b.i.d./t.i.d. 4.Refrain from using tap water for nasal saline irrigations. Instructed that it needs to be bottled or distilled water. 5.Hope to discharge in 48-72 hours on oral Bactrim DS as this is most likely a staph infection or po ssibly methicillin-resistant Staphylococcus aureus. 6.Follow up in my outpatient clinic in 1-2 weeks post discharge. Thank you Dr. Holloway for this most interesting consultation. MCKENZIE/ROSA Voice ID: [id number] Report ID: [id number]
[2022-08-11] MEDS ORDERED: NA CHLORIDE 0.9% 250 ML ONE (11:01)
[2022-08-11] MEDS: VANCOMYCIN 2 GM in NA CHLORIDE 0.9% 500 ML IVPB SCH (11:01)
[2022-08-11] MEDS: VANCOMYCIN 1 GM in NA CHLORIDE 0.9% 250 ML IVPB SCH (11:02)
[2022-08-11 12:11] VITALS: BP 163/86; TEMP 96.9
--- NOTE | 2022-08-11 15:35 | P.DS ---
Admission Date: 08/09/22 Discharge Date: 08/11/22 Primary Care Provider: Dez Disposition: ROUTINE DISCHARGE Discharge Condition: FAIR Reason for Admission: Septal Cellulitus - Problems (1) Preseptal cellulitis Current Visit: Yes Status: Acute (2) Acute maxillary sinusitis Current Visit: Yes Status: Acute (3) Nose cellulitis Current Visit: Yes Status: Acute (4) Facial cellulitis Current Visit: Yes Status: Acute Brief History of Present Illness: Patient is 37 year old female with history of asthma and PCOS who presented to the ED with complaints of facial/nasal pain. Patient reports that she was sent over from Dr. Robin's office for IV antibiotics. Vital signs stable. Labs within normal limits. CT sinus showed "Inflamed and edematous appearance to the anterior nasal septum and anterior soft tissues of the nose without discrete abscess seen." She was started on vanc and zosyn in ED. patient had apparently failed outpatient treatment with antibiotics. She was admitted for further management. Hospital Course: Patient admitted to the medical floor and treated with IV vancomycin and Zosyn. She was seen and evaluated by ENT Dr. Alcantara who recommended medical management with antibiotics. Patient responded well to the antibiotics. No leukocytosis, no fever. Facial erythema improved. She is deemed stable for discharge per ENT. She is prescribed Bactrim and Augmentin. She will follow-up with Dr. Robin in the office as arranged. She was complaining of migraine headaches which per patient respond well to Toradol. Patient was given a shot of IV Toradol and prescribed oral Toradol per her request to continue treatment for the migraine headaches. Vital Signs/Physical Exam: Temp Pulse Resp BP Pulse Ox 96.9 F 64 18 163/86 H 96 08/11/22 12:05 08/11/22 12:05 08/11/22 12:05 08/11/22 12:05 08/11/22 12:05 General: Alert, In no apparent distress HEENT: Mucous membr. moist/pink Neck: JVD not distended Respiratory: Clear to auscultation bilaterally, Normal air movement Cardiovascular: No edema, Regular rate/rhythm, Normal S1 S2 Gastrointestinal: Normal bowel sounds, Soft and benign, Non-distended, No tenderness Musculoskeletal: No swelling Neurological: Normal strength at 5/5 x4 extr Laboratory Data at Discharge: WBC 7.20 K/uL (4.3-10.9) 08/11/22 04:39 Hgb 12.2 g/dL (12.0-15.0) 08/11/22 04:39 Hct 36.6 % (36.0-45.0) 08/11/22 04:39 Plt Count 289 K/uL (152-406) 08/11/22 04:39 Sodium 138 mmol/L (136-145) 08/11/22 04:39 Potassium 3.8 mmol/L (3.5-5.1) 08/11/22 04:39 BUN 7 mg/dL (7-18) 08/11/22 04:39 Creatinine 0.79 mg/dL (0.55-1.3) 08/11/22 04:39 Glucose 104 mg/dL (74-106) 08/11/22 04:39 Phosphorus 2.9 mg/dL (2.5-4.9) 08/10/22 05:41 Magnesium 2.2 mg/dL (1.8-2.4) 08/10/22 05:41 Total Bilirubin 0.2 mg/dL (0.2-1.0) 08/09/22 15:00 AST 9 U/L (15-37) L 08/09/22 15:00 ALT 22 U/L (12-78) 08/09/22 15:00 Alkaline Phosphatase 113 U/L (45-117) 08/09/22 15:00 Home Medications: Cetirizine HCl 10 mg PO DAILY 08/09/22 Norgestimate-Ethinyl Estradiol [Tri-Sprintec Tablet] 1 tab PO DAILY 08/09/22 Omeprazole 20 mg PO DAILY 08/09/22 Amox/Clavulanate [Augmentin 875-125 Tab] 875 mg PO BID #20 tab 08/11/22 Container,Empty [Nasal [place] Bottle] 4 drops OTIC TID #30 ml 08/11/22 Fluticasone [Flonase 50MCG Nasal [place]*] 2 sprays KEVON DAILY #1 btl 08/11/22 Ketorolac [Toradol] 10 mg PO QID PRN #20 tab 08/11/22 Smz./Tmp. [Bactrim Ds 800 MG/160 MG] 1 tab PO BID #20 tab 08/11/22 New Medications: Amox/Clavulanate [Augmentin 875-125 Tab] 875 mg PO BID #20 tab Smz./Tmp. [Bactrim Ds 800 MG/160 MG] 1 tab PO BID #20 tab Fluticasone [Flonase 50MCG Nasal [place]*] 2 sprays KEVON DAILY #1 btl Container,Empty [Nasal [place] Bottle] 4 drops OTIC TID #30 ml Ketorolac [Toradol] 10 mg PO QID PRN #20 tab PRN Reason: Pain Diet: Regular Activity: Ad bill Followup: Laverne Robin DO [Primary Care Provider] - 1-2 Weeks Time spent managing pt's care (in minutes): 33
== END 2022-08-11 15:50 | disposition home or self-care (01) | DRG 603 ==
LOC: ER 12:56 → ERHOLD 19:35 → 2ND 22:29
PROVIDERS: ADMIT Hospitalist; ATTEND Internal Medicine
DX: L03.213 Periorbital cellulitis (principal); L03.212 Acute lymphangitis of face; J01.00 Acute maxillary sinusitis, unspecified; E28.2 Polycystic ovarian syndrome; J34.0 Abscess, furuncle and carbuncle of nose; J45.909 Unspecified asthma, uncomplicated; Z88.5 Allergy status to narcotic agent; Z90.49 Acquired absence of other specified parts of digestive tract; Z79.01 Long term (current) use of anticoagulants; Z79.52 Long term (current) use of systemic steroids; Z28.310 Unvaccinated for COVID-19; Z79.899 Other long term (current) drug therapy; Z20.822 Contact with and (suspected) exposure to COVID-19
CPT/HCPCS: 36415; 70488; 80048; 80053; 80202; 81001; 83605; 83735; 84100; 85025; 85652; 86140; 87040; 87811; 96365; 96366; 99285; J1650; J2405; J2543; J3370; J7030; J7040; J7050; Q9967

== ENCOUNTER 2022-09-06 10:52 | Emergency (ER) | payer OTHER ==
--- OUTSIDE RECORDS SUMMARY | 2022-09-06 10:59 | XMS REPORT | Continuity of Care Document ---
:1985 Author Organization [facility] t Address [address] [place] [address] Care Team Providers Name Role Phone Alonzo Cooney Jr. Primary Care Physician LINWOOD REIS Attending Clinician Unavailable MICHELLE ASH Attending Clinician Unavailable BOB GARZA JR Attending Clinician Unavailable Pcp, Patient Does Not Have A Attending Clinician [phone] Lucero Landry MD Attending Clinician Celina Kelley PA-C Attending Clinician CELINA KELLEY Attending Clinician Unavailable Michelle Ash MD Attending Clinician [phone] David Babcock Attending Clinician Provider, [facility] Attending Clinician Unavailable ARUNA CRUZ Attending Clinician Unavailable Alma Parson Attending Clinician ALMA TRUONG Attending Clinician Unavailable Vtc-Lab Attending Clinician Unavailable Rudy Dubon MD Attending Clinician Miguelina Rodriguez MD Attending Clinician RUDY DUBON Attending Clinician Unavailable Doctor Unassigned, Avis Attending Clinician Unavailable DAVID THOMAS Attending Clinician Unavailable KINGSTON BOYCE Attending Clinician Unavailable Linwood Reis MD Attending Clinician Lab, Adc Fam Pob I Attending Clinician Unavailable Netta Knight Attending Clinician NETTA BENTLEY Attending Clinician Unavailable Alireza TRAVISJared Attending Clinician Leona SANDOVALAnne Marie A Attending Clinician Ishaan Peterson Attending Clinician ISHAAN INFANTE Attending Clinician Unavailable LINWOOD REIS Admitting Clinician Unavailable Linwood Reis MD Admitting Clinician ISHAAN INFANTE Admitting Clinician Unavailable Payers Payer Name Policy Type Policy Number Effective Date Expiration Date S jaqui [employer] [place] [id number] 2020 00:00:00 [place] [facility] [id number] 2020 HEALTH 00:00:00 Problems Condition Condition Condition Status Onset Resolution Last Treating Co mments Source Name Details Category Date Date Treatment Clinician Date ASCUS with ASCUS with Disease Active Overview : Univers positive positive 03-25 Formattin ity of high risk high risk 00:00: [place] HPV HPV 00 note Medical cervical cervical might be Bran ch different from the original. Patient has ASCUS and HPV + on 2020 pap smear and need to be scheduled for Colposcop y. Cervical Cervical Disease Active Overview: Un reta high risk high risk - Formattin i ty of human human 00:00: [...] Elevated Disease Active Unive rs blood blood -19 ity of pressure pressure 00:00: [place] reading reading 00 Medical without without Branch diagnosis diagnosis of of hypertensi hypertensi on on Biliary Biliary Disease Active Overview: Univ ers colic colic -04 Formattin ity of 00:00: g of this [place] 00 note Medical might be Branch different from the original. Added automatic ally from request for surgery [id number] Upper Upper Disease Active 2019-10 Overview: Univer s abdominal abdominal 2-14 Formattin i ty of pain pain 00:00: g of this [place] 00 note Medical might be Branch different from the original. Added automatic ally from request for surgery [id number] Nausea Nausea Disease Active 2019-10 Overview: Univer s 2-14 Formattin ity of 00:00: g of this [place] 00 note Medical might be Branch different from the original. 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 ICD10 Diagnosis Term Information Manager Utility PCOS PCOS Disease Active Univers [...] DRUG Active Unknown-Cmnt Un reta ONE INGREDI 3 ity of 00:00: [place] 00 Medical Branch Hydrocod Propensi Active Unknown - Uni vers one ty to See comments 12-31 ity of adverse 00:00: [place] reaction 00 Medical s Branch Social History Social Habit Start Date Stop Date Quantity Comments Source Exposure to Not sure [facility] SARS-CoV-2 [facility] (event) [place] Tobacco use and 2021-05-12 2021-05-12 Never used Universit y of exposure 00:00:00 00:00:00 [facility] Alcohol intake 2021-05-12 2021-05-12 Current drinker Unive rsity of 00:00:00 00:00:00 of alcohol [facility] (finding) [place] Alcohol Comment 2014-12-31 2014-12-31 on occasion Universi ty of 00:00:00 00:00:00 [facility] Sex Ass[birth year] At [birth year] Universit y of 00:00:00 00:00:00 [facility] Smoking Status Start Date Stop Date Source Never smoker [facility] Medications Ordered Filled Start Stop Current Ordering Indication Dosage Frequency Signature Comments Components Source Medication Medication Date Date Medication? Clinician (SIG) Name Name azelastine Yes [id number] 1{spray Use 1 Univers 137 mcg 7-23 } [place] in ity of (0.1 %) 00:00: each [place] nasal spray 00 nostril 2 Med ical (two) Branch times daily. Use in each nostril as directed fluticasone Yes [id number] 1{spray Use 1 Univers propionate 7-23 } [place] in ity o f 50 00:00: each [place] mcg/actuati 00 nostril Medic al on nasal daily. Branch spray albuterol Yes [id number] 2{puff} Inhale 2 Univers (PROAIR 7-23 Puffs ity of HFA) 90 00:00: every 6 [place] mcg/actuati 00 (six) Medical on inhaler hours as Branc h needed for Wheezing or Shortness of Breath. azelastine Yes [id number] 1{spray Use 1 Univers 137 mcg 7-23 } [place] in ity of (0.1 %) 00:00: each [place] nasal spray 00 nostril 2 Med ical (two) Branch times daily. Use in each nostril as directed fluticasone Yes [id number] 1{spray Use 1 Univers propionate 7-23 } [place] in ity o f 50 00:00: each [place] mcg/actuati 00 nostril Medic al on nasal daily. Branch spray albuterol Yes [id number] 2{puff} Inhale 2 Univers (PROAIR 7-23 Puffs ity of HFA) 90 00:00: every 6 [place] mcg/actuati 00 (six) Medical on inhaler hours as Branc h needed for Wheezing or Shortness of Breath. gabapentin 2020- No [id number] 100mg Take 1 Univers 100 mg 05-12 [id number] capsule by ity of capsule 00:00: 04:59 mouth 3 [place] 00 :00 (three) Medical times Branch daily for 60 days. gabapentin 2020- No [id number] 100mg Take 1 Univers 100 mg 05-12 [id number] capsule by ity of capsule 00:00: 04:59 mouth 3 [place] 00 :00 (three) Medical times Branch daily for 60 days. gabapentin 2020- No [id number] 100mg Take 1 Univers 100 mg 05-12 [id number] capsule by ity of capsule 00:00: 04:59 mouth 3 [place] 00 :00 (three) Medical times Branch daily for 60 days. gabapentin 2020- No [id number] 100mg Take 1 Univers 100 mg 05-12 [id number] capsule by ity of capsule 00:00: 04:59 mouth 3 [place] 00 :00 (three) Medical times Branch daily for 60 days. promethazin 2020- No [id number] 5mL Take 5 mL Univers e-dextromet 04-1203 by mouth 4 i ty of [place] 00:00: 04:59 (four) [place] 6.25-15 00 :00 times Medical mg/5 mL daily as Branch syrup needed for Cough for up to 10 days. promethazin 2020- No [id number] 5mL Take 5 mL Univers e-dextromet 04-12-03 by mouth 4 i ty of horphan 00:00: 04:59 (four) [place] 6.25-15 00 :00 times Medical mg/5 mL daily as Branch syrup needed for Cough for up to 10 days. azithromyci 2020- No [id number] 250mg Take 1 Univers n 604-18 tablet by ity of (ZITHROMAX 00:00: 04:59 mouth [place] Z-NATALIE) 250 00 :00 daily for Medi janae mg tablet 5 days. Branch Take 500 mg day 1, then 250 mg days 2 to 5. azithromyci 2020- No [id number] 250mg Take 1 Univers n 604-18 tablet by ity of (ZITHROMAX 00:00: 04:59 mouth [place] Z-NATALIE) 250 00 :00 daily for Medi janae mg tablet 5 days. Branch Take 500 mg day 1, then 250 mg days 2 to 5. predniSONE 2020- No 10mg Take 10 mg Univers 10 mg 6-15 -15 by mouth ity of tablet 17:17: 00:00 daily. [place] 55 :00 [facility] predniSONE 2020-2020- No 10mg Take 10 mg Univers 10 mg 6-15 -15 by mouth ity of tablet 17:17: 00:00 daily. [place] 55 [facility] Univers mcg Cap 5-20 ity of 00:00: [place] [facility] 72 2020-0 Yes Univers mcg Cap 5-20 ity of 00:00: [place] [facility] 72 2020-0 Yes Univers mcg Cap 5-20 ity of 00:00: [place] [facility] 72 2020-0 Yes Univers mcg Cap 5-20 ity of 00:00: [place] [facility] Yes Univers mcg Cap 5-20 ity of 00:00: [place] 00 [facility] 72 2020-0 Yes Univers mcg Cap 5-20 ity of 00:00: [place] [facility] 72 2020-0 Yes Univers mcg Cap 5-20 ity of 00:00: [place] 00 Medical Branch albuterol 2020-0 Yes Inhale. [...] HFA 20:24: [place] INHALE) Medical Branch albuterol Yes Inhale. Unive rs sulfate 5-19 ity of (PROAIR HFA 20:24: [place] INHALE) 07 Medical Branch albuterol Yes Inhale. Unive rs sulfate 5-19 ity of (PROAIR HFA 20:24: [place] INHALE) 07 [facility] Branch albuterol 0 Yes Inhale. Unive rs sulfate 5-19 ity of (PROAIR HFA 20:24: [place] INHALE) Medical Branch albuterol Yes Inhale. Unive rs [...] 5-19 mouth. ity of vitamin D2, 19:38: [place] (VITAMIN D 13 Medical ORAL) Branch pantoprazol Yes Take by Uni vers e sodium 5-19 mouth. ity of (PROTONIX 19:38: [place] ORAL) 13 Medical Branch ergocalcife Yes Take by Uni vers rol, 5-19 mouth. ity of vitamin D2, 19:38: [place] (VITAMIN D 13 Medical ORAL) Branch pantoprazol Yes Take by Uni vers e sodium 5-19 mouth. ity of (PROTONIX 19:38: [place] ORAL) 13 Medical Branch ergocalcife Yes Take by Uni vers rol, 5-19 mouth. ity of vitamin D2, 19:38: [place] (VITAMIN D 13 Medical ORAL) Branch pantoprazol Yes Take by Uni vers e sodium 5-19 mouth. ity of (PROTONIX 19:38: [place] ORAL) 13 Medical Branch ergocalcife Yes Take by Uni vers rol, 5-19 mouth. ity of vitamin D2, 19:38: [place] (VITAMIN D 13 Medical ORAL) Branch pantoprazol Yes Take by Uni vers e sodium 5-19 mouth. ity of (PROTONIX 19:38: [place] ORAL) 13 Medical Branch ergocalcife Yes Take by Uni vers rol, 5-19 mouth. ity of vitamin D2, 19:38: [place] (VITAMIN D 13 Medical ORAL) Branch pantoprazol Yes Take by Uni vers e sodium 5-19 mouth. ity of (PROTONIX 19:38: [place] ORAL) 13 Medical Branch ergocalcife Yes Take by Uni vers rol, 5-19 mouth. ity of vitamin D2, 19:38: [place] (VITAMIN D 13 Medical ORAL) Branch pantoprazol Yes Take by Uni vers e sodium 5-19 mouth. ity of (PROTONIX 19:38: [place] ORAL) 13 Medical Branch ergocalcife 0 Yes Take by Uni vers rol, 5-19 mouth. ity of vitamin D2, 19:38: [place] (VITAMIN D 13 Medical ORAL) Branch pantoprazol 0 Yes Take by Uni vers e sodium 5-19 mouth. ity of (PROTONIX 19:38: [place] ORAL) 13 Medical Branch ergocalcife 0 Yes Take by Uni vers rol, 5-19 mouth. ity of vitamin D2, 19:38: [place] (VITAMIN D 13 Medical ORAL) Branch pantoprazol Yes Take by Uni vers e sodium 5-19 mouth. ity of (PROTONIX 19:38: [place] ORAL) 13 Medical Branch ergocalcife Yes Take by Uni vers rol, 5-19 mouth. ity of vitamin D2, 19:38: [place] (VITAMIN D 13 Medical ORAL) Branch pantoprazol Yes Take by Uni vers e sodium 5-19 mouth. ity of (PROTONIX 19:38: [place] ORAL) 13 Medical Branch ergocalcife Yes Take by Uni vers rol, 5-19 mouth. ity of vitamin D2, 19:38: [place] (VITAMIN D 13 Medical ORAL) Branch pantoprazol Yes Take by Uni vers e sodium 5-19 mouth. ity of (PROTONIX 19:38: [place] ORAL) 13 Medical Branch ergocalcife Yes Take by Uni vers rol, 5-19 mouth. ity of vitamin D2, 19:38: [place] (VITAMIN D 13 Medical ORAL) Branch pantoprazol Yes Take by Uni vers e sodium 5-19 mouth. ity of (PROTONIX 19:38: [place] ORAL) 13 Medical Branch ergocalcife Yes Take by Uni vers rol, 5-19 mouth. ity of vitamin D2, 19:38: [place] (VITAMIN D 13 Medical ORAL) Branch pantoprazol Yes Take by Uni vers e sodium 5-19 mouth. ity of (PROTONIX 19:38: [place] ORAL) 13 Medical Branch ergocalcife 0 Yes Take by Uni vers rol, 5-19 mouth. ity of vitamin D2, 19:38: [place] (VITAMIN D 13 Medical ORAL) Branch pantoprazol Yes Take by Uni vers e sodium 5-19 mouth. ity of (PROTONIX 19:38: [place] ORAL) 13 [facility] Branch ergocalcife 0 Yes Take by Uni vers rol, 5-19 mouth. ity of vitamin D2, 19:38: [place] (VITAMIN D 13 Medical ORAL) [place] pantoprazol Yes Take by Uni vers e sodium 5-19 mouth. ity of (PROTONIX 19:38: [place] ORAL) 13 [facility] Branch ergocalcife Yes Take by Uni vers rol, 5-19 mouth. ity of vitamin D2, 19:38: [place] (VITAMIN D 13 Medical ORAL) [place] pantoprazol Yes Take by Uni vers e sodium 5-19 mouth. ity of (PROTONIX 19:38: [place] ORAL) [address] [place] [address] ergocalcife Yes Take by Uni vers rol, 5-19 mouth. ity of vitamin D2, 19:38: [place] (VITAMIN D 13 Medical ORAL) [place] predniSONE 0 Yes 10mg Take 10 mg U nivers 10 mg 5-19 by mouth ity of tablet 19:28: daily. [address] predniSONE 2020-0 Yes 10mg Take 10 mg U nivers 10 mg 5-19 by mouth ity of tablet 19:28: daily. [address] predniSONE 2020-0 Yes 10mg Take 10 mg U nivers 10 mg 5-19 by mouth ity of tablet 19:28: daily. [address] predniSONE 2020-0 Yes 10mg Take 10 mg U nivers 10 mg 5-19 by mouth ity of tablet 19:28: daily. [address] predniSONE 2020-0 Yes 10mg Take 10 mg U nivers 10 mg 5-19 by mouth ity of tablet 19:28: daily. [address] predniSONE 1-0 Yes 10mg Take 10 mg U nivers 10 mg 5-19 by mouth ity of tablet 19:28: daily. [address] predniSONE 1-0 Yes 10mg Take 10 mg U nivers 10 mg 5-11 by mouth ity of tablet 17:05: daily. [address] predniSONE 1-0 Yes 10mg Take 10 mg U nivers 10 mg 5-11 by mouth ity of tablet 17:05: daily. [address] predniSONE 2020-0 Yes 10mg Take 10 mg U nivers 10 mg 5-11 by mouth ity of tablet 17:05: daily. [address] predniSONE 2020-0 Yes 10mg Take 10 mg U nivers 10 mg 5-11 by mouth ity of tablet 17:05: daily. [address] predniSONE 2020-0 Yes 10mg Take 10 mg U nivers 10 mg 5-11 by mouth ity of tablet 17:05: daily. [address] predniSONE 2020-0 Yes 10mg Take 10 mg U nivers 10 mg 5-11 by mouth ity of tablet 17:05: daily. [address] furosemide 0 Yes Univers 20 mg 5-04 ity of tablet 00:00: [address] furosemide 2020-0 Yes Univers 20 mg 5-04 ity of tablet 00:00: [address] furosemide 2020-0 Yes Univers 20 mg 5-04 ity of tablet 00:00: [address] furosemide 2020-0 Yes Univers 20 mg 5-04 ity of tablet 00:00: [address] furosemide 2020-0 Yes Univers 20 mg 5-04 ity of tablet 00:00: [address] furosemide 2020-0 Yes Univers 20 mg 5-04 ity of tablet 00:00: [address] furosemide 2020-0 2020- No Univer s 20 mg 5-04 06-15 ity of tablet 00:00: 00:00 [place] [address] furosemide 2020-0 1- No Univer s 20 mg 5-04 06-15 ity of tablet 00:00: 00:00 [place] 00 :00 [facility] ondansetron 0 Yes RUQ 4mg Take 1 Univ ers (ZOFRAN 1-04 abdominal tablet by it y of ODT) 4 mg 00:00: pain mouth [place] disintegrat 00 every 8 Medic al ing tablet (eight) Branch hours as needed for Nausea and Vomiting (N/V). ondansetron 0 Yes [id number] 4mg Take 1 Univers (ZOFRAN 1-04 tablet by ity of ODT) 4 mg 00:00: mouth [place] disintegrat 00 every 8 Medic al ing tablet (eight) Branch hours as needed for Nausea and Vomiting (N/V). dicyclomine 2021-0 Yes [id number] 20mg Take 1 Univers 20 mg 1-04 tablet by ity of tablet 00:00: mouth 4 [place] 00 (four) Medical times Branch daily. ondansetron 2021-0 Yes [id number] 4mg Take 1 Univers (ZOFRAN 1-04 tablet by ity of ODT) 4 mg 00:00: mouth [place] disintegrat 00 every 8 Medic al ing tablet (eight) Branch hours as needed for Nausea and Vomiting (N/V). dicyclomine 2021-0 Yes [id number] 20mg Take 1 Univers 20 mg 1-04 tablet by ity of tablet 00:00: mouth 4 [place] 00 (four) Medical times Branch daily. ondansetron 2021-0 Yes [id number] 4mg Take 1 Univers (ZOFRAN 1-04 tablet by ity of ODT) 4 mg 00:00: mouth [place] disintegrat 00 every 8 Medic al ing tablet (eight) Branch hours as needed for Nausea and Vomiting (N/V). dicyclomine 2021-0 Yes [id number] 20mg Take 1 Univers 20 mg 1-04 tablet by ity of tablet 00:00: mouth 4 [place] 00 (four) Medical times Branch daily. ondansetron 2021-0 Yes [id number] 4mg Take 1 Univers (ZOFRAN 1-04 tablet by ity of ODT) 4 mg 00:00: mouth [place] disintegrat 00 every 8 Medic al ing tablet (eight) Branch hours as needed for Nausea and Vomiting (N/V). dicyclomine 2021-0 Yes [id number] 20mg Take 1 Univers 20 mg 1-04 tablet by ity of tablet 00:00: mouth 4 [place] 00 (four) Medical times Branch daily. ondansetron 2021-0 Yes [id number] 4mg Take 1 Univers (ZOFRAN 1-04 tablet by ity of ODT) 4 mg 00:00: mouth [place] disintegrat 00 every 8 Medic al ing tablet (eight) Branch hours as needed for Nausea and Vomiting (N/V). dicyclomine 2021-0 Yes [id number] 20mg Take 1 Univers 20 mg 1-04 tablet by ity of tablet 00:00: mouth 4 [place] 00 (four) Medical times Branch daily. ondansetron 2021-0 Yes [id number] 4mg Take 1 Univers (ZOFRAN 1-04 tablet by ity of ODT) 4 mg 00:00: mouth [place] disintegrat 00 every 8 Medic al ing tablet (eight) Branch hours as needed for Nausea and Vomiting (N/V). dicyclomine 2021-0 Yes [id number] 20mg Take 1 Univers 20 mg 1-04 tablet by ity of tablet 00:00: mouth 4 [place] (four) Medical times Branch daily. ondansetron 2021-0 Yes [id number] 4mg Take 1 Univers (ZOFRAN 1-04 tablet by ity of ODT) 4 mg 00:00: mouth [place] disintegrat 00 every 8 Medic al ing tablet (eight) Branch hours as needed for Nausea and Vomiting (N/V). dicyclomine 2021-0 Yes [id number] 20mg Take 1 Univers 20 mg 1-04 tablet by ity of tablet 00:00: mouth 4 [place] (four) Medical times Branch daily. ondansetron 2021-0 Yes [id number] 4mg Take 1 Univers (ZOFRAN 1-04 tablet by ity of ODT) 4 mg 00:00: mouth [place] disintegrat 00 every 8 Medic al ing tablet (eight) Branch hours as needed for Nausea and Vomiting (N/V). dicyclomine 2021-0 Yes [id number] 20mg Take 1 Univers 20 mg 1-04 tablet by ity of tablet 00:00: mouth 4 [place] (four) Medical times Branch daily. ondansetron 2021-0 Yes [id number] 4mg Take 1 Univers (ZOFRAN 1-04 tablet by ity of ODT) 4 mg 00:00: mouth [place] disintegrat 00 every 8 Medic al ing tablet (eight) Branch hours as needed for Nausea and Vomiting (N/V). dicyclomine 2021-0 Yes [id number] 20mg Take 1 Univers 20 mg 1-04 tablet by ity of tablet 00:00: mouth 4 [place] 00 (four) Medical times Branch daily. ondansetron 2021-0 Yes [id number] 4mg Take 1 Univers (ZOFRAN 1-04 tablet by ity of ODT) 4 mg 00:00: mouth [place] disintegrat 00 every 8 Medic al ing tablet (eight) Branch hours as needed for Nausea and Vomiting (N/V). dicyclomine 2021-0 Yes [id number] 20mg Take 1 Univers 20 mg 1-04 tablet by ity of tablet 00:00: mouth 4 [place] 00 (four) Medical times Branch daily. ondansetron 2021-0 Yes [id number] 4mg Take 1 Univers (ZOFRAN 1-04 tablet by ity of ODT) 4 mg 00:00: mouth [place] disintegrat 00 every 8 Medic al ing tablet (eight) Branch hours as needed for Nausea and Vomiting (N/V). dicyclomine 2021-0 Yes [id number] 20mg Take 1 Univers 20 mg 1-04 tablet by ity of tablet 00:00: mouth 4 [place] 00 (four) Medical times Branch daily. ondansetron 2021-0 Yes [id number] 4mg Take 1 Univers (ZOFRAN 1-04 tablet by ity of ODT) 4 mg 00:00: mouth [place] disintegrat 00 every 8 Medic al ing tablet (eight) Branch hours as needed for Nausea and Vomiting (N/V). dicyclomine 2021-0 Yes [id number] 20mg Take 1 Univers 20 mg 1-04 tablet by ity of tablet 00:00: mouth 4 [place] 00 (four) Medical times Branch daily. ondansetron 2021-0 Yes [id number] 4mg Take 1 Univers (ZOFRAN 1-04 tablet by ity of ODT) 4 mg 00:00: mouth [place] disintegrat 00 every 8 Medic al ing tablet (eight) Branch hours as needed for Nausea and Vomiting (N/V). dicyclomine 2021-0 Yes [id number] 20mg Take 1 Univers 20 mg 1-04 tablet by ity of tablet 00:00: mouth 4 [place] 00 (four) Medical times Branch daily. ondansetron 2021-0 Yes [id number] 4mg Take 1 Univers (ZOFRAN 1-04 tablet by ity of ODT) 4 mg 00:00: mouth [place] disintegrat 00 every 8 Medic al ing tablet (eight) Branch hours as needed for Nausea and Vomiting (N/V). dicyclomine 2021-0 Yes [id number] 20mg Take 1 Univers 20 mg 1-04 tablet by ity of tablet 00:00: mouth 4 [place] 00 (four) Medical times Branch daily. ondansetron 1-0 Yes [id number] 4mg Take 1 Univers (ZOFRAN 1-04 tablet by ity of ODT) 4 mg 00:00: mouth [place] disintegrat 00 every 8 Medic al ing tablet (eight) Branch hours as needed for Nausea and Vomiting (N/V). dicyclomine 2020-0 Yes [id number] 20mg Take 1 Univers 20 mg 1-04 tablet by ity of tablet 00:00: mouth 4 [place] 00 (four) Medical times Branch daily. dicyclomine 2020-0 Yes RUQ pain 20mg Take 1 Univers 20 mg 1-04 tablet by ity of tablet 00:00: mouth 4 [place] 00 (four) Medical times Branch daily. ondansetron 2020-0 2020- No [id number] 4mg Take 1 Univers (ZOFRAN 1-04 05-19 tablet by ity of ODT) 4 mg 00:00: 00:00 mouth [place] disintegrat 00 :00 every 8 Medic al ing tablet (eight) Branch hours as needed for Nausea and Vomiting (N/V). dicyclomine 2020-0 1- No [id number] 20mg Take 1 Univers 20 mg 1-04 05-19 tablet by ity of tablet 00:00: 00:00 mouth 4 [place] 00 :00 (four) Medical times Branch daily. ondansetron 1-0 1- No [id number] 4mg Take 1 Univers (ZOFRAN 1-04 05-19 tablet by ity of ODT) 4 mg 00:00: 00:00 mouth [place] disintegrat 00 :00 every 8 Medic al ing tablet (eight) Branch hours as needed for Nausea and Vomiting (N/V). dicyclomine 2020-0 1- No [id number] 20mg Take 1 Univers 20 mg 1-04 05-19 tablet by ity of tablet 00:00: 00:00 mouth 4 [place] 00 :00 (four) Medical times Branch daily. ondansetron 2021-0 2021- No [id number] 4mg Take 1 Univers (ZOFRAN 1-04 05-19 tablet by ity of ODT) 4 mg 00:00: 00:00 mouth [place] disintegrat 00 :00 every 8 Medic al ing tablet (eight) Branch hours as needed for Nausea and Vomiting (N/V). dicyclomine 2020- No [id number] 20mg Take 1 Univers 20 mg 10-25 tablet by ity of tablet 00:00: 00:00 [...] 2.5ug 2.5 mcg, Un reta (KINEVAC) 2-16 -16 IV Push, ity o f injection 17:00: 17:00 ONCE, 1 [place] 2.5 mcg 00 :00 dose, [facility] Medical 10/06/20 Branch at 1100, Routine tc 2019-10- No 10mCi 10 Univers 99m-mebrofe 2-16 -16 millicurie i ty of regina 15:30: 15:30 , [place] injection 00 :00 Intravenou Medi janae 10 s, ONCE, 1 Branch millicurie dose, Sun10/06/20 at 0930, Routine NaCl 0.9% 2020-1 2020- No 1000mL at 999 Uni vers (NS) bolus 2-10 12-10 mL/hr, ity of infusion 01:15: 01:40 1,000 mL, [place]ae [place] 1,000 mL 00 :00 IV Medical Infusion, Branch ONCE, 1 dose, 09/29/20 at 1914, STAT ondansetron 2019-10- No 4mg 4 mg, Slow Univers (ZOFRAN 2-10 12-10 IV Push, ity of (PF)) 01:15: 00:37 ONCE, 1 [place] injection 4 00 :00 dose, Wed Med ical mg 09/29/20 at Branch 1914, CURTIS FENTanyl PF 2019- 2020- No 50ug 50 mcg, Un reta (SUBLIMAZE 2-10 12-10 Slow IV ity o f (PF)) 01:15: 00:37 Push, [place] injection 00 :00 ONCE, 1 Medical 50 mcg dose, [facility] Branch 09/29/20 at 1914, STAT dicyclomine 2019- Yes [id number] 20mg Take 1 Univers 20 mg 2-08 tablet by ity of tablet 00:00: mouth ([facility]) Medical times Branch daily. ondansetron 2020-1 Yes [id number] 4mg Take 1 Univers 4 mg tablet 2-08 tablet by ity of 00:00: mouth [place] 00 every 8 Medical (eight) Branch hours as needed for Nausea and Vomiting (N/V). dicyclomine 2020-1 Yes [id number] 20mg Take 1 Univers 20 mg 2-08 tablet by ity of tablet 00:00: mouth (four) Medical times Branch daily. ondansetron 2020-1 Yes [id number] 4mg Take 1 Univers 4 mg tablet 2-08 tablet by ity of 00:00: mouth [place] 00 every 8 Medical (eight) Branch hours as needed for Nausea and Vomiting (N/V). dicyclomine 2020-1 Yes [id number] 20mg Take 1 Univers 20 mg 2-08 tablet by ity of tablet 00:00: mouth 4 (four) Medical times Branch daily. ondansetron 2020-1 Yes [id number] 4mg Take 1 Univers 4 mg tablet 2-08 tablet by ity of 00:00: mouth [place] 00 every 8 Medical (eight) Branch hours as needed for Nausea and Vomiting (N/V). dicyclomine 2020-1 Yes [id number] 20mg Take 1 Univers 20 mg 2-08 tablet by ity of tablet 00:00: mouth (four) Medical times Branch daily. ondansetron 2020-1 Yes [id number] 4mg Take 1 Univers 4 mg tablet 2-08 tablet by ity of 00:00: mouth [place] 00 every 8 Medical (eight) Branch hours as needed for Nausea and Vomiting (N/V). dicyclomine 2020-1 Yes [id number] 20mg Take 1 [facility] 20 mg 2-08 tablet by [facility] tablet 00:00: mouth (four) Medical times Branch daily. ondansetron 2020-1 Yes [id number] 4mg Take 1 [facility] 4 mg tablet 2-08 tablet by [facility] of 00:00: mouth [place] 00 every 8 Medical (eight) Branch hours as needed for Nausea and Vomiting (N/V). dicyclomine 2020-1 Yes [id number] 20mg Take 1 [facility] 20 mg 2-08 tablet by [facility] of tablet 00:00: mouth (four) Medical times Branch daily. ondansetron 2020-1 Yes [id number] 4mg Take 1 [facility] 4 mg tablet 2-08 tablet by [facility] of 00:00: mouth [place] 00 every 8 Medical (eight) Branch hours as needed for Nausea and Vomiting (N/V). dicyclomine 2020-1 Yes [id number] 20mg Take 1 [facility] 20 mg 2-08 tablet by [facility] tablet 00:00: mouth (four) Medical times Branch daily. ondansetron 2020-1 Yes [id number] 4mg Take 1 [facility] 4 mg tablet 2-08 tablet by [facility] of 00:00: mouth [place] 00 every 8 Medical (eight) Branch hours as needed for Nausea and Vomiting (N/V). dicyclomine 2020-1 Yes [id number] 20mg Take 1 [facility] 20 mg 2-08 tablet by [facility] of tablet 00:00: mouth (four) Medical times Branch daily. ondansetron 2020-1 Yes [id number] 4mg Take 1 [facility] 4 mg tablet 2-08 tablet by [facility] of 00:00: mouth [place] 00 every 8 Medical (eight) Branch hours as needed for Nausea and Vomiting (N/V). dicyclomine 2020-1 Yes [id number] 20mg Take 1 [facility] 20 mg 2-08 tablet by [facility] of tablet 00:00: mouth 4 [place] 00 (four) Medical times Branch daily. ondansetron 2020-1 Yes [id number] 4mg Take 1 [facility] 4 mg tablet 2-08 tablet by [facility] of 00:00: mouth [place] 00 every 8 Medical (eight) Branch hours as needed for Nausea and Vomiting (N/V). dicyclomine 2020-1 Yes [id number] 20mg Take 1 [facility] 20 mg 2-08 tablet by [facility] of tablet 00:00: mouth 4 [place] 00 (four) Medical times Branch daily. ondansetron 2020-1 Yes [id number] 4mg Take 1 [facility] 4 mg tablet 2-08 tablet by [facility] of 00:00: mouth [place] 00 every 8 Medical (eight) Branch hours as needed for Nausea and Vomiting (N/V). dicyclomine 2020-1 Yes [id number] 20mg Take 1 [facility] 20 mg 2-08 tablet by [facility] tablet 00:00: mouth 4 00 (four) Medical times Branch daily. ondansetron 2020-1 Yes [id number] 4mg Take 1 [facility] 4 mg tablet 2-08 tablet by [facility] of 00:00: mouth [place] 00 every 8 Medical (eight) Branch hours as needed for Nausea and Vomiting (N/V). ondansetron 2020-1 Yes [id number] 4mg Take 1 [facility] 4 mg tablet 2-08 tablet by [facility] of 00:00: mouth [place] 00 every 8 Medical (eight) Branch hours as needed for Nausea and Vomiting (N/V). ondansetron 2020-1 Yes [id number] 4mg Take 1 [facility] 4 mg tablet 2-08 tablet by [facility] of 00:00: mouth [place] 00 every 8 Medical (eight) Branch hours as needed for Nausea and Vomiting (N/V). ondansetron 2020-1 Yes [id number] 4mg Take 1 [facility] 4 mg tablet 2-08 tablet by [facility] of 00:00: mouth [place] 00 every 8 Medical (eight) Branch hours as needed for Nausea and Vomiting (N/V). ondansetron 2020-1 Yes [id number] 4mg Take 1 [facility] 4 mg tablet 2-08 tablet by [facility] of 00:00: mouth [place] 00 every 8 Medical (eight) Branch hours as needed for Nausea and Vomiting (N/V). ondansetron 2020-1 Yes [id number] 4mg Take 1 [facility] 4 mg tablet 2-08 tablet by [facility] of 00:00: mouth [place] 00 every 8 Medical (eight) Branch hours as needed for Nausea and Vomiting (N/V). ondansetron 2020-1 Yes [id number] 4mg Take 1 [facility] 4 mg tablet 2-08 tablet by [facility] of 00:00: mouth [place] 00 every 8 Medical (eight) Branch hours as needed for Nausea and Vomiting (N/V). ondansetron 2020-1 Yes [id number] 4mg Take 1 [facility] 4 mg tablet 2-08 tablet by [facility] of 00:00: mouth [place] 00 every 8 Medical (eight) Branch hours as needed for Nausea and Vomiting (N/V). ondansetron 2020-1 Yes [id number] 4mg Take 1 [facility] 4 mg tablet 2-08 tablet by [facility] of 00:00: mouth [place] 00 every 8 Medical (eight) Branch hours as needed for Nausea and Vomiting (N/V). ondansetron 2020-1 Yes [id number] 4mg Take 1 [facility] 4 mg tablet 2-08 tablet by [facility] of 00:00: mouth [place] 00 every 8 Medical (eight) Branch hours as needed for Nausea and Vomiting (N/V). ondansetron 2020-1 Yes [id number] 4mg Take 1 [facility] 4 mg tablet 2-08 tablet by [facility] of 00:00: mouth [place] 00 every 8 Medical (eight) Branch hours as needed for Nausea and Vomiting (N/V). ondansetron 2020-1 Yes [id number] 4mg Take 1 [facility] 4 mg tablet 2-08 tablet by [facility] of 00:00: mouth [place] 00 every 8 Medical (eight) Branch hours as needed for Nausea and Vomiting (N/V). ondansetron 2020-1 Yes [id number] 4mg Take 1 [facility] 4 mg tablet 2-08 tablet by [facility] of 00:00: mouth [place] 00 every 8 Medical (eight) Branch hours as needed for Nausea and Vomiting (N/V). ondansetron 2020-1 Yes [id number] 4mg Take 1 [facility] 4 mg tablet 2-08 tablet by [facility] of 00:00: mouth [place] 00 every 8 Medical (eight) Branch hours as needed for Nausea and Vomiting (N/V). ondansetron 2019-10 Yes [id number] 4mg Take 1 [facility] 4 mg tablet 2-08 tablet by [facility] of 00:00: mouth [place] 00 every 8 Medical (eight) Branch hours as needed for Nausea and Vomiting (N/V). ondansetron 2019-10 Yes [id number] 4mg Take 1 [facility] 4 mg tablet 2-08 tablet by [facility] of 00:00: mouth [place] 00 every 8 Medical (eight) Branch hours as needed for Nausea and Vomiting (N/V). ondansetron 2019-10 Yes RUQ pain 4mg Take 1 [facility] 4 mg tablet 2-08 tablet by [facility] of 00:00: mouth [place] 00 every 8 Medical (eight) Branch hours as needed for Nausea and Vomiting (N/V). ondansetron 2019-10- No [id number] 4mg Take 1 [facility] 4 mg tablet 2- 05-19 tablet by it y of 00:00: 00:00 mouth [place] 00 :00 every 8 Medical (eight) Branch hours as needed for Nausea and Vomiting (N/V). ondansetron 2019-10- No [id number] 4mg Take 1 [facility] 4 mg tablet 2- 05-19 tablet by it y of 00:00: 00:00 mouth [place] 00 :00 every 8 Medical (eight) Branch hours as needed for Nausea and Vomiting (N/V). ondansetron 2019-10- No [id number] 4mg Take 1 [facility] 4 mg tablet 2-05 26-19 tablet by it y of 00:00: 00:00 mouth [place] 00 :00 every 8 Medical (eight) Branch hours as needed for Nausea and Vomiting (N/V). dicyclomine 2019-2020- No [id number] 20mg Take 1 [facility] 20 mg 2-08 -04 tablet by [facility] of tablet 00:00: 00:00 mouth 4 [place] 00 :00 (four) Medical times Branch daily. dicyclomine 2019-2020- No [id number] 20mg Take 1 [facility] 20 mg 2-08 -04 tablet by [facility] of tablet 00:00: 00:00 mouth 4 [place] 00 :00 (four) Medical times Branch daily. dicyclomine 2019-10- No [id number] 20mg Take 1 [facility] 20 mg 2-06 02- tablet by [facility] of tablet 00:00: 00:00 mouth 4 [place] 00 :00 (four) Medical times Branch daily. ondansetron 2019-10- No [id number] 4mg Take 1 [facility] 4 mg tablet 11-29- tablet by it y of 00:00: 00:00 mouth [place] 00 :00 every 8 Medical (eight) Branch hours as needed for Nausea and Vomiting (N/V). dicyclomine 2019-10- No [id number] 20mg Take 1 [facility] 20 mg 2-06 02- tablet by [facility] of tablet 00:00: 00:00 mouth 4 [place] 00 :00 (four) Medical times Branch daily. ondansetron 2019-10- No [id number] 4mg Take 1 [facility] 4 mg tablet [...] ical mg 09/23/20 at Branch 1999, [place] dicyclomine 2019-1 Yes [id number] 20mg Take 1 [facility] 20 mg 2-03 tablet by [facility] of tablet 00:00: mouth 4 [place] 00 (four) Medical times Branch daily as needed for Abdominal pain. ondansetron 2019- Yes [id number] 4mg Take 1 [facility] (ZOFRAN 2-03 tablet [...] Indication s: acute pain dicyclomine 2019- Yes [id number] 20mg Take 1 [facility] 20 mg 2-03 tablet by [facility] tablet 00:00: mouth 4 [place] 00 (four) Medical times Branch daily as needed for Abdominal pain. ondansetron 2019- Yes [id number] 4mg Take 1 [facility] (ZOFRAN 2-03 tablet [...] Indication s: acute pain dicyclomine 2019- Yes [id number] 20mg Take 1 [facility] 20 mg 2-03 tablet by [facility] tablet 00:00: mouth 4 [place] 00 (four) Medical times Branch daily as needed for Abdominal pain. ondansetron 2019- Yes [id number] 4mg Take 1 [facility] (ZOFRAN 2-03 tablet [...] Indication s: acute pain dicyclomine 2019- Yes [id number] 20mg Take 1 [facility] 20 mg 2-03 tablet by [facility] tablet 00:00: mouth 4 [place] 00 (four) Medical times Branch daily as needed for Abdominal pain. ondansetron 2020- Yes [id number] 4mg Take 1 [facility] (ZOFRAN 2-03 tablet [...] Indication s: acute pain dicyclomine 2019- Yes [id number] 20mg Take 1 [facility] 20 mg 2-03 tablet by [facility] tablet 00:00: mouth 4 [place] 00 (four) Medical times Branch daily as needed for Abdominal pain. ondansetron 2019- Yes [id number] 4mg Take 1 [facility] (ZOFRAN 2-03 tablet [...] Indication s: acute pain dicyclomine 2019- Yes [id number] 20mg Take 1 [facility] 20 mg 2-03 tablet by [facility] of tablet 00:00: mouth 4 [place] 00 (four) Medical times Branch daily as needed for Abdominal pain. ondansetron 2019- Yes [id number] 4mg Take 1 [facility] (ZOFRAN 2-03 tablet [...] Indication s: acute pain dicyclomine 2019- Yes [id number] 20mg Take 1 [facility] 20 mg 2-03 tablet by [facility] of tablet 00:00: mouth 4 [place] 00 (four) Medical times Branch daily as needed for Abdominal pain. ondansetron 2020- Yes [id number] 4mg Take 1 [facility] (ZOFRAN 2-03 tablet [...] Indication s: acute pain dicyclomine 2019- Yes [id number] 20mg Take 1 [facility] 20 mg 2-03 tablet by [facility] of tablet 00:00: mouth 4 [place] 00 (four) Medical times Branch daily as needed for Abdominal pain. ondansetron 2019- Yes [id number] 4mg Take 1 [facility] (ZOFRAN 2-03 tablet [...] Indication s: acute pain dicyclomine 2019- Yes [id number] 20mg Take 1 [facility] 20 mg 2-03 tablet by [facility] of tablet 00:00: mouth 4 [place] 00 (four) Medical times Branch daily as needed for Abdominal pain. ondansetron 2019- Yes [id number] 4mg Take 1 [facility] (ZOFRAN 2-03 tablet [...] Indication s: acute pain dicyclomine 2019- Yes [id number] 20mg Take 1 [facility] 20 mg 2-03 tablet by [facility] of tablet 00:00: mouth 4 [place] 00 (four) Medical times Branch daily as needed for Abdominal pain. ondansetron 2019- Yes [id number] 4mg Take 1 [facility] (ZOFRAN 2-03 tablet [...] Indication s: acute pain dicyclomine 2019- Yes [id number] 20mg Take 1 [facility] 20 mg 2-03 tablet by [facility] of tablet 00:00: mouth 4 [place] 00 (four) Medical times Branch daily as needed for Abdominal pain. ondansetron 2019- Yes [id number] 4mg Take 1 [facility] (ZOFRAN 2-03 tablet [...] Indication s: acute pain dicyclomine 2019- Yes [id number] 20mg Take 1 [facility] 20 mg 2-03 tablet by [facility] of tablet 00:00: mouth 4 [place] 00 (four) Medical times Branch daily as needed for Abdominal pain. ondansetron 2019- Yes [id number] 4mg Take 1 [facility] (ZOFRAN 2-03 tablet [...] Indication s: acute pain dicyclomine 2020- Yes [id number] 20mg Take 1 [facility] 20 mg 2-03 [...] Indication s: acute pain dicyclomine 2019- Yes [id number] 20mg Take 1 [facility] 20 mg 2-03 [...] Indication s: acute pain dicyclomine 2019- Yes [id number] 20mg Take 1 [facility] 20 mg 2-03 [...] Indication s: acute pain dicyclomine 2019- Yes [id number] 20mg Take 1 [facility] 20 mg 2-03 [...] Indication s: acute pain dicyclomine 2019- Yes [id number] 20mg Take 1 [facility] 20 mg 2-03 [...] Indication s: acute pain dicyclomine 2020- Yes [id number] 20mg Take 1 [facility] 20 mg 2-03 [...] Indication s: acute pain dicyclomine 2019- Yes [id number] 20mg Take 1 [facility] 20 mg 2-03 [...] Indication s: acute pain dicyclomine 2019- Yes [id number] 20mg Take 1 [facility] 20 mg 2-03 [...] Indication s: acute pain dicyclomine 2019- Yes [id number] 20mg Take 1 [facility] 20 mg 2-03 [...] Indication s: acute pain dicyclomine 2019- Yes [id number] 20mg Take 1 [facility] 20 mg 2-03 [...] Indication s: acute pain dicyclomine 2020- Yes [id number] 20mg Take 1 [facility] 20 mg 2-03 [...] Indication s: acute pain dicyclomine 2019- Yes [id number] 20mg Take 1 [facility] 20 mg 2-03 [...] Indication s: acute pain dicyclomine 2019- Yes [id number] 20mg Take 1 [facility] 20 mg 2-03 [...] Indication s: acute pain dicyclomine 2019- Yes [id number] 20mg Take 1 [facility] 20 mg 2-03 [...] Indication s: acute pain dicyclomine 2019- Yes [id number] 20mg Take 1 [facility] 20 mg 2-03 [...] 4-6). Indication s: acute pain dicyclomine 2019-10 No [id number] 20mg Take 1 [facility] 20 mg 2- 05-19 tablet by [facility] of tablet 00:00: [...] Indication s: acute pain dicyclomine 2019-10- No [id number] 20mg Take 1 [facility] 20 mg 2-03 [...] Indication s: acute pain dicyclomine 2019-10- No [id number] 20mg Take 1 [facility] 20 mg 2-03 [...] Indication s: acute pain ondansetron 2019-10- No [id number] 4mg Take 1 [facility] (ZOFRAN 2-10-25 tablet by [facility] of ODT) 4 mg 00:00: 00:00 mouth [place] dis[facility]at 00 :00 every 8 Medic al ing tablet (eight) Branch hours as needed for Nausea and Vomiting (N/V). ondansetron 2019-10- No [id number] 4mg Take 1 [facility] (ZOFRAN 11-24 tablet by [facility] of ODT) 4 mg 00:00: 00:00 mouth [place] disintegrat 00 :00 every 8 Medic al ing tablet (eight) Branch hours as needed for Nausea and Vomiting (N/V). -SPRINTE Yes Encounter TAKE ONE [facility] C 9-25 for other TABLET BY ity o f 0.18/0.215/ 00:00: contracepti MOUTH ONCE [place] 0.25 mg-35 00 ve DAILY Medical mcg (28) management Branc h per tablet -SPRINTE Yes [id number] TAKE ONE [facility] C 9-25 TABLET BY [facility] of 0.18/0.215/ 00:00: MOUTH ONCE [place] 0.25 mg-35 00 DAILY Medical mcg (28) Branch per tablet TRI-SPRINTE Yes [id number] TAKE ONE [facility] C 9-25 TABLET BY [facility] of 0.18/0.215/ 00:00: MOUTH ONCE [place] 0.25 mg-35 00 DAILY Medical mcg (28) Branch per tablet TRI-SPRINTE Yes [id number] TAKE ONE [facility] C 9-25 TABLET BY [facility] of 0.18/0.215/ 00:00: MOUTH ONCE [place] 0.25 mg-35 00 DAILY Medical mcg (28) Branch per tablet TRI-SPRINTE Yes [id number] TAKE ONE [facility] C 9-25 TABLET BY [facility] of 0.18/0.215/ 00:00: MOUTH ONCE [place] 0.25 mg-35 00 DAILY Medical mcg (28) Branch per tablet -INTE Yes [id number] TAKE ONE [facility] C 9-25 TABLET BY [facility] of 0.18/0.215/ 00:00: MOUTH ONCE [place] 0.25 mg-35 00 DAILY Medical mcg (28) Branch per tablet -INTE Yes [id number] TAKE ONE [facility] C 9-25 TABLET BY [facility] of 0.18/0.215/ 00:00: MOUTH ONCE [place] 0.25 mg-35 00 DAILY Medical mcg (28) Branch per tablet -INTE Yes [id number] TAKE ONE [facility] C 9-25 TABLET BY [facility]y of 0.18/0.215/ 00:00: MOUTH ONCE [place] 0.25 mg-35 00 DAILY Medical mcg (28) Branch per tablet -INTE Yes [id number] TAKE ONE [facility] C 9-25 TABLET BY [facility]y of 0.18/0.215/ 00:00: MOUTH ONCE [place] 0.25 mg-35 00 DAILY Medical mcg (28) Branch per tablet -INTE Yes [id number] TAKE ONE [facility] C 9-25 TABLET BY [facility] of 0.18/0.215/ 00:00: MOUTH ONCE [place] 0.25 mg-35 00 DAILY Medical mcg (28) Branch per tablet -INTE Yes [id number] TAKE ONE [facility] C 9-25 TABLET BY [facility]y of 0.18/0.215/ 00:00: MOUTH ONCE [place] 0.25 mg-35 00 DAILY Medical mcg (28) Branch per tablet -INTE Yes [id number] TAKE ONE [facility] C 9-25 TABLET BY [facility]y of 0.18/0.215/ 00:00: MOUTH ONCE [place] 0.25 mg-35 00 DAILY Medical mcg (28) Branch per tablet TRI-INTE Yes [id number] TAKE ONE [facility] C 9-25 TABLET BY [facility]y of 0.18/0.215/ 00:00: MOUTH ONCE [place] 0.25 mg-35 00 DAILY Medical mcg (28) Branch per tablet -INTE Yes [id number] TAKE ONE [facility] C 9-25 TABLET BY ity of 0.18/0.215/ 00:00: MOUTH ONCE [place] 0.25 mg-35 00 DAILY Medical mcg (28) Branch per tablet -SPRINTE Yes [id number] TAKE ONE [facility] C 9-25 TABLET BY [facility]y of 0.18/0.215/ 00:00: MOUTH ONCE [place] 0.25 mg-35 00 DAILY Medical mcg (28) Branch per tablet -INTE Yes TAKE ONE [facility] C 9-25 TABLET BY [facility]y of 0.18/0.215/ 00:00: MOUTH ONCE [place] 0.25 mg-35 00 DAILY Medical mcg (28) Branch per tablet -INTE Yes [id number] TAKE ONE [facility] C 9-25 TABLET BY ity of 0.18/0.215/ 00:00: MOUTH ONCE [place] 0.25 mg-35 00 DAILY Medical mcg (28) Branch per tablet -INTE Yes [id number] TAKE ONE [facility] C 9-25 TABLET BY ity of 0.18/0.215/ 00:00: MOUTH ONCE [place] 0.25 mg-35 00 DAILY Medical mcg (28) Branch per tablet -INTE Yes [id number] TAKE ONE [facility] C 9-25 TABLET BY [facility]y of 0.18/0.215/ 00:00: MOUTH ONCE [place] 0.25 mg-35 00 DAILY Medical mcg (28) Branch per tablet -INTE Yes [id number] TAKE ONE [facility] C 9-25 TABLET BY [facility]y of 0.18/0.215/ 00:00: MOUTH ONCE [place] 0.25 mg-35 00 DAILY Medical mcg (28) Branch per tablet -INTE Yes [id number] TAKE ONE [facility] C 9-25 TABLET BY ity of 0.18/0.215/ 00:00: MOUTH ONCE [place] 0.25 mg-35 00 DAILY Medical mcg (28) Branch per tablet TRI-SPRINTE Yes TAKE ONE [facility] C 9-25 TABLET BY ity of 0.18/0.215/ 00:00: MOUTH ONCE [place] 0.25 mg-35 00 DAILY Medical mcg (28) Branch per tablet -INTE Yes [id number] TAKE ONE [facility] C 9-25 TABLET BY [facility] of 0.18/0.215/ 00:00: MOUTH ONCE [place] 0.25 mg-35 00 DAILY Medical mcg (28) Branch per tablet -SPRINTE Yes [id number] TAKE ONE [facility] C 9-25 TABLET BY [facility]y of 0.18/0.215/ 00:00: MOUTH ONCE [place] 0.25 mg-35 00 DAILY Medical mcg (28) Branch per tablet -INTE Yes [id number] TAKE ONE [facility] C 9-25 TABLET BY [facility]y of 0.18/0.215/ 00:00: MOUTH ONCE [place] 0.25 mg-35 00 DAILY Medical mcg (28) Branch per tablet -INTE Yes [id number] TAKE ONE [facility] C 9-25 TABLET BY [facility]y of 0.18/0.215/ 00:00: MOUTH ONCE [place] 0.25 mg-35 00 DAILY Medical mcg (28) Branch per tablet TRI-INTE Yes [id number] TAKE ONE [facility] C 9-25 TABLET BY [facility]y of 0.18/0.215/ 00:00: MOUTH ONCE [place] 0.25 mg-35 00 DAILY Medical mcg (28) Branch per tablet -INTE Yes [id number] TAKE ONE [facility] C 9-25 TABLET BY [facility] of 0.18/0.215/ 00:00: MOUTH ONCE [place] 0.25 mg-35 00 DAILY Medical mcg (28) Branch per tablet -INTE Yes [id number] TAKE ONE [facility] C 9-25 TABLET BY [facility]y of 0.18/0.215/ 00:00: MOUTH ONCE [place] 0.25 mg-35 00 DAILY Medical mcg (28) Branch per tablet -INTE Yes [id number] TAKE ONE [facility] C 9-25 TABLET BY [facility]y of 0.18/0.215/ 00:00: MOUTH ONCE [place] 0.25 mg-35 00 DAILY Medical mcg (28) Branch per tablet TRI-SPRINTE Yes [id number] TAKE ONE [facility] C 9-25 TABLET BY [facility]y of 0.18/0.215/ 00:00: MOUTH ONCE [place] 0.25 mg-35 00 DAILY Medical mcg (28) Branch per tablet -INTE Yes [id number] TAKE ONE [facility] C 9-25 TABLET BY [facility]y of 0.18/0.215/ 00:00: MOUTH ONCE [place] 0.25 mg-35 00 DAILY Medical mcg (28) Branch per tablet -SPRINTE Yes [id number] TAKE ONE [facility] C 9-25 TABLET BY [facility]y of 0.18/0.215/ 00:00: MOUTH ONCE [place] 0.25 mg-35 00 DAILY Medical mcg (28) Branch per tablet -INTE Yes [id number] TAKE ONE [facility] C 9-25 TABLET BY [facility]y of 0.18/0.215/ 00:00: MOUTH ONCE [place] 0.25 mg-35 00 DAILY Medical mcg (28) Branch per tablet -INTE Yes [id number] TAKE ONE [facility] C 9-25 TABLET BY [facility]y of 0.18/0.215/ 00:00: MOUTH ONCE [place] 0.25 mg-35 00 DAILY Medical mcg (28) Branch per tablet -INTE Yes [id number] TAKE ONE [facility] C 9-25 TABLET BY [facility]y of 0.18/0.215/ 00:00: MOUTH ONCE [place] 0.25 mg-35 00 DAILY Medical mcg (28) Branch per tablet -INTE Yes [id number] TAKE ONE [facility] C 9-25 TABLET BY [facility]y of 0.18/0.215/ 00:00: MOUTH ONCE [place] 0.25 mg-35 00 DAILY Medical mcg (28) Branch per tablet -INTE Yes [id number] TAKE ONE [facility] C 9-25 TABLET BY [facility]y of 0.18/0.215/ 00:00: MOUTH ONCE [place] 0.25 mg-35 00 DAILY Medical mcg (28) Branch per tablet -INTE Yes [id number] TAKE ONE [facility] C 9-25 TABLET BY [facility]y of 0.18/0.215/ 00:00: MOUTH ONCE [place] 0.25 mg-35 00 DAILY Medical mcg (28) Branch per tablet TRI-SPRINTE Yes [id number] TAKE ONE [facility] C 9-25 TABLET BY [facility]y of 0.18/0.215/ 00:00: MOUTH ONCE [place] 0.25 mg-35 00 DAILY Medical mcg (28) Branch per tablet -INTE Yes [id number] TAKE ONE [facility] C 9-25 TABLET BY [facility]y of 0.18/0.215/ 00:00: MOUTH ONCE [place] 0.25 mg-35 00 DAILY Medical mcg (28) Branch per tablet TRI-SPRINTE Yes [id number] TAKE ONE [facility] C 9-25 TABLET BY [facility]y of 0.18/0.215/ 00:00: MOUTH ONCE [place] 0.25 mg-35 00 DAILY Medical mcg (28) Branch per tablet TRI-SPRINTE Yes [id number] TAKE ONE [facility] C 9-25 TABLET BY [facility]y of 0.18/0.215/ 00:00: MOUTH ONCE [place] 0.25 mg-35 00 DAILY Medical mcg (28) Branch per tablet TRI-SPRINTE Yes [id number] TAKE ONE [facility] C 9-25 TABLET BY [facility]y of 0.18/0.215/ 00:00: MOUTH ONCE [place] 0.25 mg-35 00 DAILY Medical mcg (28) Branch per tablet TRI-SPRINTE Yes [id number] TAKE ONE [facility] C 9-25 TABLET BY [facility]y of 0.18/0.215/ 00:00: MOUTH ONCE [place] 0.25 mg-35 00 DAILY Medical mcg (28) Branch per tablet metroNIDAZO 2016-10 Yes BV 500mg Take 1 [facility] vers LE 500 mg 0-03 (bacterial tablet by ity of tablet 00:00: vaginosis) mouth 2 [place] 00 (two) Medical times Branch daily. metroNIDAZO 2016-10 Yes [id number] 500mg Take 1 [facility] LE 500 mg 0-03 tablet by ity o f tablet 00:00: mouth 2 [place] 00 (two) Medical times Branch daily. metroNIDAZO 2016-10 Yes [id number] 500mg Take 1 [facility] LE 500 mg 0-03 tablet by ity o f tablet 00:00: mouth 2 [place] 00 (two) Medical times Branch daily. metroNIDAZO 2016-10 Yes [id number] 500mg Take 1 [facility] LE 500 mg 0-03 tablet by ity o f tablet 00:00: mouth 2 [place] 00 (two) Medical times Branch daily. metroNIDAZO 2016-10 Yes [id number] 500mg Take 1 [facility] LE 500 mg 0-03 tablet by ity o f tablet 00:00: mouth 2 [place] 00 (two) Medical times Branch daily. metroNIDAZO 2016-10 Yes [id number] 500mg Take 1 [facility] LE 500 mg 0-03 tablet by ity o f tablet 00:00: mouth 2 (two) Medical times Branch daily. metroNIDAZO 2016-10 Yes [id number] 500mg Take 1 [facility] 500 mg 0-03 tablet by ity o f tablet 00:00: mouth 2 (two) Medical times Branch daily. metroNIDAZO 2016-10 Yes [id number] 500mg Take 1 [facility] LE 500 mg 0-03 tablet by ity o f tablet 00:00: mouth (two) Medical times Branch daily. metroNIDAZO 2016-10 Yes [id number] 500mg Take 1 [facility] 500 mg 0-03 tablet by ity o f tablet 00:00: mouth (two) Medical times Branch daily. metroNIDAZO 2016-10 Yes [id number] 500mg Take 1 [facility] 500 mg 0-03 tablet by [facility]y o f tablet 00:00: mouth (two) Medical times Branch daily. metroNIDAZO 2016-10 Yes [id number] 500mg Take 1 [facility] 500 mg 0-03 tablet by ity o f tablet 00:00: mouth (two) Medical times Branch daily. metroNIDAZO 2016-10 Yes [id number] 500mg Take 1 [facility] 500 mg 0-03 tablet by ity o f tablet 00:00: mouth (two) Medical times Branch daily. metroNIDAZO 2016-10 Yes [id number] 500mg Take 1 [facility] 500 mg 0-03 tablet by ity o f tablet 00:00: mouth (two) Medical times Branch daily. metroNIDAZO 2016-10 Yes [id number] 500mg Take 1 [facility] 500 mg 0-03 tablet by ity o f tablet 00:00: mouth (two) Medical times Branch daily. metroNIDAZO 2016-10 Yes [id number] 500mg Take 1 [facility] 500 mg 0-03 tablet by ity o f tablet 00:00: mouth (two) Medical times Branch daily. metroNIDAZO 2016-10 Yes [id number] 500mg Take 1 [facility] 500 mg 0-03 tablet by ity o f tablet 00:00: mouth 2 (two) Medical times Branch daily. metroNIDAZO 2016-10 Yes [id number] 500mg Take 1 [facility] 500 mg 0-03 tablet by ity o f tablet 00:00: mouth 2 (two) Medical times Branch daily. metroNIDAZO 2016-10 Yes [id number] 500mg Take 1 [facility] 500 mg 0-03 tablet by ity o f tablet 00:00: mouth 2 (two) Medical times Branch daily. metroNIDAZO 2016-10 Yes [id number] 500mg Take 1 [facility] 500 mg 0-03 tablet by ity o f tablet 00:00: mouth 2 (two) Medical times Branch daily. metroNIDAZO 2016-10 Yes [id number] 500mg Take 1 [facility] 500 mg 0-03 tablet by ity o f tablet 00:00: mouth (two) Medical times Branch daily. metroNIDAZO 2016-10 Yes [id number] 500mg Take 1 [facility] 500 mg 0-03 tablet by ity o f tablet 00:00: mouth (two) Medical times Branch daily. metroNIDAZO 2016-10 Yes [id number] 500mg Take 1 [facility] 500 mg 0-03 tablet by ity o f tablet 00:00: mouth (two) Medical times Branch daily. metroNIDAZO 2016-10 Yes [id number] 500mg Take 1 [facility] 500 mg 0-03 tablet by ity o f tablet 00:00: mouth (two) Medical times Branch daily. metroNIDAZO 2016-10 Yes [id number] 500mg Take 1 [facility] 500 mg 0-03 tablet by ity o f tablet 00:00: mouth (two) Medical times Branch daily. metroNIDAZO 2016-10 Yes [id number] 500mg Take 1 [facility] 500 mg 0-03 tablet by ity o f tablet 00:00: mouth (two) Medical times Branch daily. metroNIDAZO 2016-10 Yes [id number] 500mg Take 1 [facility] 500 mg 0-03 tablet by ity o f tablet 00:00: mouth (two) Medical times Branch daily. metroNIDAZO 2016-10 Yes [id number] 500mg Take 1 [facility] 500 mg 0-03 tablet by ity o f tablet 00:00: mouth (two) Medical times Branch daily. metroNIDAZO 2016-10 Yes [id number] 500mg Take 1 [facility] 500 mg 0-03 tablet by ity o f tablet 00:00: mouth 2 [place] 00 (two) Medical times Branch daily. metroNIDAZO 2016-10 Yes [id number] 500mg Take 1 [facility] 500 mg 0-03 tablet by ity o f tablet 00:00: mouth 2 [place] 00 (two) Medical times Branch daily. metroNIDAZO 2016-10- No [id number] 500mg Take 1 [facility] 500 mg 0-03 05-19 tablet by [facility] of tablet 00:00: 00:00 mouth 2 [place] 00 :00 (two) Medical times Branch daily. metroNIDAZO 2016-10- No [id number] 500mg Take 1 [facility] 500 mg 0-03 05-19 tablet by [facility] of tablet 00:00: 00:00 mouth 2 [place] 00 :00 (two) Medical times Branch daily. metroNIDAZO 2016-10- No [id number] 500mg Take 1 [facility] 500 mg 0-03 05-19 tablet by [facility] of tablet 00:00: 00:00 mouth 2 [place] 00 :00 (two) Medical times Branch daily. Immunizations Ordered Filled Immunization Date Status Comments [facility] e Immunization Name Name TD 2017-07-24 Completed University of 00:00:00 [facility] TDAP 2017-07-24 Completed University of 00:00:00 [facility] TDAP 2017-07-24 Completed University of 00:00:00 [facility] TDAP 2017-07-24 Completed University of 00:00:00 [facility] TDAP 2017-07-24 Completed University of 00:00:00 [facility] TDAP 2017-07-24 Completed University of 00:00:00 [facility] TDAP 2017-07-24 Completed University of 00:00:00 [facility] TDAP 2017-07-24 Completed University of 00:00:00 [facility] TDAP 2017-07-24 Completed University of 00:00:00 [facility] TDAP 2017-07-24 Completed University of 00:00:00 [facility] TDAP 2017-07-24 Completed University of 00:00:00 [facility] TDAP 2017-07-24 Completed University of 00:00:00 [facility] TDAP 2017-07-24 Completed University of 00:00:00 [facility] TDAP 2017-07-24 Completed University of 00:00:00 [facility] TDAP 2017-07-24 Completed University of 00:00:00 [facility] TDAP 2017-07-24 Completed University of 00:00:00 [facility] TDAP 2017-07-24 Completed University of 00:00:00 [facility] TDAP 2017-07-24 Completed University of 00:00:00 [facility] TDAP 2017-07-24 Completed University of 00:00:00 [facility] TDAP 2017-07-24 Completed University of 00:00:00 [facility] TDAP 2017-07-24 Completed University of 00:00:00 [facility] TDAP 2017-07-24 Completed University of 00:00:00 [facility] TDAP 2017-07-24 Completed University of 00:00:00 [facility] TDAP 2017-07-24 Completed University of 00:00:00 [facility] TDAP 2017-07-24 Completed University of 00:00:00 [facility] TDAP 2017-07-24 Completed University of 00:00:00 [facility] TDAP 2017-07-24 Completed University of 00:00:00 [facility] TDAP 2017-07-24 Completed University of 00:00:00 [facility] TDAP 2017-07-24 Completed University of 00:00:00 [facility] TDAP 2017-07-24 Completed University of 00:00:00 [facility] TDAP 2017-07-24 Completed University of 00:00:00 [facility] TDAP 2017-07-24 Completed University of 00:00:00 [facility] TDAP 2017-07-24 Completed University of 00:00:00 [facility] TDAP 2017-07-24 Completed University of 00:00:00 [facility] TDAP 2017-07-24 Completed University of 00:00:00 [facility] TDAP 2017-07-24 Completed University of 00:00:00 [facility] TDAP 2017-07-24 Completed University of 00:00:00 [facility] TDAP 2017-07-24 Completed University of 00:00:00 [facility] TDAP 2017-07-24 Completed University of 00:00:00 [facility] TDAP 2017-07-24 Completed University of 00:00:00 [facility] TDAP 2017-07-24 Completed University of 00:00:00 [facility] TDAP 2017-07-24 Completed University of 00:00:00 [place] [facility] TDAP 2017-07-24 Completed University of 00:00:00 [place] [facility] TDAP 2017-07-24 Completed University of 00:00:00 [facility] TDAP 2017-07-24 Completed University of 00:00:00 [facility] Vital Signs Vital Name Observation Time Observation Value Comments Source Systolic blood 2021-05-13 19:17:00 141 mm[Hg] Univer sity of pressure [place] [facility] Diastolic blood 2021-05-13 19:17:00 93 mm[Hg] Unive rsity of pressure [place] [facility] Heart rate 2021-05-13 19:17:00 93 /min Universi ty of [place] [facility] Body temperature 2021-05-13 19:17:00 36.94 Radha Univ ersity of [place] [facility] Respiratory rate 2021-05-13 19:17:00 18 /min Univ ersity [facility] [place] [facility] Body height 2021-05-13 19:17:00 167.6 cm Universi ty [facility] [place] [facility] Body weight 2021-05-13 19:17:00 128.822 kg Universi [facility] [place] [facility] BMI 2021-05-13 19:17:00 45.84 kg/m2 Universi ty [facility] [place] [facility] Oxygen saturation in 2021-05-13 19:17:00 98 /min University of Arterial blood by [employer]xim[employer] Branch Systolic blood 2021-05-12 15:28:00 152 mm[Hg] Univer sity of pressure [place] [facility] Diastolic blood 2021-05-12 15:28:00 96 mm[Hg] Unive rsity of pressure [place] [facility] Heart rate 2021-05-12 15:28:00 89 /min Universi ty [facility] [place] [facility] Respiratory rate 2021-05-12 15:28:00 18 /min Univ ersity of [place] [facility] Body height 2021-05-12 15:28:00 167.6 cm Universi ty [facility] [place] [facility] Body weight 2021-05-12 15:28:00 129.184 kg [facility] [place] [facility] BMI 2021-05-12 15:28:00 45.97 kg/m2 Universi [facility] [place] [facility] Oxygen saturation in 2021-05-12 15:28:00 98 /min University of Arterial blood by [employer] Branch Systolic blood 2021-05-12 15:28:00 152 mm[Hg] Univer sity of pressure [place] [facility] Diastolic blood 2021-05-12 15:28:00 96 mm[Hg] Unive rsity of pressure [place] [facility] Heart rate 2021-05-12 15:28:00 89 /min Universi ty [facility] [place] [facility] Respiratory rate 2021-05-12 15:28:00 18 /min Univ ersity of [place] [facility] Body height 2021-05-12 15:28:00 167.6 cm [facility]i [facility] [place] [facility] Body weight 2021-05-12 15:28:00 129.184 kg [facility]i [facility] [place] [facility] BMI 2021-05-12 15:28:00 45.97 kg/m2 Universi ty [facility] [place] [facility] Oxygen saturation in 2021-05-12 15:28:00 98 /min University of Arterial blood by [facility] janae Pulse oximetry Branch Systolic blood 2021-04-12 16:27:00 141 mm[Hg] Univer sity of pressure [place] [facility] Diastolic blood 2021-04-12 16:27:00 92 mm[Hg] Unive rsity of pressure [place] [facility] Heart rate 2021-04-12 16:24:00 83 /min [facility]i ty [facility] [place] [facility] Body temperature 2021-04-12 16:24:00 36.83 Radha Univ [facility] [place] [facility] Respiratory rate 2021-04-12 16:24:00 18 /min Univ ers[facility] [place] [facility] Body height 2021-04-12 16:24:00 167.6 cm [facility]i [facility] [place] [facility] Body weight 2021-04-12 16:24:00 128.822 kg [facility] [place] [facility] BMI 2021-04-12 16:24:00 45.84 kg/m2 [facility] [place] [facility] Oxygen saturation in 2021-04-12 16:24:00 100 /min University of Arterial blood by [place] [facility] P[facility]xim[facility] Branch Systolic blood 2021-04-05 16:46:00 149 mm[Hg] Univer sity of pressure [place] [facility] Diastolic blood 2021-04-05 16:46:00 87 mm[Hg] Unive rsity of pressure [place] [facility] Heart rate 2021-04-05 16:46:00 81 /min [facility]i ty [facility] [place] [facility] Body temperature 2021-04-05 16:46:00 36.39 Radha Univ [facility] [place] [facility] Body weight 2021-04-05 16:46:00 128.867 kg [facility]i [facility] [place] [facility] BMI 2021-04-05 16:46:00 45.85 kg/m2 [facility] [place] [facility] Oxygen saturation in 2021-04-05 16:46:00 98 /min University of Arterial blood by [place] [employer] janae Pulse oximetry Branch Systolic blood 2021-03-09 20:51:00 144 mm[Hg] Univer sity of pressure [place] [facility] Diastolic blood 2021-03-09 20:51:00 92 mm[Hg] Unive rsity of pressure [place] [facility] Heart rate 2021-03-09 19:28:00 74 /min Universi ty [facility] [place] [facility] Body temperature 2021-03-09 19:26:00 36.39 Radha Univ [facility] [place] [facility] Respiratory rate 2021-03-09 19:26:00 16 /min Univ ers[facility] [place] [facility] Body height 2021-03-09 19:26:00 167.6 cm [facility]i [facility] [place] [facility] Body weight 2021-03-09 19:26:00 126.554 kg [facility] [place] [facility] BMI 2021-03-09 19:26:00 45.03 kg/m2 [facility] [place] [facility] Systolic blood 2021-03-01 16:42:00 154 mm[Hg] Univer sity of pressure [place] [facility] Diastolic blood 2021-03-01 16:42:00 107 mm[Hg] Unive rsity of pressure [place] [facility] Heart rate 2021-03-01 16:42:00 80 /min [facility]i ty [facility] [place] [facility] Respiratory rate 2021-03-01 16:42:00 16 /min Univ ers[facility] [place] [facility] Body height 2021-03-01 16:42:00 167.6 cm [facility]i [facility] [place] [facility] Oxygen saturation in 2021-03-01 16:42:00 99 /min University of Arterial blood by [place] [employer] janae Pulse oximetry Branch Systolic blood 2020-10-25 14:44:00 134 mm[Hg] Univer sity of pressure [place] [facility] Diastolic blood 2020-10-25 14:44:00 83 mm[Hg] Unive rsity of pressure [place] [facility] [place] Heart rate 2020-10-25 14:44:00 81 /min Universi ty of [facility] Body temperature 2020-10-25 14:43:00 36.28 Radha Univ ersity of [facility] Branch Respiratory rate 2020-10-25 14:43:00 18 /min Univ ersity of [facility] Body height 2020-10-25 14:43:00 167.6 cm Universi ty of [facility] Body weight 2020-10-25 14:43:00 127.37 kg [facility]i [facility] [place] [facility] BMI 2020-10-25 14:43:00 45.32 kg/m2 Universi ty of [facility] Systolic blood 2020-10-08 15:30:00 110 mm[Hg] Univer sity of pressure [place] [facility] Diastolic blood 2020-10-08 15:30:00 74 mm[Hg] Unive rsity of pressure [facility] Heart rate 2020-10-08 15:30:00 73 /min Universi ty of [facility] Body temperature 2020-10-08 15:30:00 36.28 Radha Univ ersity of [facility] Branch Respiratory rate 2020-10-08 15:30:00 26 /min Univ ersity of [facility] Oxygen saturation in 2020-10-08 15:30:00 94 /min University Arterial blood by [facility] Pulse oximetry Branch Body height 2020-10-07 18:00:00 167.6 cm Universi ty [facility] [place] [facility] [place] Body weight 2020-10-07 18:00:00 127.007 kg [facility]i ty [facility] [place] [facility] [place] BMI 2020-10-07 18:00:00 45.19 kg/m2 Universi ty of [facility] Systolic blood 2020-10-04 15:26:00 115 mm[Hg] Univer sity of pressure [facility] Diastolic blood 2020-10-04 15:26:00 79 mm[Hg] Unive rsity of pressure [facility] Heart rate 2020-10-04 15:26:00 74 /min Universi ty of [facility] Body temperature 2020-10-04 15:26:00 36.5 Radha Univ ersity of [facility] Respiratory rate 2020-10-04 15:26:00 20 /min Univ ersity of [facility] Body height 2020-10-04 15:26:00 167.6 cm [facility]i ty [facility] [place] [facility] [place] Body weight 2020-10-04 15:26:00 127.098 kg [facility] [place] [facility] BMI 2020-10-04 15:26:00 45.23 kg/m2 [facility] [place] [facility] Systolic blood 2020-09-30 01:00:00 137 mm[Hg] Univer sity of pressure [facility] Diastolic blood 2020-09-30 01:00:00 96 mm[Hg] Unive rsity of pressure [place] [facility] Heart rate 2020-09-30 01:00:00 73 /min [facility] [place] [facility] Respiratory rate 2020-09-30 01:00:00 14 /min Univ ersity of [facility] Oxygen saturation in 2020-09-30 01:00:00 98 /min [facility] Arterial blood by [facility] Pulse oximetry Branch Body temperature 2020-09-29 23:25:00 37.44 Radha Univ ersity of [facility] Body height 2020-09-29 23:25:00 167.6 cm [facility] ty [facility] [place] [facility] [place] Body weight 2020-09-29 23:25:00 127.007 kg [facility] [place] [facility] BMI 2020-09-29 23:25:00 45.19 kg/m2 Universi ty of [facility] Systolic blood 2020-09-28 21:34:00 148 mm[Hg] Univer sity of pressure [place] [facility] Diastolic blood 2020-09-28 21:34:00 101 mm[Hg] Unive rsity of pressure [facility] Heart rate 2020-09-28 21:33:00 80 /min Universi ty of [facility] Body temperature 2020-09-28 21:33:00 36.39 Radha Univ [facility] [place] [facility] Respiratory rate 2020-09-28 21:33:00 18 /min Univ ersity of [facility] Body height 2020-09-28 21:33:00 167.6 cm Universi ty [facility] [place] [facility] [place] Body weight 2020-09-28 21:33:00 128.096 kg [facility] [place] [facility] BMI 2020-09-28 21:33:00 45.58 kg/m2 Universi ty of [facility] Respiratory rate 2020-09-24 02:00:00 20 /min Univ ersity of [facility] Branch Oxygen saturation in 2020-09-24 02:00:00 98 /min [facility] Arterial blood by [facility] Pulse oximetry Branch Systolic blood 2020-09-24 01:55:00 154 mm[Hg] Univer sity of pressure [facility] Diastolic blood 2020-09-24 01:55:00 106 mm[Hg] Unive rsity of pressure [facility] Heart rate 2020-09-24 01:55:00 79 /min [facility] Body temperature 2020-09-24 00:42:00 36.78 Radha [facility] Body height 2020-09-24 00:42:00 167.6 cm [facility] Body weight 2020-09-24 00:42:00 127.007 kg [facility] BMI 2020-09-24 00:42:00 45.19 kg/m2 [facility] Procedures Procedure Date / Time Performing Clinician Source Performed EXTERNAL PROVIDER 2021-03-14 05:01:00 Doctor Unassigned, No [facility] [place] RECORDS Name Medical Branch GC & CHLAMYDIA AMPLIFIED 2021-03-09 20:50:00 [facility] HIV 1/2 AG-AB WITH 2021-03-09 20:50:00 [facility] TRICHOMONAS AMPLIFIED 2021-03-09 20:50:00 [facility] 2021-03-09 20:50:00 [facility] BASED-CP Medical Branch GALV ONLY - SYPHILIS 2021-03-09 20:50:00 [facility] IGG[facility]IGM [facility] POCT TEST 2021-03-09 19:31:00 [facility] EXTERNAL PROVIDER 2021-03-03 05:01:00 Doctor Unassigned, No [facility] [place] RECORDS Name Medical Branch REFERRAL- 2021-02-22 05:01:00 Doctor Unassigned, No [facility] [place] REQUEST/RESPONSE Name Medical Branch REFERRAL- 2021-02-22 05:01:00 Doctor Unassigned, No [facility] [place] REQUEST/RESPONSE Name Medical Branch EGD (ENDO) 2020-10-08 13:04:22 Alonzo Cooney [facility] COVID-19 (ID NOW RAPID 2020-10-08 12:51:00 Magdiel Nash [facility] TESTING) Medical Branch DAY SURGERY - ADC 2020-10-08 06:01:00 Doctor Unassigned, No [facility] Name Medical Branch NM HEPATOBILIARY W 2020-10-06 17:47:00 Gene [facility] INTERVENTION Medical Branch DISCLOSURE AND CONSENT, 2020-10-04 06:01:00 Doctor Unassigned, N o [facility] MEDICAL AND SURGICAL Name Medical Bra nch PROCEDURES LIPASE 2020-09-30 00:10:00 Ishaan Infante [facility] COMP. METABOLIC PANEL 2020-09-30 00:10:00 Ishaan Infante [facility] ([id number]) Medical Branch CBC WITH DIFF 2020-09-30 00:10:00 Ishaan Infante [facility] [place] COVID-19 (ID NOW RAPID 2020-09-30 00:10:00 Ishaan Infante [facility] TESTING) Medical Branch URINALYSIS 2020-09-29 23:30:00 Arnulfo Pinto [facility] CONSENT/REFUSAL FOR 2020-09-29 23:03:47 Doctor Unassigned, No [facility] [place] DIAGNOSIS AND TREATMENT Name Medical Branch CT ABDOMEN PELVIS W 2020-09-24 01:50:07 Ishaan [facility]ante [facility] CONTRAST Medical Branch LIPASE 2020-09-24 01:12:00 Ishaan Infante [facility] [place] COMP. METABOLIC PANEL 2020-09-24 01:12:00 Ishaan Infante [facility] ([id number]) Medical Branch CBC WITH DIFF 2020-09-24 01:12:00 Ishaan Infante [facility] URINALYSIS 2020-09-24 01:12:00 Ishaan Infante [facility] NOTICE OF PRIVACY 2020-09-24 00:38:52 Doctor Unassigned, No Univ [facility] PRACTICES Name Medical Branch CONSENT/REFUSAL FOR 2020-09-24 00:33:55 Doctor Unassigned, No [facility] [place] DIAGNOSIS AND TREATMENT Name Medical Branch DISCLOSURE AND CONSENT, 2019-10-25 06:01:00 Doctor Unassigned, N o [facility] MEDICAL AND SURGICAL Name Medical Bra [facility] PROCEDURES Plan of Care Planned Activity Planned Date Details Comments Source Future Scheduled 2027-07-24 DTaP,Tdap,and Td Univers [facility] Test 00:00:00 Vaccines (2 - Td) Medical Br anch [code = DTaP,Tdap,and Td Vaccines (2 - Td)] Future Scheduled 2021-10-08 Depression screening [facility] Test 00:00:00 (procedure) [code = Medical Branch [id number]] Future Scheduled 2021-06-22 INFLUENZA VACCINE [facility] 00:00:00 (Season Ended) [code Medical Branch = INFLUENZA VACCINE (Season Ended)] Future Scheduled 2020-07-24 Screening for [facility] Test 00:00:00 malignant neoplasm Medical [place] of cervix (procedure) [code = 975242388] Future Scheduled 2005 Hepatitis C [facility] Test 00:00:00 screening Medical Branch (procedure) [code = [id number]] Future Scheduled 2003 SARS-CoV-2 [facility] Test 00:00:00 (COVID-19) Vaccine Medical [facility] (1) [code = SARS-CoV-2 (COVID-19) Vaccine (1)] Future Scheduled 1988 VARICELLA VACCINES [facility] Test 00:00:00 (1 of 2 - 2-dose Medical [facility] childhood series) [code = VARICELLA VACCINES (1 of 2 - 2-dose childhood series)] Encounters Start End Encounter Admission Attending Care Care Encounter Source Date/Time Date/Time Type Type Clinicians Facility Department ID 2021-08-20 Outpatient R CHATO [facility] SANDY [id number] Univers 18:19:38 [facility] 2021-[facility]-20 Outpatient CHATO [facility] [id number] Univers 11:05:20 LINWOOD [facility] 2021-08-20 Emergency [facility] [id number] [facility] 2021-08-09 2021-08-09 Outpatient R [facility] [id number] Univers 11:00:00 11:00:00 ity of [facility] 2021-07-14 2021-07-14 Outpatient R NILSA [facility] [id number] Univers 10:00:00 10:00:00 MICHELLE ity [facility] 2021-05-18 2021-05-18 Outpatient R GREG RESTREPO [facility] [id number] Univers 10:00:00 10:00:00 BOB ity [facility] 2021-05-17 2021-05-17 Outpatient R [facility] [id number] Univers 09:00:00 09:00:00 ity [facility] 2021-05-14 2021-05-14 Telephone Pcp, CELINA [id number] Univers 00:00:00 00:00:00 Patient TEO [id number] it y of [facility] [id number] [phone] [address] 2021-05-13 2021-05-13 Urgent Lucero Landry [facility] [id number] Univers 13:55:27 14:15:27 Care Warren [facility] [id number] ity of [place] [id number] Dae as Professio [phone] Ri oral muhammad [address] 2021-05-13 2021-05-13 Outpatient R WARREN [facility] [id number] Univers 14:00:00 14:00:00 CELINA cutler [facility] 2021-05-12 2021-05-12 Office Nilsa [facility] [id number] Univers 10:23:38 11:43:11 Visit Michelle SPECIALTY [id number] ity of [facility] [id number] [facility] C[facility] AT [phone] Ri oral VICTORY [address] [place] 2021-05-12 2021-05-12 Office Nilsa [facility] [id number] 10:23:38 11:43:11 Visit Michelle SPECIALTY [id number] Li CARE [id number] CENTER AT [phone] RIZWAN Cardenas [facility] 2021-05-12 2021-05-12 Outpatient R NILSA [facility] [id number] Univers 10:00:00 10:00:00 MICHELLE ity [facility] 2021-05-05 2021-05-05 Telephone Martha [facility] [id number] Univers 00:00:00 00:00:00 David Rico COMPLIANCE MONITOR [id number] ity of [facility] [id number] Dae as MATERNAL [phone] Med ical & CHILD 107 [facility] 2021-04-14 2021-04-14 Telephone Provider, [facility] [id number] Univers 00:00:00 00:00:00 [facility] Urgent Health [id number] ity of Care Surgical [id number] Dae as Specialti [phone] Ri oral es 370 [facility] 2021-04-12 2021-04-12 Outpatient R ARUNA CRUZ [facility] [id number] Univers 14:00:00 14:00:00 ity [facility] 2021-04-12 2021-04-12 Urgent Provider, [facility] [id number] Univers 11:21:11 11:41:11 [facility] [id number] ity [facility] [id number] Dae as Professio [phone] Ri dical nal [address] [address] 2021-04-12 2021-04-12 Outpatient R JESUS [facility] [id number] Univers 11:20:00 11:20:00 [facility] 2021-04-05 2021-04-05 Smokehouse Worker Vt-Lab [facility] [id number] Univers 12:24:12 12:39:12 Visit Rudy Dubon MULTISPEC 350.1.13. 10 ity of [place] [phone] [facility] [address] [facility] 2021-04-05 2021-04-05 Office RodriguezJanuszMiguelina [facility] 1.2.840.114 [id number] Univers 11:40:18 12:28:19 Visit Rudy Dubon MULTISPEC 350.1.13. [address] [facility] [id number] [place] [facility] [phone] [facility] [address] [place] [facility] 2021-04-05 2021-04-05 Outpatient R JAGDISH [facility] [id number] Univers 11:30:00 11:30:00 RUDY cutler [facility] 2021-03-25 2021-03-25 [facility] [id number] Univers 00:00:00 00:00:00 David Rico COMPLIANCE MONITOR 350.1.13.10 ity of [facility] [id number] Dae as MATERNAL [phone] Med ical & CHILD [address] [place] [address] 2021-03-14 2021-03-14 Orders Doctor CELINA 1.2.840.114 [id number] Univers 00:00:00 00:00:00 Only Unassigned, TEO 350.1.13.10 ity of [place]vis [facility] 4.2.7.2.686 Dae as [phone] [address] 2021-03-09 2021-03-09 Office Martha [facility] [id number] Univers 14:16:46 15:52:08 Visit David Rico COMPLIANCE MONITOR 350.1.13.10 ity of [facility] [id number] Dae as MATERNAL [phone] [facility] ical & CHILD [address] [place] [address] 2021-03-09 2021-03-09 Outpatient R MARTHA [facility] [id number] Univers 15:15:00 15:15:00 DAVID cutler o f [facility] 2021-03-09 2021-03-09 Outpatient R CARLI [facility] [id number] Univers 13:30:00 13:30:00 KINGSTON cutler [facility] 2021-03-032021-03-03 Orders Doctor CELINA 1.2.840.114 [id number] Univers 00:00:00 00:00:00 Only Unassigned, TEO 350.1.13.10 ity of [place] [facility] 4.2.7.2.686 Dae as [phone] [facility] 009 Branch 2021-03-01 2021-03-01 Smokehouse Worker Vtc-Lab [facility] 1.2.840.114 [id number] Univers 12:24:01 12:39:01 Visit Rudy Dubon MULTISPEC 350.1.13. 10 it[place] [phone] [facility] [address] [facility] 2021-03-01 2021-03-01 Office Miguelina Rodriguez [facility] [id number] Univers 10:28:54 12:24:36 Visit Rudy DubonPEC 350.1.13. 10 ity of [place] [id number] [facility] [address] [place] [facility] 2021-03-01 2021-03-01 Outpatient R JAGDISH [facility] [id number] Univers 11:30:00 11:30:00 RUDY cutler [facility] 2021-02-22 2021-02-22 Orders Doctor CELINA 1.2.840.114 [id number] Univers 00:00:00 00:00:00 Only UnassignedTEO 350.1.13.10 ity of Avis [facility] 4.2.7.2.686 Dae as [phone] [facility] [address] [place] 2021-02-03 2021-02-03 Outpatient R CHATO [facility] [id number] Univers 13:15:00 13:15:00 LINWOOD cutler [facility] 2021-01-24 2021-01-24 Telephone Chato [facility] 1.2.840.114 [id number] Univers 00:00:00 00:00:00 Linwood Patterson 350.1.13.10 i [place] [phone] Ri dical nal 188 [facility] 2021-01-13 2021-01-13 Laboratory Lab, Adc Fam Pob I [facility] 1.2. 840.114 [id number] Univers 14:23:32 14:43:32 Only Netta Bentley 350.1.13.10 ity of [place] 4.2.7.2.686 Dae as Professio [phone] Ri dical nal [address] [place] Office [facility] 2021-01-13 2021-01-13 [facility] [id number] Univers 14:40:00 14:40:00 NETTA [facility] 2021-01-11 2021-01-11 [facility] 1.2.840.114 [id number] Univers 00:00:00 00:00:00 Outreach Jared HICKMAN 350.1.13.10 i ty of [facility] [place]2.7.2.[place] [phone] Ri dical [address] [place] 2020-11-11 2020-11-11 [facility]phone [facility] 1.2.820.533 [id number] Univers 00:00:00 00:00:00 Anne Marie Patterson 350.1.13.10 ity [place] [phone] Ri dical nal 204 [facility] 2020-10-25 2020-10-25 Office [facility] 1.2.350.516 [id number] Univers 08:32:15 09:31:22 Visit Linwood Patterson 350.1.13.10 i ty [place] [phone] Ri dical nal 188 [facility] 2020-10-25 2020-10-25 Outpatient [facility] [id number] Univers 08:30:00 08:30:00 LINWOOD cutler [facility] 2020-10-25 2020-10-25 Letter [facility] 1.2.694.205 [id number] Univers 00:00:00 00:00:00 (Out) Linwood Patterson 350.1.13.10 i ty [place] [phone] Ri dical nal 188 [facility] 2020-10-25 2020-10-25 [facility] 1.2.840.114 [id number] Univers 00:00:00 00:00:00 Surgery Anne Marie Shields Yesenia 350.1.13.10 ity of [place] [phone] Ri dical nal 204 [facility] 2020-10-08 2020-10-08 [facility] 1.2.840.114 [id number] Univers 07:09:00 09:50:00 Encounter Linwood Patterson 350.1.13.10 ity [place] [phone] [facility] [address] [place] 2020-10-08 2020-10-08 Orders Doctor CELINA 1.2.840.114 [id number] Univers 00:00:00 00:00:00 Only Unassigned, TEO 350.1.13.10 ity of [place] [facility] 4.2.7.2.686 Dae as [phone] [facility] [address] [place] 2020-10-07 2020-10-07 Outpatient R [facility] [id number] Univers 11:00:00 11:00:00 LINWOOD walterbarbie [facility] 2020-10-06 2020-10-06 [facility] 1.2.840.114 [id number] Univers 09:09:35 23:59:00 Encounter Linwood Patterson 350.1.13.10 ity of [place].7.2.[place] [phone] [facility] [address] [place] 2020-10-06 2020-10-06 Outpatient [facility] [id number] Univers 09:30:00 09:30:00 LINWOOD walterbarbie [facility] 2020-10-04 2020-10-04 Office [facility] [id number] Univers 09:08:04 10:04:17 Visit Linwood Patterson 350.1.13.10 i ty [place] [phone] Ri dical nal 188 [facility] 2020-10-04 2020-10-04 Outpatient R [facility] [id number] Univers 09:00:00 09:00:00 LINWOOD itbarbie of [facility] 2020-10-04 2020-10-04 Prep For [facility] 1.2.840.114 [id number] Univers 00:00:00 00:00:00 Surgery Anne Marie Patterson 350.1.13.10 [place] [phone] [facility] 204 [facility] 2020-10-04 2020-10-04 Letter [facility] 1.2.378.694 [id number] Univers 00:00:00 00:00:00 (Out) Linwood Yesenia 350.1.13.10 i ty [place] [phone] Ri dicwy nal 204 [facility] 2020-09-29 2020-09-29 Emergency [facility] 1.2.701.374 [id number] Univers 18:05:00 19:42:00 Ishaan Estrella Alvin 350.1.13.10 i ty [place].2.[place] [phone] [facility] [address] [place] 2020-09-28 2020-09-28 [facility] 1.2.840.114 [id number] Univers 16:52:37 23:59:00 Encounter Linwood Patterson 350.1.13.10 ity of [place].2.[place] [phone] [facility] [address] [place] 2020-09-28 2020-09-28 Office [facility] 1.2.479.130 [id number] Univers 15:22:01 16:36:37 Visit Linwood Yesenia 350.1.13.10 i ty [place].2.[place] [phone] Ri dical nal 188 [facility] 2020-09-28 2020-09-28 Outpatient R CHATO, [facility] [id number] Univers 15:15:00 15:15:00 LINWOOD cutler [facility] 2020-09-23 2020-09-23 Emergency X NARESH [facility] ERT [id number] Univers 18:39:00 21:15:00 ISHAAN itbarbie [facility] 2020-09-23 2020-09-23 Emergency Naresh [facility] 1.2.616.505 [id number] Univers 18:39:00 21:15:00 Ishaan [place]eston 350.1.13.10 i ty of [place] 4.2.7.2.686 [facility] [phone] [address] 2019-10-25 2019-10-25 Orders Doctor CELINA 1.2.840.114 [id number] Univers 00:00:00 00:00:00 Only Unassigned, TEO 350.1.13.10 ity of [place] [facility] 4.2.7.2.686 [facility] [phone] [facility] [address] [place] Results Test Description Test Time Test Comments Results Result Comments Source TRICHOMONAS AMPLIFIED ASSAY 2021-03-11 01:34:59 Test Item Value Reference Range Interpretation Comme nts Trichomonas Nucleic Acid (test code = Negative Negative 91204-2) AQUILES (test code = AQUILES) Reliable results [...] clinician. Lab Interpretation (test code = Normal 60392-5) [facility] CHLAMYDIA AMPLIFIED [id number] 01:25:04 Test Item Value Reference Range Interpretation Comments C. trachomatis Nucleic Negative Negative Acid (test code = 64617-4) N. gonorrhoeae Nucleic Negative Negative Acid (test code = 58792-3) AQUILES (test code = AQUILES) Reliable results [...] clinician. Lab Interpretation Normal (test code = 42875-4) [facility] ONLY - SYPHILIS [id number] 15:08:52 Test Item Value Reference Range Interpretation Comments Syphilis IgG/IgM (test Non-reactive Non-reactive code = 26278-2) AQUILES (test code = AQUILES) Non-reactive - No serologic evidence of T. pallidum infection. Cannot exclude incubating or early syphilis. Submit a second specimen in 2-4 weeks if syphilis is clinically suspected. Equivocal - Further testing to follow. Reactive - Further testing to follow. Lab Interpretation (test Normal code = 34758-3) [facility] 1/2 AG-AB WITH [id number] 07:54:01 Test Item Value Reference Range Interpretation Comments HIV Negative Negative Semi-quantitative (test code = 69136-8) AQUILES (test code = Non-reactive for HIV-1 AQUILES) antigen and HIV-1/HIV-2 antibodies. ?No laboratory evidence of HIV infection. ?Repeat in 2-4 weeks if acute HIV infection is suspected. [facility] [id number] 19:31:00 Test Item Value Reference Range Interpretation Comments POCT PREG (test code = 1605) Negative On board controls acceptable with C Yes Line (test code = 3574) POCT PREG LOT # (test code = 3575) POCT PREG TEST DATE (test code = 3576) Lab Interpretation (test code = Normal 27399-8) [id number] 19:31:00 Test Item Value Reference Range Interpretation Comments POCT PREG (test code = 1605) Negative On board controls acceptable with C Yes Line (test code = 3574) POCT PREG LOT # (test code = 3575) POCT PREG TEST DATE (test code = 3576) Lab Interpretation (test code = Normal 16387-1) [facility] [id number] 19:31:00 Test Item Value Reference Range Interpretation Comments POCT PREG (test code = 1605) Negative On board controls acceptable with C Yes Line (test code = 3574) POCT PREG LOT # (test code = 3575) POCT PREG TEST DATE (test code = 3576) Lab Interpretation (test code = Normal 59399-0) [facility] (ID NOW RAPID TESTING)2020-10-08 13:22:00 Test Item Value Reference Range Interpretation Comments SARS-CoV-2 Rapid ID NOW Not Detected Not Detected (test code = 98224-0) AQUILES (test code = AQUILES) ID NOW COVID-19 Assay is an isothermal nucleic acid amplification test intended for the qualitative detection of nucleic acid from SARS-CoV-2 viral RNA in nasopharyngeal (PLATFORM ATTENDANT) specimens. It is used under Emergency Use [...] indicated. Lab Interpretation Normal (test code = 24218-5) [facility] HEPATOBILIARY W [id number] 18:02:58HISTORY: Epigastric pain. Rule out gallbladder dysfunction or cystic ductdyskinesia. TECHNIQUE: Routine hepatobiliary scan is obtained with 10 mCi of ejygilaomz30g mebrofenin. CCK study is completed with slow [...] scan is obtained with 10 mCi of ndcuqxqoze79o mebrofenin. CCK study is completed with slow [...] of 0 to 4),consistent with cystic duct dyskinesia.[facility] (ID NOW RAPID TESTING) 2020-09-30 01:00:00 Test Item Value Reference Range Interpretation Comments SARS-CoV-2 Rapid ID NOW Not Detected Not Detected (test code = 28941-1) AQUILES (test code = AQUILES) ID NOW COVID-19 Assay is an isothermal nucleic acid amplification test intended for the qualitative detection of nucleic acid from SARS-CoV-2 viral RNA in nasopharyngeal (PLATFORM ATTENDANT) specimens. It is used under Emergency Use [...] indicated. Lab Interpretation Normal (test code = 63579-0) [facility]. METABOLIC PANEL (10819)2020-09-30 00:52:00 Test Item Value Reference Range Interpretation Comments NA (test code = 139 mmol/L 135-145 4885017518) K (test code = 3.7 mmol/L 3.5-5 2922871405) CL (test code = 101 mmol/L 98-108 0062388567) CO2 TOTAL (test code = 29 mmol/L 23-31 9905607651) AGAP (test code = 2-16 0532019213) BUN (test code = 8 mg/dL 7-23 8188512466) GLUCOSE (test code = 107 mg/dL 70-110 8758885709) CREATININE (test code 0.88 mg/dL 0.5-1.04 = 5734647543) TOTAL BILI (test code 0.3 mg/dL 0.1-1.1 = 1752449009) CALCIUM (test code = 9.8 mg/dL 8.6-10.6 3541957532) T PROTEIN (test code = 7.8 g/dL 6.3-8.2 3964340623) ALBUMIN (test code = 4.4 g/dL 3.5-5 3380769068) ALK PHOS (test code = 90 U/L 34-122 4962190595) ALTv (test code = 17 U/L 5-35 1742-6) AST(SGOT) (test code = 19 U/L 13-40 8990259031) eGFR Calculation mL/min/1.73m2 (Non-) (test code = 5738982451) eGFR Calculation mL/min/1.73m2 () (test code = 5590611580) AQUILES (test code = AQUILES) Association of [...] or urine or abnormalities in imaging tests). [facility]2020-[facility] 00:52:00 Test Item Value Reference Range Interpretation Comments LIPASE (test code = 5992127246) 90 U/L 0-220 Lab Interpretation (test code = Normal 74136-9) [facility] WITH [id number] 00:40:00 Test Item Value Reference Range Interpretation Comments WBC (test code = See_Comment [Automated message] 6690-2) The system [employer] generated this result transmitted ref erence range: 4.30 - 1 1.10 10*3/?L. The re ference range was not u sed to interpret this result as normal/abnor mal. RBC (test code = See_Comment [Automated message] 999-8) The system [employer] generated this result transmitted ref erence range: [...] RDW-SD (test code 41.5 fL 39-49.9 = 13546-1) RDW-CV (test code 12.9 % 12-15.5 = 788-0) PLT (test code = See_Comment [Automated message] 777-3) The system [employer] generated this result transmitted ref erence range: 166 - 35 8 10*3/?L. The re ference range was not u sed to interpret this result as normal/abnor mal. MPV (test code = 9.8 fL 9.5-12.9 75508-2) NRBC/100 WBC (test See_Comment [Automat ed message] code = 0448598140) The syste m which generated this result transmitted ref erence range: 0.0 - 10 .0 /100 WBCs. The refer ence range was not u sed to interpret this result as normal/abnor mal. NRBC x10^3 (test <0.01 See_Comment [Automated message] code = 3502674551) The syste m which generated this result transmitted ref erence range: 10*3/?L. The reference range was not used to interpr et this result as normal/abnormal . GRAN MAT (NEUT) % 55.2 % (test code = 770-8) IMM GRAN % (test 0.30 % code = 5862553038) LYMPH % (test code 34.2 % = 736-9) MONO % (test code 8.2 % = 5905-5) EOS % (test code = 1.5 % 713-8) BASO % (test code 0.6 % = 706-2) GRAN MAT 4.33 10*3/uL 1.88-7.09 x10^3(ANC) (test code = 8901879744) IMM GRAN x10^3 <0.03 0-0.06 (test code = 4549582405) LYMPH x10^3 (test 2.68 10*3/uL 1.32-3.29 code = 731-0) MONO x10^3 (test 0.64 10*3/uL 0.33-0.92 code = 742-7) EOS x10^3 (test 0.12 10*3/uL 0.03-0.39 code = 711-2) BASO x10^3 (test 0.05 10*3/uL 0.01-0.07 code = 704-7) [facility] 00:13:00 Test Item Value Reference Range Interpretation Comments APPEARANCE (test code = Clear Clear 9461216963) COLOR (test code = Straw Yellow A 9420197762) PH (test code = 4.8-8.0 7379166807) SP GRAVITY (test code = 1.003-1.030 2909424118) GLU U QUAL (test code = Normal Normal 8090421421) BLOOD (test code = 2+ Negative A 7362470353) KETONES (test code = Negative Negative 7428865319) PROTEIN (test code = Negative Negative 2887-8) UROBILIN (test code = Normal Normal 9837932268) BILIRUBIN (test code = Negative Negative 3179251833) NITRITE (test code = Negative Negative 6296016449) LEUK FRAN (test code = Negative Negative 8064957064) RBC/HPF (test code = See_Comment [Autom ated message] 1816164889) The system [employer] generated this result transmitted ref erence range: 0 - 3 HP F. The reference range was not used to int erpret this result as normal/abnormal . WBC/HPF (test code = See_Comment [Autom ated message] 5285718451) The system [employer] generated this result transmitted ref erence range: 0 - 5 HP F. The reference range was not used to int erpret this result as normal/abnormal . BACTERIA (test code = Few Negative A 4357661767) MUCOUS (test code = Slight Negative LPF A 3975345193) SQ EPITH (test code = HPF 3258421956) HYAL CAST (test code = See_Comment [Aut omated message] 2349946745) The system [employer] generated this result transmitted ref erence range: <=2 LPF. The reference range was not used to int erpret this result as normal/abnormal . Lab Interpretation (test Abnormal code = 64840-8) [facility] PELVIS W [id number] 02:31:43 1. ?No radiopaque cholelithiasis or CT evidence of acute cholecystitis. 2. ?Mild gastric wall thickening at the antrum/pylorus can be normal or dueto gastritis. Mild bladder wall thickening may be dueto underdistention orcystitis. ? Preliminary Report Dictated by Resident: Lary Perry ?MD. Xiomara, have reviewed this study and agree with [...] reviewed this study and agree with theabove report.[facility]2020-12-04 01:37:00 Test Item Value Reference Range Interpretation Comments APPEARANCE (test code = Hazy Clear A 7875918842) COLOR (test code = Straw Yellow A 2370431239) PH (test code = 4.8-8.0 7190657989) SP GRAVITY (test code = 1.003-1.030 5183988275) GLU U QUAL (test code = Normal Normal 6718880106) BLOOD (test code = Negative Negative 7274234853) KETONES (test code = Negative Negative 3174600472) PROTEIN (test code = Negative Negative 2887-8) UROBILIN (test code = Normal Normal 6414597363) BILIRUBIN (test code = Negative Negative 3041298938) NITRITE (test code = Negative Negative 6487437683) LEUK FRAN (test code = Negative Negative 3504964718) RBC/HPF (test code = See_Comment [Autom ated message] 0523622534) The system [employer] generated this result transmitted ref erence range: 0 - 3 HP F. The reference range was not used to int erpret this result as normal/abnormal . WBC/HPF (test code = See_Comment [Autom ated message] 6990219547) The system [employer] generated this result transmitted ref erence range: 0 - 5 HP F. The reference range was not used to int erpret this result as normal/abnormal . BACTERIA (test code = Few Negative A 4767429123) SQ EPITH (test code = HPF 1506880238) Lab Interpretation (test Abnormal code = 91563-2) [facility] METABOLIC PANEL (75678)2020-09-24 01:35:00 Test Item Value Reference Range Interpretation Comments NA (test code = 138 mmol/L 135-145 0478079443) K (test code = 3.8 mmol/L 3.5-5 5167018381) CL (test code = 102 mmol/L 98-108 3677342312) CO2 TOTAL (test code = 27 mmol/L 23-31 8464909813) AGAP (test code = 2-16 3525280345) BUN (test code = 7 mg/dL 7-23 6649993128) GLUCOSE (test code = 108 mg/dL 70-110 7576973109) CREATININE (test code 0.86 mg/dL 0.5-1.04 = 5210573155) TOTAL BILI (test code 0.4 mg/dL 0.1-1.1 = 2284586479) CALCIUM (test code = 10.0 mg/dL 8.6-10.6 3388256049) T PROTEIN (test code = 8.0 g/dL 6.3-8.2 4881420628) ALBUMIN (test code = 4.5 g/dL 3.5-5 4818124670) ALK PHOS (test code = 89 U/L 34-122 8441673711) ALTv (test code = 17 U/L 5-35 1742-6) AST(SGOT) (test code = 18 U/L 13-40 6039778498) eGFR Calculation mL/min/1.73m2 (Non-) (test code = 4694699923) eGFR Calculation mL/min/1.73m2 () (test code = 8277474409) AQUILES (test code = AQUILES) Association of [...] or urine or abnormalities in imaging tests). [facility] 01:35:00 Test Item Value Reference Range Interpretation Comments LIPASE (test code = 1068280765) 90 U/L 0-220 Lab Interpretation (test code = Normal 33506-2) [facility] WITH [id number] 01:27:00 Test Item Value Reference Range Interpretation Comments WBC (test code = See_Comment [Automated message] 1090-2) The system [employer] generated this result transmitted ref erence range: 4.30 - 1 1.10 10*3/?L. The re ference range was not u sed to interpret this result as normal/abnor mal. RBC (test code = See_Comment [Automated message] 359-8) The system [employer] generated this result transmitted ref erence range: [...] RDW-SD (test code 41.9 fL 39-49.9 = 31024-3) RDW-CV (test code 12.9 % 12-15.5 = 788-0) PLT (test code = See_Comment [Automated message] 457-3) The system [employer] generated this result transmitted ref erence range: 166 - 35 8 10*3/?L. The re ference range was not u sed to interpret this result as normal/abnor mal. MPV (test code = 9.6 fL 9.5-12.9 80961-5) NRBC/100 WBC (test See_Comment [Automat ed message] code = 3694953556) The syste m which generated this result transmitted ref erence range: 0.0 - 10 .0 /100 WBCs. The refer ence range was not u sed to interpret this result as normal/abnor mal. NRBC x10^3 (test <0.01 See_Comment [Automated message] code = 7811657782) The syste m which generated this result transmitted ref erence range: 10*3/?L. The reference range was not used to interpr et this result as normal/abnormal . GRAN MAT (NEUT) % 57.6 % (test code = 770-8) IMM GRAN % (test 0.30 % code = 9047580241) LYMPH % (test code 33.3 % = 736-9) MONO % (test code 7.0 % = 5905-5) EOS % (test code = 1.4 % 713-8) BASO % (test code 0.4 % = 706-2) GRAN MAT 4.47 10*3/uL 1.88-7.09 x10^3(ANC) (test code = 1809877209) IMM GRAN x10^3 <0.03 0-0.06 (test code = 1395452080) LYMPH x10^3 (test 2.58 10*3/uL 1.32-3.29 code = 731-0) MONO x10^3 (test 0.54 10*3/uL 0.33-0.92 code = 742-7) EOS x10^3 (test 0.11 10*3/uL 0.03-0.39 code = 711-2) BASO x10^3 (test 0.03 10*3/uL 0.01-0.07 code = 704-7) [facility]"
[2022-09-06] MEDS ORDERED: METHYLPREDNISOLONE 125 MG INJ ONE (13:17)
[2022-09-06] MEDS ORDERED: DIPHENHYDRAMINE 50 MG/ML VIAL ONE (13:17)
[2022-09-06] MEDS ORDERED: FAMOTIDINE 20 MG/2 ML VIAL IV ONE (13:18)
[2022-09-06 13:30] LABS: Absolute Lymphocytes (CBC) 1.6 K/uL (0.7-4.9); Hematocrit 40.1 % (36.0-45.0); Lymphocytes % 22.7 % (15.3-44.8); MCV 85.3 fL (80-100); MPV 7.6 fL (7.6-11.3)
[2022-09-06 13:34] LABS: Potassium 3.7 mmol/L (3.5-5.1)
--- NOTE | 2022-09-06 14:15 | RAD REPORT ---
EXAM DESCRIPTION: CT - CTFBWCON CLINICAL HISTORY: left side facial swelling Facial pain and swelling. COMPARISON: Sinuses W/Wo Cont dated 08/09/2022 TECHNIQUE: Axial 2 mm thick images of the face were obtained with sagittal and coronal reconstructio n images. All CT scans are performed using dose optimization technique as appropriate and may include automated exposure control or mA/KV adjustment according to patient size. FINDINGS: No acute facial bone fracture is seen.The mandible is intact. The globes and orbital contents are grossly unremarkable.Mild polypoid mucosal thickening affects the right maxillary antrum. The paranasal sinuses and mastoids are otherwise clear. There is mild edema/soft tissue swelling involving distal aspect of the nose in the inferior aspect n ose. IMPRESSION: Negative for facial bone fracture. Mild perinasal soft tissue swelling.
[2022-09-06 14:44] LABS: Urine Blood Negative (Negative); Urine Glucose Negative (Negative); Urine Protein Negative (Negative)
[2022-09-06] MEDS ORDERED: CLINDAMYCIN 900MG/D5W 900 MG/50 ML IVPB IV ONE (15:38)
--- NOTE | 2022-09-06 15:47 | EDPHYS ---
Physician Documentation [facility] Name: Juan F Reid Age: 37 yrs Sex: Female : 1985 Arrival Date: 09/06/2022 Time: 10:54 Bed 14 Private MD: ED Physician Moises Holloway HPI: 09/06 11:30 This 37 yrs old Female presents to ER via Ambulatory with complaints of Facial Swelling.cp 11:30 The patient or guardian reports swelling, tenderness. cp 11:30 The complaints affect the nose and left cheek. Context of injury: none. Onset: The cp symptoms/episode began/occurred this morning. 11:30 Associated signs and symptoms: Pertinent negatives: injury, neck pain, fever. cp 11:30 Patient reports being hospitalized in July for facial cellulitis. Dr Robin consulted cp and was concerned about possible allergic reaction vs infection. CRAB PICKER: 17:01 LMP N/A - control method kr3 Historical: - Allergies: 11:19 Hydrocodone-Acetaminophen; ll1 - PMHx: 11:19 Asthma; Cellulitis; Colitis; ilitis; PCOS; proctitis; ll1 - PSHx: 11:19 Appendectomy; section; ll1 - Immunization history:: Client reports having NOT received the Covid vaccine. - Social history:: Smoking status: Patient denies any tobacco usage or history of. ROS: 11:35 Constitutional: Negative for body aches, chills, fever, poor PO intake. cp 11:35 Eyes: Negative for injury, pain, redness, and discharge. cp 11:35 ENT: Negative for drainage from ear(s), ear pain, sore throat, difficulty swallowing, difficulty handling secretions. 11:35 Respiratory: Negative for cough, shortness of breath, wheezing. 11:35 Abdomen/GI: Negative for abdominal pain, nausea, vomiting, and diarrhea. 11:35 Back: Negative for pain at rest, pain with movement. 11:35 Skin: Positive for swelling, of the left cheek, numbness, Negative for rash. 11:35 Neuro: Negative for altered mental status, headache, weakness. 11:35 All other systems are negative. Exam: 11:40 Constitutional: The patient appears in no acute distress, alert, awake, non-toxic, well cp developed, well nourished, obese. 11:40 Head/face: Noted is swelling, that is mild, of the left cheek, tenderness, that is cp mild, of the left cheek. 11:40 Eyes: Periorbital structures: appear normal, Conjunctiva: normal, no exudate, no injection, Sclera: no appreciated abnormality, Lids and lashes: appear normal, bilaterally. 11:40 ENT: External ear(s): are unremarkable, Ear canal(s): are normal, clear, TM's: bulging, is not appreciated, bilaterally, dullness, bilaterally, erythema, is not appreciated, bilaterally, Nose: is normal, Mouth: Lips: moist, Oral mucosa: pink and intact, moist, Posterior pharynx: Airway: no evidence of obstruction, patent, swelling, is not appreciated, erythema, is not appreciated, exudate, is not appreciated, Dental exam: abscess, is not appreciated, the patient wears dentures, in place, pain, that is mild, left upper gumline, Voice: is normal. 11:40 Neck: ROM/movement: is normal, is supple, without pain, no range of motions limitations, no meningismus, no nuchal rigidity. 11:40 Chest/axilla: Inspection: normal. 11:40 Cardiovascular: Rate: normal. 11:40 Respiratory: the patient does not display signs of respiratory distress, Respirations: normal, no use of accessory muscles, no retractions, labored breathing, is not present, Breath sounds: are clear throughout, no decreased breath sounds, no stridor, no wheezing. 11:40 Abdomen/GI: Inspection: abdomen appears normal, Palpation: abdomen is soft and non-tender, in all quadrants. 11:40 Skin: no rash present. no erythema noted to left facial cheek. 11:40 Neuro: Orientation: to person, place \T\ time. Mentation: is normal. Vital Signs: 11:16 BP 152 / 97; Pulse 74; Resp 17; Temp 96.8; Pulse Ox 98% ; Weight 130.63 kg; Height 5 ll1 ft. 7 in. (170.18 cm); Pain 4/10; 13:30 BP 150 / 96; Pulse 72; Resp 18; Pulse Ox 100% on R/A; kr3 14:33 BP 128 / 97; Pulse 72; Resp 18; Pulse Ox 97% on R/A; kr3 15:30 BP 126 / 94; Pulse 74; Resp 18; Pulse Ox 99% on R/A; kr3 16:45 BP 133 / 86; Pulse 73; Resp 18; Pulse Ox 97% on R/A; kr3 17:02 BP 133 / 87; Pulse 77; Resp 18; Pulse Ox 99% on R/A; kr3 11:16 Body Mass Index 45.11 (130.63 kg, 170.18 cm) ll1 MDM: 12:09 Patient medically screened. vito 14:33 Physician consultation: Dee Robin MD was called at 14:34, left message on voicemail. cp 15:31 Physician consultation: Dee Robin MD was contacted at 15:31, regarding consult, cp patient's condition, and will see patient in office, next week, would like medications started, 10 day course of clindamycin and oral steroid. 15:45 Data reviewed: vital signs, nurses notes, lab test result(s), radiologic studies, CT cp scan, consult with DR Robin, and as a result, I will discharge patient. 15:45 Counseling: I had a detailed discussion with the patient and/or guardian regarding: the cp historical points, exam findings, and any diagnostic results supporting the discharge/admit diagnosis, lab results, radiology results, the need for outpatient follow up, an ENT specialist. Response to treatment: the patient's symptoms have mildly improved after treatment. 09/06 12:31 Order name: CBC with Diff; Complete Time: 13:45 cp 09/06 12:31 Order name: BMP; Complete Time: 13:45 cp 09/06 14:31 Interpretation: Normal except: ANION GAP 4.7; BUN 5; GFR 89. cp 09/06 12:39 Order name: CT Facial Bones W/ Con \T\ Mpr; Complete Time: 14:19 cp 09/06 14:20 Interpretation: Report reviewed. 09/06 14:44 Order name: Urine Dipstick-Ancillary; Complete Time: 15:28 EDMS 09/06 14:53 Order name: Urine --Ancillary (enter results) bd 09/06 12:31 Order name: IV Saline Lock; Complete Time: 13:14 cp 09/06 12:31 Order name: Labs collected and sent; Complete Time: 13:14 cp 09/06 12:31 Order name: Urine Dipstick-Ancillary (obtain specimen); Complete Time: 14:46 cp 09/06 12:31 Order name: Urine Test (obtain specimen); Complete Time: 14:46 cp Administered Medications: 13:40 Drug: Benadryl (diphenhydrAMINE) 25 mg Route: IVP; Site: right antecubital; jl7 17:01 Follow up: Response: No adverse reaction kr3 13:45 Drug: SOLU-Medrol (methylPrednisoLONE) 125 mg Route: IVP; Site: right antecubital; jl7 17:01 Follow up: Response: No adverse reaction kr3 13:48 Drug: Pepcid (famotidine) 20 mg Route: IVP; Site: right antecubital; jl7 17:00 Follow up: Response: No adverse reaction kr3 15:48 Drug: Clindamycin 900 mg Route: IVPB; Infused Over: 30 mins; Site: right antecubital; kr3 17:00 Follow up: Response: No adverse reaction; IV Status: Completed infusion; IV Intake: [id number] Disposition: 09/07 09:30 Co-signature as Attending Physician, Moises Holloway MD I agree with the assessment and vito plan of care. Disposition Summary: 09/06/22 15:46 Discharge Ordered Location: Home cp Problem: new cp Symptoms: have improved cp Condition: Stable cp Diagnosis - Cellulitis of face - left cp Followup: cp - With: Dee Robin MD - When: 1 week - Reason: Recheck today's complaints Discharge Instructions: - Discharge Summary Sheet cp - Cellulitis, Adult cp Forms: - Medication Reconciliation Form cp - Thank You Letter cp - Antibiotic Education cp - Prescription Opioid Use cp - Work release form kr3 Prescriptions: - Clindamycin HCl 300 mg Oral Capsule - take 1 capsule by ORAL route every 6 hours for 10 days; 40 capsule; Refills: 0, cp Product Selection Permitted - Prednisone 20 mg Oral Tablet - take 3 tablets by ORAL route once daily for 5 days; 23 tablet; Refills: 0, cp Product Selection Permitted - Bromfed DM 2-30-10 mg/5 mL Oral syrup - take 10 milliliter by ORAL route every 4 hours; 180 milliliter; Refills: 0, cp Product Selection Permitted Signatures: Dispatcher [employer] Moises Nuñez MD MD cha Page, Corey, PA PA cp Leal, Jahala RN RN jl7 Colette Liao, RN RN ll1 Fatou Siddiqui RN RN kr3 Corrections: (The following items were deleted from the chart) 09/06 13:02 12:40 Facial Bones W/ [id number] ordered. EDMS EDMS
--- NOTE | 2022-09-06 15:47 | ER ---
Nurse's Notes [facility] Name: Juan F Reid Age: 37 yrs Sex: Female : 1985 Arrival Date: 09/06/2022 Time: 10:54 Bed 14 Private MD: Diagnosis: Cellulitis of face-left Presentation: 09/06 11:16 Chief complaint: Patient states: L sided facial swelling started today. Dr. Robin ll1 hospitalized her for same in Jul. Was sent in today for re eval. Has nasal drainage. Coronavirus screen: Vaccine status: Patient reports being unvaccinated. Client denies travel out of the [place] in the last 14 days. At this time, the client does not indicate any symptoms associated with coronavirus-19. Ebola Screen: Patient denies travel to an Ebola-affected area in the 21 days before illness onset. 11:16 Method Of Arrival: Ambulatory ll1 11:19 Initial Sepsis Screen: Does the patient meet any 2 criteria? No. Patient's initial ll1 sepsis screen is negative. Does the patient have a suspected source of infection? No. Patient's initial sepsis screen is negative. Risk Assessment: Do you want to hurt yourself or someone else? Patient reports no desire to harm self or others. Onset of symptoms was September 06, 2022. 11:19 Acuity: TRINIDAD 3 ll1 Triage Assessment: 11:20 General: Appears in no apparent distress. Behavior is cooperative, appropriate for age. ll1 Pain: Complains of pain in L facial Quality of pain is described as aching. EENT: Reports nasal congestion pain when swallowing. Neuro: No deficits noted. Derm: Reports L facial swelling/numbness. 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 - Social history:: Smoking status: Patient denies any tobacco usage or history of. Screenin:49 Abuse screen: Denies threats or abuse. Nutritional screening: No deficits noted. kr3 Tuberculosis screening: No symptoms or risk factors identified. Fall Risk IV access (20 points). Assessment: 11:30 General: Appears in no apparent distress. uncomfortable, Behavior is calm, cooperative, kr3 appropriate for age. Pain: Denies pain. Neuro: Level of Consciousness is awake, alert, obeys commands, Oriented to person, place, time. Respiratory: No deficits noted. : No signs and/or symptoms were reported regarding the genitourinary system. EENT: No signs and/or symptoms were reported regarding the EENT system. Musculoskeletal: Range of motion: intact in all extremities. 11:30 Cardiovascular: Patient's skin is warm and dry. GI: No deficits noted. Derm: No signs kr3 and/or symptoms reported regarding the dermatologic system. 12:30 Reassessment: No changes from previously documented assessment. Patient and/or family kr3 updated on plan of care and expected duration. Pain level reassessed. Patient is alert, oriented x 3, equal unlabored respirations, skin warm/dry/pink. 13:53 Reassessment: Patient appears in no apparent distress at this time. Patient and/or jl7 family updated on plan of care and expected duration. Pain level reassessed. Patient is alert, oriented x 3, equal unlabored respirations, skin warm/dry/pink. 14:29 Reassessment: No changes from previously documented assessment. Patient and/or family kr3 updated on plan of care and expected duration. Pain level reassessed. Patient is alert, oriented x 3, equal unlabored respirations, skin warm/dry/pink. 15:30 Reassessment: No changes from previously documented assessment. Patient and/or family kr3 updated on plan of care and expected duration. Pain level reassessed. Patient is alert, oriented x 3, equal unlabored respirations, skin warm/dry/pink. Vital Signs: 11:16 BP 152 / 97; Pulse 74; Resp 17; Temp 96.8; Pulse Ox 98% ; Weight 130.63 kg; Height 5 ll1 ft. 7 in. (170.18 cm); Pain 4/10; 13:30 BP 150 / 96; Pulse 72; Resp 18; Pulse Ox 100% on R/A; kr3 14:33 BP 128 / 97; Pulse 72; Resp 18; Pulse Ox 97% on R/A; kr3 15:30 BP 126 / 94; Pulse 74; Resp 18; Pulse Ox 99% on R/A; kr3 16:45 BP 133 / 86; Pulse 73; Resp 18; Pulse Ox 97% on R/A; kr3 17:02 BP 133 / 87; Pulse 77; Resp 18; Pulse Ox 99% on R/A; kr3 11:16 Body Mass Index 45.11 (130.63 kg, 170.18 cm) ll1 ED Course: 10:54 Patient arrived in ED. as 11:14 Moises Rueda PA is PHCP. cp 11:14 Moises Holloway MD is Attending Physician. cp 11:19 Triage completed. ll1 11:20 Arm band placed on. ll1 11:20 Bed in low position. Call light in reach. Side rails up X 1. kr3 12:18 Fatou Siddiqui, NASREEN is Primary Nurse. kr3 13:30 Inserted saline lock: 20 gauge in right antecubital area, using aseptic technique. kr3 Blood collected. 14:00 CT Facial Bones W/ Con \T\ Mpr In Process Unspecified. EDMS 15:45 Dee Robin MD is Referral Physician. cp 17:01 No provider procedures requiring assistance completed. IV discontinued, intact, kr3 bleeding controlled, No redness/swelling at site. Pressure dressing applied. Administered Medications: 13:40 Drug: Benadryl (diphenhydrAMINE) 25 mg Route: IVP; Site: right antecubital; jl7 17:01 Follow up: Response: No adverse reaction kr3 13:45 Drug: SOLU-Medrol (methylPrednisoLONE) 125 mg Route: IVP; Site: right antecubital; jl7 17:01 Follow up: Response: No adverse reaction kr3 13:48 Drug: Pepcid (famotidine) 20 mg Route: IVP; Site: right antecubital; jl7 17:00 Follow up: Response: No adverse reaction kr3 15:48 Drug: Clindamycin 900 mg Route: IVPB; Infused Over: 30 mins; Site: right antecubital; kr3 17:00 Follow up: Response: No adverse reaction; IV Status: Completed infusion; IV Intake: [id number] Medication: 17:02 VIS not applicable for this client. kr3 Intake: 17:00 IV: 50ml; Total: 50ml. kr3 Outcome: 15:46 Discharge ordered by . cp 17:01 Discharged to home ambulatory. kr3 17:01 Condition: stable 17:01 Discharge instructions given to patient, Instructed on discharge instructions, follow up and referral plans. medication usage, Demonstrated understanding of instructions, follow-up care, medications, Prescriptions given X 3. 17:03 Patient left the ED. kr3 Signatures: Dispatcher [employer] EDMS Franchesca Lang Corey, PA PA cp Leal, Jahala, RN RN jl7 Colette Liao RN RN ll1 Fatou Siddiqui RN RN kr3 Corrections: (The following items were deleted from the chart) 11:19 11:16 Pulse 74bpm; Resp 17bpm; Pulse Ox 98%; Temp 96.8F; 130.63 kg; Height 5 ft. 7 in.; ll1 BMI: 45.1; Pain 4/10; ll1 14:03 14:02 Inserted saline lock: 20 gauge in right antecubital area, using aseptic kr3 technique. Blood collected. kr3 14:04 13:30 Inserted saline lock: 20 gauge in right antecubital area, using aseptic kr3 technique. Blood collected. kr3 14:28 14:26 General: Appears in no apparent distress. uncomfortable, Behavior is calm, kr3 cooperative, appropriate for age, kr3 14:28 14:26 Pain: Denies pain. kr3 kr3 14:28 14:26 Neuro: Level of Consciousness is awake, alert, obeys commands, Oriented to kr3 person, place, time, kr3 14:28 14:26 Respiratory: No deficits noted. kr3 kr3 14:28 14:26 : No signs and/or symptoms were reported regarding the genitourinary system. kr3kr3 14:28 14:26 EENT: No signs and/or symptoms were reported regarding the EENT system. kr3 kr3 14:28 14:26 Musculoskeletal: Range of motion: intact in all extremities, kr3 kr3 14:28 14:26 General: Appears in no apparent distress. uncomfortable, Behavior is calm, kr3 cooperative, appropriate for age, kr3 14:29 14:26 Cardiovascular: Patient's skin is warm and dry. kr3 kr3 14:29 14:26 GI: No deficits noted. kr3 kr3 14:29 14:26 Derm: No signs and/or symptoms reported regarding the dermatologic system. kr3 kr3 14:34 14:25 BP 150 / 96; Pulse 72bpm; Resp 18bpm; Pulse Ox 100% RA; kr3 kr3
[2022-09-06 17:26] VITALS: TEMP 96.8
[2022-09-06 17:32] VITALS: BP 133/87; O2SAT 99
== END 2022-09-06 17:03 | disposition home or self-care (01) ==
LOC: ER 10:52
DX: L03.211 Cellulitis of face (principal); Z88.5 Allergy status to narcotic agent
CPT/HCPCS: 96365; 85025; 80048; 36415; 81025; 81003; 70487; 76377; 96375; 99284; Q9967; J1200; J2930

== ENCOUNTER 2023-04-08 10:36 | Emergency (ER) | payer BC, OTHER ==
--- OUTSIDE RECORDS SUMMARY | 2023-04-08 10:43 | XMS REPORT | Continuity of Care Document ---
:1985 Author Organization [facility] t Address [address] [facility] [address] [place] [address] Care Team Providers Name Role Phone PCP, PATIENT DOES NOT HAVE A Primary Care Physician UnavailLINWOOD Boyd Attending Clinician Unavailable MICHELLE ASH Attending Clinician Unavailable BOB GARZA JR Attending Clinician Unavailable Pcp, Patient Does Not Have A Attending Clinician [phone] Lucero Landry MD Attending Clinician Celina Kelley PA-C Attending Clinician CELINA KELLEY Attending Clinician Unavailable Michelle Ash MD Attending Clinician [phone] David Babcock Attending Clinician Provider, [facility] Attending Clinician Unavailable ARUNA CRUZ Attending Clinician Unavailable Alma Parson Attending Clinician ALMA LEE Attending Clinician Unavailable Vtc-Lab Attending Clinician Unavailable Rudy Dubon MD Attending Clinician Miguelina Rodriguez MD Attending Clinician RUDY DUBON Attending Clinician Unavailable Doctor Unassigned, [place] Attending Clinician Unavailable DAVID THOMAS Attending Clinician Unavailable KINGSTON BOYCE Attending Clinician Unavailable Linwood Reis MD Attending Clinician Lab, Adc Fam Pob I Attending Clinician Unavailable Netta Knight Attending Clinician NETTA BENTLEY Attending Clinician Unavailable Alireza TRAVIS Jaredraven Mayer Attending Clinician Leona SANDOVALAnne Marie A Attending Clinician Ishaan Peterson Attending Clinician ISHAAN INFANTE Attending Clinician Unavailable LINWOOD REIS Admitting Clinician Unavailable Linwood Reis MD Admitting Clinician ISHAAN INFANTE Admitting Clinician Unavailable Payers Payer Name Policy Type Policy Number Effective Date Expiration Date S jaqui [employer] [place] [id number] 2020 00:00:00 [place] [facility] [id number] 2020 HEALTH 00:00:00 Problems Condition Condition Condition [...] Added automatic ally from request for surgery [id number] Upper Upper Disease Active 2019-10 Overview: Univer s abdominal abdominal 2-14 Formattin i ty of pain pain 00:00: g of this [place] 00 note Medical might be Branch different from the original. Added automatic ally from request for surgery [id number] Nausea Nausea Disease Active 2019-10 Overview: Univer s 2-14 Formattin ity of 00:00: g of this [place] 00 note Medical might be Branch different from the original. 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 ICD10 Diagnosis Term Sample Maker Original Utility PCOS PCOS Disease Active Univers (polycysti [...] Quantity Comments Source Exposure to Not sure [facility] SARS-CoV-2 [facility] (event) [place] Tobacco use and 2021-05-12 2021-05-12 Never used Universit y of exposure 00:00:00 00:00:00 [facility] Alcohol intake 2021-05-12 2021-05-12 Current drinker Unive rsity of 00:00:00 00:00:00 of alcohol [facility] (finding) [place] Alcohol Comment 2014-12-31 2014-12-31 on occasion Universi ty of 00:00:00 00:00:00 [facility] Sex Ass[birth year] At [birth year] Universit y of 00:00:00 00:00:00 [facility] Smoking Status Start Date Stop Date Source Never smoker [facility] Medications Ordered Filled Start Stop Current Ordering Indication Dosage Frequency Signature Comments Components Source Medication Medication Date Date Medication? Clinician (SIG) Name Name azelastine Yes [id number] 1{spray Use 1 Univers 137 mcg 7-23 } [place] in ity of (0.1 %) 00:00: each [place] nasal spray 00 nostril 2 Med ical (two) Branch times daily. Use in each nostril as directed fluticasone Yes [id number] 1{spray Use 1 Univers propionate 7-23 } [place] in ity o f 50 00:00: each [place] mcg/actuati 00 nostril Medic al on nasal daily. Branch spray albuterol Yes [id number] 2{puff} Inhale 2 Univers (PROAIR 7-23 Puffs ity of HFA) 90 00:00: every 6 [place] mcg/actuati 00 (six) Medical on inhaler hours as Branc h needed for Wheezing or Shortness of Breath. azelastine Yes [id number] 1{spray Use 1 Univers 137 mcg 7-23 } [place] in ity of (0.1 %) 00:00: each [place] nasal spray 00 nostril 2 Med ical (two) Branch times daily. Use in each nostril as directed fluticasone Yes [id number] 1{spray Use 1 Univers propionate 7-23 } [place] in ity o f 50 00:00: each [place] mcg/actuati 00 nostril Medic al on nasal daily. Branch spray albuterol Yes [id number] 2{puff} Inhale 2 Univers (PROAIR 7-23 Puffs ity of HFA) 90 00:00: every 6 [place] mcg/actuati 00 (six) Medical on inhaler hours as Branc h needed for Wheezing or Shortness of Breath. gabapentin 2020- No [id number] 100mg Take 1 Univers 100 mg 05-12 [id number] capsule by ity of capsule 00:00: 04:59 mouth 3 [place] 00 :00 (three) Medical times Branch daily for 60 days. gabapentin 2020- No [id number] 100mg Take 1 Univers 100 mg 05-12 [id number] capsule by ity of capsule 00:00: 04:59 mouth 3 [place] 00 :00 (three) Medical times Branch daily for 60 days. gabapentin 2020- No [id number] 100mg Take 1 Univers 100 mg 05-12 [id number] capsule by ity of capsule 00:00: 04:59 mouth 3 [place] 00 :00 (three) Medical times Branch daily for 60 days. gabapentin 2020- No [id number] 100mg Take 1 Univers 100 mg 05-12 [id number] capsule by ity of capsule 00:00: 04:59 mouth 3 [place] 00 :00 (three) Medical times Branch daily for 60 days. promethazin 2020- No [id number] 5mL Take 5 mL Univers e-dextromet 04-12-03 by mouth 4 i ty of horphan 00:00: 04:59 (four) [place] 6.25-15 00 :00 times Medical mg/5 mL daily as Branch syrup needed for Cough for up to 10 days. promethazin 2020- No [id number] 5mL Take 5 mL Univers e-dextromet 04-12-03 by mouth 4 i ty of horphan 00:00: 04:59 (four) [place] 6.25-15 00 :00 times Medical mg/5 mL daily as Branch syrup needed for Cough for up to 10 days. azithromyci 2020- No [id number] 250mg Take 1 Univers n 6-04-18 tablet by ity of (ZITHROMAX 00:00: 04:59 mouth [place] Z-NATALIE) 250 00 :00 daily for Medi janae mg tablet 5 days. Branch Take 500 mg day 1, then 250 mg days 2 to 5. azithromyci 2020- No [id number] 250mg Take 1 Univers n 6-12 04- tablet by ity of (ZITHROMAX 00:00: 04:59 mouth [place] Z-NATALIE) 250 00 :00 daily for Medi janae mg tablet 5 days. Branch Take 500 mg day 1, then 250 mg days 2 to 5. predniSONE 2020- No 10mg Take 10 mg Univers 10 mg 6-15 06-15 by mouth ity of tablet 17:17: 00:00 daily. [place] 55 :00 [facility] predniSONE 2020-2020- No 10mg Take 10 mg Univers 10 mg 6-15 06-15 by mouth ity of tablet 17:17: 00:00 daily. [place] 55 :00 [facility] 72 0 Yes Univers mcg Cap 5-20 ity of 00:00: [place] 00 [facility] ERZES 72 2020-0 Yes Univers mcg Cap 5-20 ity of 00:00: [place] 00 [facility] 72 2020-0 Yes Univers mcg Cap 5-20 ity of 00:00: [place] 00 [facility] 72 2020-0 Yes Univers mcg Cap 5-20 ity of 00:00: [place] 00 [facility] ERZES 72 2020-0 Yes Univers mcg Cap 5-20 ity of 00:00: [place] 00 [facility] 72 2020-0 Yes Univers mcg Cap 5-20 ity of 00:00: [place] 00 [facility] 72 2020-0 Yes Univers mcg Cap 5-20 ity of 00:00: [place] 00 [facility] albuterol 2020-0 Yes Inhale. Unive rs sulfate [...] ity of (PROAIR HFA 20:24: [place] INHALE) [facility] Branch albuterol Yes Inhale. Unive rs sulfate 5-19 ity of (PROAIR HFA 20:24: [place] INHALE) [facility] Branch albuterol Yes Inhale. Unive rs sulfate 5-19 ity of (PROAIR HFA 20:24: [place] INHALE) [facility] Branch albuterol Yes Inhale. Unive rs sulfate [...] 19:38: [place] (VITAMIN D 13 Medical ORAL) [place] pantoprazol Yes Take by Uni vers e sodium 5-19 mouth. ity of (PROTONIX 19:38: [place] ORAL) 13 [facility] Branch ergocalcife 0 Yes Take by Uni vers rol, 5-19 mouth. ity of vitamin D2, 19:38: [place] (VITAMIN D 13 Medical ORAL) [place] pantoprazol Yes Take by Uni vers e sodium 5-19 mouth. ity of (PROTONIX 19:38: [place] ORAL) 13 [facility] Branch ergocalcife Yes Take by Uni vers rol, 5-19 mouth. ity of vitamin D2, 19:38: [place] (VITAMIN D 13 Medical ORAL) [place] pantoprazol Yes Take by Uni vers e sodium 5-19 mouth. ity of (PROTONIX 19:38: [place] ORAL) [address] [place] [address] ergocalcife Yes Take by Uni vers rol, 5-19 mouth. ity of vitamin D2, 19:38: [place] (VITAMIN D 13 Medical ORAL) [place] predniSONE 0 Yes 10mg Take 10 mg U nivers 10 mg 5-19 by mouth ity of tablet 19:28: daily. [address] predniSONE 2020-0 Yes 10mg Take 10 mg U nivers 10 mg 5-19 by mouth ity of tablet 19:28: daily. [address] predniSONE 2020-0 Yes 10mg Take 10 mg U nivers 10 mg 5-19 by mouth ity of tablet 19:28: daily. [address] predniSONE 2020-0 Yes 10mg Take 10 mg U nivers 10 mg 5-19 by mouth ity of tablet 19:28: daily. [address] predniSONE 2020-0 Yes 10mg Take 10 mg U nivers 10 mg 5-19 by mouth ity of tablet 19:28: daily. [address] predniSONE 2020-0 Yes 10mg Take 10 mg U nivers 10 mg 5-19 by mouth ity of tablet 19:28: daily. [address] predniSONE 2020-0 Yes 10mg Take 10 mg U nivers 10 mg 5-11 by mouth ity of tablet 17:05: daily. [address] predniSONE 2020-0 Yes 10mg Take 10 mg U nivers 10 mg 5-11 by mouth ity of tablet 17:05: daily. [address] predniSONE 2020-0 Yes 10mg Take 10 mg U nivers 10 mg 5-11 by mouth ity of tablet 17:05: daily. [address] predniSONE 2020-0 Yes 10mg Take 10 mg U nivers 10 mg 5-11 by mouth ity of tablet 17:05: daily. [address] predniSONE 2020-0 Yes 10mg Take 10 mg U nivers 10 mg 5-11 by mouth ity of tablet 17:05: daily. [address] predniSONE 2020-0 Yes 10mg Take 10 mg U nivers 10 mg 5-11 by mouth ity of tablet 17:05: daily. [address] furosemide Yes Univers 20 mg 5-04 ity of tablet 00:00: [address] furosemide 2020-0 Yes Univers 20 mg 5-04 ity of tablet 00:00: [address] furosemide 2020-0 Yes Univers 20 mg 5-04 ity of tablet 00:00: [address] furosemide 2020-0 Yes Univers 20 mg 5-04 ity of tablet 00:00: [address] furosemide 2020-0 Yes Univers 20 mg 5-04 ity of tablet 00:00: [address] furosemide 2020-0 Yes Univers 20 mg 5-04 ity of tablet 00:00: [address] furosemide 2020-0 2021- No Univer s 20 mg 5-04 06-15 ity of tablet 00:00: 00:00 [place] 00 00 [facility] furosemide 2020-0 1- No Univer s 20 mg 5-04 06-15 ity of tablet 00:00: 00:00 [place] 00 :00 [facility] ondansetron 0 Yes [id number] 4mg Take 1 Univers (ZOFRAN 1-04 tablet by ity of ODT) 4 mg 00:00: mouth [facility] 00 every 8 Medic al ing tablet (eight) Branch hours as needed for Nausea and Vomiting (N/V). dicyclomine 0 Yes [id number] 20mg Take 1 Univers 20 mg 1-04 tablet by ity of tablet 00:00: mouth 4 [place] [address] (four) Medical times Branch daily. ondansetron 0 Yes [id number] 4mg Take 1 Univers (ZOFRAN 1-04 tablet by ity of ODT) 4 mg 00:00: mouth [place] disintegrat 00 every 8 Medic al ing tablet (eight) Branch hours as needed for Nausea and Vomiting (N/V). dicyclomine 2021-0 Yes [id number] 20mg Take 1 Univers 20 mg 1-04 tablet by ity of tablet 00:00: mouth 4 [place] 00 (four) Medical times Branch daily. ondansetron 2021-0 Yes [id number] 4mg Take 1 Univers (ZOFRAN 1-04 tablet by ity of ODT) 4 mg 00:00: mouth [place] disintegrat 00 every 8 Medic al ing tablet (eight) Branch hours as needed for Nausea and Vomiting (N/V). dicyclomine 2021-0 Yes [id number] 20mg Take 1 Univers 20 mg 1-04 tablet by ity of tablet 00:00: mouth 4 [place] 00 (four) Medical times Branch daily. ondansetron 2021-0 Yes [id number] 4mg Take 1 Univers (ZOFRAN 1-04 tablet by ity of ODT) 4 mg 00:00: mouth [place] disintegrat 00 every 8 Medic al ing tablet (eight) Branch hours as needed for Nausea and Vomiting (N/V). dicyclomine 2021-0 Yes [id number] 20mg Take 1 Univers 20 mg 1-04 tablet by ity of tablet 00:00: mouth 4 [place] 00 (four) Medical times Branch daily. ondansetron 2021-0 Yes [id number] 4mg Take 1 Univers (ZOFRAN 1-04 tablet by ity of ODT) 4 mg 00:00: mouth [place] disintegrat 00 every 8 Medic al ing tablet (eight) Branch hours as needed for Nausea and Vomiting (N/V). dicyclomine 2021-0 Yes [id number] 20mg Take 1 Univers 20 mg 1-04 tablet by ity of tablet 00:00: mouth 4 [place] 00 (four) Medical times Branch daily. ondansetron 2021-0 Yes [id number] 4mg Take 1 Univers (ZOFRAN 1-04 tablet by ity of ODT) 4 mg 00:00: mouth [place] disintegrat 00 every 8 Medic al ing tablet (eight) Branch hours as needed for Nausea and Vomiting (N/V). dicyclomine 2021-0 Yes [id number] 20mg Take 1 Univers 20 mg 1-04 tablet by ity of tablet 00:00: mouth 4 [place] 00 (four) Medical times Branch daily. ondansetron 2021-0 Yes [id number] 4mg Take 1 Univers (ZOFRAN 1-04 tablet by ity of ODT) 4 mg 00:00: mouth [place] disintegrat 00 every 8 Medic al ing tablet (eight) Branch hours as needed for Nausea and Vomiting (N/V). dicyclomine 2021-0 Yes [id number] 20mg Take 1 Univers 20 mg 1-04 tablet by ity of tablet 00:00: mouth 4 [place] 00 (four) Medical times Branch daily. ondansetron 2021-0 Yes [id number] 4mg Take 1 Univers (ZOFRAN 1-04 tablet by ity of ODT) 4 mg 00:00: mouth [place] disintegrat 00 every 8 Medic al ing tablet (eight) Branch hours as needed for Nausea and Vomiting (N/V). dicyclomine 1-0 Yes [id number] 20mg Take 1 Univers 20 mg 1-04 tablet by ity of tablet 00:00: mouth 4 [place] 00 (four) Medical times Branch daily. ondansetron 1-0 Yes [id number] 4mg Take 1 Univers (ZOFRAN 1-04 tablet by ity of ODT) 4 mg 00:00: mouth [place] disintegrat 00 every 8 Medic al ing tablet (eight) Branch hours as needed for Nausea and Vomiting (N/V). dicyclomine 1-0 Yes [id number] 20mg Take 1 Univers 20 mg 1-04 tablet by ity of tablet 00:00: mouth 4 [place] 00 (four) Medical times Branch daily. ondansetron 2021-0 Yes [id number] 4mg Take 1 Univers (ZOFRAN 1-04 tablet by ity of ODT) 4 mg 00:00: mouth [place] disintegrat 00 every 8 Medic al ing tablet (eight) Branch hours as needed for Nausea and Vomiting (N/V). dicyclomine 2021-0 Yes [id number] 20mg Take 1 Univers 20 mg 1-04 tablet by ity of tablet 00:00: mouth 4 [place] 00 (four) Medical times Branch daily. ondansetron 2021-0 Yes [id number] 4mg Take 1 Univers (ZOFRAN 1-04 tablet by ity of ODT) 4 mg 00:00: mouth [place] disintegrat 00 every 8 Medic al ing tablet (eight) Branch hours as needed for Nausea and Vomiting (N/V). dicyclomine 2021-0 Yes [id number] 20mg Take 1 Univers 20 mg 1-04 tablet by ity of tablet 00:00: mouth 4 [place] 00 (four) Medical times Branch daily. ondansetron 2021-0 Yes [id number] 4mg Take 1 Univers (ZOFRAN 1-04 tablet by ity of ODT) 4 mg 00:00: mouth [place] disintegrat 00 every 8 Medic al ing tablet (eight) Branch hours as needed for Nausea and Vomiting (N/V). dicyclomine 2021-0 Yes [id number] 20mg Take 1 Univers 20 mg 1-04 tablet by ity of tablet 00:00: mouth 4 [place] 00 (four) Medical times Branch daily. ondansetron 1-0 Yes [id number] 4mg Take 1 Univers (ZOFRAN 1-04 tablet by ity of ODT) 4 mg 00:00: mouth [place] disintegrat 00 every 8 Medic al ing tablet (eight) Branch hours as needed for Nausea and Vomiting (N/V). dicyclomine 2021-0 Yes [id number] 20mg Take 1 Univers 20 mg 1-04 tablet by ity of tablet 00:00: mouth 4 [place] 00 (four) Medical times Branch daily. ondansetron 2021-0 Yes [id number] 4mg Take 1 Univers (ZOFRAN 1-04 tablet by ity of ODT) 4 mg 00:00: mouth [place] disintegrat 00 every 8 Medic al ing tablet (eight) Branch hours as needed for Nausea and Vomiting (N/V). dicyclomine 2021-0 Yes [id number] 20mg Take 1 Univers 20 mg 1-04 tablet by ity of tablet 00:00: mouth 4 [place] 00 (four) Medical times Branch daily. ondansetron 2021-0 Yes [id number] 4mg Take 1 Univers (ZOFRAN 1-04 tablet by ity of ODT) 4 mg 00:00: mouth [place] disintegrat 00 every 8 Medic al ing tablet (eight) Branch hours as needed for Nausea and Vomiting (N/V). dicyclomine Yes [id number] 20mg Take 1 Univers 20 mg 1-04 tablet by ity of tablet 00:00: mouth 4 [place] 00 (four) Medical times Branch daily. ondansetron 2020- No [id number] 4mg Take 1 Univers (ZOFRAN 1-04 05-19 tablet by ity of ODT) 4 mg 00:00: 00:00 mouth [place] disintegrat 00 :00 every 8 Medic al ing tablet (eight) Branch hours as needed for Nausea and Vomiting (N/V). dicyclomine 2020- No [id number] 20mg Take 1 Univers 20 mg 1-04 05-19 tablet by ity of tablet 00:00: 00:00 mouth 4 [place] 00 :00 (four) Medical times Branch daily. ondansetron 2020-2020- No [id number] 4mg Take 1 Univers (ZOFRAN 1-04 05-19 tablet by ity of ODT) 4 mg 00:00: 00:00 mouth [place] disintegrat 00 :00 every 8 Medic al ing tablet (eight) Branch hours as needed for Nausea and Vomiting (N/V). dicyclomine 2020- No [id number] 20mg Take 1 Univers 20 mg 1-04 05-19 tablet by ity of tablet 00:00: 00:00 mouth 4 [place] 00 :00 (four) Medical times Branch daily. ondansetron 2020-2020- No [id number] 4mg Take 1 Univers (ZOFRAN 1-04 05-19 tablet by ity of ODT) 4 mg 00:00: 00:00 mouth [place] disintegrat 00 :00 every 8 Medic al ing tablet (eight) Branch hours as needed for Nausea and Vomiting (N/V). dicyclomine 2020-2020- No [id number] 20mg Take 1 Univers 20 mg 1-04 05-19 tablet by ity of tablet 00:00: 00:00 mouth 4 [place] 00 :00 (four) Medical times Branch daily. lactated 2019-10 Yes 1000mL at 75 Univer s ringers IV 2-18 mL/hr, ity of infusion 15:30: 1,000 mL, [place] 1,000 [place] 00 IV Medical Infusion, Branch CONTINUOUS , Starting 10/08/20 at 0930, Until Discontinu ed, Routine, PACU [...] drops Until Discontinu ed, Routine, Intra-op lactated 2019-10 2020- No 1000mL at 42 Unive rs ringers [...] [place] 2.5 mcg 00 :00 dose, [facility] Medical 10/06/20 Branch at 1100, Routine [...] IV Medical Infusion, Branch ONCE, 1 dose, [facility] 09/29/20 at 1915, STAT ondansetron 2019-10 2020- No 4mg 4 mg, Slow Univers (ZOFRAN 2-10 12-10 IV Push, ity of (PF)) 01:15: 00:37 ONCE, 1 [place] injection 4 00 :00 dose, [facility] mg 09/29/20 at Branch 1914, [place] FENTanyl PF 2019- 2020- No 50ug 50 mcg, Un reta (SUBLIMAZE 2-10 12-10 Slow IV ity o f (PF)) 01:15: 00:37 Push, [place] injection 00 :00 ONCE, 1 Medical 50 mcg dose, Wed Branch 09/29/20 at 1915, STAT dicyclomine 2020-1 Yes [id number] 20mg Take 1 Univers 20 mg 2-08 tablet by ity of tablet 00:00: mouth [place] (four) Medical times Branch daily. ondansetron 2020-1 Yes [id number] 4mg Take 1 Univers 4 mg tablet 2-08 tablet by ity of 00:00: mouth [place] every 8 Medical (eight) Branch hours as needed for Nausea and Vomiting (N/V). dicyclomine 2020-1 Yes [id number] 20mg Take 1 Univers 20 mg 2-08 tablet by ity of tablet 00:00: mouth [place] ([facility]) Medical times Branch daily. ondansetron 2020-1 Yes [id number] 4mg Take 1 Univers 4 mg tablet 2-08 tablet by ity of 00:00: mouth [place] every 8 Medical (eight) Branch hours as needed for Nausea and Vomiting (N/V). dicyclomine 2020-1 Yes [id number] 20mg Take 1 Univers 20 mg 2-08 tablet by ity of tablet 00:00: mouth [place] ([facility]) Medical times Branch daily. ondansetron 2020-1 Yes [id number] 4mg Take 1 Univers 4 mg tablet 2-08 tablet by ity of 00:00: mouth [place] every 8 Medical (eight) Branch hours as needed for Nausea and Vomiting (N/V). dicyclomine 2020-1 Yes [id number] 20mg Take 1 Univers 20 mg 2-08 tablet by ity of tablet 00:00: mouth [place] ([facility]) Medical times Branch daily. ondansetron 2020-1 Yes [id number] 4mg Take 1 Univers 4 mg tablet 2-08 tablet by ity of 00:00: mouth [place] every 8 Medical (eight) Branch hours as needed for Nausea and Vomiting (N/V). dicyclomine 2020-1 Yes [id number] 20mg Take 1 Univers 20 mg 2-08 tablet by ity of tablet 00:00: mouth 4 (four) Medical times Branch daily. ondansetron 2020-1 Yes [id number] 4mg Take 1 Univers 4 mg tablet 2-08 tablet by ity of 00:00: mouth [place] 00 every 8 Medical (eight) Branch hours as needed for Nausea and Vomiting (N/V). dicyclomine 2020-1 Yes [id number] 20mg Take 1 Univers 20 mg 2-08 tablet by ity of tablet 00:00: mouth 4 (four) Medical times Branch daily. ondansetron 2020-1 Yes [id number] 4mg Take 1 Univers 4 mg tablet 2-08 tablet by ity of 00:00: mouth [place] 00 every 8 Medical (eight) Branch hours as needed for Nausea and Vomiting (N/V). dicyclomine 2020-1 Yes [id number] 20mg Take 1 Univers 20 mg 2-08 tablet by ity of tablet 00:00: mouth ([facility]) Medical times Branch daily. ondansetron 2020-1 Yes [id number] 4mg Take 1 Univers 4 mg tablet 2-08 tablet by ity of 00:00: mouth [place] 00 every 8 Medical (eight) Branch hours as needed for Nausea and Vomiting (N/V). dicyclomine 2020-1 Yes [id number] 20mg Take 1 Univers 20 mg 2-08 tablet by ity of tablet 00:00: mouth (four) Medical times Branch daily. ondansetron 2020-1 Yes [id number] 4mg Take 1 Univers 4 mg tablet 2-08 tablet by ity of 00:00: mouth [place] 00 every 8 Medical (eight) Branch hours as needed for Nausea and Vomiting (N/V). dicyclomine 2020-1 Yes [id number] 20mg Take 1 Univers 20 mg 2-08 tablet by ity of tablet 00:00: mouth 4 (four) Medical times Branch daily. ondansetron 2020-1 Yes [id number] 4mg Take 1 Univers 4 mg tablet 2-08 tablet by ity of 00:00: mouth [place] 00 every 8 Medical (eight) Branch hours as needed for Nausea and Vomiting (N/V). dicyclomine 2020-1 Yes [id number] 20mg Take 1 Univers 20 mg 2-08 tablet by ity of tablet 00:00: mouth 4 [place] 00 (four) Medical times Branch daily. ondansetron 2020-1 Yes [id number] 4mg Take 1 Univers 4 mg tablet 2-08 tablet by ity of 00:00: mouth [place] 00 every 8 Medical (eight) Branch hours as needed for Nausea and Vomiting (N/V). dicyclomine 2020-1 Yes [id number] 20mg Take 1 Univers 20 mg 2-08 tablet by ity of tablet 00:00: mouth 4 [place] 00 (four) Medical times Branch daily. ondansetron 2020-1 Yes [id number] 4mg Take 1 Univers 4 mg tablet 2-08 tablet by ity of 00:00: mouth [place] 00 every 8 Medical (eight) Branch hours as needed for Nausea and Vomiting (N/V). ondansetron 2020-1 Yes [id number] 4mg Take 1 Univers 4 mg tablet 2-08 tablet by ity of 00:00: mouth [place] 00 every 8 Medical (eight) Branch hours as needed for Nausea and Vomiting (N/V). ondansetron 2020-1 Yes [id number] 4mg Take 1 Univers 4 mg tablet 2-08 tablet by ity of 00:00: mouth [place] 00 every 8 Medical (eight) Branch hours as needed for Nausea and Vomiting (N/V). ondansetron 2020-1 Yes [id number] 4mg Take 1 Univers 4 mg tablet 2-08 tablet by ity of 00:00: mouth [place] 00 every 8 Medical (eight) Branch hours as needed for Nausea and Vomiting (N/V). ondansetron 2020-1 Yes [id number] 4mg Take 1 Univers 4 mg tablet 2-08 tablet by ity of 00:00: mouth [place] 00 every 8 Medical (eight) Branch hours as needed for Nausea and Vomiting (N/V). ondansetron 2020-1 Yes [id number] 4mg Take 1 Univers 4 mg tablet 2-08 tablet by ity of 00:00: mouth [place] 00 every 8 Medical (eight) Branch hours as needed for Nausea and Vomiting (N/V). ondansetron 2020-1 Yes [id number] 4mg Take 1 Univers 4 mg tablet 2-08 tablet by ity of 00:00: mouth [place] 00 every 8 Medical (eight) Branch hours as needed for Nausea and Vomiting (N/V). ondansetron 2020-1 Yes [id number] 4mg Take 1 Univers 4 mg tablet 2-08 tablet by ity of 00:00: mouth [place] 00 every 8 Medical (eight) Branch hours as needed for Nausea and Vomiting (N/V). ondansetron 2020-1 Yes [id number] 4mg Take 1 Univers 4 mg tablet 2-08 tablet by ity of 00:00: mouth [place] 00 every 8 Medical (eight) Branch hours as needed for Nausea and Vomiting (N/V). ondansetron 2020-1 Yes [id number] 4mg Take 1 Univers 4 mg tablet 2-08 tablet by ity of 00:00: mouth [place] 00 every 8 Medical (eight) Branch hours as needed for Nausea and Vomiting (N/V). ondansetron 2020-1 Yes [id number] 4mg Take 1 Univers 4 mg tablet 2-08 tablet by ity of 00:00: mouth [place] 00 every 8 Medical (eight) Branch hours as needed for Nausea and Vomiting (N/V). ondansetron 2020-1 Yes [id number] 4mg Take 1 Univers 4 mg tablet 2-08 tablet by ity of 00:00: mouth [place] 00 every 8 Medical (eight) Branch hours as needed for Nausea and Vomiting (N/V). ondansetron 2020-1 Yes [id number] 4mg Take 1 [facility] 4 mg tablet 2-08 tablet by ity of 00:00: mouth [place] 00 every 8 Medical (eight) Branch hours as needed for Nausea and Vomiting (N/V). ondansetron 2020-1 Yes [id number] 4mg Take 1 [facility] 4 mg tablet 2-08 tablet by ity of 00:00: mouth [place] 00 every 8 Medical (eight) Branch hours as needed for Nausea and Vomiting (N/V). ondansetron 2020-1 Yes [id number] 4mg Take 1 [facility] 4 mg tablet 2-08 tablet by ity of 00:00: mouth [place] 00 every 8 Medical (eight) Branch hours as needed for Nausea and Vomiting (N/V). ondansetron 2020-1 Yes [id number] 4mg Take 1 [facility] 4 mg tablet 2-08 tablet by ity of 00:00: mouth [place] 00 every 8 Medical (eight) Branch hours as needed for Nausea and Vomiting (N/V). ondansetron 2019-2020- No [id number] 4mg Take 1 [facility] 4 mg tablet 11-29- tablet by it y of 00:00: 00:00 mouth [place] 00 :00 every 8 Medical (eight) Branch hours as needed for Nausea and Vomiting (N/V). ondansetron 2019-2020- No [id number] 4mg Take 1 [facility] 4 mg tablet 11-29- tablet by it y of 00:00: 00:00 mouth [place] 00 :00 every 8 Medical (eight) Branch hours as needed for Nausea and Vomiting (N/V). ondansetron 2019-2020- No [id number] 4mg Take 1 [facility] 4 mg tablet 11-29- tablet by it y of 00:00: 00:00 mouth [place] 00 :00 every 8 Medical (eight) Branch hours as needed for Nausea and Vomiting (N/V). dicyclomine 2019-2020- No [id number] 20mg Take 1 [facility] 20 mg 2- tablet by ity of tablet 00:00: 00:00 mouth 4 [place] 00 :00 (four) Medical times Branch daily. dicyclomine 2019-2020- No [id number] 20mg Take 1 [facility] 20 mg 2- tablet by ity of tablet 00:00: 00:00 mouth 4 [place] 00 :00 (four) Medical times Branch daily. dicyclomine 2019-2019- No [id number] 20mg Take 1 [facility] 20 mg 2- tablet by ity of tablet 00:00: 00:00 mouth 4 [place] 00 :00 (four) Medical times Branch daily. ondansetron 2019-2019- No [id number] 4mg Take 1 [facility] 4 mg tablet 11-29- tablet by it y of 00:00: 00:00 mouth [place] 00 :00 every 8 Medical (eight) Branch hours as needed for Nausea and Vomiting (N/V). dicyclomine 2019-2019- No [id number] 20mg Take 1 [facility] 20 mg 2-06 02- tablet by ity of tablet 00:00: 00:00 mouth 4 [place] 00 :00 (four) Medical times Branch daily. ondansetron 2019-2019- No [id number] 4mg Take 1 [facility] 4 mg tablet 11-29 tablet by it y of 00:00: 00:00 mouth [place] 00 :00 every 8 Medical (eight) Branch hours as needed for Nausea and Vomiting (N/V). dicyclomine 2019-10 Yes 20mg 20 mg, Univ ers (BENTYL) 2-04 Intramuscu ity o f injection 02:00: lar, QID, Dae as 20 mg 00 First dose Medical on Erica Branch 09/23/20 at 1999, Until Discontinu ed, Routine iohexol 2019-10 2020- No 100mL 100 mL, Unive rs (OMNIPAQUE 2-09-24 Intravenou it y of 350 02:00: 01:48 s, ONCE, 1 [place] BULK-100 00 :00 dose, Erica Medica l mL) 09/23/20 at Branch injection 1999, 100 mL Routine ondansetron 2019-10- No 4mg 4 mg, Slow [facility] (ZOFRAN 209-24 IV Push, ity of (PF)) 02:00: 01:12 ONCE, 1 [place] injection 4 00 :00 dose, Erica Med ical mg 09/23/20 at Branch 2000, CURTIS dicyclomine 2019-10 Yes [id number] 20mg Take 1 [facility] 20 mg 2-03 tablet by ity of tablet 00:00: mouth 4 00 (four) Medical times Branch daily as needed for Abdominal pain. ondansetron 2019-10 Yes [id number] 4mg Take 1 [facility] (ZOFRAN 2-03 tablet [...] Indication s: acute pain dicyclomine 2019- Yes [id number] 20mg Take 1 [facility] 20 mg 2-03 tablet by ity of tablet 00:00: mouth 4 [place] 00 (four) Medical times Branch daily as needed for Abdominal pain. ondansetron 2019-10 Yes [id number] 4mg Take 1 [facility] (ZOFRAN 2-03 tablet [...] Indication s: acute pain dicyclomine 2019- Yes [id number] 20mg Take 1 [facility] 20 mg 2-03 tablet by ity of tablet 00:00: mouth 4 [place] 00 (four) Medical times Branch daily as needed for Abdominal pain. ondansetron 2019-10 Yes [id number] 4mg Take 1 [facility] (ZOFRAN 2-03 tablet [...] Indication s: acute pain dicyclomine 2019- Yes [id number] 20mg Take 1 [facility] 20 mg 2-03 tablet by ity of tablet 00:00: mouth 4 [place] 00 (four) Medical times Branch daily as needed for Abdominal pain. ondansetron 2019-10 Yes [id number] 4mg Take 1 [facility] (ZOFRAN 2-03 tablet [...] Indication s: acute pain dicyclomine 2019- Yes [id number] 20mg Take 1 [facility] 20 mg 2-03 tablet by ity of tablet 00:00: mouth 4 [place] 00 (four) Medical times Branch daily as needed for Abdominal pain. ondansetron 2019-10 Yes [id number] 4mg Take 1 [facility] (ZOFRAN 2-03 tablet [...] Indication s: acute pain dicyclomine 2019- Yes [id number] 20mg Take 1 [facility] 20 mg 2-03 tablet by ity of tablet 00:00: mouth 4 [place] 00 (four) Medical times Branch daily as needed for Abdominal pain. ondansetron 2019- Yes [id number] 4mg Take 1 [facility] (ZOFRAN 2-03 tablet [...] Indication s: acute pain dicyclomine 2019- Yes [id number] 20mg Take 1 [facility] 20 mg 2-03 tablet by ity of tablet 00:00: mouth 4 [place] 00 (four) Medical times Branch daily as needed for Abdominal pain. ondansetron 2019- Yes [id number] 4mg Take 1 [facility] (ZOFRAN 2-03 tablet [...] Indication s: acute pain dicyclomine 2019- Yes [id number] 20mg Take 1 [facility] 20 mg 2-03 tablet by ity of tablet 00:00: mouth 4 [place] 00 (four) Medical times Branch daily as needed for Abdominal pain. ondansetron 2020- Yes [id number] 4mg Take 1 [facility] (ZOFRAN 2-03 tablet [...] Indication s: acute pain dicyclomine 2020- Yes [id number] 20mg Take 1 [facility] 20 mg 2-03 tablet by ity of tablet 00:00: mouth 4 [place] 00 (four) Medical times Branch daily as needed for Abdominal pain. ondansetron 2019- Yes [id number] 4mg Take 1 [facility] (ZOFRAN 2-03 tablet [...] Indication s: acute pain dicyclomine 2019- Yes [id number] 20mg Take 1 [facility] 20 mg 2-03 tablet by ity of tablet 00:00: mouth 4 [place] 00 (four) Medical times Branch daily as needed for Abdominal pain. ondansetron 2020- Yes [id number] 4mg Take 1 [facility] (ZOFRAN 2-03 tablet [...] Indication s: acute pain dicyclomine 2019- Yes [id number] 20mg Take 1 [facility] 20 mg 2-03 tablet by ity of tablet 00:00: mouth 4 [place] 00 (four) Medical times Branch daily as needed for Abdominal pain. ondansetron 2019- Yes [id number] 4mg Take 1 [facility] (ZOFRAN 2-03 tablet [...] Indication s: acute pain dicyclomine 2019-10 Yes [id number] 20mg Take 1 [facility] 20 mg 2-03 tablet by ity of tablet 00:00: mouth 4 [place] 00 (four) Medical times Branch daily as needed for Abdominal pain. ondansetron 2019-10 Yes [id number] 4mg Take 1 [facility] (ZOFRAN 2-03 tablet [...] Indication s: acute pain dicyclomine 2019-10 Yes [id number] 20mg Take 1 [facility] 20 mg 2-03 [...] Indication s: acute pain dicyclomine 2019- Yes [id number] 20mg Take 1 [facility] 20 mg 2-03 [...] Indication s: acute pain dicyclomine 2020- Yes [id number] 20mg Take 1 [facility] 20 mg 2-03 [...] Indication s: acute pain dicyclomine 2019- Yes [id number] 20mg Take 1 [facility] 20 mg 2-03 [...] Indication s: acute pain dicyclomine 2019- Yes [id number] 20mg Take 1 [facility] 20 mg 2-03 [...] Indication s: acute pain dicyclomine 2019- Yes [id number] 20mg Take 1 [facility] 20 mg 2-03 [...] Indication s: acute pain dicyclomine 2019- Yes [id number] 20mg Take 1 [facility] 20 mg 2-03 [...] Indication s: acute pain dicyclomine 2020- Yes [id number] 20mg Take 1 [facility] 20 mg 2-03 [...] Indication s: acute pain dicyclomine 2020- Yes [id number] 20mg Take 1 [facility] 20 mg 2-03 [...] Indication s: acute pain dicyclomine 2020- Yes [id number] 20mg Take 1 [facility] 20 mg 2-03 [...] Indication s: acute pain dicyclomine 2020- Yes [id number] 20mg Take 1 [facility] 20 mg 2-03 [...] Indication s: acute pain dicyclomine 2020-1 Yes [id number] 20mg Take 1 [facility] 20 mg 2-03 [...] Indication s: acute pain dicyclomine 2019-10 Yes [id number] 20mg Take 1 [facility] 20 mg 2-03 [...] Indication s: acute pain dicyclomine 2019-10 Yes [id number] 20mg Take 1 [facility] 20 mg 2-03 [...] Indication s: acute pain dicyclomine 2019-10 Yes [id number] 20mg Take 1 [facility] 20 mg 2-03 [...] Indication s: acute pain dicyclomine 2019-10 No [id number] 20mg Take 1 [facility] 20 mg 2-03 [...] Indication s: acute pain dicyclomine 2019-10 No [id number] 20mg Take 1 [facility] 20 mg 11-24 tablet by ity of tablet 00:00: 00:00 mouth 4 [place] 00 :00 (four) Medical times Branch daily as needed for Abdominal pain. traMADoL 50 2019-10 No [id number] 50mg Take 1 [facility] vers mg tablet 11-24 tablet by ity of 00:00: 00:00 mouth [place] 00 :00 every 6 Medical (six) Branch hours as needed for Pain (scale 4-6). Indication s: acute pain dicyclomine 2019-10 No [id number] 20mg Take 1 [facility] 20 mg 11-24 tablet by ity of tablet 00:00: 00:00 mouth 4 [place] 00 :00 (four) Medical times Branch daily as needed for Abdominal pain. traMADoL 50 2019-10 [id number] 50mg Take 1 [facility] vers mg tablet 11-24 tablet by ity of 00:00: 00:00 mouth [place] 00 :00 every 6 Medical (six) Branch hours as needed for Pain (scale 4-6). Indication s: acute pain ondansetron 2019-10 No [id number] 4mg Take 1 [facility] (ZOFRAN 2-03 -04 tablet by ity of ODT) 4 mg 00:00: 00:00 mouth [place] disintegrat 00 :00 every 8 Medic al ing tablet (eight) Branch hours as needed for Nausea and Vomiting (N/V). ondansetron 2019-10- No [id number] 4mg Take 1 [facility] (ZOFRAN 2-03 01-04 tablet by ity of ODT) 4 mg 00:00: 00:00 mouth [place] disintegrat 00 :00 every 8 Medic al ing tablet (eight) Branch hours as needed for Nausea and Vomiting (N/V). TRI-SPRINTE 2018-0 Yes [id number] TAKE ONE [facility] C 9-25 TABLET BY ity of 0.18/0.215/ 00:00: MOUTH ONCE [place] 0.25 mg-35 00 DAILY Medical mcg (28) Branch per tablet -INTE Yes [id number] TAKE ONE [facility] C 9-25 TABLET BY ity of 0.18/0.215/ 00:00: MOUTH ONCE [place] 0.25 mg-35 00 DAILY Medical mcg (28) Branch per tablet -INTE Yes TAKE ONE [facility] C 9-25 TABLET BY ity of 0.18/0.215/ 00:00: MOUTH ONCE [place] 0.25 mg-35 00 DAILY Medical mcg (28) Branch per tablet -INTE Yes [id number] TAKE ONE [facility] C 9-25 TABLET BY ity of 0.18/0.215/ 00:00: MOUTH ONCE [place] 0.25 mg-35 00 DAILY Medical mcg (28) Branch per tablet -INTE Yes [id number] TAKE ONE [facility] C 9-25 TABLET BY ity of 0.18/0.215/ 00:00: MOUTH ONCE [place] 0.25 mg-35 00 DAILY Medical mcg (28) Branch per tablet -INTE Yes [id number] TAKE ONE [facility] C 9-25 TABLET BY ity of 0.18/0.215/ 00:00: MOUTH ONCE [place] 0.25 mg-35 00 DAILY Medical mcg (28) Branch per tablet -INTE Yes [id number] TAKE ONE [facility] C 9-25 TABLET BY ity of 0.18/0.215/ 00:00: MOUTH ONCE [place] 0.25 mg-35 00 DAILY Medical mcg (28) Branch per tablet -INTE Yes [id number] TAKE ONE [facility] C 9-25 TABLET BY ity of 0.18/0.215/ 00:00: MOUTH ONCE [place] 0.25 mg-35 00 DAILY Medical mcg (28) Branch per tablet TRI-SPRINTE Yes [id number] TAKE ONE [facility] C 9-25 TABLET BY ity of 0.18/0.215/ 00:00: MOUTH ONCE [place] 0.25 mg-35 00 DAILY Medical mcg (28) Branch per tablet -INTE Yes [id number] TAKE ONE [facility] C 9-25 TABLET BY ity of 0.18/0.215/ 00:00: MOUTH ONCE [place] 0.25 mg-35 00 DAILY Medical mcg (28) Branch per tablet -INTE Yes [id number] TAKE ONE [facility] C 9-25 TABLET BY ity of 0.18/0.215/ 00:00: MOUTH ONCE [place] 0.25 mg-35 00 DAILY Medical mcg (28) Branch per tablet -INTE Yes [id number] TAKE ONE [facility] C 9-25 TABLET BY ity of 0.18/0.215/ 00:00: MOUTH ONCE [place] 0.25 mg-35 00 DAILY Medical mcg (28) Branch per tablet -INTE Yes [id number] TAKE ONE [facility] C 9-25 TABLET BY ity of 0.18/0.215/ 00:00: MOUTH ONCE [place] 0.25 mg-35 00 DAILY Medical mcg (28) Branch per tablet -INTE Yes [id number] TAKE ONE [facility] C 9-25 TABLET BY ity of 0.18/0.215/ 00:00: MOUTH ONCE [place] 0.25 mg-35 00 DAILY Medical mcg (28) Branch per tablet -INTE Yes [id number] TAKE ONE [facility] C 9-25 TABLET BY ity of 0.18/0.215/ 00:00: MOUTH ONCE [place] 0.25 mg-35 00 DAILY Medical mcg (28) Branch per tablet -INTE Yes [id number] TAKE ONE [facility] C 9-25 TABLET BY ity of 0.18/0.215/ 00:00: MOUTH ONCE [place] 0.25 mg-35 00 DAILY Medical mcg (28) Branch per tablet -INTE Yes [id number] TAKE ONE [facility] C 9-25 TABLET BY ity of 0.18/0.215/ 00:00: MOUTH ONCE [place] 0.25 mg-35 00 DAILY Medical mcg (28) Branch per tablet TRI-SPRINTE Yes [id number] TAKE ONE [facility] C 9-25 TABLET BY ity of 0.18/0.215/ 00:00: MOUTH ONCE [place] 0.25 mg-35 00 DAILY Medical mcg (28) Branch per tablet -INTE Yes [id number] TAKE ONE [facility] C 9-25 TABLET BY ity of 0.18/0.215/ 00:00: MOUTH ONCE [place] 0.25 mg-35 00 DAILY Medical mcg (28) Branch per tablet -INTE Yes [id number] TAKE ONE [facility] C 9-25 TABLET BY ity of 0.18/0.215/ 00:00: MOUTH ONCE [place] 0.25 mg-35 00 DAILY Medical mcg (28) Branch per tablet -INTE Yes [id number] TAKE ONE [facility] C 9-25 TABLET BY ity of 0.18/0.215/ 00:00: MOUTH ONCE [place] 0.25 mg-35 00 DAILY Medical mcg (28) Branch per tablet -INTE Yes [id number] TAKE ONE [facility] C 9-25 TABLET BY ity of 0.18/0.215/ 00:00: MOUTH ONCE [place] 0.25 mg-35 00 DAILY Medical mcg (28) Branch per tablet -INTE Yes [id number] TAKE ONE [facility] C 9-25 TABLET BY ity of 0.18/0.215/ 00:00: MOUTH ONCE [place] 0.25 mg-35 00 DAILY Medical mcg (28) Branch per tablet -INTE Yes [id number] TAKE ONE [facility] C 9-25 TABLET BY ity of 0.18/0.215/ 00:00: MOUTH ONCE [place] 0.25 mg-35 00 DAILY Medical mcg (28) Branch per tablet -INTE Yes [id number] TAKE ONE [facility] C 9-25 TABLET BY ity of 0.18/0.215/ 00:00: MOUTH ONCE [place] 0.25 mg-35 00 DAILY Medical mcg (28) Branch per tablet -INTE Yes [id number] TAKE ONE [facility] C 9-25 TABLET BY ity of 0.18/0.215/ 00:00: MOUTH ONCE [place] 0.25 mg-35 00 DAILY Medical mcg (28) Branch per tablet -INTE Yes [id number] TAKE ONE [facility] C 9-25 TABLET BY ity of 0.18/0.215/ 00:00: MOUTH ONCE [place] 0.25 mg-35 00 DAILY Medical mcg (28) Branch per tablet -INTE Yes [id number] TAKE ONE [facility] C 9-25 TABLET BY ity of 0.18/0.215/ 00:00: MOUTH ONCE [place] 0.25 mg-35 00 DAILY Medical mcg (28) Branch per tablet -INTE Yes [id number] TAKE ONE [facility] C 9-25 TABLET BY ity of 0.18/0.215/ 00:00: MOUTH ONCE [place] 0.25 mg-35 00 DAILY Medical mcg (28) Branch per tablet -INTE Yes TAKE ONE [facility] C 9-25 TABLET BY ity of 0.18/0.215/ 00:00: MOUTH ONCE [place] 0.25 mg-35 00 DAILY Medical mcg (28) Branch per tablet -INTE Yes [id number] TAKE ONE [facility] C 9-25 TABLET BY ity of 0.18/0.215/ 00:00: MOUTH ONCE [place] 0.25 mg-35 00 DAILY Medical mcg (28) Branch per tablet -INTE Yes [id number] TAKE ONE [facility] C 9-25 TABLET BY ity of 0.18/0.215/ 00:00: MOUTH ONCE [place] 0.25 mg-35 00 DAILY Medical mcg (28) Branch per tablet -INTE Yes [id number] TAKE ONE [facility] C 9-25 TABLET BY ity of 0.18/0.215/ 00:00: MOUTH ONCE [place] 0.25 mg-35 00 DAILY Medical mcg (28) Branch per tablet -INTE Yes [id number] TAKE ONE [facility] C 9-25 TABLET BY ity of 0.18/0.215/ 00:00: MOUTH ONCE [place] 0.25 mg-35 00 DAILY Medical mcg (28) Branch per tablet -INTE Yes [id number] TAKE ONE [facility] C 9-25 TABLET BY ity of 0.18/0.215/ 00:00: MOUTH ONCE [place] 0.25 mg-35 00 DAILY Medical mcg (28) Branch per tablet TRI-INTE Yes TAKE ONE [facility] C 9-25 TABLET BY ity of 0.18/0.215/ 00:00: MOUTH ONCE [place] 0.25 mg-35 00 DAILY Medical mcg (28) Branch per tablet -INTE Yes [id number] TAKE ONE [facility] C 9-25 TABLET BY ity of 0.18/0.215/ 00:00: MOUTH ONCE [place] 0.25 mg-35 00 DAILY Medical mcg (28) Branch per tablet -SPRINTE Yes [id number] TAKE ONE [facility] C 9-25 TABLET BY ity of 0.18/0.215/ 00:00: MOUTH ONCE [place] 0.25 mg-35 00 DAILY Medical mcg (28) Branch per tablet -INTE Yes [id number] TAKE ONE [facility] C 9-25 TABLET BY ity of 0.18/0.215/ 00:00: MOUTH ONCE [place] 0.25 mg-35 00 DAILY Medical mcg (28) Branch per tablet -INTE Yes [id number] TAKE ONE [facility] C 9-25 TABLET BY ity of 0.18/0.215/ 00:00: MOUTH ONCE [place] 0.25 mg-35 00 DAILY Medical mcg (28) Branch per tablet -INTE Yes [id number] TAKE ONE [facility] C 9-25 TABLET BY ity of 0.18/0.215/ 00:00: MOUTH ONCE [place] 0.25 mg-35 00 DAILY Medical mcg (28) Branch per tablet -INTE Yes [id number] TAKE ONE [facility] C 9-25 TABLET BY ity of 0.18/0.215/ 00:00: MOUTH ONCE [place] 0.25 mg-35 00 DAILY Medical mcg (28) Branch per tablet -INTE Yes [id number] TAKE ONE [facility] C 9-25 TABLET BY ity of 0.18/0.215/ 00:00: MOUTH ONCE [place] 0.25 mg-35 00 DAILY Medical mcg (28) Branch per tablet -INTE Yes [id number] TAKE ONE [facility] C 9-25 TABLET BY ity of 0.18/0.215/ 00:00: MOUTH ONCE [place] 0.25 mg-35 00 DAILY Medical mcg (28) Branch per tablet metroNIDAZO 2016-10 Yes [id number] 500mg Take 1 [facility] LE 500 mg 0-03 tablet by ity o f tablet 00:00: mouth 2 [place] 00 (two) Medical times Branch daily. metroNIDAZO 2016-10 Yes [id number] 500mg Take 1 [facility] LE 500 mg 0-03 tablet by ity o f tablet 00:00: mouth 2 [place] 00 (two) Medical times Branch daily. metroNIDAZO 2016-10 Yes [id number] 500mg Take 1 [facility] LE 500 mg 0-03 tablet by ity o f tablet 00:00: mouth (two) Medical times Branch daily. metroNIDAZO 2016-10 Yes [id number] 500mg Take 1 [facility] LE 500 mg 0-03 tablet by ity o f tablet 00:00: mouth 2 (two) Medical times Branch daily. metroNIDAZO 2016-10 Yes [id number] 500mg Take 1 [facility] LE 500 mg 0-03 tablet by ity o f tablet 00:00: mouth (two) Medical times Branch daily. metroNIDAZO 2016-10 Yes [id number] 500mg Take 1 [facility] LE 500 mg 0-03 tablet by ity o f tablet 00:00: mouth (two) Medical times Branch daily. metroNIDAZO 2016-10 Yes [id number] 500mg Take 1 [facility] LE 500 mg 0-03 tablet by ity o f tablet 00:00: mouth (two) Medical times Branch daily. metroNIDAZO 2016-10 Yes [id number] 500mg Take 1 [facility] LE 500 mg 0-03 tablet by ity o f tablet 00:00: mouth (two) Medical times Branch daily. metroNIDAZO 2016-10 Yes [id number] 500mg Take 1 [facility] LE 500 mg 0-03 tablet by ity o f tablet 00:00: mouth (two) Medical times Branch daily. metroNIDAZO 2016-10 Yes [id number] 500mg Take 1 [facility] LE 500 mg 0-03 tablet by ity o f tablet 00:00: mouth (two) Medical times Branch daily. metroNIDAZO 2016-10 Yes [id number] 500mg Take 1 [facility] LE 500 mg 0-03 tablet by ity o f tablet 00:00: mouth (two) Medical times Branch daily. metroNIDAZO 2016-10 Yes [id number] 500mg Take 1 [facility] LE 500 mg 0-03 tablet by ity o f tablet 00:00: mouth (two) Medical times Branch daily. metroNIDAZO 2016-10 Yes [id number] 500mg Take 1 [facility] LE 500 mg 0-03 tablet by ity o f tablet 00:00: mouth (two) Medical times Branch daily. metroNIDAZO 2016-10 Yes [id number] 500mg Take 1 [facility] LE 500 mg 0-03 tablet by ity o f tablet 00:00: mouth (two) Medical times Branch daily. metroNIDAZO 2016-10 Yes [id number] 500mg Take 1 [facility] LE 500 mg 0-03 tablet by ity o f tablet 00:00: mouth 2 (two) Medical times Branch daily. metroNIDAZO 2016-10 Yes [id number] 500mg Take 1 [facility] LE 500 mg 0-03 tablet by ity o f tablet 00:00: mouth (two) Medical times Branch daily. metroNIDAZO 2016-10 Yes [id number] 500mg Take 1 [facility] LE 500 mg 0-03 tablet by ity o f tablet 00:00: mouth (two) Medical times Branch daily. metroNIDAZO 2016-10 Yes [id number] 500mg Take 1 [facility] LE 500 mg 0-03 tablet by ity o f tablet 00:00: mouth (two) Medical times Branch daily. metroNIDAZO 2016-10 Yes [id number] 500mg Take 1 [facility] LE 500 mg 0-03 tablet by ity o f tablet 00:00: mouth (two) Medical times Branch daily. metroNIDAZO 2016-10 Yes [id number] 500mg Take 1 [facility] LE 500 mg 0-03 tablet by ity o f tablet 00:00: mouth (two) Medical times Branch daily. metroNIDAZO 2016-10 Yes [id number] 500mg Take 1 [facility] LE 500 mg 0-03 tablet by ity o f tablet 00:00: mouth (two) Medical times Branch daily. metroNIDAZO 2016-10 Yes [id number] 500mg Take 1 [facility] LE 500 mg 0-03 tablet by ity o f tablet 00:00: mouth (two) Medical times Branch daily. metroNIDAZO 2016-10 Yes [id number] 500mg Take 1 [facility] LE 500 mg 0-03 tablet by ity o f tablet 00:00: mouth 2 (two) Medical times Branch daily. metroNIDAZO 2016-10 Yes [id number] 500mg Take 1 [facility] LE 500 mg 0-03 tablet by ity o f tablet 00:00: mouth (two) Medical times Branch daily. metroNIDAZO 2016-10 Yes [id number] 500mg Take 1 [facility] LE 500 mg 0-03 tablet by ity o f tablet 00:00: mouth 2 [place] 00 (two) Medical times Branch daily. metroNIDAZO 2016-10 Yes [id number] 500mg Take 1 [facility] LE 500 mg 0-03 tablet by ity o f tablet 00:00: mouth 2 [place] 00 (two) Medical times Branch daily. metroNIDAZO 2016-10 Yes [id number] 500mg Take 1 [facility] LE 500 mg 0-03 tablet by ity o f tablet 00:00: mouth 2 [place] 00 (two) Medical times Branch daily. metroNIDAZO 2016-10 Yes [id number] 500mg Take 1 [facility] LE 500 mg 0-03 tablet by ity o f tablet 00:00: mouth 2 [place] 00 (two) Medical times Branch daily. metroNIDAZO 2016-10- No [id number] 500mg Take 1 [facility] LE 500 mg 0-03 05-19 tablet by ity of tablet 00:00: 00:00 mouth 2 [place] 00 :00 (two) Medical times Branch daily. metroNIDAZO 2016-10- No [id number] 500mg Take 1 [facility] LE 500 mg 0-03 05-19 tablet by ity of tablet 00:00: 00:00 mouth 2 [place] 00 :00 (two) Medical times Branch daily. metroNIDAZO 2016-10- No [id number] 500mg Take 1 [facility] LE 500 mg 0-03 05-19 tablet by ity of tablet 00:00: 00:00 mouth 2 [place] 00 :00 (two) Medical times Branch daily. Immunizations Ordered Filled Immunization Date Status Comments [facility] e Immunization Name Name [facility] 2017-07-24 Completed [facility] 00:00:00 [facility] TDAP 2017-07-24 Completed [facility] of 00:00:00 [facility] TDAP 2017-07-24 Completed University of 00:00:00 [facility] TDAP 2017-07-24 Completed [facility] of 00:00:00 [facility] TDAP 2017-07-24 Completed [facility] of 00:00:00 [facility] TDAP 2017-07-24 Completed [facility] of 00:00:00 [facility] TDAP 2017-07-24 Completed [facility] of 00:00:00 [facility] TDAP 2017-07-24 Completed University of 00:00:00 [facility] TDAP 2017-07-24 Completed University of 00:00:00 [place] [...] Branch TDAP 2017-07-24 Completed University of 00:00:00 [facility] Branch TDAP 2017-07-24 Completed University of 00:00:00 [...] Branch TDAP 2017-07-24 Completed University of 00:00:00 [facility] Vital Signs Vital Name Observation Time Observation Value Comments Source Systolic blood 2021-05-13 19:17:00 141 mm[Hg] Univer sity of pressure [facility] Diastolic blood 2021-05-13 19:17:00 93 mm[Hg] Unive rsity of pressure [facility] Heart rate 2021-05-13 19:17:00 93 /min [facility] Body temperature 2021-05-13 19:17:00 36.94 [facility] Respiratory rate 2021-05-13 19:17:00 18 /min [facility] Body height 2021-05-13 19:17:00 167.6 cm [facility] Body weight 2021-05-13 19:17:00 128.822 kg [facility] BMI 2021-05-13 19:17:00 45.84 kg/m2 [facility] Oxygen saturation in 2021-05-13 19:17:00 98 /min [facility] Arterial blood by [facility] Pulse oximetry Branch Systolic blood 2021-05-12 15:28:00 152 mm[Hg] Univer sity of pressure [facility] Diastolic blood 2021-05-12 15:28:00 96 mm[Hg] Unive rsity of pressure [facility] Heart rate 2021-05-12 15:28:00 89 /min [facility] Respiratory rate 2021-05-12 15:28:00 18 /min [facility] 2021-05-12 15:28:00 167.6 cm [facility] [place] [facility] Body weight 2021-05-12 15:28:00 129.184 kg [facility] [place] [facility] BMI 2021-05-12 15:28:00 45.97 kg/m2 [facility] [place] [facility] Oxygen saturation in 2021-05-12 15:28:00 98 /min [facility] of Arterial blood by [facility] janae Pulse oximetry Branch Systolic blood 2021-05-12 [...] 2021-05-12 15:28:00 45.97 kg/m2 [facility] [place] [facility] Oxygen saturation in 2021-05-12 15:28:00 98 /min [facility] of Arterial blood by [facility] Pulse oximetry Branch Systolic blood 2021-04-12 16:27:00 141 mm[Hg] Univer sity of pressure [place] [facility] Diastolic blood 2021-04-12 16:27:00 92 mm[Hg] Unive rsity of pressure [place] [facility] Heart rate 2021-04-12 16:24:00 83 /min [facility] [place] [facility] Body temperature 2021-04-12 16:24:00 36.83 Radha [facility] [place] [facility] Respiratory rate 2021-04-12 16:24:00 18 /min [facility] [place] [facility] Body height 2021-04-12 16:24:00 167.6 cm [facility] [place] [facility] Body weight 2021-04-12 16:24:00 128.822 kg [facility] [place] [facility] BMI 2021-04-12 16:24:00 45.84 kg/m2 [facility] Oxygen saturation in 2021-04-12 16:24:00 100 /min University of Arterial blood by [facility] Pulse oximetry Branch Systolic blood 2021-04-05 16:46:00 149 mm[Hg] [facility] Diastolic blood 2021-04-05 16:46:00 87 mm[Hg] [facility]ive [facility] Heart rate 2021-04-05 16:46:00 81 /min [facility] Body temperature 2021-04-05 16:46:00 36.39 Radha [facility] Body weight 2021-04-05 16:46:00 128.867 kg [facility] BMI 2021-04-05 16:46:00 45.85 kg/m2 [facility] Oxygen saturation in 2021-04-05 16:46:00 98 /min University of Arterial blood by [facility] Pulse oximetry Branch Systolic blood 2021-03-09 20:51:00 144 mm[Hg] [facility] Diastolic blood 2021-03-09 20:51:00 92 mm[Hg] Unive rs[facility] Heart rate 2021-03-09 19:28:00 74 /min [facility] Body temperature 2021-03-09 19:26:00 36.39 Radha [facility] Respiratory rate 2021-03-09 19:26:00 16 /min [facility] Body height 2021-03-09 19:26:00 167.6 cm [facility] Body weight 2021-03-09 19:26:00 126.554 kg [facility] BMI 2021-03-09 19:26:00 45.03 kg/m2 [facility] Systolic blood 2021-03-01 16:42:00 154 mm[Hg] [facility] Diastolic blood 2021-03-01 16:42:00 107 mm[Hg] [facility]ive [facility] Heart rate 2021-03-01 16:42:00 80 /min [facility] Respiratory rate 2021-03-01 16:42:00 16 /min [facility] Body height 2021-03-01 16:42:00 167.6 cm [facility] Oxygen saturation in 2021-03-01 16:42:00 99 /min [facility] Arterial blood by [facility] Pulse oximetry Branch Systolic blood 2020-10-25 14:44:00 134 mm[Hg] [facility] Diastolic blood 2020-10-25 14:44:00 83 mm[Hg] [facility] Heart rate 2020-10-25 14:44:00 81 /min [facility] Body temperature 2020-10-25 14:43:00 36.28 Radha [facility] Respiratory rate 2020-10-25 14:43:00 18 /min [facility] Body height 2020-10-25 14:43:00 167.6 cm [facility] Body weight 2020-10-25 14:43:00 127.37 kg [facility] BMI 2020-10-25 14:43:00 45.32 kg/m2 [facility] Systolic blood 2020-10-08 15:30:00 110 mm[Hg] [facility] Diastolic blood 2020-10-08 15:30:00 74 mm[Hg] [facility] Heart rate 2020-10-08 15:30:00 73 /min [facility] Body temperature 2020-10-08 15:30:00 36.28 Radha [facility] Respiratory rate 2020-10-08 15:30:00 26 /min [facility] Oxygen saturation in 2020-10-08 15:30:00 94 /min [facility] Arterial blood by [facility] Pulse oximetry Branch Body height 2020-10-07 18:00:00 167.6 cm [facility] Body weight 2020-10-07 18:00:00 127.007 kg [facility] BMI 2020-10-07 18:00:00 45.19 kg/m2 [facility] Systolic blood 2020-10-04 15:26:00 115 mm[Hg] [facility] Diastolic blood 2020-10-04 15:26:00 79 mm[Hg] [facility] Heart rate 2020-10-04 15:26:00 74 /min [facility] Body temperature 2020-10-04 15:26:00 36.5 Radha [facility] Respiratory rate 2020-10-04 15:26:00 20 /min Univ ersity of [facility] Body height 2020-10-04 15:26:00 167.6 cm [facility] Body weight 2020-10-04 15:26:00 127.098 kg [facility] BMI 2020-10-04 15:26:00 45.23 kg/m2 [facility] of [facility] Systolic blood 2020-09-30 01:00:00 137 mm[Hg] Univer sity of pressure [facility] Diastolic blood 2020-09-30 01:00:00 96 mm[Hg] Unive rsity of pressure [facility] Heart rate 2020-09-30 01:00:00 73 /min [facility] Respiratory rate 2020-09-30 01:00:00 14 /min Univ ersity of [facility] Oxygen saturation in 2020-09-30 01:00:00 98 /min [facility] Arterial blood by [facility] Pulse oximetry Branch Body temperature 2020-09-29 23:25:00 37.44 Radha Univ ersity of [facility] Branch Body height 2020-09-29 23:25:00 167.6 cm Universi ty of [facility] Body weight 2020-09-29 23:25:00 127.007 kg Universi ty of [facility] Branch BMI 2020-09-29 23:25:00 45.19 kg/m2 [facility] of [facility] Systolic blood 2020-09-28 21:34:00 148 mm[Hg] [facility] Diastolic blood 2020-09-28 21:34:00 101 mm[Hg] [facility]ive [facility] Heart rate 2020-09-28 21:33:00 80 /min Universi ty of [facility] Body temperature 2020-09-28 21:33:00 36.39 Radha Univ ersity of [facility] Respiratory rate 2020-09-28 21:33:00 18 /min Univ ersity of [facility] Body height 2020-09-28 21:33:00 167.6 cm [facility] Body weight 2020-09-28 21:33:00 128.096 kg Universi ty [facility] BMI 2020-09-28 21:33:00 45.58 kg/m2 Universi ty [facility] Respiratory rate 2020-09-24 02:00:00 20 /min [facility] Oxygen saturation in 2020-09-24 02:00:00 98 /min [facility] Arterial blood by [facility] Pulse oximetry Branch Systolic blood 2020-09-24 01:55:00 154 mm[Hg] [facility] Diastolic blood 2020-09-24 01:55:00 106 mm[Hg] [facility] Heart rate 2020-09-24 01:55:00 79 /min [facility] Body temperature 2020-09-24 00:42:00 36.78 Radha [facility] Body height 2020-09-24 00:42:00 167.6 cm Universi ty [facility] Body weight 2020-09-24 00:42:00 127.007 kg Universi ty [facility] BMI 2020-09-24 00:42:00 45.19 kg/m2 [facility] Procedures Procedure Date / Time Performing Clinician Source Performed EXTERNAL PROVIDER 2021-03-14 05:01:00 Doctor Unassigned, No Univ [facility] RECORDS Name [facility] GC & CHLAMYDIA AMPLIFIED 2021-03-09 20:50:00 David [facility] HIV 1/2 AG-AB WITH 2021-03-09 20:50:00 David Thomas [facility] REFLEX [facility] TRICHOMONAS AMPLIFIED 2021-03-09 20:50:[address] [facility] PAP SMEAR-LIQUID 2021-03-09 20:50:00 David Thomas [facility] BASED-CP [facility] GALV ONLY - SYPHILIS 2021-03-09 20:50:00 David Thomas [facility] IGG/IGM [facility] POCT TEST 2021-03-09 19:31:00 David Thomas [facility] EXTERNAL PROVIDER 2021-03-03 05:01:00 Doctor Unassigned, No [facility] RECORDS Name Medical Branch REFERRAL- 2021-02-22 05:01:00 Doctor Unassigned, No [facility] REQUEST/RESPONSE Name Medical Branch EGD (ENDO) 2020-10-08 13:04:[address] [facility] COVID-19 (ID NOW RAPID 2020-10-08 12:51:00 Magdiel Nash [facility] TESTING) Medical Branch DAY SURGERY - ADC 2020-10-08 06:01:00 Doctor Unassigned, No [facility] Name Medical Branch NM HEPATOBILIARY W 2020-10-06 17:47:00 Gene Merritt [facility] INTERVENTION [facility] DISCLOSURE AND CONSENT, 2020-10-04 06:01:00 Doctor Unassigned, N o [facility] MEDICAL AND SURGICAL Name Medical Bra nch PROCEDURES LIPASE 2020-09-30 00:10:[address] [facility] COMP. METABOLIC PANEL 2020-09-30 00:10:00 Ishaan Infante [facility] ([id number]) Medical Branch CBC WITH DIFF 2020-09-30 00:10:[address] [facility] COVID-19 (ID NOW RAPID 2020-09-30 00:10:00 Ishaan Infante [facility] TESTING) Medical Branch URINALYSIS 2020-09-29 23:30:[address] [facility] CONSENT/REFUSAL FOR 2020-09-29 23:03:47 Doctor Unassigned, No [facility] DIAGNOSIS AND TREATMENT Name Medical Branch CT ABDOMEN PELVIS W 2020-09-24 01:50:07 Ishaan Infante [facility] CONTRAST Medical Branch LIPASE 2020-09-24 01:12:[address] [facility] COMP. METABOLIC PANEL 2020-09-24 01:12:00 Ishaan Infante [facility] ([id number]) Medical Branch CBC WITH DIFF 2020-09-24 01:12:[address] [facility] URINALYSIS 2020-09-24 01:12:00 Ishaan Infante [place] [facility] NOTICE OF PRIVACY 2020-09-24 00:38:52 Doctor Unassigned, No Univ ersity [facility] PRACTICES Name Medical Branch CONSENT/REFUSAL FOR 2020-09-24 00:33:55 [facility] Name [facility] DISCLOSURE AND CONSENT, 2019-10-25 06:01:00 Doctor Unassigned, N o [facility] MEDICAL AND SURGICAL Name Medical [facility] PROCEDURES Encounters Start End Encounter Admission Attending Care Care Encounter Source Date/Time Date/Time Type Type Clinicians Facility Department ID 2021-08-20 Outpatient R CHATO [facility] SANDY [id number] Univers 18:19:38 LINWOOD barbie [facility] 2021-08-20 Outpatient CHATO [facility] [id number] Univers 11:05:20 LINWOOD [facility] 2021-08-20 Emergency [facility] [id number] Univers 10:20:07 y [facility] 2021-08-09 2021-08-09 Outpatient R [facility] [id number] Univers 11:00:00 11:00:00 ity [facility] 2021-07-14 2021-07-14 Outpatient R NILSA [facility] [id number] Univers 10:00:00 10:00:00 MICHELLE [facility] 2021-05-18 2021-05-18 Outpatient [facility] [id number] Univers 10:00:00 10:00:00 BOB [facility] 2021-05-17 2021-05-17 Outpatient R [facility] [id number] Univers 09:00:00 09:00:00 ity [facility] 2021-05-14 2021-05-14 Telephone PcpCELINA [id number] Univers 00:00:00 00:00:00 Patient TEO [id number] it y of [facility] [place].2.686 [place] A [phone] [address] 2021-05-13 2021-05-13 Urgent Lucero Landry [facility] [id number] Univers 13:55:27 14:15:27 Care Warren [facility] 350.1.13.10 ity [facility] 4.2.7.2.686 Dae as Professio [phone] Mi oral nal [address] [place] Office [facility] One 2021-05-13 2021-05-13 Outpatient R WARREN [facility] [id number] Univers 14:00:00 14:00:00 CELINA [facility] 2021-05-12 2021-05-12 Office Nilsa [facility] 1.2.840.114 [id number] Univers 10:23:38 11:43:11 Visit Michelle SPECIALTY 350.1.13.10 ity of [facility] [place]2.7.2.[place] AT [phone] Mi oral RIZWAN [address] [place] [address] 2021-05-12 2021-05-12 Office Nilsa [facility] [id number] 10:23:38 11:43:11 Visit Michelle SPECIALTY 350.1.13.10 Li [facility] 4.2.7.2.686 CENTER AT [phone] [address] 2021-05-12 2021-05-12 Outpatient R NILSA [facility] [id number] Univers 10:00:00 10:00:00 [facility] 2021-05-05 2021-05-05 Telephone Martha [facility] [id number] Univers 00:00:00 00:00:00 David Rico BLASTING MINER [id number] ity of REGIONAL 4.2.7.2.686 Dae as MATERNAL [phone] Med ical & CHILD 107 [facility] 2021-04-14 2021-04-14 Telephone Jeannette, [facility] 1.2.840.114 [id number] Univers 00:00:00 00:00:00 [facility] 350.1.13.10 ity of Care Surgical 4.2.7.2.686 Dae as Specialti [phone] Mi oral es 370 [facility] 2021-04-12 2021-04-12 Outpatient R ARUNA CRUZ [facility] [id number] Univers 14:00:00 14:00:00 ity of [facility] 2021-04-12 2021-04-12 Urgent Provider, [facility] 1.2.840.114 [id number] Univers 11:21:11 11:41:11 [facility] [id number] ity of [place] 4.2.7.2.686 Dae as Professio [phone] Mi dical formerly [facility] [address] [place] Office Building One 2021-04-12 2021-04-12 Outpatient R DIONNE [facility] [id number] Univers 11:20:00 11:20:00 ALMA barbie [facility] 2021-04-05 2021-04-05 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 10 [facility] 4.2.7.2.686 [facility] [place] [phone] [facility] AND BRANDON [address] [place] [facility] 2021-04-05 2021-04-05 Office Miguelina Rodriguez [facility] 1.2.840.114 [id number] Univers 11:40:18 12:28:19 Visit Rudy Dubon MULTISPEC 350.1.13. 10 ity of IALTY 4.2.7.2.686 [facility] [place] [phone] [facility] BRANDON [address] [place] [facility] 2021-04-05 2021-04-05 Outpatient R JAGDISH [facility] [id number] Univers 11:30:00 11:30:00 RUDY itbarbie of [facility] 2021-03-25 2021-03-25 Telephone Martha [facility] [id number] Univers 00:00:00 00:00:00 David Rico BLASTING MINER 350.1.13.10 ity of REGIONAL 4.2.7.2.686 Dae as MATERNAL [phone] Med ical & CHILD [address] [place] [address] 2021-03-14 2021-03-14 Orders Doctor CELINA 1.2.840.114 [id number] Univers 00:00:00 00:00:00 Only Unassigned, TEO 350.1.13.10 ity of [place] [facility] 4.2.7.2.686 Dae as [phone] [facility] [address] [place] 2021-03-09 2021-03-09 Office Martha [facility] 1.2.840.114 [id number] Univers 14:16:46 15:52:08 Visit David Rico BLASTING MINER 350.1.13.10 ity of [facility] 4.2.7.2.686 Dae as MATERNAL [phone] Med ical & CHILD [address] [place] [address] 2021-03-09 2021-03-09 Outpatient R MARTHA [facility] [id number] Univers 15:15:00 15:15:00 DAVID cutler o f [facility] 2021-03-09 2021-03-09 Outpatient R CARLI [facility] [id number] Univers 13:30:00 13:30:00 KINGSTON cutler [facility] 2021-03-03 2021-03-03 Orders Doctor CELINA 1.2.840.114 [id number] Univers 00:00:00 00:00:00 Only Unassigned, TEO 350.1.13.10 ity of [place] [facility] 4.2.7.2.686 Dae as [phone] [facility] [address] [place] 2021-03-01 2021-03-01 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 10 ity of [place]2.7.2.686 [place] [phone] [facility] BRANDON [address] [place] [facility] 2021-03-01 2021-03-01 Office Miguelina Rodriguez [facility] 1.2.840.114 [id number] Univers 10:28:54 12:24:36 Visit Rudy Dubon MULTISPEC 350.1.13. 10 ity of [place]2.7.2.686 [place] [phone] [facility] BRANDON [address] [place] [facility] 2021-03-01 2021-03-01 Outpatient R JAGDISH [facility] [id number] Univers 11:30:00 11:30:00 RUDY cutler [facility] 2021-02-22 2021-02-22 Orders Doctor CELINA 1.2.840.114 [id number] Univers 00:00:00 00:00:00 Only Unassigned, TEO 350.1.13.10 ity of [place] [facility] 4.2.7.2.686 Dae as [phone] [facility] 009 Branch 2021-02-03 2021-02-03 Outpatient R CHATO [facility] [id number] Univers 13:15:00 13:15:00 LINWOOD cutler [facility] 2021-01-24 2021-01-24 [facility] 1.2.840.114 [id number] Univers 00:00:00 00:00:00 Linwood Patterson 350.1.13.10 i ty of [place].2.7.2.686 [place] Profess[place] [phone] Mi dical nal [address] [place] Building 2021-01-13 2021-01-13 Laboratory Lab, Adc Fam Pob I [facility] 1.2. 840.114 [id number] Univers 14:23:32 14:43:32 Only Netta Bentley [facility] 350.1.13.10 ity of [place] 4.2.7.2.686 Dae as Professio [phone] Mi dical nal 044 Branch Office Building One 2021-01-13 2021-01-13 Outpatient R SHEREE [facility] [id number] Univers 14:40:00 14:40:00 NETTA cutler [facility] 2021-01-11 2021-01-11 Patient Alireza [facility] 1.2.840.114 [id number] Univers 00:00:00 00:00:00 Outreach Jared HICKMAN 350.1.13.10 i ty of [facility] 4.2.7.2.686 [place] PAV[place] [phone] Mi dical [address] [place] 2020-11-11 2020-11-11 Telephone [facility] [id number] Univers 00:00:00 00:00:00 Anne Marie Patterson 350.1.13.10 ity of [place] 4.2.7.2.686 [place] Profess[place] [phone] [facility] 204 [facility] 2020-10-25 2020-10-25 Office [facility] [id number] [id number] Univers 08:32:15 09:31:22 Visit Linwood Patterson 350.1.13.10 i ty of [place] 4.2.7.2.686 [place] Profess[place] [phone] [facility] 2020-10-25 2020-10-25 Outpatient R [facility] [id number] Univers 08:30:00 08:30:00 LINWOOD cutler of [facility] 2020-10-25 2020-10-25 Letter [facility] 1.2.256.840 [id number] Univers 00:00:00 00:00:00 (Out) Linwood Patterson 350.1.13.10 i ty of [place] 4.2.7.2.686 [place] Profess[place] [phone] [address] 2020-10-25 2020-10-25 Prep For [facility] 1.2.840.114 [id number] Univers 00:00:00 00:00:00 Surgery Anne Marie Patterson 350.1.13.10 ity of [place] 4.2.7.2.686 [place] Profess[place] [phone] [facility] 204 [facility] 2020-10-08 2020-10-08 Hospital [facility] 1.2.840.114 [id number] Univers 07:09:00 09:50:00 Encounter Linwood Patterson 350.1.13.10 ity of [place] 4.2.7.2.686 [place] Surgical [phone] [place] [address]261 Branch 2020-10-08 2020-10-08 Orders Doctor PATRICK 1.2.840.114 [id number] Univers 00:00:00 00:00:00 Only Unassigned, TEO 350.1.13.10 ity of [place] [facility] 4.2.7.2.686 Dae as [phone] [facility] [address] [place] 2020-10-07 2020-10-07 [facility] [id number] Univers 11:00:00 11:00:00 LINWOOD cutler of [facility] 2020-10-06 2020-10-06 Hospital [facility] 1.2.840.114 [id number] Univers 09:09:35 23:59:00 Encounter Linwood Yesenia 350.1.13.10 ity of [place] 4.2.7.2.686 [place] [phone] [facility] [address] [place] 2020-10-06 2020-10-06 [facility] [id number] Univers 09:30:00 09:30:00 LINWOOD cutler of [facility] 2020-10-04 2020-10-04 Office [facility] [id number] [id number] Univers 09:08:04 10:04:17 Visit Linwood Yesenia 350.1.13.10 i ty of [place] 4.2.7.2.686 [place] [phone] Mi dical nal 188 [facility] 2020-10-04 2020-10-04 Outpatient [facility] [id number] Univers 09:00:00 09:00:00 LINWOOD cutler of [facility] 2020-10-04 2020-10-04 Prep For [facility] 1.2.840.114 [id number] Univers 00:00:00 00:00:00 Surgery Anne Marie Patterson 350.1.13.10 ity of [place] 4.2.7.2.686 [place] [phone] Mi dical nal 204 [facility] 2020-10-04 2020-10-04 [facility] 1.2.477.414 [id number] Univers 00:00:00 00:00:00 (Out) Linwood Yesenia 350.1.13.10 i ty of [place] 4.2.7.2.686 [place] [phone] Mi dical nal 204 [facility] 2020-09-29 2020-09-29 Emergency [facility] [id number] Univers 18:05:00 19:42:00 Ishaandavon Patterson 350.1.13.10 i ty of [place] 4.2.7.2.686 [place] [phone] [facility] [address] [place] 2020-09-28 2020-09-28 Hospital [facility] 1.2.840.114 [id number] Univers 16:52:37 23:59:00 Encounter Linwood Patterson 350.1.13.10 ity of [place] 4.2.7.2.686 [facility] [phone] [facility] [address] [place] 2020-09-28 2020-09-28 Office [facility] [id number] Univers 15:22:01 16:36:37 Visit Linwood Patterson 350.1.13.10 i ty of [place] 4.2.7.2.686 [facility] Professio [phone] Mi dical nal 188 [facility] 2020-09-28 2020-09-28 Outpatient R [facility] [id number] Univers 15:15:00 15:15:00 LINWOOD cutler [facility] 2020-09-23 2020-09-23 Emergency X [facility] ERT [id number] Univers 18:39:00 21:15:00 ISHAAN itbarbie [facility] 2020-09-23 2020-09-23 Emergency [facility] 1.2.019.551 [id number] Univers 18:39:00 21:15:00 Ishaan Patterson 350.1.13.10 i ty of [place] 4.2.7.2.686 [phone] [address] 2019-10-25 2019-10-25 Orders Doctor CELINA 1.2.840.114 [id number] Univers 00:00:00 00:00:00 Only Unassigned, TEO 350.1.13.10 ity of [place] [facility] 4.2.7.2.686 Dae as [phone] [facility] [address] [place] Results Test Description Test Time Test Comments Results Result Comments Source TRICHOMONAS AMPLIFIED ASSAY 2021-03-11 01:34:59 Test Item Value Reference Range Interpretation Comme nts Trichomonas Nucleic Acid (test code = Negative Negative 27768-5) AQUILES (test code = AQUILES) Reliable results [...] clinician. Lab Interpretation (test code = Normal 48057-5) [facility] CHLAMYDIA AMPLIFIED [id number] 01:25:04 Test Item Value Reference Range Interpretation Comments C. trachomatis Nucleic Negative Negative Acid (test code = 23522-4) N. gonorrhoeae Nucleic Negative Negative Acid (test code = 22374-3) AQUILES (test code = AQUILES) Reliable results [...] clinician. Lab Interpretation Normal (test code = 78828-1) [facility] SY[facility]IL[facility] [id number] 15:08:52 Test Item Value Reference Range Interpretation Comments Syphilis IgG/IgM (test Non-reactive Non-reactive code = 48114-6) AQUILES (test code = AQUILES) Non-reactive - No serologic evidence of T. pallidum infection. Cannot exclude incubating or early syphilis. Submit a second specimen in 2-4 weeks if syphilis is clinically suspected. Equivocal - Further testing to follow. Reactive - Further testing to follow. Lab Interpretation (test Normal code = 52146-3) [facility] [id number] 07:54:01 Test Item Value Reference Range Interpretation Comments HIV Negative Negative Semi-quantitative (test code = 62276-5) AQUILES (test code = Non-reactive for HIV-1 AQUILES) antigen and HIV-1/HIV-2 antibodies. ?No laboratory evidence of HIV infection. ?Repeat in 2-4 weeks if acute HIV infection is suspected. [facility] [id number] 19:31:00 Test Item Value Reference Range Interpretation Comments POCT PREG (test code = 1605) Negative On board controls acceptable with C Yes Line (test code = 3574) POCT PREG LOT # (test code = 3575) POCT PREG TEST DATE (test code = 3576) Lab Interpretation (test code = Normal 01523-8) [facility] [id number] 19:31:00 Test Item Value Reference Range Interpretation Comments POCT PREG (test code = 1605) Negative On board controls acceptable with C Yes Line (test code = 3574) POCT PREG LOT # (test code = 3575) POCT PREG TEST DATE (test code = 3576) Lab Interpretation (test code = Normal 59116-7) [facility] [id number] 19:31:00 Test Item Value Reference Range Interpretation Comments POCT PREG (test code = 1605) Negative On board controls acceptable with C Yes Line (test code = 3574) POCT PREG LOT # (test code = 3575) POCT PREG TEST DATE (test code = 3576) Lab Interpretation (test code = Normal 89949-7) [facility]APID [facility])2020-10-08 13:22:00 Test Item Value Reference Range Interpretation Comments SARS-CoV-2 Rapid ID NOW Not Detected Not Detected (test code = 93609-4) AQUILES (test code = AQUILES) ID NOW COVID-19 Assay is an isothermal nucleic acid amplification test intended for the qualitative detection of nucleic acid from SARS-CoV-2 viral RNA in nasopharyngeal ([employer]) specimens. It is used under Emergency Use [...] indicated. Lab Interpretation Normal (test code = 48633-0) [facility] [id number] 18:02:58HISTORY: Epigastric pain. Rule out gallbladder dysfunction or cystic ductdyskinesia. TECHNIQUE: Routine hepatobiliary scan is obtained with 10 mCi of roetrchplh20p mebrofenin. CCK study is completed with slow [...] pain. Rule out gallbladder dysfunction or cystic ductdyskinesia.T ECHNIQUE: Routine hepatobiliary scan is obtained with 10 mCi of [id number] mebrofenin. CCK study is completed with slow [...] of 0 to 4),consistent with cystic duct dyskinesia.[facility]) 2020-09-30 01:00:00 Test Item Value Reference Range Interpretation Comments SARS-CoV-2 Rapid ID NOW Not Detected Not Detected (test code = 84264-5) AQUILES (test code = AQUILES) ID NOW COVID-19 Assay is an isothermal nucleic acid amplification test intended for the qualitative detection of nucleic acid from SARS-CoV-2 viral RNA in nasopharyngeal ([employer]) specimens. It is used under Emergency Use [...] indicated. Lab Interpretation Normal (test code = 59295-7) [facility]. METABOLIC PANEL (76542)2020-09-30 00:52:00 Test Item Value Reference Range Interpretation Comments NA (test code = 139 mmol/L 135-145 5363415189) K (test code = 3.7 mmol/L 3.5-5 6281773605) CL (test code = 101 mmol/L 98-108 9796166146) CO2 TOTAL (test code = 29 mmol/L 23-31 9072950874) AGAP (test code = 2-16 7975927435) BUN (test code = 8 mg/dL 7-23 7594016862) GLUCOSE (test code = 107 mg/dL 70-110 6703906002) CREATININE (test code 0.88 mg/dL 0.5-1.04 = 6273911808) TOTAL BILI (test code 0.3 mg/dL 0.1-1.1 = 4398004907) CALCIUM (test code = 9.8 mg/dL 8.6-10.6 6425096985) T PROTEIN (test code = 7.8 g/dL 6.3-8.2 8043154606) ALBUMIN (test code = 4.4 g/dL 3.5-5 1570364165) ALK PHOS (test code = 90 U/L 34-122 8396638166) ALTv (test code = 17 U/L 5-35 1742-6) AST(SGOT) (test code = 19 U/L 13-40 0553806174) eGFR Calculation mL/min/1.73m2 (Non-) (test code = 1484754897) eGFR Calculation mL/min/1.73m2 () (test code = 6949128712) AQUILES (test code = AQUILES) Association of [...] or urine or abnormalities in imaging tests). [facility] 00:52[facility]00 Test Item Value Reference Range Interpretation Comments LIPASE (test code = 9554531692) 90 U/L 0-220 Lab Interpretation (test code = Normal 45276-3) [facility] WITH [id number] 00:40:00 Test Item Value Reference Range Interpretation Comments WBC (test code = See_Comment [Automated message] 6690-2) The system [employer] generated this result transmitted ref erence range: 4.30 - 1 1.10 10*3/?L. The re ference range was not u sed to interpret this result as normal/abnor mal. RBC (test code = See_Comment [Automated message] 789-8) The system [employer] generated this result transmitted ref erence range: [...] RDW-SD (test code 41.5 fL 39-49.9 = 75150-9) RDW-CV (test code 12.9 % 12-15.5 = 788-0) PLT (test code = See_Comment [Automated message] 777-3) The system whic h generated this result transmitted ref erence range: 166 - 35 8 10*3/?L. The re ference range was not u sed to interpret this result as normal/abnor mal. MPV (test code = 9.8 fL 9.5-12.9 16441-4) NRBC/100 WBC (test See_Comment [Automat ed message] code = 1559912906) The syste m which generated this result transmitted ref erence range: 0.0 - 10 .0 /100 WBCs. The refer ence range was not u sed to interpret this result as normal/abnor mal. NRBC x10^3 (test <0.01 See_Comment [Automated message] code = 5938367893) The syste m which generated this result transmitted ref erence range: 10*3/?L. The reference range was not used to interpr et this result as normal/abnormal . GRAN MAT (NEUT) % 55.2 % (test code = 770-8) IMM GRAN % (test 0.30 % code = 0286792665) LYMPH % (test code 34.2 % = 736-9) MONO % (test code 8.2 % = 5905-5) EOS % (test code = 1.5 % 713-8) BASO % (test code 0.6 % = 706-2) GRAN MAT 4.33 10*3/uL 1.88-7.09 x10^3(ANC) (test code = 2322726427) IMM GRAN x10^3 <0.03 0-0.06 (test code = 0579627637) LYMPH x10^3 (test 2.68 10*3/uL 1.32-3.29 code = 731-0) MONO x10^3 (test 0.64 10*3/uL 0.33-0.92 code = 742-7) EOS x10^3 (test 0.12 10*3/uL 0.03-0.39 code = 711-2) BASO x10^3 (test 0.05 10*3/uL 0.01-0.07 code = 704-7) [facility]13:00 Test Item Value Reference Range Interpretation Comments APPEARANCE (test code = Clear Clear 2550317283) COLOR (test code = Straw Yellow A 7412549682) PH (test code = 4.8-8.0 0775901486) SP GRAVITY (test code = 1.003-1.030 0105665670) GLU U QUAL (test code = Normal Normal 5996440584) BLOOD (test code = 2+ Negative A 8288094688) KETONES (test code = Negative Negative 6183598345) PROTEIN (test code = Negative Negative 2887-8) UROBILIN (test code = Normal Normal 7493443797) BILIRUBIN (test code = Negative Negative 3146619461) NITRITE (test code = Negative Negative 5671270155) LEUK FRAN (test code = Negative Negative 0049270622) RBC/HPF (test code = See_Comment [Autom ated message] 7402517975) The system [employer] generated this result transmitted ref erence range: 0 - 3 HP F. The reference range was not used to int erpret this result as normal/abnormal . WBC/HPF (test code = See_Comment [Autom ated message] 0250569291) The system [employer] generated this result transmitted ref erence range: 0 - 5 HP F. The reference range was not used to int erpret this result as normal/abnormal . BACTERIA (test code = Few Negative A 3301954105) MUCOUS (test code = Slight Negative LPF A 6109131785) SQ EPITH (test code = HPF 2687871939) HYAL CAST (test code = See_Comment [Aut omated message] 9448943791) The system [employer] generated this result transmitted ref erence range: <=2 LPF. The reference range was not used to int erpret this result as normal/abnormal . Lab Interpretation (test Abnormal code = 39420-9) [facility] W [id number] 02:31:43 1. ?No radiopaque cholelithiasis or CT [...] reviewed this study and agree with theabove report.[facility]2020-[facility]-04 01:37:00 Test Item Value Reference Range Interpretation Comments APPEARANCE (test code = Hazy Clear A 0324494479) COLOR (test code = Straw Yellow A 4634490620) PH (test code = 4.8-8.0 0440877054) SP GRAVITY (test code = 1.003-1.030 6480415585) GLU U QUAL (test code = Normal Normal 4967154019) BLOOD (test code = Negative Negative 4885559515) KETONES (test code = Negative Negative 4978555250) PROTEIN (test code = Negative Negative 2887-8) UROBILIN (test code = Normal Normal 1857533156) BILIRUBIN (test code = Negative Negative 9026261775) NITRITE (test code = Negative Negative 8726575246) LEUK FRAN (test code = Negative Negative 0126267487) RBC/HPF (test code = See_Comment [Autom ated message] 1940076442) The system [employer] generated this result transmitted ref erence range: 0 - 3 HP F. The reference range was not used to int erpret this result as normal/abnormal . WBC/HPF (test code = See_Comment [Autom ated message] 4848972397) The system [employer] generated this result transmitted ref erence range: 0 - 5 HP F. The reference range was not used to int erpret this result as normal/abnormal . BACTERIA (test code = Few Negative A 7620344041) SQ EPITH (test code = HPF 3006168093) Lab Interpretation (test Abnormal code = 59596-4) [facility]. METABOLIC PANEL (52221)2020-09-24 01:35:00 Test Item Value Reference Range Interpretation Comments NA (test code = 138 mmol/L 135-145 9361514042) K (test code = 3.8 mmol/L 3.5-5 6452601430) CL (test code = 102 mmol/L 98-108 1908451322) CO2 TOTAL (test code = 27 mmol/L 23-31 3819053466) AGAP (test code = 2-16 4134889257) BUN (test code = 7 mg/dL 7-23 9226676657) GLUCOSE (test code = 108 mg/dL 70-110 5088245055) CREATININE (test code 0.86 mg/dL 0.5-1.04 = 8508287714) TOTAL BILI (test code 0.4 mg/dL 0.1-1.1 = 1656719186) CALCIUM (test code = 10.0 mg/dL 8.6-10.6 5633772474) T PROTEIN (test code = 8.0 g/dL 6.3-8.2 8157520905) ALBUMIN (test code = 4.5 g/dL 3.5-5 5499422611) ALK PHOS (test code = 89 U/L 34-122 7224794434) ALTv (test code = 17 U/L 5-35 1742-6) AST(SGOT) (test code = 18 U/L 13-40 7722920440) eGFR Calculation mL/min/1.73m2 (Non-) (test code = 0156514989) eGFR Calculation mL/min/1.73m2 () (test code = 3032843060) AQUILES (test code = AQUILES) Association of [...] or urine or abnormalities in imaging tests). [facility] 01:35:00 Test Item Value Reference Range Interpretation Comments LIPASE (test code = 4904432438) 90 U/L 0-220 Lab Interpretation (test code = Normal 62929-3) [facility] WITH [id number] 01:27:00 Test Item Value Reference Range Interpretation Comments WBC (test code = See_Comment [Automated message] 6690-2) The system [employer] generated this result transmitted ref erence range: 4.30 - 1 1.10 10*3/?L. The re ference range was not u sed to interpret this result as normal/abnor mal. RBC (test code = See_Comment [Automated message] 789-8) The system [employer] generated this result transmitted ref erence range: [...] RDW-SD (test code 41.9 fL 39-49.9 = 11741-3) RDW-CV (test code 12.9 % 12-15.5 = 788-0) PLT (test code = See_Comment [Automated message] 777-3) The system [employer] generated this result transmitted ref erence range: 166 - 35 8 10*3/?L. The re ference range was not u sed to interpret this result as normal/abnor mal. MPV (test code = 9.6 fL 9.5-12.9 36207-6) NRBC/100 WBC (test See_Comment [Automat ed message] code = 5282902961) The syste m which generated this result transmitted ref erence range: 0.0 - 10 .0 /100 WBCs. The refer ence range was not u sed to interpret this result as normal/abnor mal. NRBC x10^3 (test <0.01 See_Comment [Automated message] code = 0836680190) The syste m which generated this result transmitted ref erence range: 10*3/?L. The reference range was not used to interpr et this result as normal/abnormal . GRAN MAT (NEUT) % 57.6 % (test code = 770-8) IMM GRAN % (test 0.30 % code = 4795333515) LYMPH % (test code 33.3 % = 736-9) MONO % (test code 7.0 % = 5905-5) EOS % (test code = 1.4 % 713-8) BASO % (test code 0.4 % = 706-2) GRAN MAT 4.47 10*3/uL 1.88-7.09 x10^3(ANC) (test code = 1450346303) IMM GRAN x10^3 <0.03 0-0.06 (test code = 2427911233) LYMPH x10^3 (test 2.58 10*3/uL 1.32-3.29 code = 731-0) MONO x10^3 (test 0.54 10*3/uL 0.33-0.92 code = 742-7) EOS x10^3 (test 0.11 10*3/uL 0.03-0.39 code = 711-2) BASO x10^3 (test 0.03 10*3/uL 0.01-0.07 code = 704-7) [facility]"
[2023-04-08] MEDS ORDERED: METOCLOPRAMIDE 10 MG/2mL INJ ONE (11:07)
[2023-04-08] MEDS ORDERED: HYDROMORPHONE HCL 1 MG/ML INJ ONE ×2 (11:07→12:01)
[2023-04-08 11:23] LABS: Absolute Lymphocytes (CBC) 2.9 K/uL (0.7-4.9); Hematocrit 43.1 % (36.0-45.0); Lymphocytes % 34.9 % (15.3-44.8); MCV 86.8 fL (80-100); MPV 8.1 fL (7.6-11.3); RBC Red Blood Cell Count 4.97 M/uL (3.86-4.86)
[2023-04-08 11:32] LABS: Protime INR 0.85
[2023-04-08 11:41] LABS: Albumin 3.6 g/dL (3.4-5.0); Bilirubin Total 0.3 mg/dL (0.2-1.0); Potassium 3.8 mEq/L (3.5-5.1); Protein, Total 8.1 g/dL (6.4-8.2)
[2023-04-08] MEDS ORDERED: ONDANSETRON 4 MG/2 ML VIAL ONE (12:01)
--- NOTE | 2023-04-08 12:11 | RAD REPORT ---
EXAM DESCRIPTION: CT - Head Brain Wo Cont - 04/08/2023 11:24 am CLINICAL HISTORY: HEADACHE COMPARISON: Facial Bones W Con Mpr dated 09/06/2022; Sinuses W/Wo Cont dated 08/09/2022 TECHNIQUE: Noncontrast head CT images ad were obtained without IV contrast. Multiplanar reformats we re generated and reviewed. All CT scans are performed using dose optimization technique as appropriate and may include automated exposure control or mA/KV adjustment according to patient size. FINDINGS: No intracranial hemorrhage, mass, or edema. Partially empty sella again seen. Midline stru ctures are otherwise unremarkable. Normal ventricular caliber for age. Rivera-white matter differentiation is preserved, without evidence of acute infarct. No abnormal extra- axial fluid collections. Mastoid air cells are well aerated. Mucous retention cysts in the maxillary sinuses. No acute bony findings. IMPRESSION: No evidence of an acute intracranial process.
--- NOTE | 2023-04-08 12:35 | ER ---
Nurse's Notes [facility] Name: Juan F Reid Age: 38 yrs Sex: Female : 1985 Arrival Date: 04/08/2023 Time: 10:36 Bed 14 Private MD: Diagnosis: Headache Presentation: 04/08 10:50 Chief complaint: Patient states: Migraine since this morning. Pt reports that urgent ss care told her to come to ER for further evaluation/ treatment because she had previously taken Toradol, Benadryl and Advil this morning without improvement. Coronavirus screen: Client denies travel out of the [place] in the last 14 days. Ebola Screen: Patient denies exposure to infectious person. Patient denies travel to an Ebola-affected area in the 21 days before illness onset. Initial Sepsis Screen: Does the patient meet any 2 criteria? No. Patient's initial sepsis screen is negative. Does the patient have a suspected source of infection? No. Patient's initial sepsis screen is negative. Risk Assessment: Do you want to hurt yourself or someone else? Patient reports no desire to harm self or others. Onset of symptoms was April 08, 2023. 10:50 Method Of Arrival: Ambulatory ss 10:50 Acuity: TRINID[place] 2 ss Triage Assessment: 12:40 Headache History: The patient has had previous headaches and this one is similar to sg5 previous episodes. General: Behavior is calm, cooperative, appropriate for age. General: Appears in no apparent distress. comfortable. Pain: Also complains of. Pain: Pain currently is 4 out of 10 on a pain scale. Pain: Pain began suddenly. 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 - Social history:: Smoking status: Patient denies any tobacco usage or history of. Screenin:14 [facility] ED Fall Risk Assessment (Adult) History of falling in the last 3 months, sg5 including since admission No falls in past 3 months (0 pts). Abuse screen: Denies threats or abuse. Nutritional screening: No deficits noted. Tuberculosis screening: No symptoms or risk factors identified. Assessment: 11:14 General: Appears uncomfortable. Pain: Complains of pain in head. Neuro: Level of sg5 Consciousness is awake, alert, obeys commands, Oriented to person, place, time, situation, Appropriate for age. Cardiovascular: Capillary refill < 3 seconds Patient's skin is warm and dry. Cardiovascular: Reports high blood pressure. Respiratory: Airway is patent Respiratory effort is even, unlabored. GI: No signs and/or symptoms were reported involving the gastrointestinal system. : No signs and/or symptoms were reported regarding the genitourinary system. EENT: No signs and/or symptoms were reported regarding the EENT system. Derm: No signs and/or symptoms reported regarding the dermatologic system. Musculoskeletal: No signs and/or symptoms reported regarding the musculoskeletal system. 11:58 Reassessment: Patient and/or family updated on plan of care and expected duration. Pain sg5 level reassessed. Patient is alert, oriented x 3, equal unlabored respirations, skin warm/dry/pink. Patient states feeling better. Patient states symptoms have improved. Vital Signs: 10:50 BP 183 / 121; Pulse 78; Resp 14; Pulse Ox 98% on R/A; Weight 140.61 kg; Height 5 ft. 7 ss in. ; Pain 9/10; 11:11 BP 149 / 91; Pulse 70; Resp 16; Temp 99.4; Pulse Ox 94% on R/A; Pain 7/10; sg5 11:32 BP 145 / 89; Pulse 70; Resp 18; Pulse Ox 96% on R/A; Pain 5/10; sg5 11:49 BP 129 / 85; Pulse 61; Resp 18; Pulse Ox 95% on R/A; Pain 5/10; sg5 12:29 BP 141 / 86; Pulse 65; Resp 16; Pulse Ox 94% on R/A; Pain 4/10; sg5 10:50 Body Mass Index 48.55 (140.61 kg, 170.18 cm) ss 10:50 Pain Scale: Adult ss 11:11 Pain Scale: Adult sg5 11:32 Pain Scale: Adult sg5 11:49 Pain Scale: Adult sg5 12:29 Pain Scale: Adult sg5 ED Course: 10:39 Patient arrived in ED. ts1 10:44 Daphnie Garces MD is Attending Physician. sp3 10:47 Marianna Coles, NASREEN is Primary Nurse. sg5 10:52 Triage completed. ss 10:52 Arm band placed on right wrist. ss 11:12 Diet: Patient is NPO. mm9 11:12 Patient has correct armband on for positive identification. Bed in low position. Call mm9 light in reach. Side rails up X 1. Client placed on continuous cardiac and pulse oximetry monitoring. NIBP monitoring applied. 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 Pulse ox on. NIBP on. 11:14 Inserted saline lock: 20 gauge in right antecubital area, using aseptic technique. sg5 Blood collected. 11:26 Head Brain Wo Cont In Process Unspecified. EDMS 12:40 No provider procedures requiring assistance completed. IV discontinued. sg5 Administered Medications: 11:10 Drug: HYDROmorphone IVP 1 mg Route: IVP; Site: right antecubital; sg5 11:10 Drug: metoCLOPramide IVP 10 mg Route: IVP; Site: right antecubital; sg5 11:58 Drug: HYDROmorphone IVP 1 mg Route: IVP; Site: right antecubital; sg5 11:58 Drug: Ondansetron IVP 4 mg Route: IVP; Site: right antecubital; sg5 Medication: 12:41 VIS not applicable for this client. sg5 Outcome: 12:34 Discharge ordered by . sp3 12:41 Discharged to home with family. sg5 12:41 Condition: good 12:41 Discharge instructions given to patient, Instructed on discharge instructions, follow up and referral plans. 12:41 Patient left the ED. sg5 Signatures: Dispatcher [employer] EDMS Keisha Gallardo, NASREEN RN Daphnie Garces MD MD sp3 Pat Lang mm9 Marianna Coles RN RN sg5 Jennie Fonseca PAS PAS ts1
--- NOTE | 2023-04-08 12:35 | EDPHYS ---
Physician Documentation [facility] Name: Juan F Reid Age: 38 yrs Sex: Female : 1985 Arrival Date: 04/08/2023 Time: 10:36 Bed 14 Private MD: ED Physician Daphnie Garces HPI: 04/08 10:52 This 38 yrs old Female presents to ER via Ambulatory with complaints of Headache, High sp3 Blood Pressure. 10:52 38-year-old female with a history of "migraine headaches" that she states she has been sp3 diagnosed in 9 years old presents with a headache unresolved with her standard headache regimen. She normally takes ketorolac p.o. and Benadryl p.o. which normally takes care of her headaches however this headache is different and that her blood pressure was elevated for which she measured at home which was 160s over 110s. She initially went to the urgent care who referred her here for further evaluation and treatment. She does not have a history of hypertension or any other medical problems. She states that she has not had any imaging of her brain even as a child. She denies any neck pain, fever, URI symptoms, known sick contacts, travel history, chest pain, shortness of breath, abdominal pain, nausea, vomiting, diarrhea, rash, any other signs or symptoms on ROS at this time.. 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 - Social history:: Smoking status: Patient denies any tobacco usage or history of. ROS: 10:54 Constitutional: Negative for fever, chills, and weight loss, Eyes: Negative for injury, sp3 pain, redness, and discharge, ENT: Negative for injury, pain, and discharge, Neck: Negative for injury, pain, and swelling, Cardiovascular: Negative for chest pain, palpitations, and edema, Respiratory: Negative for shortness of breath, cough, wheezing, and pleuritic chest pain, Abdomen/GI: Negative for abdominal pain, nausea, vomiting, diarrhea, and constipation, Back: Negative for injury and pain, MS/Extremity: Negative for injury and deformity, Skin: Negative for injury, rash, and discoloration, Allergy/Immunology: Negative for hives, rash, and allergies, Endocrine: Negative for neck swelling, polydipsia, polyuria, polyphagia, and marked weight changes, Hematologic/Lymphatic: Negative for swollen nodes, abnormal bleeding, and unusual bruising. 10:54 All other systems are negative. Exam: 10:54 Constitutional: This is a well developed, well nourished patient who is awake, alert, sp3 and in no acute distress. Head/Face: Normocephalic, atraumatic. ENT: Nares patent. No nasal discharge, no septal abnormalities noted. External auditory canals are clear. Oropharynx with no redness, swelling, or masses, exudates, or evidence of obstruction, uvula midline. Mucous membranes moist. Neck: Trachea midline, no thyromegaly or masses palpated, and no cervical lymphadenopathy. Supple, full range of motion without nuchal rigidity, or vertebral point tenderness. No Meningismus. Chest/axilla: Normal chest wall appearance and motion. Nontender with no deformity. No lesions are appreciated. Cardiovascular: Regular rate and rhythm with a normal S1 and S2. No gallops, murmurs, or rubs. Normal PMI, no JVD. No pulse deficits. Respiratory: Lungs have equal breath sounds bilaterally, clear to auscultation and percussion. No rales, rhonchi or wheezes noted. No increased work of breathing, no retractions or nasal flaring. Abdomen/GI: Soft, non-tender, with normal bowel sounds. No distension or tympany. No guarding or rebound. No evidence of tenderness throughout. Back: No spinal tenderness. No costovertebral tenderness. Full range of motion. Skin: Warm, dry with normal turgor. Normal color with no rashes, no lesions, and no evidence of cellulitis. MS/ Extremity: Pulses equal, no cyanosis. Neurovascular intact. Full, normal range of motion. Neuro: Awake and alert, GCS 15, oriented to person, place, time, and situation. Cranial nerves II-XII grossly intact. Motor strength 5/5 in all extremities. Sensory grossly intact. Cerebellar exam normal. Normal gait. Psych: Awake, alert, with orientation to person, place and time. Behavior, mood, and affect are within normal limits. 10:54 Eyes: Positive photophobia.. Vital Signs: 10:50 BP 183 / 121; Pulse 78; Resp 14; Pulse Ox 98% on R/A; Weight 140.61 kg; Height 5 ft. 7 ss in. ; Pain 9/10; 11:11 BP 149 / 91; Pulse 70; Resp 16; Temp 99.4; Pulse Ox 94% on R/A; Pain 7/10; sg5 11:32 BP 145 / 89; Pulse 70; Resp 18; Pulse Ox 96% on R/A; Pain 5/10; sg5 11:49 BP 129 / 85; Pulse 61; Resp 18; Pulse Ox 95% on R/A; Pain 5/10; sg5 12:29 BP 141 / 86; Pulse 65; Resp 16; Pulse Ox 94% on R/A; Pain 4/10; sg5 10:50 Body Mass Index 48.55 (140.61 kg, 170.18 cm) ss 10:50 Pain Scale: Adult ss 11:11 Pain Scale: Adult sg5 11:32 Pain Scale: Adult sg5 11:49 Pain Scale: Adult sg5 12:29 Pain Scale: Adult sg5 MDM: 10:47 Patient medically screened. sp3 10:54 Data reviewed: vital signs, nurses notes, old medical records, lab test result(s), sp3 radiologic studies. ED course: 38-year-old female with hypertensive urgency and headache of unknown etiology. Patient does not have a regular neurologist has not had recent imaging so I hesitate to call for migraine however she does have this headache pattern in the past. Initially we will obtain laboratory values and CT scan of the head and administer Dilaudid and Reglan IV. Will assess and control blood pressure after these initial measures have been performed. Disposition TBD patient course and work-up. Differential diagnosis includes migraine headache, other headache, intracranial hemorrhage, among others. I do not believe patient has an infectious etiology for her symptoms and she is afebrile in the ER currently.. 12:34 ED course: CT scan demonstrates no significant abnormality and laboratory values are sp3 within normal limits. Blood pressure is now down to 141/86 and patient's pain is significantly better. She is asking for discharge and her ride is here to pick her up.. 04/08 11:20 Order name: Comprehensive Metabolic Panel; Complete Time: 11:49 EDMS 04/08 11:20 Order name: CBC with Automated Diff; Complete Time: 11:49 EDMS 04/08 11:20 Order name: Protime (+INR); Complete Time: 11:49 EDMS 04/08 11:12 Order name: Head Brain Wo Cont; Complete Time: 12:31 EDMS 04/08 10:52 Order name: IV Saline Lock; Complete Time: 10:56 sp3 04/08 10:52 Order name: Labs collected and sent sp3 04/08 10:52 Order name: NPO sp3 Administered Medications: 11:10 Drug: HYDROmorphone IVP 1 mg Route: IVP; Site: right antecubital; sg5 11:10 Drug: metoCLOPramide IVP 10 mg Route: IVP; Site: right antecubital; sg5 11:58 Drug: HYDROmorphone IVP 1 mg Route: IVP; Site: right antecubital; sg5 11:58 Drug: Ondansetron IVP 4 mg Route: IVP; Site: right antecubital; sg5 Disposition Summary: 04/08/23 12:34 Discharge Ordered Location: Home sp3 Condition: Stable sp3 Diagnosis - Headache sp3 Followup: sp3 - With: Private Physician - When: Upon discharge from the Emergency Department - Reason: Continuance of care Discharge Instructions: - Discharge Summary Sheet sp3 - General Headache Without Cause sp3 Forms: - Medication Reconciliation Form sp3 - Thank You Letter sp3 - Antibiotic Education sp3 - Prescription Opioid Use sp3 Signatures: Dispatcher [employer] Keisha Brewer, RN RN ss Daphnie Garces MD MD sp3 Marianna Coles RN RN sg5
[2023-04-08 13:00] VITALS: TEMP 99.4
[2023-04-08 13:07] VITALS: BP 141/86; O2SAT 94
== END 2023-04-08 12:41 | disposition home or self-care (01) ==
LOC: ER 10:36
DX: R51.9 Headache, unspecified (principal); Z88.5 Allergy status to narcotic agent
CPT/HCPCS: 85025; 36415; 85610; 80053; 70450; 96375; 96374; 99285; J2765; J1170 ×2; J2405

== ENCOUNTER 2024-06-12 07:25 | Day surgery (SDC) | payer BC ==
[2024-06-06 16:34] LABS: Anion Gap 5.2 mEq/L (5.0-15.0); Potassium 3.2 mEq/L (3.5-5.1)
--- NOTE | 2024-06-10 17:59 | EKG ---
Test Date: 2024-06-06 Test Time: 15:22:02 Sales Team Leader: AMILCAR MEASUREMENT RESULTS: Intervals: Rate: 71 CO: 140 QRSD: 88 QT: 396 QTc: 430 [place]: P: 40 CO: 140 QRS: 69 T: 26 INTERPRETIVE STATEMENTS: Normal sinus rhythm Low voltage QRS Cannot rule out Anterior infarct, age undetermined Abnormal ECG Compared to ECG 05/18/2021 21:37:07 Low QRS voltage now present Myocardial infarct finding still present Electronically Signed On 06-10-24 17:50:02 CDT by Naveen Ramirez
[2024-06-12] MEDS ORDERED: Ringers Lactate 1,000 ML IV ONE (07:46)
[2024-06-12] MEDS ORDERED: FENTANYL CITR 100 MCG/2 ML ONE (08:35)
[2024-06-12] MEDS ORDERED: dexAMETHasone 10 MG/ML VIAL ONE (08:35)
[2024-06-12] MEDS ORDERED: LIDOCAINE 1% MPF 5 ML VIAL ONE (08:35)
[2024-06-12] MEDS ORDERED: MIDAZOLAM HCL 2 MG/2 ML INJ ONE (08:36)
[2024-06-12] MEDS ORDERED: ONDANSETRON 4 MG/2 ML VIAL ONE (08:36)
[2024-06-12] MEDS ORDERED: propofoL 200 MG/20 ML VIAL IV ONE (08:36)
[2024-06-12] MEDS ORDERED: GLYCOPYRROLATE 0.2 MG/ML SYR ONE (08:38)
[2024-06-12] MEDS ORDERED: ROCURONIUM 50 MG/5 ML VIAL IV ONE (08:41)
[2024-06-12] MEDS: LIDOCAINE HCL/EPINEPHRINE 20 ML MDV ONE (09:11)
[2024-06-12] MEDS: FENTANYL CITR 100 MCG/2 ML ONE (10:07)
[2024-06-12] MEDS: HYDROMORPHONE HCL 1 MG/ML INJ ONE ×2 (10:19→10:29)
[2024-06-12] MEDS: HYDROCODONE/APAP 7.5/325 MG TAB ONE (11:23)
[2024-06-12] MEDS: Oxycodone HCl/Acetaminophen 5/325 MG TAB ONE (11:30)
[2024-06-12 12:31] VITALS: BP 130/93; TEMP 97.2; O2SAT 100
--- NOTE | 2024-06-15 15:54 | OP ---
Date of Procedure: 06/12/2024 Surgeon: ARMANI ASHTNO Preoperative Diagnoses: 1.Chronic tonsillitis. 2.Benign neoplasm of tonsils. Postoperative Diagnoses: 1.Chronic tonsillitis. 2.Benign neoplasm of tonsils. Procedure: Tonsillectomy. Anesthesia: General endotracheal anesthesia was administered. I also infiltrated approximately 10 m L of 1% lidocaine with 1:100,000 epinephrine at the surgical site specifically bilateral tonsillar fo ssae. Estimated Blood Loss: Less than 5 mL. Specimens: Bilateral tonsils submitted to Pathology for evaluation. Findings: Bilateral cryptic tonsils 2+/4 in size with evidence of tonsil lithiasis. Complications: None. Disposition: Stable. The patient tolerated the procedure well. Indications For Procedure: The patient is a pleasant 39-year-old female who I have been treating for the past 3-6 months with the chronic throat pain secondary to recurrent tonsillar infections. On ex amination, patient had inflamed bilateral tonsils with evidence of tonsil lithiasis. Her condition h as been refractory to outpatient oral antibiotics and watchful monitoring. These were indications to bring the patient to the operating suite for the above-mentioned procedure. She understood. All qu estions were answered. Risks versus benefits, complications were explained in detail and a consent f orm was signed, and was placed in the chart. Description Of Procedure: Patient was transferred from the preoperative holding area to the operativ e suite by Department of Anesthesia, placed on the operating room table supine, sedated, and intubate d in normal fashion. Table was rotated to 90 degrees. A shoulder roll was not needed. A McIvor ret ractor was introduced to the right oral commissure and directed along the endotracheal tube, and susp ended from the [place] stand. Tonsils were removed by retracting the superior poles midline with straig ht Allis clamps. I dissected through the mucosa down the peritonsillar fascial planes with monopolar electrocautery on a setting of 20 of coagulation and 1 of cutting. Dissection continued within the planes whereby the inferior poles were amputated with suction Bovie. The right tonsil was removed fi rst. The left tonsil was removed second. Specimens were handed off the field. I retracted the soft palate anteriorly to examine the adenoid cavity. There was no evidence of adenoid tissue. Hemostas is was achieved with suction Bovie. I infiltrated approximately 10 mL of 1% lidocaine with 1:100,000 epinephrine into bilateral tonsillar fossa and soft palate. I then introduced a flexible orogastric tube into the esophagus and stomach and all fluid contents were removed. The patient was then de-cali spended from the [facility]. McIvor retractor was removed. The patient's jaw was checked and found to be in proper alignment. She was transferred back to the Department of Anesthesia in stable condit ion, subsequently awakened, extubated, and transferred to postoperative care unit and subsequently di scharged to home on analgesic medication and will follow up in 2-4 weeks or sooner, if needed. MCKENZIE/ROSA Voice ID: [id number] Report ID: [id number]
== END 2024-06-12 11:45 | disposition home or self-care (01) ==
LOC: OR 07:25
PROVIDERS: ATTEND Otolaryngology Facial Plastic Surgery
PROC: 0CTPXZZ Resection of Tonsils, External Approach (ICD-10-PCS; principal; 2024-06-12 08:30)
DX: J35.01 Chronic tonsillitis (principal)
CPT/HCPCS: 93005; 80048; 36415; 81025; 88304; 42826; J2704; J2001; J2250; J3010 ×2; J1100; J1170 ×2; J2405; J7120

== ENCOUNTER 2025-03-02 09:53 | Emergency (ER) | payer BC ==
[2025-03-02] MEDS ORDERED: ONDANSETRON 4 MG/2 ML VIAL ONE (10:22)
[2025-03-02] MEDS ORDERED: MORPHINE 4 MG/ML SYR ONE (10:22)
[2025-03-02] MEDS ORDERED: NA CHLORIDE 0.9% 1,000 ML ONE ×2 (10:22→11:54)
[2025-03-02 10:26] LABS: Absolute Eosinophils 0.1 K/uL (0-0.5); Absolute Lymphocytes (CBC) 1.4 K/uL (0.7-4.9); Absolute Monocytes 0.6 K/uL (0.1-1.3); Absolute Neutrophil 8.5 K/uL (1.8-8.0); Basophils % 0.3 % (0-1.3); Eosinophils % 1.1 % (0-4.4); Hematocrit 46.1 % (36.0-45.0); Lymphocytes % 12.9 % (15.3-44.8); MCH 30.4 pg (27.0-35.0); MCHC 34.7 g/dL (32.0-36.0); MCV 87.6 fL (80-100); MPV 8.2 fL (7.6-11.3); Monocytes % 5.9 % (3.3-12.3); Neutrophils % 79.8 % (41.7-73.7); Platelets 311 thou/uL (152-406); RBC Red Blood Cell Count 5.27 M/uL (3.86-4.86); Red Cell Distribution Width 13.2 % (12.1-15.2)
[2025-03-02] MEDS ORDERED: FENTANYL CITR 100 MCG/2 ML ONE ×2 (10:54→12:27)
[2025-03-02 10:59] LABS: Specific Gravity 1.023 (1.005-1.030)
[2025-03-02 11:01] LABS: Specific Gravity 1.023 (1.005-1.030); Urine Bacteria <20 /HPF (<20); Urine Bilirubin NEGATIVE (Negative); Urine Blood Negative (Negative); Urine Clarity Extremely Turbid (Clear); Urine Color Yellow (Yellow); Urine Culture Reflex Order NOT NEEDED; Urine Glucose NEGATIVE (Negative); Urine Ketones 1+ (Negative); Urine Microscopic Reflex YN ORDER UMIC; Urine Mucus 2+ /HPF (None Seen); Urine Nitrite NEGATIVE (Negative); Urine Protein TRACE (Negative); Urine Urobilinogen Normal (Normal); Urine WBC <5 /HPF (<5); Urine pH 6.5 (5.0-7.0)
[2025-03-02 11:28] LABS: Influenza A Ag Negative; Influenza B Ag Negative; SARS-CoV-2 Antigen Rapid Res Negative (Negative)
[2025-03-02 11:33] LABS: ALT/SGPT 17 U/L (13-56); Albumin 3.3 g/dL (3.4-5.0); Albumin/Globulin Ratio 0.9 (1.1-1.8); Alkaline Phosphatase 75 U/L (45-117); Anion Gap 9.9 mEq/L (5.0-15.0); BUN Blood Urea Nitrogen 6 mg/dL (7-18); Bicarbonate 25 mEq/L (21-32); Bilirubin Total 0.3 mg/dL (0.2-1.0); Globulin 3.6 g/dL (2.3-3.5); Glomerular Filtration Rate 90 ml/min (=/>90); Glucose Level 96 mg/dL (74-106); Lipase 26 U/L (13-75); Potassium 2.9 mEq/L (3.5-5.1); Protein, Total 6.9 g/dL (6.4-8.2); Sodium Level 137 mEq/L (136-145)
[2025-03-02 11:35] LABS: AST/SGOT < 10 U/L (15-37)
[2025-03-02] MEDS ORDERED: KCL 20 MEQ/100 mL IVPB 100 ML IV ONE (11:54)
--- NOTE | 2025-03-02 12:08 | RAD REPORT ---
EXAMINATION: CT Abdomen Pelvis W Contrast CLINICAL INDICATION: Female, 39 years old. ABD PAIN TECHNIQUE: CT abdomen and pelvis was performed, after the administration of IV contrast, [facility]. Axial, sagittal and coronal reconstructions were obtained. One or more of the following dose reduction techniques were used: Automated exposure control, adjustment of the mA and k V according to patient size, and iterative reconstruction. Unless otherwise specified, incidental findings do not require dedicated imaging follow-up. COMPARISON: 12/08/2015 FINDINGS: LOWER CHEST: The visualized lung bases are clear. LIVER: Normal in size and contour. No focal lesion. BILIARY SYSTEM: No suspicious abnormalities. SPLEEN: Normal size. No focal lesion. PANCREAS: No mass, ductal dilation, or luis-pancreatic fluid. ADRENALS: Normal; no mass. KIDNEYS: Normal size and contour. No hydronephrosis. URINARY BLADDER: Unremarkable. GASTROINTESTINAL TRACT: Long segment of bowel wall thickening, edema, and mucosal hyperenhancement th roughout the lower abdomen reaching the terminal ileum, with mild adventitial edema and limited anterior pelvic free fluid. Mild fluid opacification of nondistended ascending colon. No evidence of free air, bowel obstruction or abscess. APPENDIX: Appendix not visualized, but no inflammatory changes in region of appendix. LYMPH NODES: No lymphadenopathy. MUSCULOSKELETAL: No acute or suspicious osseous abnormality. ADDITIONAL FINDINGS: Right adnexal cystic lesion measuring 5.1 cm, not well characterized. IMPRESSION: Long segments of ileal bowel wall thickening and edema, may relate to regional infectious enteritis, or inflammatory bowel disease. Mild pelvic ascites. No evidence of obstruction. Right adnexal 5.1 cm cystic lesion, not well characterized. While this may be physiologic, follow-up pelvic ultrasound recommended in 6-10 weeks to ensure stability.
[2025-03-02] MEDS ORDERED: CIPROFLOXACIN 400mg IV 400 MG/200 ML BAG IV ONE (12:27)
[2025-03-02] MEDS ORDERED: METRONIDAZOLE 500mg IVPB 500 MG/100 ML BAG IV ONE (12:27)
--- NOTE | 2025-03-02 13:05 | ER ---
Nurse's Notes [facility] Name: Juan F Reid Age: 39 yrs Sex: Female : 1985 Arrival Date: 03/02/2025 Time: 09:53 Bed 11 Private MD: Diagnosis: Colitis, dehydration, abdominal pain Presentation: 03/02 09:59 Chief complaint: Patient states: Nasal congestion since Sunday with slight cough. ll1 N/V/D started today. No known fever. Coronavirus screen: Client denies travel out of the [place] in the last 14 days. congestion, cough unrelated to allergies, fatigue, headache, nausea, vomiting. Client presents with at least one sign or symptom that may indicate coronavirus-19. Standard/surgical mask placed on the client. Ebola Screen: Patient denies travel to an Ebola-affected area in the 21 days before illness onset. Initial Sepsis Screen: Does the patient meet any 2 criteria? No. Patient's initial sepsis screen is negative. Does the patient have a suspected source of infection? No. Patient's initial sepsis screen is negative. Risk Assessment: Do you want to hurt yourself or someone else? Patient reports no desire to harm self or others. Onset of symptoms was February 23, 2025. 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 - Infectious Disease History:: Denies. - Social history:: Smoking status: Patient denies any tobacco usage or history of. Screenin:57 [facility] ED Fall Risk Assessment (Adult) History of falling in the last 3 months, iw including since admission No falls in past 3 months (0 pts) Confusion or Disorientation No (0 pts) Intoxicated or Sedated No (0 pts) Impaired Gait No (0 pts) Mobility Assist Device Used No (0 pt) Altered Elimination No (0 pt) Score/Fall Risk Level 0 - 2 = Low Risk Oriented to surroundings. Abuse screen: Denies threats or abuse. Nutritional screening: No deficits noted. Tuberculosis screening: No symptoms or risk factors identified. Assessment: 10:57 General: Appears uncomfortable, Behavior is cooperative, anxious. Pain: Complains of iw pain in left upper quadrant. Neuro: Level of Consciousness is awake, alert, obeys commands, Oriented to person, place, time, situation. GI: Abdomen is non-distended. 12:08 Reassessment: pt states she is still having pain 10/10 when she moves. iw 13:15 Reassessment: Patient appears in no apparent distress at this time. Patient and/or iw family updated on plan of care and expected duration. Pain level reassessed. Patient is alert, oriented x 3, equal unlabored respirations, skin warm/dry/pink. pt up to bathroom, reports having diarrhea. 14:14 Reassessment: No changes from previously documented assessment. Patient and/or family ll1 updated on plan of care and expected duration. Pain level reassessed. Patient is alert, oriented x 3, equal unlabored respirations, skin warm/dry/pink. 14:15 GI: Bowel sounds present X 4 quads. Abd is soft and non tender X 4 quads. ll1 Vital Signs: 09:59 BP 124 / 81; Pulse 92; Resp 18; Temp 98.7; Pulse Ox 97% ; Weight 90.72 kg; Height 5 ft. ll1 7 in. ; Pain 10/10; 13:30 BP 127 / 77; Pulse 84; Resp 16; Pulse Ox 98% on R/A; iw 14:02 BP 115 / 77 LA; Pulse 96; Resp 20; Temp 98.2(O); Pulse Ox 99% on R/A; nh2 09:59 Body Mass Index 31.32 (90.72 kg, 170.18 cm) ll1 09:59 Pain Scale: Adult ll1 ED Course: 09:54 Patient arrived in ED. im 09:54 Daphnie Garces MD is Attending Physician. sp3 09:59 Arm band placed on Patient placed in an exam room, on a stretcher. ll1 09:59 Patient has correct armband on for positive identification. Provided Education on: POC. iw Client placed on continuous cardiac and pulse oximetry monitoring. NIBP monitoring applied. 10:01 Triage completed. ll1 10:03 Radha Esparza, RN is Primary Nurse. iw 11:06 Initial lab(s) drawn, by me, sent to lab. Inserted saline lock: 22 gauge in right iw antecubital area, using aseptic technique. Blood collected. Flushed with 10 mL NS. 11:36 CT Abd/Pelvis - IV Contrast Only In Process Unspecified. EDMS 14:15 No provider procedures requiring assistance completed. IV discontinued, intact, ll1 bleeding controlled, No redness/swelling at site. Pressure dressing applied. Administered Medications: 11:06 Drug: Ondansetron IVP 4 mg IVP once; over 2 minutes Route: IVP; Site: right antecubital;iw 14:10 Follow up: Response: No adverse reaction ll1 11:06 Drug: NS 0.9% IV 1000 ml IV at 1 bolus Per protocol; to be given as a bolus over 60 iw minutes Route: IV; Rate: 1 bolus; Site: right antecubital; 14:10 Follow up: Response: No adverse reaction; IV Status: Completed infusion; IV Intake: ll1 1000ml 11:06 Drug: fentaNYL (PF) IVP 50 mcg IVP once Route: IVP; Site: right antecubital; iw 14:10 Follow up: Response: No adverse reaction; Pain is decreased ll1 11:20 Not Given (Other Intervention Used): morphineor iv 4 mg IVP once over 4 mins iw 12:03 Drug: Potassium Chloride IV 20 mEq IV at calculated rate once; administer over 1-2 iw hours Route: IV; Rate: calculated rate; Site: right antecubital; 14:10 Follow up: Response: No adverse reaction; IV Status: Completed infusion; IV Intake: ll1 100ml 12:03 Drug: NS 0.9% IV 1000 ml IV at 1 bolus Per protocol; to be given as a bolus over 60 iw minutes Route: IV; Rate: 1 bolus; Site: right antecubital; 14:14 Follow up: Response: No adverse reaction; IV Status: Completed infusion; IV Intake: ll1 600ml 12:30 Drug: fentaNYL (PF) IVP 50 mcg IVP once Route: IVP; Site: right antecubital; aa5 12:36 Follow up: Response: No adverse reaction aa5 12:30 Drug: metroNIDAZOLE IVPB 500 mg 100 ml IVPB at 200 ml/hr once over 30 mins Volume: 100 aa5 ml; Route: IVPB; Rate: 200 ml/hr; Infused Over: 30 mins; Site: right antecubital; 14:15 Follow up: Response: No adverse reaction; IV Status: Completed infusion; IV Intake: ll1 100ml 13:06 Drug: Ciprofloxacin IVPB 400 mg 200 ml IVPB once over 60 mins Volume: 200 ml; Route: iw IVPB; Infused Over: 60 mins; Site: right antecubital; 14:14 Follow up: Response: No adverse reaction; IV Status: Completed infusion; IV Intake: ll1 200ml Medication: 10:57 VIS not applicable for this client. iw Intake: 14:10 IV: 1000ml; Total: 1000ml. ll1 14:10 IV: 100ml; Total: 1100ml. ll1 14:14 IV: 600ml; Total: 1700ml. ll1 14:14 IV: 200ml; Total: 1900ml. ll1 14:15 IV: 100ml; Total: 2000ml. 1 Outcome: 13:05 Discharge ordered by MD. alfaro 14:15 Discharged to home ambulatory, ll1 14:15 Condition: stable 14:15 Discharge instructions given to patient, Instructed on discharge instructions, follow up and referral plans. medication usage, Demonstrated understanding of instructions, follow-up care, medications, Prescriptions given X x 5 14:16 Patient left the ED. 1 Signatures: Dispatcher [employer] Radha Karimi RN RN iw Fatemeh Krishna RN RN aa5 Lewis, Lynsay, RN RN ll1 Daphnie Garces MD MD sp3 Janna Trevino , Bry nh2
--- NOTE | 2025-03-02 13:05 | EDPHYS ---
Physician Documentation [facility] Name: Juan F Reid Age: 39 yrs Sex: Female : 1985 Arrival Date: 03/02/2025 Time: 09:53 Bed 11 Private MD: ED Physician Daphnie Garces HPI: 03/02 10:14 This 39 yrs old Female presents to ER via Ambulatory with complaints of Abdominal Pain, sp3 Flu Symptoms. 10:14 39-year-old female with history of asthma, prior colitis and ileitis, PCOS, status post sp3 appendectomy and now presents to the ED with chief complaint left-sided abdominal pain for the last 2 to 3 days coupled with fatigue, malaise and upper respiratory symptoms consisting of rhinorrhea. She denies cough, chest pain or shortness of breath. Patient also states she has had some vomiting and diarrhea without mucus or blood.. 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 - Infectious Disease History:: Denies. - Social history:: Smoking status: Patient denies any tobacco usage or history of. ROS: 10:18 Constitutional: Negative for fever, chills, and weight loss, Eyes: Negative for injury, sp3 pain, redness, and discharge, Neck: Negative for injury, pain, and swelling, Cardiovascular: Negative for chest pain, palpitations, and edema, Respiratory: Negative for shortness of breath, cough, wheezing, and pleuritic chest pain, Back: Negative for injury and pain, MS/Extremity: Negative for injury and deformity, Skin: Negative for injury, rash, and discoloration, Neuro: Negative for headache, weakness, numbness, tingling, and seizure, Psych: Negative for depression, anxiety, suicide ideation, homicidal ideation, and hallucinations, Allergy/Immunology: Negative for hives, rash, and allergies, Endocrine: Negative for neck swelling, polydipsia, polyuria, polyphagia, and marked weight changes, Hematologic/Lymphatic: Negative for swollen nodes, abnormal bleeding, and unusual bruising, 10:18 All other systems are negative, Exam: 10:19 Constitutional: This is a well developed, well nourished patient who is awake, alert, sp3 and in no acute distress. Head/Face: Normocephalic, atraumatic. Eyes: Pupils equal round and reactive to light, extra-ocular motions intact. Lids and lashes normal. Conjunctiva and sclera are non-icteric and not injected. Cornea within normal limits. Periorbital areas with no swelling, redness, or edema. Neck: Trachea midline, no thyromegaly or masses palpated, and no cervical lymphadenopathy. Supple, full range of motion without nuchal rigidity, or vertebral point tenderness. No Meningismus. Chest/axilla: Normal chest wall appearance and motion. Nontender with no deformity. No lesions are appreciated. Cardiovascular: Regular rate and rhythm with a normal S1 and S2. No gallops, murmurs, or rubs. Normal PMI, no JVD. No pulse deficits. Respiratory: Lungs have equal breath sounds bilaterally, clear to auscultation and percussion. No rales, rhonchi or wheezes noted. No increased work of breathing, no retractions or nasal flaring. Back: No spinal tenderness. No costovertebral tenderness. Full range of motion. Skin: Warm, dry with normal turgor. Normal color with no rashes, no lesions, and no evidence of cellulitis. MS/ Extremity: Pulses equal, no cyanosis. Neurovascular intact. Full, normal range of motion. Neuro: Awake and alert, GCS 15, oriented to person, place, time, and situation. Cranial nerves II-XII grossly intact. Motor strength 5/5 in all extremities. Sensory grossly intact. Cerebellar exam normal. Normal gait. Psych: Awake, alert, with orientation to person, place and time. Behavior, mood, and affect are within normal limits. 10:19 ENT: Mild rhinorrhea noted. 10:19 Abdomen/GI: Pain to palpation left abdomen without peritoneal signs, rebound or guarding. Vital signs are normal., Vital Signs: 09:59 BP 124 / 81; Pulse 92; Resp 18; Temp 98.7; Pulse Ox 97% ; Weight 90.72 kg; Height 5 ft. ll1 7 in. ; Pain 10/10; 13:30 BP 127 / 77; Pulse 84; Resp 16; Pulse Ox 98% on R/A; iw 14:02 BP 115 / 77 LA; Pulse 96; Resp 20; Temp 98.2(O); Pulse Ox 99% on R/A; nh2 09:59 Body Mass Index 31.32 (90.72 kg, 170.18 cm) ll1 09:59 Pain Scale: Adult ll1 MDM: 09:56 Medical Screening Exam initiated sp3 10:20 Data reviewed: vital signs, nurses notes, old medical records, lab test result(s), sp3 radiologic studies. ED course: 39-year-old female with history of colitis now presents with left-sided abdominal pain and URI symptoms. Differential diagnosis includes diverticulitis, colitis, proctitis, he UTI/pyelonephritis spectrum, kidney stone, adhesions, functional abdominal pain, constipation, viral illness, influenza, COVID, among others. Workup will include general labs, viral swabs, CT scan of the abdomen pelvis with IV contrast, and treatment with IV fluids, pain and nausea control with disposition pending workup and patient course.. 13:01 ED course: Patient has colitis on CT with no other significant lab abnormalities other sp3 than potassium and dehydration evident by hyaline casts in her urine. Will give a total of 2 L normal saline, potassium replacement, Cipro and Flagyl IV and will discharge patient home on p.o. meds for antibiotics and pain control. Follow-up PCP and GI as needed.. 03/02 10:04 Order name: CBC with Diff; Complete Time: 11:28 3 03/02 10:04 Order name: CMP; Complete Time: 11:38 sp03/02 10:04 Order name: Lipase; Complete Time: 11:38 sp3 03/02 10:04 Order name: Test, Urine; Complete Time: 11:28 sp3 03/02 10:04 Order name: UA Rfx Juan Cult if indicated; Complete Time: 11:28 sp03/02 10:04 Order name: COVID-19 Ag + Flu A+B Ag; Complete Time: 11:38 sp03/02 10:04 Order name: CT Abd/Pelvis - IV Contrast Only; Complete Time: 12:12 sp3 03/02 10:04 Order name: IV Saline Lock; Complete Time: 11:17 sp3 03/02 10:04 Order name: Labs collected and sent; Complete Time: 10:19 sp3 03/02 10:30 Order name: Labs - recollect needed: green top; Complete Time: 11:06 bc6 Administered Medications: 11:06 Drug: Ondansetron IVP 4 mg IVP once; over 2 minutes Route: IVP; Site: right antecubital;iw 14:10 Follow up: Response: No adverse reaction ll1 11:06 Drug: NS 0.9% IV 1000 ml IV at 1 bolus Per protocol; to be given as a bolus over 60 iw minutes Route: IV; Rate: 1 bolus; Site: right antecubital; 14:10 Follow up: Response: No adverse reaction; IV Status: Completed infusion; IV Intake: ll1 1000ml 11:06 Drug: fentaNYL (PF) IVP 50 mcg IVP once Route: IVP; Site: right antecubital; iw 14:10 Follow up: Response: No adverse reaction; Pain is decreased ll1 11:20 Not Given (Other Intervention Used): morphineor iv 4 mg IVP once over 4 mins iw 12:03 Drug: Potassium Chloride IV 20 mEq IV at calculated rate once; administer over 1-2 iw hours Route: IV; Rate: calculated rate; Site: right antecubital; 14:10 Follow up: Response: No adverse reaction; IV Status: Completed infusion; IV Intake: ll1 100ml 12:03 Drug: NS 0.9% IV 1000 ml IV at 1 bolus Per protocol; to be given as a bolus over 60 iw minutes Route: IV; Rate: 1 bolus; Site: right antecubital; 14:14 Follow up: Response: No adverse reaction; IV Status: Completed infusion; IV Intake: ll1 600ml 12:30 Drug: fentaNYL (PF) IVP 50 mcg IVP once Route: IVP; Site: right antecubital; aa5 12:36 Follow up: Response: No adverse reaction aa5 12:30 Drug: metroNIDAZOLE IVPB 500 mg 100 ml IVPB at 200 ml/hr once over 30 mins Volume: 100 aa5 ml; Route: IVPB; Rate: 200 ml/hr; Infused Over: 30 mins; Site: right antecubital; 14:15 Follow up: Response: No adverse reaction; IV Status: Completed infusion; IV Intake: ll1 100ml 13:06 Drug: Ciprofloxacin IVPB 400 mg 200 ml IVPB once over 60 mins Volume: 200 ml; Route: iw IVPB; Infused Over: 60 mins; Site: right antecubital; 14:14 Follow up: Response: No adverse reaction; IV Status: Completed infusion; IV Intake: ll1 200ml Disposition Summary: 03/02/25 13:05 Discharge Ordered Notes: Location: Home sp3 Condition: Stable sp3 Diagnosis - Colitis, dehydration, abdominal pain sp3 Followup: sp3 - With: Private Physician - When: Upon discharge from the Emergency Department - Reason: Continuance of care Discharge Instructions: - Discharge Summary Sheet sp3 - Colitis sp3 Forms: - Medication Reconciliation Form sp3 - Antibiotic Education sp3 - Prescription Opioid Use sp3 - Patient Portal Instructions sp3 - Leadership Thank You Letter sp3 Prescriptions: - Cipro 500 mg Oral Tablet - take 1 tablet ORAL route every 12 hours for 10 days; 20 tablet; Refills: 0, sp3 Product Selection Permitted - Flagyl 500 mg Oral Tablet - take 1 tablet ORAL route every 8 hours for 10 days; 30 tablet; Refills: 0, sp3 Product Selection Permitted - Diclofenac Sodium 75 mg Oral Tablet Sustained Release - take 1 tablet ORAL route 2 times per day; 30 tablet; Refills: 0, Product sp3 Selection Permitted - Tramadol 50 mg Oral Tablet - take 1 tablet ORAL route every 8 hours as needed; 12 tablet; Refills: 0, sp3 Product Selection Permitted - ondansetron 8 mg Oral Tablet,disintegrating - take 1 tablet ORAL route every 12 hours; 20 tablet; Refills: 0, Product sp3 Selection Permitted Signatures: Dispatcher [employer] EDMS Radha Esparza RN RN iw Fatemeh Krishna RN NASREEN aa5 Colette Liao RN RN ll1 Daphnie Garces MD MD sp3 Natalie Cruz 6 Corrections: (The following items were deleted from the chart) 10:04 10:04 CBC+H.LAB.BRZ ordered. EDMS EDMS 10:04 10:04 COMPREHENSIVE METABOLIC PANEL+C.LAB.BRZ ordered. EDMS EDMS 10:04 10:04 LIPASE+C.LAB.BRZ ordered. EDMS EDMS 10:04 10:04 Test, Urine+UC.LAB.BRZ ordered. EDMS EDMS 10:04 10:04 UA Rfx Juan Cult if indicated+U.LAB.BRZ ordered. EDMS EDMS 10:04 10:04 COVID-19 Ag + Flu A+B Ag+I.LAB.BRZ ordered. EDMS EDMS
[2025-03-02 14:42] VITALS: BP 115/77; TEMP 98.2; O2SAT 99
== END 2025-03-02 14:16 | disposition home or self-care (01) ==
LOC: ER 09:53
DX: K52.9 Noninfective gastroenteritis and colitis, unspecified (principal); E86.0 Dehydration; Z11.52 Encounter for screening for COVID-19
CPT/HCPCS: 96365; 96367; 96361; 85025; 81001; 36415; 81025; 83690; 80053; 74177; 96375; 99284; 87428; Q9967; J3480; J3010 ×2; J2405; J0744; J7030 ×2